=== PATIENT | male | born 1955 | race Caucasian/White ===

== ENCOUNTER 2018-09-19 13:07 | Inpatient (IN) | payer MEDICARE, OTHER ==
[~2018-09-19] VITALS: Ht 175.3 cm; Wt 81.3 kg
--- NOTE | 2018-09-19 13:20 | ERD ---
ER Documentation Chief Complaint Chief Complaint left sided chest pain HPI The patient is a 63-year-old male, presenting to the ER because of left-sided chest pain, headache, subjective fever for 1 day. He denies chills, facial pain , cough, neck pain, chest pain with vomiting/radiation/exertion/diaphoresis, dyspnea, abdominal pain, vomiting, dysuria, diarrhea. He does not smoke, drinks socially, denies any illicit drug Past medical history: Psoriasis, diabetes mellitus Surgical History: Right lower extremity surgery ROS All systems reviewed and are negative except as per history of present illness. Medications Home Meds Reported Medications Betamethasone Dipropionate* (Betamethasone Dipropionate*) 0.05% - 45 Gm Cream.gm., TOP BID apply to affected 09/19/18 Etanercept (Enbrel Mini) 50 Mg/1 Ml Cartridge, 1 TAB SC weekly We09/19/18 Somers-3 Fatty Acids/Fish Oil (Fish Oil 1,000 mg Capsule) 1 Each Capsule, 1 CAP PO DAILY, CAP 09/19/18 Betamethasone Dipropionate* (Betamethasone Dipropionate*) 0.05% - 15 Gm Oint, 1 BID apply to affected area 09/19/18 Leflunomide* (Leflunomide*) 20 Mg Tablet, 1 TAB ORAL DAILY 09/19/18 Metformin Hcl* (Metformin Hcl*) 1,000 Mg Tablet, 1 TAB ORAL BID 09/19/18 Atorvastatin* (Atorvastatin*) 40 Mg Tablet, 1 TAB ORAL QHS 09/19/18 Lisinopril* (Lisinopril*) 2.5 Mg Tablet, 1 TAB ORAL DAILY 09/19/18 Acetaminophen (Acetaminophen) 500 Mg Tablet, 1 TAB ORAL Q6 PRN for MILD PAIN(1- 3)OR ELEVATED TEMP 09/19/18 Glipizide* (Glipizide*) 5 Mg Tablet, 1 TAB ORAL BID 09/19/18 Allergies Allergies: Coded Allergies: No Known Allergy (Unverified , 09/19/18) Physical Exam Vitals Vital Signs Date Temp Pulse Resp B/P (MAP) Pulse Ox O2 O2 Flow FiO2 Time Delivery Rate 09/19/18 89 16 108/79 99 Room Air 19:51 (89) 09/19/18 100.5 125 18 103/45 99 Nasal 2.0 17:01 (64) Cannula 09/19/18 100.5 149 18 97/70 (79) 99 Nasal 2.0 16:47 Cannula 09/19/18 100.5 175 22 76/51 (59) 96 Room Air 2.0 16:30 Nasal Cannula 09/19/18 100.5 160 22 85/47 (60) 99 Nasal 2.0 16:23 Cannula 09/19/18 100.5 123 16 107/73 99 15:58 (84) 09/19/18 38.1 15:55 09/19/18 100.5 125 16 103/68 99 15:06 (80) 09/19/18 Nasal 2 13:47 Cannula 09/19/18 100.5 121 16 116/63 99 13:13 (80) Physical Exam Const: No acute distress. Head: Atraumatic. Eyes: Normal Conjunctiva. ENT: Normal External Ears, Nose and Mouth. Neck: Full range of motion. No meningismus. Resp: Clear to auscultation bilaterally. Cardio: Regular tachycardic Abd: Soft, non distended, normal bowel sounds, non tender. Skin: No petechiae or rashes. Back: No midline or flank tenderness. Ext: No cyanosis, or edema. Neur: Awake and alert. No focal deficit Psych: Normal Mood and Affect. Result Diagram: 09/19/18 1337 09/19/18 1337 Results 24 hrs Laboratory Tests Test 09/19/18 13:36 09/19/18 13:37 09/19/18 15:20 09/19/18 15:45 POC Venous 1.7 mmol/L Lactate White Blood Count 14.6 10^3/ul Red Blood Count 5.09 10^6/ul Hemoglobin 15.2 g/dl Hematocrit 45.1 % Mean Corpuscular 88.6 fl Volume Mean Corpuscular 29.9 pg Hemoglobin Mean Corpuscular 33.7 g/dl Hemoglobin Concen t Red Cell 12.5 % Distribution Width Platelet Count 212 10^3/UL Mean Platelet 12.5 fl Volume Immature 0.300 % Granulocytes % Neutrophils % 80.2 % Lymphocytes % 10.8 % Monocytes % 7.9 % Eosinophils % 0.3 % Basophils % 0.5 % Nucleated Red 0.0 /100WBC Blood Cells % Immature 0.040 10^3/ul Granulocytes # Neutrophils # 11.7 10^3/ul Lymphocytes # 1.6 10^3/ul Monocytes # 1.2 10^3/ul Eosinophils # 0.0 10^3/ul Basophils # 0.1 10^3/ul Nucleated Red 0.0 10^3/ul Blood Cells # Prothrombin Time 13.5 Sec Prothrombin Time 1.1 Ratio INR International 1.02 Normalized Ratio Activated 23.5 Sec Partial Thrombopl ast Time Sodium Level 135 mmol/L Potassium Level 4.7 mmol/L Chloride Level 97 mmol/L Carbon Dioxide 27 mmol/L Level Anion Gap 11 Blood Urea 11 mg/dl Nitrogen Creatinine 0.79 mg/dl Est Glomerular > 60 mL/min Filtrat Rate mL/min Glucose Level 176 mg/dl Calcium Level 9.0 mg/dl Total Bilirubin 1.6 mg/dl Direct Bilirubin 0.00 mg/dl Indirect 1.6 mg/dl Bilirubin Aspartate Amino 23 IU/L Transf (AST/SGOT) Alanine 33 IU/L Aminotransferase (ALT/SGPT) Alkaline 78 IU/L Phosphatase Troponin I < 0.012 ng/ml Total Protein 7.2 g/dl Albumin 4.3 g/dl Globulin 2.90 g/dl Albumin/Globulin 1.48 Ratio Thyroid 2.600 MIU/L Stimulating Hormone (TSH) Urine Color EDGARD Urine Clarity CLEAR Urine pH 5.0 Urine Specific 1.020 [place] Urine Ketones TRACE mg/dL Urine Nitrite NEGATIVE mg/dL Urine Bilirubin NEGATIVE mg/dL Urine NEGATIVE mg/dL Urobilinogen Urine Leukocyte NEGATIVE [place]/ul Esterase Urine Hemoglobin NEGATIVE mg/dL Urine Glucose NEGATIVE mg/dL Urine Total NEGATIVE mg/dl Protein Lactic Acid Level 2.0 mmol/L Test 09/19/18 15:57 09/19/18 19:22 Bedside Urine pH 6.0 (LAB) Bedside Urine Trace Protein (LAB) Bedside Urine Negative Glucose (UA) Bedside Urine 1+ Ketones (LAB) Bedside Urine Negative Blood Bedside Urine Negative Nitrite (LAB) Bedside Urine Negative Leukocyte Esteras e (L Lactic Acid Level 1.8 mmol/L Current Medications Medications Dose Sig/Shanelle Start Time Status Last (Trade) Ordered Route PRN Stop Time Admin Dose Reason Admin Sodium 2,320 ml BOLUS OVER 2 09/19/18 DC 09/19/18 Chloride HOURS STAT 13:28 13:39 (NS) IV* 09/19/18 13:30 650 mg ONCE ONCE 09/19/18 DC 09/19/18 Acetaminophen PO 16:00 15:55 (Tylenol 09/19/18 16:01 Tab) Sodium 1,000 ml @ Q1H ONCE 09/19/18 DC 09/19/18 Chloride 1,000 mls/hr IV 16:00 15:54 09/19/18 16:59 Ketorolac 30 mg ONCE STAT 09/19/18 DC 09/19/18 Tromethamine IV 15:45 15:55 (Toradol) 09/19/18 15:51 Aspirin 325 mg ONCE ONCE 09/19/18 DC 09/19/18 (Aspirin) PO 16:00 15:55 09/19/18 16:01 250 ml @ TITRATE IV 09/19/18 09/19/18 Norepinephrin 1.875 mls/ 16:30 16:33 e hr Vancomycin 250 ml @ ONCE ONCE 09/19/18 DC 09/19/18 HCl 125 mls/hr IVPB 16:30 18:27 09/19/18 18:29 Piperacillin 100 ml @ ONCE ONCE 09/19/18 DC 09/19/18 Sod/ 200 mls/hr IVPB 16:30 16:36 Tazobactam 09/19/18 16:59 Sod Iohexol 100 ml @ ud STK-MED 09/19/18 DC ONCE .ROUTE 16:31 09/19/18 16:32 Sodium 100 ml @ ud STK-MED 09/19/18 DC Chloride ONCE .ROUTE 16:31 09/19/18 16:32 Procedures/[place] [address] Radiology Main Line: [phone] DIAGNOSTIC IMAGING REPORT Patient: KI FELIX : 1955 Age: 63 Sex: M MR #: [id number] DOS: 09/19/18 1714 Ordering MD: JOAO SCHWARZ MD Location: E/R Room/Bed: PROCEDURE: CT ABDOMEN AND PELVIS WITH CONTRAST CLINICAL INDICATION: 63-year-old male. Abdominal pain. TECHNIQUE: CT scan of the abdomen and pelvis with contrast was performed on a multi-slice CT scanner utilizing axial imaging from the lung bases through the pubis symphysis. One or more the following does reduction techniques were utilized: Automated exposure control, adjustment of the mA/ or kV according to patient's size, or use of iterative reconstruction technique. Sagittal and coronal reformatted images were made. DICOM images are available for review. The CTDIvol = 12.59 mGy. DLP = 807.53 mGy.cm. CONTRAST: 90 cc Omnipaque-300 IV COMPARISON: Right upper quadrant ultrasound 09/19/2018. FINDINGS: CT abdomen Visualized lung bases: Dependent changes and subsegmental atelectasis posterior lower lobes. Pleural parenchymal scarring medial inferior left upper lobe. Moderate pericardial effusion, HU 20. No significant pleural effusion. Liver: No focal liver lesion. Mild periportal edema. Capsule margin is smooth. Patent portal vein. Gallbladder and bile ducts: No calcified gallstones. Pericholecystic fluid is present. There is increased soft tissue reticulation in the periportal fat. No biliary ductal dilatation. Spleen: Normal appearance. Pancreas: Normal appearance. No ductal dilatation. No mass. No peripancreatic stranding. Adrenal glands: Normal appearance. Kidneys: Horseshoe kidney. Symmetric nephrograms. No hydronephrosis or renal stones. No solid lesions. Vasculature: No abdominal aortic aneurysm. Calcified plaque present. Negative IVC. Lymph nodes: No adenopathy. GI: No hiatal hernia. No evidence of obstruction or bowel wall thickening. Peritoneal cavity: There is a small amount of free fluid around the dome of the liver. Inflammatory changes are in the fat surrounding the ligamentum teres as it courses through the liver and in the anterior right upper quadrant. CT pelvis GI: Negative terminal ileum. Negative appendix. Sigmoid diverticulosis. Stool filled rectum. : Normal appearing distal ureters and partially filled urinary bladder. Slightly heterogeneous normal size prostate gland. Peritoneal cavity: There is soft tissue stranding and minimal fluid in the mid left pelvis. Lymph nodes: No pathologic adenopathy. Osseous structures: No lytic or blastic lesions. Mild right hip osteoarthritis. Minimal chondrocalcinosis left hip. L4-5 disc degeneration with vacuum p henomenon. Chronic narrowing L5-S1 disc with endplate osteophytes. IMPRESSION: 1. Gallstones demonstrated on the ultrasound are not apparent on CT. 2. Findings suspicious for acute cholecystitis. 3. Moderate pericardial effusion, HU 20, indicating this does not represent simple fluid. 4. Mild periportal edema, nonspecific finding. 5. Horseshoe kidney. 6. Sigmoid diverticulosis. There is minimal soft tissue stranding and fluid in the left mid pelvic fat which could represent mild inflammatory change. 7. Small amount of free fluid around the liver. RPTAT: HLRS Physician Mandie Date Time Electronically viewed and signed by Armando Heck Physician on 09/19/2018 19:13 RS/ CC: JOAO SCHWARZ MD [id number] [place] [address] Radiology Main Line: [phone] DIAGNOSTIC IMAGING REPORT Patient: KI FELIX : 1955 Age: 63 Sex: M MR #: [id number] DOS: 09/19/18 1623 Ordering MD: JOAO SCHWARZ MD Location: E/R Room/Bed: PROCEDURE: CTA Chest. CLINICAL INDICATION: Chest pain and shortness of breath TECHNIQUE: Continues 1.25 mm axial images were obtained from lung apices to the domes of diaphragms following intravenous injection of 100 cc of Isovue 370. Images reconstructed in coronal, sagittal, and 3-D format using maximum intensity projection technique.. The calculated dose length product (DLP) = 578.08 mGy-cm. The CTDlvol = 15.59 mGy. One or more of the following dose reduction techniques were used: Automated exposure control, adjustment of the mA and or KV according to patient size, or use of iterative reconstruction technique. DICOM images are available. COMPARISON: No prior studies are available for comparison. FINDINGS: Images through the pulmonary arteries demonstrates no evidence of large or central pulmonary emboli. Ascending and descending thoracic aorta are normal in caliber without aneurysmal dilatation or dissection. Heart chambers are normal in size. There is moderate sized pericardial effusion extending superiorly into the pericardial recess around the ascending thoracic aorta. There are reactive precarinal and superior mediastinal lymph nodes measuring up to 9.6 mm. No frankly pathologic adenopathy is seen. Evaluation of the lung pickett demonstrates no confluent pneumonia, pleural fluid or pneumothorax. No suspicious or dominant lung nodules/masses are seen. The bronchi are normal in caliber. There is a benign-appearing expansile cystic lesion involving the inferior tip at the right scapula which may be related to old trauma. No destructive bony lesions are seen. IMPRESSION: 1. No evidence of large or central pulmonary emboli. 2. No aortic aneurysm or dissection. 3. Moderate sized pericardial effusion. 4. Reactive mediastinal adenopathy. No pathologic adenopathy. 5. Lungs grossly clear. 6. Expansile benign-appearing lesion/process along the inferior right scapular tip. Recommend correlation with dedicated x-rays RPTAT: HH .Gopi Woody MD, MD Date Time Electronically viewed and signed by .Gopi Woody MD, MD on 09/19/2018 19:06 .W/ CC: JOAO SCHWARZ MD [id number] [place] [address] Radiology Main Line: [phone] DIAGNOSTIC IMAGING REPORT Patient: KI FELIX : 1955 Age: 63 Sex: M MR #: [id number] DOS: 09/19/18 1543 Ordering MD: JOAO SCHWARZ MD Location: E/R Room/Bed: PROCEDURE: Right upper quadrant abdominal ultrasound. CLINICAL INDICATION: Abdominal pain TECHNIQUE: Levine scale and color doppler ultrasound images of the right upper quadrant of the abdomen. COMPARISON: None FINDINGS: Pancreas: Visualized portions appear of normal echogenicity without focal lesions. Liver: Morphology:Normal in size. Contour:Normal, no evidence of nodularity. Echogenicity: Increased Focal lesions:None. Main portal vein: Patent with hepatopetal flow. Biliary System: Gallbladder wall: Wall thickening and edema are present. Gallstones: Present Intrahepatic bile ducts: Normal caliber. Common bile duct diameter (mm): 6.2 Kidneys: Right length (cm) : 10.2 Right cortical thickness: Normal. Echogenicity: Normal. Hydronephrosis: None. Renal calculi: None. Focal lesions: None. Free fluid/ascites: None. Other findings: None. IMPRESSION: Gallstone present within the neck of the gallbladder. Gallbladder wall thickening and edema compatible with cholecystitis. Increased echogenicity of the liver parenchyma suggestive of hepatic steatosis. RPTAT: AADD .Jeovanny Waggoner MD, MD Date Time Electronically viewed and signed by .Jeovanny Waggoner MD, on 09/19/2018 16:22 .B/ CC: JOAO SCHWARZ MD [id number] [place] [address] Radiology Main Line: [phone] DIAGNOSTIC IMAGING REPORT Patient: KI FELIX : 1955 Age: 63 Sex: M MR #: [id number] DOS: 09/19/18 1328 Ordering MD: JOAO SCHWARZ MD Location: E/R Room/Bed: PROCEDURE: XR Chest AP portable CLINICAL INDICATION: Sepsis TECHNIQUE: An AP portable radiograph of the chest was submitted. COMPARISON: None. FINDINGS: Support Hardware: None Cardiovascular: The cardiovascular silhouette appears unremarkable. Lung Pickett: The patient is taken a suboptimal inspiration compressing lung parenchyma. No discrete infiltrate or nodule is evident. Pleural Spaces: No pneumothorax or pleural effusion is identified. Osseous Structures: The osseous structures appear intact. Soft Tissues: The soft tissues appear generous. IMPRESSION: 1. Suboptimal inspiration compresses lung parenchyma. The lung pickett and pleural spaces are otherwise unremarkable. 2. The cardiovascular silhouette appears unremarkable. Physician Mitchell Date Time Electronically viewed and signed by Physician Mitchell on 09/19/2018 13:58 RH/ CC: JOAO SCHWARZ MD [id number] EK:17 PM read by emergency physician Rate/Rhythm: Sinus Tachycardia 122 beats/min QRS, ST, T-waves: No ST elevation, no T inversion, PAC, low voltage Impression: Abnormal EKG EK:18 PM read by emergency physician Rate/Rhythm: Sinus Tachycardia 125 beats/min QRS, ST, T-waves: No ST elevation, no T inversion, PAC, low voltage Impression: Abnormal EKG Consultation: I discussed the patient with the on-call surgeon Dr Vega, who evaluated the patient in the ER MEDICAL MAKING DECISION: The patient is a 63-year-old male, presenting with septic shock, acute cholecystitis, acute pericardial effusion He was treated with Tylenol in 6 to 50 mg p.o. for fever, normal saline 30 mm/kg IV, vancomycin IV, Zosyn IV, additional NS 1 L IV and Levophed drip due to acute septic shock, Toradol 30 mg IV for pain and aspirin 325 mg p.o. for acute chest pain The differential diagnoses considered include but are not limited to ACS, PE, perforated viscus, cholelithiasis, cholecystitis, choledocholithiasis, cholangitis, pancreatitis, hepatitis, gastritis, peptic ulcer disease, gastric ulcer, appendicitis, cystitis, diverticulitis, partial small bowel obstruction. MDM: Patient's infectious symptoms have not stabilized and the patient is at risk of rapid decompensation. The patient will be admitted for careful hydration, anti biotic therapy, and infectious source control. SEVERE SEPSIS CRITERIA: Infectious source: cholecystitis End organ damage indicated by: Hypotension (SBP < 90 or >40 mmHG drop or MAP < 65) SEPSIS MANAGEMENT Time of recognition of septic shock: 16:30hr 3 HOUR BUNDLE Blood cultures x 2 before broad-spectrum antibiotics: [Yes] 30 ml/kg NS bolus [Completed] Initial lactate []1.7 Repeat lactate Pending SEPTIC SHOCK ASSESSMENT: [No] lactic acid > 4.0 [Y] Persistent hypotension (SBP < 90 or 40 mmHg drop, MAP < 65) despite 30 mL/kg IV fluid bolus VOLUME REASSESSMENT FOR SEPTIC SHOCK: Reevaluation Time: []16:30hr Temp []100.5, BP []76/51, HR []175, RR[]22, Pox []96% Heart [Regular tachycardic] Lungs [No crackles] Skin [Warm & dry] Cap Refill [Less than 2 seconds] Peripheral pulses [Radially present] PERSISTENT HYPOTENSION TREATMENT: Comfort care [No] Central line RIJ Vasopressor started Levophed drip I considered further perfusion assessment with CVP measurement, SCVO2, bedside ultrasound volume assessment, passive leg raise, trial of further fluid bolus. And proceeded with [30 ml/kg fluid bolus of NSS and additional 1L NS, broad spectrum antibiotics, and admission.] CRITICAL CARE Critical care time [35] minutes Emergent fluid management while maintaining close respiratory support. Provision of immediate and broad-spectrum antibiotic therapy. Simultaneous assessment for possible sources in order to direct targeted therapy. Con sideration for invasive and chemical support to prevent cardiopulmonary collapse. Critical care time is independent of procedures performed. Central Line Placement by me: After the patient was consented and a time out was performed, appropriate hand hygiene was performed, the skin site was fully prepped and maximal sterile barrier technique was employed where the patient was sterilely draped, and the provider wore a mask and sterile gown and gloves. Anesthesia: 1% lidocaine locally Location: RIJ Device: Multiple lumen Technique: Seldinger technique. Secured with suture. Results: Venous return from all ports with easy saline flush. No complications. []Guide wire retrieved and disposed of. ED Ultrasound: Central line placed by me using concurrent ultrasound guidance done using sterile technique. Real time image archived in the medical record confirms vascular anatomy. Chest X-ray 1V Interpreted by me: Central line in SVC, Normal soft tissue, No evidence of pneumothorax. Departure Diagnosis: Primary Impression: Septic shock Additional Impressions: Cholecystitis Pericardial effusion Chest pain Abnormal LFTs Condition: Critical Comments I discussed the findings with the patient. I notified the patient with at 7:20 PM via [employer] , who was made aware of the lab, the treatment, the patient condition. The patient is admitted to ICU Disclaimer: Inadvertent spelling and grammatical errors are likely due to EHR/di ctation software use and do not reflect on the overall quality of patient care. Also, please note that the electronic time recorded on this note does not necessarily reflect the actual time of the patient encounter. JOAO SCHWARZ MD Sep 19, 2018 13:20
[2018-09-19] MEDS ORDERED: SODIUM CHLORIDE 0.9% 1L BAG IV* STA (13:28)
[2018-09-19] MEDS ORDERED: LEFL20TA18 ORAL (14:47)
[2018-09-19] MEDS ORDERED: ATOR40TA68 ORAL (14:47)
[2018-09-19] MEDS ORDERED: ACET500T98 ORAL (14:47)
[2018-09-19] MEDS ORDERED: METF100010 ORAL (14:47)
[2018-09-19] MEDS ORDERED: ETAN50CA SC (14:47)
[2018-09-19] MEDS ORDERED: LISI2.5T59 ORAL (14:47)
[2018-09-19] MEDS ORDERED: GLIP5TAB13 ORAL (14:47)
[2018-09-19] MEDS ORDERED: OMEG-135 PO (14:47)
[2018-09-19] MEDS ORDERED: BTM.05O15 (14:47)
[2018-09-19] MEDS ORDERED: BETA45CR3 TOP (14:47)
[2018-09-19] MEDS ORDERED: KETOROLAC 30 MG INJ IV STA (15:45)
[2018-09-19] MEDS ORDERED: ACETAMINOPHEN 325 MG TAB PO ONE (16:00)
[2018-09-19] MEDS ORDERED: SOD CHLORIDE 0.9% 1,000 ML IV ONE (16:00)
[2018-09-19] MEDS ORDERED: ASPIRIN 325 MG TAB PO ONE (16:00)
[2018-09-19] MEDS ORDERED: NORepinephrine 8MG/250 ML (PMX 250 ML IV SCH (16:30)
[2018-09-19] MEDS ORDERED: VANCOMYCIN 1 GM (PMX) 250 ML IVPB ONE (16:30)
[2018-09-19] MEDS ORDERED: PIPER-TAZO 3.375 GM IV (PMX) 100 ML IVPB ONE (16:30)
[2018-09-19] MEDS ORDERED: SOD CHLORIDE 0.9% 100 ML ONE (16:31)
[2018-09-19] MEDS ORDERED: IOHEXOL 100 ML ONE (16:31)
--- NOTE | 2018-09-19 19:39 | HP ---
Date/Time of Note Date/Time of Note DATE: 09/19/18 TIME: 19:38 Assessment/Plan VTE Prophylaxis SCD applied (from Nsg): Yes Pharmacological prophylaxis: NA/contraindicated Pharm contraindication: low risk/ambulating Lines/Catheters IV Catheter Type (from Nrsg): Saline Lock Assessment/Plan Hospital Course This is a 63 [place] being admitted to the ICU floor for: 1. Septic shock: Secondary to underlying acute cholecystitis. Broad-spectrum antibiotics of Zosyn. Patient is currently on levophed to maintain a map of greater than 65. Culture results are pending. Trend lactic acid level. 2. Chest pain: Initial troponin negative, will trend cardiac enzymes x3. I will order stat echocardiogram given patient's underlying pericardial effusion seen on CTA of the chest. Will consult cardiology . 3. Pericardial effusion: Etiology unknown, possibly secondary to underlying autoimmune disease. CTA of the chest shows moderate pericardial effusion. Will obtain a stat echocardiogram. Consult cardiology . 4. Acute cholecystitis: We will continue Zosyn, general surgery already on board. 5. Scapular lesion: We will obtain dedicated shoulder series x-rays. 6. Psoriasis: Hold methotrexate, Enbrel, leflunomide 7. 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 9. DVT GI prophylaxis: SCDs, H2 sheldon Further treatment strategy will be implemented as per the clinical course Greater than 40 minutes of critical care time was spent on the care and management of this patient. Result Diagram: 09/19/18 1337 09/19/18 1337 Results 24hrs Laboratory Tests Test 09/19/18 13:36 09/19/18 13:37 09/19/18 15:20 09/19/18 15:45 POC Venous Lactate 1.7 White Blood Count 14.6 H Red Blood Count 5.09 Hemoglobin 15.2 Hematocrit 45.1 Mean Corpuscular 88.6 Volume Mean Corpuscular 29.9 Hemoglobin Mean Corpuscular 33.7 Hemoglobin Concent Red Cell 12.5 Distribution Width Platelet Count 212 Mean Platelet Volume 12.5 H Immature 0.300 Granulocytes % Neutrophils % 80.2 H Lymphocytes % 10.8 L Monocytes % 7.9 Eosinophils % 0.3 Basophils % 0.5 Nucleated Red Blood 0.0 Cells % Immature 0.040 H Granulocytes # Neutrophils # 11.7 H Lymphocytes # 1.6 Monocytes # 1.2 H Eosinophils # 0.0 Basophils # 0.1 Nucleated Red Blood 0.0 Cells # Prothrombin Time 13.5 Prothrombin Time 1.1 Ratio INR International 1.02 Normalized Ratio Activated 23.5 Partial Thromboplast Time Sodium Level 135 Potassium Level 4.7 Chloride Level 97 Carbon Dioxide Level 27 Anion Gap 11 Blood Urea Nitrogen 11 Creatinine 0.79 Est Glomerular > 60 Filtrat Rate mL/min Glucose Level 176 Calcium Level 9.0 Total Bilirubin 1.6 H Direct Bilirubin 0.00 Indirect Bilirubin 1.6 H Aspartate Amino 23 Transf (AST/SGOT) Alanine 33 Aminotransferase (AL T/SGPT) Alkaline Phosphatase 78 Troponin I < 0.012 Total Protein 7.2 Albumin 4.3 Globulin 2.90 Albumin/Globulin 1.48 Ratio Thyroid Stimulating 2.600 Hormone (TSH) Urine Color EDGARD Urine Clarity CLEAR Urine pH 5.0 Urine Specific 1.020 [place] Urine Ketones TRACE A Urine Nitrite NEGATIVE Urine Bilirubin NEGATIVE Urine Urobilinogen NEGATIVE Urine Leukocyte NEGATIVE Esterase Urine Hemoglobin NEGATIVE Urine Glucose NEGATIVE Urine Total Protein NEGATIVE Lactic Acid Level 2.0 Test 09/19/18 15:57 Bedside Urine pH 6.0 (LAB) Bedside Urine Trace H Protein (LAB) Bedside Urine Negative Glucose (UA) Bedside Urine 1+ H Ketones (LAB) Bedside Urine Blood Negative Bedside Urine Negative Nitrite (LAB) Bedside Urine Negative Leukocyte Esterase (L HPI/ROS Admit Date/Time Admit Date/Time Hx of Present Illness Chief complaint: Left-sided chest pain headache, right upper quadrant abdominal pain This is a 63-year-old male presented with multiple complaints to the emergency department. He states that he has had left-sided chest pain along with a headache for 2 days. He states that the pain in his chest is worsening with respiration. Patient also reports having right upper quadrant abdominal pain. He does report that he had a fever. Denies any nausea vomiting or shortness of breath. Denies any diarrhea.He does have a history of psoriasis and receives methotrexate and Enbrel daily. He also has a history of diabetes. Patient's imaging studies were concerning for acute cholecystitis and possible moderate pericardial effusion. Stat echocardiogram is pending. His blood pressures were not improving despite fluid challenge and a central line was placed and he is currently on pressor support of levophed. He was seen by the general surgeon for acute cholecystitis who recommended further work-up for cardiac and intra-abdominal pathologies. Allergies: NKDA Medications: As per MAR ROS Const: As per HPI Eyes : No pain discharge or redness or change in visual acuity ENT: No pain, sore throat, congestion, congestion, dysphagia or discharge Respiratory: As per HPI Cardiovascular: As per HPI GI : As per HPI Genitourinary: No dysuria, hematuria, flank pain , discharge or CVA tenderness Musculoskeletal: No joint pain, back pain, neck pain, restricted range of motion in neck or joints Skin: No rash, bruising or hives Neuro: No headache, dizziness, syncope, seizure, focal weakness Endocrine: No polyuria, polydipsia, temperature intolerance Psych: No hallucination, depression, anxiety or suicidal ideation PMH/Family/Social Past Medical History Psoriasis, diabetes mellitus, htn, hldn Psoriasis, Medications Current Medications Norepinephrine 250 ml @ 1.875 mls/ hr TITRATE IV Last administered on 09/19/18at 16:33; Admin Dose 1.875 MLS/HR; Start 09/19/18 at 16:30 Coded Allergies: No Known Allergy (Unverified , 09/19/18) Past Surgical History Right knee sx Family History Significant Family History: no pertinent family hx Social History Alcohol Use: rarely Smoking Status: Never smoker Drug Use: none Exam/Review of Systems Vital Signs Vitals Vital Signs Date Temp Pulse Resp B/P (MAP) Pulse Ox O2 O2 Flow FiO2 Time Delivery Rate 09/19/18 100.5 125 18 103/45 99 Nasal 2.0 17:01 (64) Cannula Exam Exam General: Patient is currently lying in bed, in mild distress from right upper quadrant abdominal pain HEENT: Atraumatic, normocephalic. The pupils are equal, round and reactive. Extraocular motor are intact Neck: Supple with full range of motion. No rigidity or meningismus Chest: Nontender Lungs: Clear to auscultation bilaterally no crackles rales or wheezing Heart: Normal S1-S2, Regular rhythm and rate. No overt murmurs appreciated on auscultation Abdomen: Soft , right upper quadrant tenderness to palpation,, nondistended , bowel sounds are present. No guarding no rebound tenderness , No masses or organomegaly. No costovertebral temporal angle mass Extremities: Normal to inspection, no edema no cyanosis Neurologic: Normal mental status, speech normal, cranial nerves II through XII are intact, motor and sensory are intact, no focal weakness Additional Comments PROCEDURE: CT ABDOMEN AND PELVIS WITH CONTRAST CLINICAL INDICATION: 63-year-old male. Abdominal pain. TECHNIQUE: CT scan of the abdomen and pelvis with contrast was performed on a multi-slice CT scanner utilizing axial imaging from the lung bases through the pubis symphysis. One or more the following does reduction techniques were uti lized: Automated exposure control, adjustment of the mA/ or kV according to patient's size, or use of iterative reconstruction technique. Sagittal and coronal reformatted images were made. DICOM images are available for review. The CTDIvol = 12.59 mGy. DLP = 807.53 mGy.cm. CONTRAST: 90 cc Omnipaque-300 IV COMPARISON: Right upper quadrant ultrasound 09/19/2018. FINDINGS: CT abdomen Visualized lung bases: Dependent changes and subsegmental atelectasis posterior lower lobes. Pleural parenchymal scarring medial inferior left upper lobe. Moderate pericardial effusion, HU 20. No significant pleural effusion. Liver: No focal liver lesion. Mild periportal edema. Capsule margin is smooth. Patent portal vein. Gallbladder and bile ducts: No calcified gallstones. Pericholecystic fluid is present. There is increased soft tissue reticulation in the periportal fat. No biliary ductal dilatation. Spleen: Normal appearance. Pancreas: Normal appearance. No ductal dilatation. No mass. No peripancreatic stranding. Adrenal glands: Normal appearance. Kidneys: Horseshoe kidney. Symmetric nephrograms. No hydronephrosis or renal stones. No solid lesions. Vasculature: No abdominal aortic aneurysm. Calcified plaque present. Negative IVC. Lymph nodes: No adenopathy. GI: No hiatal hernia. No evidence of obstruction or bowel wall thickening. Peritoneal cavity: There is a small amount of free fluid around the dome of the liver. Inflammatory changes are in the fat surrounding the ligamentum teres as it courses through the liver and in the anterior right upper quadrant. CT pelvis GI: Negative terminal ileum. Negative appendix. Sigmoid diverticulosis. Stool filled rectum. : Normal appearing distal ureters and partially filled urinary bladder. Slightly heterogeneous normal size prostate gland. Peritoneal cavity: There is soft tissue stranding and minimal fluid in the mid left pelvis. Lymph nodes: No pathologic adenopathy. Osseous structures: No lytic or blastic lesions. Mild right hip osteoarthritis. Minimal chondrocalcinosis left hip. L4-5 disc degeneration with vacuum phenomenon. Chronic narrowing L5-S1 disc with endplate osteophytes. IMPRESSION: 1. Gallstones demonstrated on the ultrasound are not apparent on CT. 2. Findings suspicious for acute cholecystitis. 3. Moderate pericardial effusion, HU 20, indicating this does not represent simple fluid. 4. Mild periportal edema, nonspecific finding. 5. Horseshoe kidney. 6. Sigmoid diverticulosis. There is minimal soft tissue stranding and fluid in the left mid pelvic fat which could represent mild inflammatory change. 7. Small amount of free fluid around the liver. RPTAT: [facility] Physician Mandie Date Time Electronically viewed and signed by Physician Mandie on 09/19/2018 19:13 RS/ CC: JOAO SCHWARZ MD [id number] PROCEDURE: CTA Chest. CLINICAL INDICATION: Chest pain and shortness of breath TECHNIQUE: Continues 1.25 mm axial images were obtained from lung apices to the domes of diaphragms following intravenous injection of 100 cc of Isovue 370. Images reconstructed in coronal, sagittal, and 3-D format using maximum intensity projection technique.. The calculated dose length product (DLP) = 578.08 mGy-cm. The CTDlvol = 15.59 mGy. One or more of the following dose reduction techniques were used: Automated exposure control, adjustment of the mA and or KV according to patient size, or use of iterative reconstruction technique. DICOM images are available. COMPARISON: No prior studies are available for comparison. FINDINGS: Images through the pulmonary arteries demonstrates no evidence of large or central pulmonary emboli. Ascending and descending thoracic aorta are normal in caliber without aneurysmal dilatation or dissection. Heart chambers are normal in size. There is moderate sized pericardial effusion extending superiorly into the pericardial recess around the ascending thoracic aorta. There are reactive precarinal and superior mediastinal lymph nodes measuring up to 9.6 mm. No frankly pathologic adenopathy is seen. Evaluation of the lung pickett demonstrates no confluent pneumonia, pleural fluid or pneumothorax. No suspicious or dominant lung nodules/masses are seen. The bronchi are normal in caliber. There is a benign-appearing expansile cystic lesion involving the inferior tip at the right scapula which may be related to old trauma. No destructive bony lesions are seen. IMPRESSION: 1. No evidence of large or central pulmonary emboli. 2. No aortic aneurysm or dissection. 3. Moderate sized pericardial effusion. 4. Reactive mediastinal adenopathy. No pathologic adenopathy. 5. Lungs grossly clear. 6. Expansile benign-appearing lesion/process along the inferior right scapular tip. Recommend correlation with dedicated x-rays RPTAT: HH .Gopi Woody MD, MD Date Time Electronically viewed and signed by .Gopi Woody MD, MD on 09/19/2018 19:06 .W/ CC: JOAO SCHWARZ MD [id number] PROCEDURE: Right upper quadrant abdominal ultrasound. CLINICAL INDICATION: Abdominal pain TECHNIQUE: Levine scale and color doppler ultrasound images of the right upper quadrant of the abdomen. COMPARISON: None FINDINGS: Pancreas: Visualized portions appear of normal echogenicity without focal lesions. Liver: Morphology:Normal in size. Contour:Normal, no evidence of nodularity. Echogenicity: Increased Focal lesions:None. Main portal vein: Patent with hepatopetal flow. Biliary System: Gallbladder wall: Wall thickening and edema are present. Gallstones: Present Intrahepatic bile ducts: Normal caliber. Common bile duct diameter (mm): 6.2 Kidneys: Right length (cm) : 10.2 Right cortical thickness: Normal. Echogenicity: Normal. Hydronephrosis: None. Renal calculi: None. Focal lesions: None. Free fluid/ascites: None. Other findings: None. IMPRESSION: Gallstone present within the neck of the gallbladder. Gallbladder wall thickening and edema compatible with cholecystitis. Increased echogenicity of the liver parenchyma suggestive of hepatic steatosis. RPTAT: AADD .Jeovanny Waggoner MD, MD Date Time Electronically viewed and signed by .Jeovanny Waggoner MD, on 09/19/2018 16:22 .B/ CC: JOAO SCHWARZ MD [id number] PROCEDURE: XR Chest AP portable CLINICAL INDICATION: Sepsis TECHNIQUE: An AP portable radiograph of the chest was submitted. COMPARISON: None. FINDINGS: Support Hardware: None Cardiovascular: The cardiovascular silhouette appears unremarkable. Lung Pickett: The patient is taken a suboptimal inspiration compressing lung parenchyma. No discrete infiltrate or nodule is evident. Pleural Spaces: No pneumothorax or pleural effusion is identified. Osseous Structures: The osseous structures appear intact. Soft Tissues: The soft tissues appear generous. IMPRESSION: 1. Suboptimal inspiration compresses lung parenchyma. The lung pickett and pleural spaces are otherwise unremarkable. 2. The cardiovascular silhouette appears unremarkable. Physician Mitchell Date Time Electronically viewed and signed by Physician Mitchell on 09/19/2018 13:58 RH/ CC: JOAO SCHWARZ MD [id number] SONA ANDERSON Sep 19, 2018 19:39
--- NOTE | 2018-09-19 20:31 | CONS ---
Assessment/Plan Assessment/Plan Assessment/Plan (Daily) Acute cholecystitis unless proven otherwise. The patient will need a cardiac work-up to rule out PE or myocardial ischemia, as well as a CT scan of the abdomen to rule out perforated viscus or other intra-abdominal pathology. Consultation Date/Type/Reason Admit Date/Time Date of Consultation: Sep 19, 2018 Type of Consult Surgical Reason for Consultation Acute cholecystitis Date/Time of Note DATE: 09/19/18 TIME: 20:26 Hx of Present Illness 63-year-old male with a history of diabetes hypertension was admitted through emergency room with a history of left-sided chest pain, back pain most of the upper part, hypertension and fever. The patient described this condition started approximately 24 hours ago. Patient denies nausea and vomiting. Patient denies abdominal pain. Patient was admitted to the emergency room with the EKG and troponin actually ruled out acute myocardial infarction. The white count was found to be elevated up to 14,000. And patient responded to IV fluids and inotropic agents. At that time the ultrasound was obtained that showed there was a gallstone and thickened gallbladder wall with. Cholecystic fluid. Liver function test found total and direct bilirubin 1.3 the rest of the liver function tests were normal. Surgical consultation was obtained. Constitutional: chills Eyes: no complaints ENT: no complaints Respiratory: shortness of breath Cardiovascular: chest pain Gastrointestinal: no complaints Genitourinary: no complaints Musculoskeletal: neck pain Skin: no complaints Neurologic: no complaints Endocrine: other (Diabetes) Lymphatic: no complaints Psychological: no complaints Immunologic: no complaints Past Medical History Medical History: diabetes, high cholesterol, hypertension Home Meds Reported Medications Betamethasone Dipropionate* (Betamethasone Dipropionate*) 0.05% - 45 Gm Cream.gm., TOP BID apply to affected 09/19/18 Etanercept (Enbrel Mini) 50 Mg/1 Ml Cartridge, 1 TAB SC weekly 09/19/18 [place]-3 Fatty Acids/Fish Oil (Fish Oil 1,000 mg Capsule) 1 Each Capsule, 1 CAP PO DAILY, CAP 09/19/18 Betamethasone Dipropionate* (Betamethasone Dipropionate*) 0.05% - 15 Gm Oint, 1 BID apply to affected area 09/19/18 Leflunomide* (Leflunomide*) 20 Mg Tablet, 1 TAB ORAL DAILY 09/19/18 Metformin Hcl* (Metformin Hcl*) 1,000 Mg Tablet, 1 TAB ORAL BID 09/19/18 Atorvastatin* (Atorvastatin*) 40 Mg Tablet, 1 TAB ORAL QHS 09/19/18 Lisinopril* (Lisinopril*) 2.5 Mg Tablet, 1 TAB ORAL DAILY 09/19/18 Acetaminophen (Acetaminophen) 500 Mg Tablet, 1 TAB ORAL Q6 PRN for MILD PAIN(1- 3)OR ELEVATED TEMP 09/19/18 Glipizide* (Glipizide*) 5 Mg Tablet, 1 TAB ORAL BID 09/19/18 Medications Current Medications Norepinephrine 250 ml @ 1.875 mls/ hr TITRATE IV Last administered on 09/19/18at 16:33; Admin Dose 1.875 MLS/HR; Start 09/19/18 at 16:30 Allergies: Coded Allergies: No Known Allergy (Unverified , 09/19/18) Past Surgical History Past Surgical Hx: other (Right lower extremity surgery.) Family History Significant Family History: no pertinent family hx Social History Smoking Status: Never smoker Exam/Review of Systems Exam Vitals Vital Signs Date Temp Pulse Resp B/P (MAP) Pulse Ox O2 O2 Flow FiO2 Time Delivery Rate 09/19/18 89 16 108/79 99 Room Air 19:51 (89) 09/19/18 100.5 2.0 17:01 Constitutional: alert, oriented, well developed Psych: no complaints, nl mood/affect Head: normocephalic, atraumatic Eyes: nl conjunctiva, EOMI, nl lids, nl sclera, PERRL ENMT: nl external ears & nose, nl lips & teeth, nl nasal mucosa & septum Neck: supple, non-tender Respiratory: clear to auscultation, normal air movement Cardiovascular: regular rate and rhythm, nl pulses Gastrointestinal: soft, nl liver, spleen, other (Very mild tenderness in the right upper quadrant with positive Osullivan sign.) Musculoskeletal: nl extremities to inspection, nl gait and stance Extremities: normal pulses Neurological: 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 intact, nl mental status, nl speech, nl strength Skin: nl turgor; No rash or lesions Lymph: nl lymph nodes Results Result Diagram: 09/19/18 1337 09/19/18 1337 Results 24hrs Laboratory Tests Test 09/19/18 13:36 09/19/18 13:37 09/19/18 15:20 09/19/18 15:45 POC Venous Lactate 1.7 White Blood Count 14.6 H Red Blood Count 5.09 Hemoglobin 15.2 Hematocrit 45.1 Mean Corpuscular 88.6 Volume Mean Corpuscular 29.9 Hemoglobin Mean Corpuscular 33.7 Hemoglobin Concent Red Cell 12.5 Distribution Width Platelet Count 212 Mean Platelet Volume 12.5 H Immature 0.300 Granulocytes % Neutrophils % 80.2 H Lymphocytes % 10.8 L Monocytes % 7.9 Eosinophils % 0.3 Basophils % 0.5 Nucleated Red Blood 0.0 Cells % Immature 0.040 H Granulocytes # Neutrophils # 11.7 H Lymphocytes # 1.6 Monocytes # 1.2 H Eosinophils # 0.0 Basophils # 0.1 Nucleated Red Blood 0.0 Cells # Prothrombin Time 13.5 Prothrombin Time 1.1 Ratio INR International 1.02 Normalized Ratio Activated 23.5 Partial Thromboplast Time Sodium Level 135 Potassium Level 4.7 Chloride Level 97 Carbon Dioxide Level 27 Anion Gap 11 Blood Urea Nitrogen 11 Creatinine 0.79 Est Glomerular > 60 Filtrat Rate mL/min Glucose Level 176 Calcium Level 9.0 Total Bilirubin 1.6 H Direct Bilirubin 0.00 Indirect Bilirubin 1.6 H Aspartate Amino 23 Transf (AST/SGOT) Alanine 33 Aminotransferase (AL T/SGPT) Alkaline Phosphatase 78 Troponin I < 0.012 Total Protein 7.2 Albumin 4.3 Globulin 2.90 Albumin/Globulin 1.48 Ratio Thyroid Stimulating 2.600 Hormone (TSH) Urine Color EDGARD Urine Clarity CLEAR Urine pH 5.0 Urine Specific 1.020 [place] Urine Ketones TRACE A Urine Nitrite NEGATIVE Urine Bilirubin NEGATIVE Urine Urobilinogen NEGATIVE Urine Leukocyte NEGATIVE Esterase Urine Hemoglobin NEGATIVE Urine Glucose NEGATIVE Urine Total Protein NEGATIVE Lactic Acid Level 2.0 Test 09/19/18 15:57 09/19/18 19:22 Bedside Urine pH 6.0 (LAB) Bedside Urine Trace H Protein (LAB) Bedside Urine Negative Glucose (UA) Bedside Urine 1+ H Ketones (LAB) Bedside Urine Blood Negative Bedside Urine Negative Nitrite (LAB) Bedside Urine Negative Leukocyte Esterase (L Lactic Acid Level 1.8 Medications Medication Current Medications Norepinephrine 250 ml @ 1.875 mls/ hr TITRATE IV Last administered on 09/19/18at 16:33; Admin Dose 1.875 MLS/HR; Start 09/19/18 at 16:30 DEVONTE TAVERAS MD Sep 19, 2018 20:31
[2018-09-19] MEDS ORDERED: DOCUSATE SODIUM 100 MG CAP PO PRN (23:00)
[2018-09-19] MEDS ORDERED: ONDANSETRON 4 MG INJ IV PRN (23:00)
[2018-09-19] MEDS ORDERED: VANCOMYCIN IV PER PHARMACY XX SCH (23:00)
[2018-09-19] MEDS ORDERED: HYDROmorphONE 0.5 MG/0.5 ML SYG IV PRN (23:00)
[2018-09-19] MEDS ORDERED: BISACODYL (EC) 5 MG TAB PO PRN (23:00)
[2018-09-19 23:30] VITALS: PULSE 94
[2018-09-19 23:45] VITALS: BP 108/83; PULSE 94; RESP 29
[2018-09-20] VITALS (56 sets, daily range): BP systolic 91–144; BP diastolic 51–110; PULSE 88–149; RESP 12–37; Ht 175.3 cm; Wt 81.3 kg
[2018-09-20] MEDS: PIPER-TAZO 3.375 GM IV (PMX) 100 ML IVPB SCH ×5 (00:01→23:39)
[2018-09-20] MEDS: SOD CHLORIDE 0.9% 1,000 ML IV SCH ×2 (00:01→22:33)
[2018-09-20] MEDS: VANCOMYCIN 1.25 GM/NS 250 ML 250 ML IVPB SCH ×2 (04:19→16:30)
[2018-09-20] MEDS: ACETAMINOPHEN 650MG/20.3ML CUP PO PRN (05:05)
[2018-09-20] MEDS ORDERED: METOPROLOL 5 MG INJ ONE (06:20)
[2018-09-20] MEDS ORDERED: PHENYLephrine 20MG IN 250 ML 250 ML ONE (06:21)
[2018-09-20] MEDS ORDERED: ADENOSINE 6 MG INJ IV ONE (06:30)
[2018-09-20] MEDS ORDERED: METOPROLOL 5 MG INJ IV ONE (06:30)
[2018-09-20] MEDS ORDERED: PHENYLephrine 20MG IN 250 ML 250 ML IV SCH (06:30)
[2018-09-20] MEDS: FAMOTIDINE 20 MG INJ IV SCH ×2 (10:26→21:00)
[2018-09-20] MEDS: morphine 2 MG INJ IV PRN ×2 (10:35→17:23)
--- NOTE | 2018-09-20 12:26 | RADRPT ---
Echocardiogram Report Patient Name: KI FELIX APatient ID: [id number] : 1955 (63y 1m)Study Date: 09/19/2018 11:31:31 PM Gender: MAccession #: [id number] Tech: Harmony Tim LETICIA Location: 118 Ref.Physician: SONA ANDERSON Height(Cm): BSA: Weight(Kg): Quality: AdequateOrder Physician: SONA ANDERSON Account #: Procedures: Echocardiographic Report: Transthoracic echocardiogram with complete 2D, M-Mode, and doppler examination. Indications: Pericardial Effusion. Measurements: 2D/M Mode Doppler Measurement Value Normal Range Measurement Value Normal Range LVIDd 2D 3.8 [ 4.2 - 5.8 ] cm AV Peak Davis 1.3 [ 100.0 - 170.0 ] cm/sec LVIDs 2D 2.3 [ 2.5 - 4.0 ] cm AV Peak PG 6.0 [ 2.0 - 9.0 ] mmHg LVPWd 2D 0.8 [ 0.6 - 1.0 ] cm LVOT Peak Davis 1.0 [ 70.0 - 110.0 ] cm/sec IVSd 2D 0.9 [ 0.6 - 1.0 ] cm LVOT Peak PG 4.0 [ 2.0 - 6.0 ] mmHg AoR Diam 2D 3.1 [ 2.6 - 3.4 ] cm MV E Peak Davis 0.5 [ 60.0 - 130.0 ] cm/sec EDV 2D 62.3 [ 62.0 - 150.0 ] ml MV A Peak Davis 0.9 [ 100.0 - 120.0 ] cm/sec ESV 2D 17.1 [ 21.0 - 61.0 ] ml MV E/A 0.6 [ 0.8 - 1.5 ] ratio EF 2D 72.6 [ 52.0 - 72.0 ] percent MV Decel Time 194 [ 104 - 258 ] msec LA Dimen 2D 2.8 [ 3.0 - 4.0 ] cm Lat E` Davis 0.1 [ 10.0 - 15.0 ] cm/sec Lateral E/E` 5.8 [ 1.0 - 2.0 ] ratio MV E/A 0.6 [ 0.8 - 1.5 ] ratio Findings: Left Ventricle: Normal left ventricular systolic function. Normal left ventricular cavity size. Normal left ventricular wall thickness. Ejection fraction is visually estimated at 65 %. Tissue Doppler/Mitral Doppler indices are consistent with impaired relaxation (Stage I diastolic dysfunction). Right Ventricle: Normal right ventricular size. Normal right ventricular systolic function. Left Atrium: The left atrium is normal in size. Right Atrium: The right atrium is normal in size. Mitral Valve: Normal appearance and function of the mitral valve with trace physiologic regurgitation. Aortic Valve: No significant aortic stenosis or insufficiency. Aortic cusps appear mildly calcified. Tricuspid Valve: Normal appearance and function of the tricuspid valve with trace physiologic regurgitation. Normal right ventricular systolic pressure. Pulmonic Valve: Pulmonic valve not well visualized. Pericardium: Small to moderate pericardial effusion. Aorta: Normal aortic root. IVC: Normal size and no respiratory collapse consistent with elevated right atrial pressure. Conclusions: Normal left ventricular systolic function. Normal left ventricular cavity size. Normal left ventricular wall thickness. Ejection fraction is visually estimated at 65 %. Tissue Doppler/Mitral Doppler indices are consistent with impaired relaxation (Stage I diastolic dysfunction). Normal appearance and function of the mitral valve with trace physiologic regurgitation. No significant aortic stenosis or insufficiency. Aortic cusps appear mildly calcified. Normal appearance and function of the tricuspid valve with trace physiologic regurgitation. Normal right ventricular systolic pressure. Small to moderate pericardial effusion. Electronically Signed By: Kingsley De Leon 2018-09-20 12:24:56 PDT
--- NOTE | 2018-09-20 13:43 | CONS ---
Assessment/Plan Assessment/Plan Hospital Course (Demo Recall) 1. Small to moderate pericardial effusion: So far does not have tamponade physiology 2. Sepsis/shock 3. Acute cholecystitis 4. Chest pain pleuritic secondary to above 5. Diabetes 6. Hypertension 7. Episode of SVT Recommendation: Antibiotic management as per internal medicine. Continue with a Min-Synephrine drip as needed to control the blood pressure. At this point patient is too hypotensive to tolerate p.o. beta-blockers His cardiac enzymes: Troponin have been negative. Surgical intervention: Percutaneous drainage versus laparoscopic cholecystectomy will be deferred to surgical team decision. Patient has multiple cardiac as well as noncardiac risk factor which would place him at least a moderate risk of cardiovascular event. However given his presentation of septic shock I agree that the benefit of the surgical intervention is more than the potential risk. Thank you for this referral. We will continue to follow along with you SARMAD DOVE MD [facility] Consultation Date/Type/Reason Admit Date/Time Date of Consultation: Sep 20, 2018 Type of Consult Cardiology Reason for Consultation Pericardial effusion Requesting Provider: SONA ANDERSON Date/Time of Note DATE: 09/20/18 TIME: 13:36 Hx of Present Illness Interventional cardiology consultation note Chief complaint: Headache, pleuritic left-sided chest pain, right upper quadrant abdominal pain Reason for consult: Pericardial effusion, chest pain, cardiovascular preop evaluation History of present illness: Thank you for this referral. History was obtained from the patient from discussion with the family review of the chart discussion with the physicians and staff. This is a 63-year-old gentleman with diabetes hypertension who presented to the emergency above chief complaints. Patient apparently has had these symptoms over the past 1 or 2 days. His chest pain is left-sided as mentioned and is sharp mild to moderate intensity and is worse when he breathes. He also has had enlarged upper quadrant abdominal discomfort which started yesterday. He has been diagnosed with cholecystitis and is in need of gallbladder surgery Patient said that he normally is able to walk with no chest pain or pressure Patient has been admitted to ICU. Telemetry was reviewed patient has had episode of SVT overnight which is converted back to sinus rhythm with beta- sheldon IV. Allergies: No known drug allergies Medications were reviewed as per medical reconciliation sheet Family history: No history of early coronary artery disease Social history: Does not smoke Past medical history: Psoriasis, diabetes mellitus, htn, dyslipidemia , Review of system: Patient denies all others except for above-mentioned Past Medical History Home Meds Reported Medications Betamethasone Dipropionate* (Betamethasone Dipropionate*) 0.05% - 45 Gm Cream.gm., TOP BID apply to affected 09/19/18 Etanercept (Enbrel Mini) 50 Mg/1 Ml Cartridge, 1 TAB SC weekly 09/19/18 [place]-3 Fatty Acids/Fish Oil (Fish Oil 1,000 mg Capsule) 1 Each Capsule, 1 CAP PO DAILY, CAP 09/19/18 Betamethasone Dipropionate* (Betamethasone Dipropionate*) 0.05% - 15 Gm Oint, 1 BID apply to affected area 09/19/18 Leflunomide* (Leflunomide*) 20 Mg Tablet, 1 TAB ORAL DAILY 09/19/18 Metformin Hcl* (Metformin Hcl*) 1,000 Mg Tablet, 1 TAB ORAL BID 09/19/18 Atorvastatin* (Atorvastatin*) 40 Mg Tablet, 1 TAB ORAL QHS 09/19/18 Lisinopril* (Lisinopril*) 2.5 Mg Tablet, 1 TAB ORAL DAILY 09/19/18 Acetaminophen (Acetaminophen) 500 Mg Tablet, 1 TAB ORAL Q6 PRN for MILD PAIN(1- 3)OR ELEVATED TEMP 09/19/18 Glipizide* (Glipizide*) 5 Mg Tablet, 1 TAB ORAL BID 09/19/18 Medications Current Medications Norepinephrine 250 ml @ 1.875 mls/ hr TITRATE IV Last administered on at 16:33; Admin Dose 1.875 MLS/HR; Start 09/19/18 at 16:30 Sodium Chloride 1,000 ml @ 40 mls/hr Q24H IV Last administered on 09/20/18at 00:01; Admin Dose 40 MLS/HR; Start 09/19/18 at 22:33 Ondansetron HCl (Zofran Inj) 4 mg Q6H PRN IV NAUSEA AND/OR VOMITING Last administered on 09/20/18at 04:58; Admin Dose 4 MG; Start 09/19/18 at 23:00 Acetaminophen (Tylenol Liquid) 650 mg Q6H PRN PO PAIN LEVEL 1-3 OR FEVER Last administered on 09/20/18at 05:05; Admin Dose 650 MG; Start 09/19/18 at 23:00 Hydromorphone HCl (Dilaudid) 0.5 mg Q4H PRN IV PAIN LEVEL 7-10 Last administered on 09/20/18at 00:10; Admin Dose 0.5 MG; Start 09/19/18 at 23:00 Docusate Sodium (Colace) 100 mg Q12H PRN PO CONSTIPATION; Start 09/19/18 at 23:00 Bisacodyl (Dulcolax) 5 mg DAILY PRN PO CONSTIPATION; Start 09/19/18 at 23:00 Famotidine (Pepcid Iv) 20 mg Q12 IV Last administered on 09/20/18at 10:26; Admin Dose 20 MG; Start 09/20/18 at 09:00 Vancomycin HCl (Vanco Iv Per Pharmacy) VANCOMYCIN PER PHARMACY PER PROTOCOL XX ; Start 09/19/18 at 23:00 Piperacillin Sod/ Tazobactam Sod 100 ml @ 200 mls/hr Q6 IVPB Last administered on 09/20/18at 11:54; Admin Dose 200 MLS/HR; Start 09/20/18 at 00:00 Vancomycin/Sodium Chloride 250 ml @ 83.333 mls/ hr Q12H IVPB Last administered on 09/20/18at 04:19; Admin Dose 83.333 MLS/HR; Start 09/20/18 at 04:00 Phenylephrine HCl 250 ml @ 75 mls/hr TITRATE IV Last administered on 09/20/18at 06:27; Admin Dose 15 MLS/HR; Start 09/20/18 at 06:30 Morphine Sulfate (morphine) 2 mg Q4H PRN IV MODERATE PAIN LEVEL 4-6 Last administered on 09/20/18at 10:35; Admin Dose 2 MG; Start 09/20/18 at 09:30 Miscellaneous Information (*Rx Drug Level Order Reminder*) VANCOMYCIN TROUGH AT 0300 0300 ONCE XX ; Start 09/21/18 at 03:00; Stop 09/21/18 at 03:01 Allergies: Coded Allergies: No Known Allergy (Unverified , 09/19/18) Past Surgical History Past Surgical Hx: other (Right lower extremity surgery.) Social History Alcohol Use: rarely Smoking Status: Never smoker Drug Use: none Exam/Review of Systems Vital Signs Vitals Vital Signs Date Temp Pulse Resp B/P (MAP) Pulse Ox O2 O2 Flow FiO2 Time Delivery Rate 09/20/18 95 08:00 09/20/18 25 96/65 (75) 100 Nasal 2.0 06:00 Cannula 09/20/18 98.0 04:00 Intake and Output 09/19/18 09/19/18 09/20/18 1515:00 23:00 07:00 IntakeIntake Total 488.333 ml OutputOutput Total 175 ml BalanceBalance 313.333 ml Exam Exam General: no acute distress HEENT: NC/AT. pupils are equal. round. NECK: NO JVD. no stridor. CV: RRR. systolic murmur; no gallop or rubs. PULM: no wheezing or rhonchi. GI: SOFT, + right upper quadrant tenderness Telemetry: Paced B/L LE edema. no clubbing. neuro: awake and alert, OX3. Psych: calm and pleasant rectal: deferred : normal EKG was personally reviewed which shows: Sinus tachycardia low voltage PAC Echocardiogram was personally reviewed which shows: Normal left ventricular systolic function. Normal left ventricular cavity size. Normal left ventricular wall thickness. Ejection fraction is visually estimated at 65 %. Tissue Doppler/Mitral Doppler indices are consistent with impaired relaxation (Stage I diastolic dysfunction). Normal appearance and function of the mitral valve with trace physiologic regurgitation. No significant aortic stenosis or insufficiency. Aortic cusps appear mildly calcified. Normal appearance and function of the tricuspid valve with trace physiologic regurgitation. Normal right ventricular systolic pressure. Small to moderate pericardial effusion. CT pulmonary angiogram done in the emergency room showed: 1. No evidence of large or central pulmonary emboli. 2. No aortic aneurysm or dissection. 3. Moderate sized pericardial effusion. 4. Reactive mediastinal adenopathy. No pathologic adenopathy. 5. Lungs grossly clear. 6. Expansile benign-appearing lesion/process along the inferior right scapular tip. Recommend correlation with dedicated x-rays Labs Result Diagram: 09/20/18 0438 09/20/18 0446 Results 24hrs Laboratory Tests Test 09/19/18 13:37 09/19/18 15:20 09/19/18 15:45 09/19/18 15:57 White Blood Count 14.6 H Red Blood Count 5.09 Hemoglobin 15.2 Hematocrit 45.1 Mean Corpuscular 88.6 Volume Mean Corpuscular 29.9 Hemoglobin Mean Corpuscular 33.7 Hemoglobin Concent Red Cell 12.5 Distribution Width Platelet Count 212 Mean Platelet Volume 12.5 H Immature 0.300 Granulocytes % Neutrophils % 80.2 H Lymphocytes % 10.8 L Monocytes % 7.9 Eosinophils % 0.3 Basophils % 0.5 Nucleated Red Blood 0.0 Cells % Immature 0.040 H Granulocytes # Neutrophils # 11.7 H Lymphocytes # 1.6 Monocytes # 1.2 H Eosinophils # 0.0 Basophils # 0.1 Nucleated Red Blood 0.0 Cells # Prothrombin Time 13.5 Prothrombin Time 1.1 Ratio INR International 1.02 Normalized Ratio Activated 23.5 Partial Thromboplast Time Sodium Level 135 Potassium Level 4.7 Chloride Level 97 Carbon Dioxide Level 27 Anion Gap 11 Blood Urea Nitrogen 11 Creatinine 0.79 Est Glomerular > 60 Filtrat Rate mL/min Glucose Level 176 Calcium Level 9.0 Total Bilirubin 1.6 H Direct Bilirubin 0.00 Indirect Bilirubin 1.6 H Aspartate Amino 23 Transf (AST/SGOT) Alanine 33 Aminotransferase (AL T/SGPT) Alkaline Phosphatase 78 Troponin I < 0.012 Total Protein 7.2 Albumin 4.3 Globulin 2.90 Albumin/Globulin 1.48 Ratio Thyroid Stimulating 2.600 Hormone (TSH) Urine Color [place] Urine Clarity CLEAR Urine pH 5.0 Urine Specific 1.020 [place] Urine Ketones TRACE A Urine Nitrite NEGATIVE Urine Bilirubin NEGATIVE Urine Urobilinogen NEGATIVE Urine Leukocyte NEGATIVE Esterase Urine Hemoglobin NEGATIVE Urine Glucose NEGATIVE Urine Total Protein NEGATIVE Lactic Acid Level 2.0 Bedside Urine pH 6.0 (LAB) Bedside Urine Trace H Protein (LAB) Bedside Urine Negative Glucose (UA) Bedside Urine 1+ H Ketones (LAB) Bedside Urine Blood Negative Bedside Urine Negative Nitrite (LAB) Bedside Urine Negative Leukocyte Esterase (L Test 09/19/18 19:22 09/20/18 02:34 09/20/18 04:38 09/20/18 04:46 Lactic Acid Level 1.8 Creatine Kinase 81 Creatine Kinase 0.6 Index Creatinine Kinase MB 0.52 (Mass) Troponin I < 0.012 White Blood Count 15.0 H Red Blood Count 4.57 L Hemoglobin 13.5 L Hematocrit 41.7 L Mean Corpuscular 91.2 Volume Mean Corpuscular 29.5 Hemoglobin Mean Corpuscular 32.4 Hemoglobin Concent Red Cell 13.2 Distribution Width Platelet Count 200 Mean Platelet Volume 12.9 H Immature 0.300 Granulocytes % Neutrophils % 81.5 H Lymphocytes % 7.8 L Monocytes % 9.9 Eosinophils % 0.1 Basophils % 0.4 Nucleated Red Blood 0.0 Cells % Immature 0.050 H Granulocytes # Neutrophils # 12.2 H Lymphocytes # 1.2 Monocytes # 1.5 H Eosinophils # 0.0 Basophils # 0.1 Nucleated Red Blood 0.0 Cells # Hemoglobin A1c 6.8 H Sodium Level 137 Potassium Level 4.5 Chloride Level 106 Carbon Dioxide Level 21 Anion Gap 10 Blood Urea Nitrogen 14 Creatinine 0.70 Est Glomerular > 60 Filtrat Rate mL/min Glucose Level 166 Calcium Level 7.8 L Magnesium Level 1.7 Total Bilirubin 2.1 H Direct Bilirubin 0.00 Indirect Bilirubin 2.1 H Aspartate Amino 30 Transf (AST/SGOT) Alanine 47 Aminotransferase (AL T/SGPT) Alkaline Phosphatase 59 Total Protein 5.9 #L Albumin 3.4 Globulin 2.50 Albumin/Globulin 1.36 Ratio Triglycerides Level 61 Cholesterol Level 104 LDL Cholesterol, 69 Calculated HDL Cholesterol 23 L Cholesterol/HDL 4.5 Ratio Thyroid Stimulating 3.430 Hormone (TSH) Test 09/20/18 08:18 Creatine Kinase 88 Creatine Kinase 0.8 Index Creatinine Kinase MB 0.69 (Mass) Troponin I 0.014 Medications Medications Current Medications Norepinephrine 250 ml @ 1.875 mls/ hr TITRATE IV Last administered on 09/19/18at 16:33; Admin Dose 1.875 MLS/HR; Start 09/19/18 at 16:30 Sodium Chloride 1,000 ml @ 40 mls/hr Q24H IV Last administered on 09/20/18at 00:01; Admin Dose 40 MLS/HR; Start 09/19/18 at 22:33 Ondansetron HCl (Zofran Inj) 4 mg Q6H PRN IV NAUSEA AND/OR VOMITING Last administered on 09/20/18at 04:58; Admin Dose 4 MG; Start 09/19/18 at 23:00 Acetaminophen (Tylenol Liquid) 650 mg Q6H PRN PO PAIN LEVEL 1-3 OR FEVER Last administered on 09/20/18at 05:05; Admin Dose 650 MG; Start 09/19/18 at 23:00 Hydromorphone HCl (Dilaudid) 0.5 mg Q4H PRN IV PAIN LEVEL 7-10 Last administered on 09/20/18at 00:10; Admin Dose 0.5 MG; Start 09/19/18 at 23:00 Docusate Sodium (Colace) 100 mg Q12H PRN PO CONSTIPATION; Start 09/19/18 at 23:00 Bisacodyl (Dulcolax) 5 mg DAILY PRN PO CONSTIPATION; Start 09/19/18 at 23:00 Famotidine (Pepcid Iv) 20 mg Q12 IV Last administered on 09/20/18at 10:26; Admin Dose 20 MG; Start 09/20/18 at 09:00 Vancomycin HCl (Vanco Iv Per Pharmacy) VANCOMYCIN PER PHARMACY PER PROTOCOL XX ; Start 09/19/18 at 23:00 Piperacillin Sod/ Tazobactam Sod 100 ml @ 200 mls/hr Q6 IVPB Last administered on 09/20/18at 11:54; Admin Dose 200 MLS/HR; Start 09/20/18 at 00:00 Vancomycin/Sodium Chloride 250 ml @ 83.333 mls/ hr Q12H IVPB Last administered on 09/20/18at 04:19; Admin Dose 83.333 MLS/HR; Start 09/20/18 at 04:00 Phenylephrine HCl 250 ml @ 75 mls/hr TITRATE IV Last administered on 09/20/18at 06:27; Admin Dose 15 MLS/HR; Start 09/20/18 at 06:30 Morphine Sulfate (morphine) 2 mg Q4H PRN IV MODERATE PAIN LEVEL 4-6 Last administered on 09/20/18at 10:35; Admin Dose 2 MG; Start 09/20/18 at 09:30 Miscellaneous Information (*Rx Drug Level Order Reminder*) VANCOMYCIN TROUGH AT 0300 0300 ONCE XX ; Start 09/21/18 at 03:00; Stop 09/21/18 at 03:01 SARMAD DOVE MD Sep 20, 2018 13:43
--- NOTE | 2018-09-20 15:47 | PN ---
Date/Time of Note Date/Time of Note DATE: 09/20/18 TIME: 15:37 Assessment/Plan VTE Prophylaxis Risk score (from Ns)>0 risk: 5 SCD applied (from Ns): Yes Pharmacological prophylaxis: other Lines/Catheters IV Catheter Type (from Nrsg): Central Line Central line still needed: Yes Urinary Cath still in place: No Assessment/Plan Assessment/Plan 1. Septic shock - possible acute cholecystitis - LFTs noted - currently on pressor support and will wean as tolerated to keep MAP >65 - pancultures sent and initial blood and urine cultures negative - continue broad spectrum antibiotics - lactic acid normal 2. Acute chest pain- resolved - Cardiology consulted and appreciate recommendations. trops negative - ECHO results noted with small to moderate effusion. No need for tap given no tamponade appreciated 3. Pericardial effusion - most likely secondary to autoimmune disease - no need for tap at this time given no tamponade appreciated - Cardiology input appreciated 4. Acute cholecystitis - Gen Surgery consultation appreciated. given patient is unstable for surgical intervention at this time, will order IR placement of cholecystomy tube - continue broad spectrum antibiotics 5. Psoriasis - Hold methotrexate, Enbrel, leflunomide while septic 6. 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 Disposition - Continue management in ICU while on pressor support >35 minutes of critical care time spent with patient Result Diagram: 09/20/18 0438 09/20/18 0446 Results 24hrs Laboratory Tests Test 09/19/18 15:45 09/19/18 15:57 09/19/18 19:22 09/20/18 02:34 Lactic Acid Level 2.0 1.8 Bedside Urine pH 6.0 (LAB) Bedside Urine Trace H Protein (LAB) Bedside Urine Negative Glucose (UA) Bedside Urine 1+ H Ketones (LAB) Bedside Urine Blood Negative Bedside Urine Negative Nitrite (LAB) Bedside Urine Negative Leukocyte Esterase (L Creatine Kinase 81 Creatine Kinase 0.6 Index Creatinine Kinase MB 0.52 (Mass) Troponin I < 0.012 Test 09/20/18 04:38 09/20/18 04:46 09/20/18 08:18 White Blood Count 15.0 H Red Blood Count 4.57 L Hemoglobin 13.5 L Hematocrit 41.7 L Mean Corpuscular 91.2 Volume Mean Corpuscular 29.5 Hemoglobin Mean Corpuscular 32.4 Hemoglobin Concent Red Cell 13.2 Distribution Width Platelet Count 200 Mean Platelet Volume 12.9 H Immature 0.300 Granulocytes % Neutrophils % 81.5 H Lymphocytes % 7.8 L Monocytes % 9.9 Eosinophils % 0.1 Basophils % 0.4 Nucleated Red Blood 0.0 Cells % Immature 0.050 H Granulocytes # Neutrophils # 12.2 H Lymphocytes # 1.2 Monocytes # 1.5 H Eosinophils # 0.0 Basophils # 0.1 Nucleated Red Blood 0.0 Cells # Hemoglobin A1c 6.8 H Sodium Level 137 Potassium Level 4.5 Chloride Level 106 Carbon Dioxide Level 21 Anion Gap 10 Blood Urea Nitrogen 14 Creatinine 0.70 Est Glomerular > 60 Filtrat Rate mL/min Glucose Level 166 Calcium Level 7.8 L Magnesium Level 1.7 Total Bilirubin 2.1 H Direct Bilirubin 0.00 Indirect Bilirubin 2.1 H Aspartate Amino 30 Transf (AST/SGOT) Alanine 47 Aminotransferase (AL T/SGPT) Alkaline Phosphatase 59 Total Protein 5.9 #L Albumin 3.4 Globulin 2.50 Albumin/Globulin 1.36 Ratio Triglycerides Level 61 Cholesterol Level 104 LDL Cholesterol, 69 Calculated HDL Cholesterol 23 L Cholesterol/HDL 4.5 Ratio Thyroid Stimulating 3.430 Hormone (TSH) Creatine Kinase 88 Creatine Kinase 0.8 Index Creatinine Kinase MB 0.69 (Mass) Troponin I 0.014 Subjective 24 Hr Interval Summary Free Text/Dictation Patient states he is feeling slightly better but still with abdominal pain. Asking for water since lips and mouth are dry. Exam/Review of Systems Exam Vitals Vital Signs Date Temp Pulse Resp B/P (MAP) Pulse Ox O2 O2 Flow FiO2 Time Delivery Rate 09/20/18 115 18 122/92 Nasal 2.0 14:00 (102) Cannula 09/20/18 99 13:45 09/20/18 98.3 12:00 Intake and Output 09/19/18 09/19/18 09/20/18 1515:00 23:00 07:00 IntakeIntake Total 579.163 ml OutputOutput Total 175 ml BalanceBalance 404.163 ml Exam General: mild distress secondary to abdominal pain Neck: Supple Chest: Nontender Lungs: Clear to auscultation bilaterally no crackles rales or wheezing Heart: Normal S1-S2, Regular rhythm and rate. No overt murmurs appreciated on auscultation Abdomen: Soft , diffuse upper quadrant tenderness to palpation, nondistended , bowel sounds are present. No guarding no rebound tenderness , No masses or organomegaly. No costovertebral temporal angle mass Extremities: Normal to inspection, no edema no cyanosis Neurologic: Normal mental status, speech normal, cranial nerves II through XII are intact, motor and sensory are intact, no focal weakness Results Results 24hrs Laboratory Tests Test 09/19/18 15:45 09/19/18 15:57 09/19/18 19:22 09/20/18 02:34 Lactic Acid Level 2.0 1.8 Bedside Urine pH 6.0 (LAB) Bedside Urine Trace H Protein (LAB) Bedside Urine Negative Glucose (UA) Bedside Urine 1+ H Ketones (LAB) Bedside Urine Blood Negative Bedside Urine Negative Nitrite (LAB) Bedside Urine Negative Leukocyte Esterase (L Creatine Kinase 81 Creatine Kinase 0.6 Index Creatinine Kinase MB 0.52 (Mass) Troponin I < 0.012 Test 09/20/18 04:38 09/20/18 04:46 09/20/18 08:18 White Blood Count 15.0 H Red Blood Count 4.57 L Hemoglobin 13.5 L Hematocrit 41.7 L Mean Corpuscular 91.2 Volume Mean Corpuscular 29.5 Hemoglobin Mean Corpuscular 32.4 Hemoglobin Concent Red Cell 13.2 Distribution Width Platelet Count 200 Mean Platelet Volume 12.9 H Immature 0.300 Granulocytes % Neutrophils % 81.5 H Lymphocytes % 7.8 L Monocytes % 9.9 Eosinophils % 0.1 Basophils % 0.4 Nucleated Red Blood 0.0 Cells % Immature 0.050 H Granulocytes # Neutrophils # 12.2 H Lymphocytes # 1.2 Monocytes # 1.5 H Eosinophils # 0.0 Basophils # 0.1 Nucleated Red Blood 0.0 Cells # Hemoglobin A1c 6.8 H Sodium Level 137 Potassium Level 4.5 Chloride Level 106 Carbon Dioxide Level 21 Anion Gap 10 Blood Urea Nitrogen 14 Creatinine 0.70 Est Glomerular > 60 Filtrat Rate mL/min Glucose Level 166 Calcium Level 7.8 L Magnesium Level 1.7 Total Bilirubin 2.1 H Direct Bilirubin 0.00 Indirect Bilirubin 2.1 H Aspartate Amino 30 Transf (AST/SGOT) Alanine 47 Aminotransferase (AL T/SGPT) Alkaline Phosphatase 59 Total Protein 5.9 #L Albumin 3.4 Globulin 2.50 Albumin/Globulin 1.36 Ratio Triglycerides Level 61 Cholesterol Level 104 LDL Cholesterol, 69 Calculated HDL Cholesterol 23 L Cholesterol/HDL 4.5 Ratio Thyroid Stimulating 3.430 Hormone (TSH) Creatine Kinase 88 Creatine Kinase 0.8 Index Creatinine Kinase MB 0.69 (Mass) Troponin I 0.014 Medications Medication Current Medications Norepinephrine 250 ml @ 1.875 mls/ hr TITRATE IV Last administered on 09/19/18at 16:33; Admin Dose 1.875 MLS/HR; Start 09/19/18 at 16:30 Sodium Chloride 1,000 ml @ 40 mls/hr Q24H IV Last administered on 09/20/18at 00:01; Admin Dose 40 MLS/HR; Start 09/19/18 at 22:33 Ondansetron HCl (Zofran Inj) 4 mg Q6H PRN IV NAUSEA AND/OR VOMITING Last administered on 09/20/18at 04:58; Admin Dose 4 MG; Start 09/19/18 at 23:00 Acetaminophen (Tylenol Liquid) 650 mg Q6H PRN PO PAIN LEVEL 1-3 OR FEVER Last administered on 09/20/18at 05:05; Admin Dose 650 MG; Start 09/19/18 at 23:00 Hydromorphone HCl (Dilaudid) 0.5 mg Q4H PRN IV PAIN LEVEL 7-10 Last administered on 09/20/18at 00:10; Admin Dose 0.5 MG; Start 09/19/18 at 23:00 Docusate Sodium (Colace) 100 mg Q12H PRN PO CONSTIPATION; Start 09/19/18 at 23:00 Bisacodyl (Dulcolax) 5 mg DAILY PRN PO CONSTIPATION; Start 09/19/18 at 23:00 Famotidine (Pepcid Iv) 20 mg Q12 IV Last administered on 09/20/18at 10:26; Admin Dose 20 MG; Start 09/20/18 at 09:00 Vancomycin HCl (Vanco Iv Per Pharmacy) VANCOMYCIN PER PHARMACY PER PROTOCOL XX ; Start 09/19/18 at 23:00 Piperacillin Sod/ Tazobactam Sod 100 ml @ 200 mls/hr Q6 IVPB Last administered on 09/20/18at 11:54; Admin Dose 200 MLS/HR; Start 09/20/18 at 00:00 Vancomycin/Sodium Chloride 250 ml @ 83.333 mls/ hr Q12H IVPB Last administered on 09/20/18at 04:19; Admin Dose 83.333 MLS/HR; Start 09/20/18 at 04:00 Phenylephrine HCl 250 ml @ 75 mls/hr TITRATE IV Last administered on 09/20/18at 06:27; Admin Dose 15 MLS/HR; Start 09/20/18 at 06:30 Morphine Sulfate (morphine) 2 mg Q4H PRN IV MODERATE PAIN LEVEL 4-6 Last administered on 09/20/18at 10:35; Admin Dose 2 MG; Start 09/20/18 at 09:30 Miscellaneous Information (*Rx Drug Level Order Reminder*) VANCOMYCIN TROUGH AT 0300 0300 ONCE XX ; Start 09/21/18 at 03:00; Stop 09/21/18 at 03:01 SAMIA NAPOLES MD Sep 20, 2018 15:47
[2018-09-21] VITALS (27 sets, daily range): BP systolic 90–137; BP diastolic 56–103; PULSE 103–120; RESP 15–38
[2018-09-21] MEDS: ACETAMINOPHEN 650MG/20.3ML CUP PO PRN (00:10)
[2018-09-21] MEDS: VANCOMYCIN 1.25 GM/NS 250 ML 250 ML IVPB SCH (03:58)
[2018-09-21] MEDS: PIPER-TAZO 3.375 GM IV (PMX) 100 ML IVPB SCH ×4 (06:26→23:26)
--- NOTE | 2018-09-21 07:33 | PREAC ---
Date/Time of Note Date/Time of Note DATE: 09/21/18 TIME: 07:28 Anesthesia Eval and Record Evaluation Time Pre-Procedure Interview DATE: 09/21/18 TIME: 07:28 Age 63 Sex male NPO: 8 hrs Preoperative diagnosis Acute cholecystitis with septic shock Planned procedure Percutaneous cholecystostomy tube placement Past Medical History Past Medical History: Includes Cardio: HTN, Dyslipidemia Endo: Diabetes Surgery & Anesthesia Issues No known issue Meds Anticoagulation: No Beta Iris within 24 hr: No Reason Beta Iris not given: Pt. not on B-Iris Reported Medications Betamethasone Dipropionate* (Betamethasone Dipropionate*) 0.05% - 45 Gm Cream.gm., TOP BID apply to affected 09/19/18 Etanercept (Enbrel Mini) 50 Mg/1 Ml Cartridge, 1 TAB SC weekly We09/19/18 [place]-3 Fatty Acids/Fish Oil (Fish Oil 1,000 mg Capsule) 1 Each Capsule, 1 CAP PO DAILY, CAP 09/19/18 Betamethasone Dipropionate* (Betamethasone Dipropionate*) 0.05% - 15 Gm Oint, 1 BID apply to affected area 09/19/18 Leflunomide* (Leflunomide*) 20 Mg Tablet, 1 TAB ORAL DAILY 09/19/18 Metformin Hcl* (Metformin Hcl*) 1,000 Mg Tablet, 1 TAB ORAL BID 09/19/18 Atorvastatin* (Atorvastatin*) 40 Mg Tablet, 1 TAB ORAL QHS 09/19/18 Lisinopril* (Lisinopril*) 2.5 Mg Tablet, 1 TAB ORAL DAILY 09/19/18 Acetaminophen (Acetaminophen) 500 Mg Tablet, 1 TAB ORAL Q6 PRN for MILD PAIN(1- 3)OR ELEVATED TEMP 09/19/18 Glipizide* (Glipizide*) 5 Mg Tablet, 1 TAB ORAL BID 09/19/18 Current Medications Norepinephrine 250 ml @ 1.875 mls/ hr TITRATE IV Last administered on 09/19/18at 16:33; Admin Dose 1.875 MLS/HR; Start 09/19/18 at 16:30 Sodium Chloride 1,000 ml @ 40 mls/hr Q24H IV Last administered on 09/20/18at 00:01; Admin Dose 40 MLS/HR; Start 09/19/18 at 22:33 Ondansetron HCl (Zofran Inj) 4 mg Q6H PRN IV NAUSEA AND/OR VOMITING Last administered on 09/20/18at 04:58; Admin Dose 4 MG; Start 09/19/18 at 23:00 Acetaminophen (Tylenol Liquid) 650 mg Q6H PRN PO PAIN LEVEL 1-3 OR FEVER Last administered on 09/21/18at 00:10; Admin Dose 650 MG; Start 09/19/18 at 23:00 Hydromorphone HCl (Dilaudid) 0.5 mg Q4H PRN IV PAIN LEVEL 7-10 Last a dministered on 09/20/18at 00:10; Admin Dose 0.5 MG; Start 09/19/18 at 23:00 Docusate Sodium (Colace) 100 mg Q12H PRN PO CONSTIPATION; Start 09/19/18 at 23:00 Bisacodyl (Dulcolax) 5 mg DAILY PRN PO CONSTIPATION; Start 09/19/18 at 23:00 Famotidine (Pepcid Iv) 20 mg Q12 IV Last administered on 09/20/18at 10:26; Admin Dose 20 MG; Start 09/20/18 at 09:00 Vancomycin HCl (Vanco Iv Per Pharmacy) VANCOMYCIN PER PHARMACY PER PROTOCOL XX ; Start 09/19/18 at 23:00 Piperacillin Sod/ Tazobactam Sod 100 ml @ 200 mls/hr Q6 IVPB Last administered on 09/21/18at 06:26; Admin Dose 200 MLS/HR; Start 09/20/18 at 00:00 Phenylephrine HCl 250 ml @ 75 mls/hr TITRATE IV Last administered on 09/20/18at 06:27; Admin Dose 15 MLS/HR; Start 09/20/18 at 06:30 Morphine Sulfate (morphine) 2 mg Q4H PRN IV MODERATE PAIN LEVEL 4-6 Last administered on 09/20/18 17:23; Admin Dose 2 MG; Start 09/20/18 at 09:30 Vancomycin/Sodium Chloride 250 ml @ 83.333 mls/ hr Q12H IVPB ; Start 09/21/18 at 10:00 Meds reviewed: Yes Allergies Coded Allergies: No Known Allergy (Unverified , 09/19/18) Allergies Reviewed: Yes Labs/Studies Labs Reviewed: Reviewed by anesthesiologist Result Diagram: 09/21/18 0320 09/21/18 0320 Laboratory Tests 09/21/18 03:20 test: N/A Pre-procedure Exam Last vitals Vital Signs Date Temp Pulse Resp B/P (MAP) Pulse Ox O2 O2 Flow FiO2 Time Delivery Rate 09/21/18 116 26 120/77 98 Room Air 06:00 (91) 09/21/18 100.2 04:00 09/20/18 2.0 19:00 Airway: Adequate mouth opening Mallampati: Mallampati I Teeth: Normal Lung: Normal Heart: Normal ASA Physical Status ASA physical status: 3 Emergency: None Planned Anesthetic General/MAC: MAC Planned Pain Management Parenteral pain med Pre-operative Attestations Prior to commencing anesthesia and surgery, the patient was re-evaluated, there was verification of: *The patient's identity *The results of appropriate recent lab work and preoperative vital signs *The above evaluation not changing prior to induction *Anesthetic plan, risk benefits, alternative and complications discussed with patient/family; questions answered; patient/family understands, accepts and wishes to proceed. MARLEE GOODWIN MD Sep 21, 2018 07:33
--- NOTE | 2018-09-21 07:38 | CONS ---
Consult Date/Type/Reason Admit Date/Time Sep 19, 2018 at 19:47 Initial Consult Date 09/20/18 Type of Consultation: cv Requesting Provider: SONA ANDERSON Date/Time of Note DATE: 09/21/18 TIME: 07:35 Subjective cardiology follow up s Case discussed with the staff and telemetry was reviewed patient has remained in sinus rhythm sinus tachycardia. Patient with recurrent fever overnight. No chest pain or pressure now but complains of abdominal pain diffuse and severe at times. Improved with medications Blood pressure is still low but currently off of Min-Synephrine drip S General: no acute distress HEENT: NC/AT. pupils are equal. round. NECK: NO JVD. no stridor. CV: RRR. systolic murmur; no gallop or rubs. PULM: no wheezing or rhonchi. GI: SOFT, + right upper quadrant tenderness Telemetry: trace B/L LE edema. no clubbing. neuro: awake and alert, OX3. Psych: calm and pleasant rectal: deferred : normal EKG was personally reviewed which shows: Sinus tachycardia low voltage PAC Echocardiogram was personally reviewed which shows: Normal left ventricular systolic function. Normal left ventricular cavity size. Normal left ventricular wall thickness. Ejection fraction is visually estimated at 65 %. Tissue Doppler/Mitral Doppler indices are consistent with impaired relaxation (Stage I diastolic dysfunction). Normal appearance and function of the mitral valve with trace physiologic regurgitation. No significant aortic stenosis or insufficiency. Aortic cusps appear mildly calcified. Normal appearance and function of the tricuspid valve with trace physiologic regurgitation. Normal right ventricular systolic pressure. Small to moderate pericardial effusion. CT pulmonary angiogram done in the emergency room showed: 1. No evidence of large or central pulmonary emboli. 2. No aortic aneurysm or dissection. 3. Moderate sized pericardial effusion. 4. Reactive mediastinal adenopathy. No pathologic adenopathy. 5. Lungs grossly clear. 6. Expansile benign-appearing lesion/process along the inferior right scapular tip. Recommend correlation with dedicated x-ray Objective Vitals Vital Signs Date Temp Pulse Resp B/P (MAP) Pulse Ox O2 O2 Flow FiO2 Time Delivery Rate 09/21/18 116 26 120/77 98 Room Air 06:00 (91) 09/21/18 100.2 04:00 09/20/18 2.0 19:00 Intake and Output 09/20/18 09/20/18 09/21/18 1515:00 23:00 07:00 IntakeIntake Total 500.337 ml 670.000 ml 380 ml OutputOutput Total 350 ml 300 ml 250 ml BalanceBalance 150.337 ml 370.000 ml 130 ml Results/Medications Result Diagram: 09/21/18 0320 09/21/18 0320 Results 24 hrs Laboratory Tests Test 09/20/18 08:18 09/21/18 03:20 Creatine Kinase 88 Creatine Kinase Index 0.8 Creatinine Kinase MB (Mass) 0.69 Troponin I 0.014 White Blood Count 15.9 H Red Blood Count 4.31 L Hemoglobin 12.9 L Hematocrit 38.4 L Mean Corpuscular Volume 89.1 Mean Corpuscular Hemoglobin 29.9 Mean Corpuscular Hemoglobin Concent 33.6 Red Cell Distribution Width 13.1 Platelet Count 241 # Mean Platelet Volume 13.1 H Immature Granulocytes % 0.300 Neutrophils % 79.7 H Lymphocytes % 8.2 L Monocytes % 11.3 H Eosinophils % 0.0 Basophils % 0.5 Nucleated Red Blood Cells % 0.0 Immature Granulocytes # 0.050 H Neutrophils # 12.6 H Lymphocytes # 1.3 Monocytes # 1.8 H Eosinophils # 0.0 Basophils # 0.1 Nucleated Red Blood Cells # 0.0 Sodium Level 137 Potassium Level 4.4 Chloride Level 105 Carbon Dioxide Level 24 Anion Gap 8 Blood Urea Nitrogen 16 Creatinine 0.72 Est Glomerular Filtrat Rate mL/min > 60 Glucose Level 200 Calcium Level 8.0 L Total Bilirubin 2.1 H Direct Bilirubin 0.00 Indirect Bilirubin 2.1 H Aspartate Amino Transf (AST/SGOT) 57 #H Alanine Aminotransferase (ALT/SGPT) 62 Alkaline Phosphatase 54 Total Protein 6.0 L Albumin 3.4 Globulin 2.60 Albumin/Globulin Ratio 1.30 Vancomycin Level Trough < 5.0 L Home Meds Reported Medications Betamethasone Dipropionate* (Betamethasone Dipropionate*) 0.05% - 45 Gm Cream.gm., TOP BID apply to affected 09/19/18 Etanercept (Enbrel Mini) 50 Mg/1 Ml Cartridge, 1 TAB SC weekly 09/19/18 [place]-3 Fatty Acids/Fish Oil (Fish Oil 1,000 mg Capsule) 1 Each Capsule, 1 CAP PO DAILY, CAP 09/19/18 Betamethasone Dipropionate* (Betamethasone Dipropionate*) 0.05% - 15 Gm Oint, 1 BID apply to affected area 09/19/18 Leflunomide* (Leflunomide*) 20 Mg Tablet, 1 TAB ORAL DAILY 09/19/18 Metformin Hcl* (Metformin Hcl*) 1,000 Mg Tablet, 1 TAB ORAL BID 09/19/18 Atorvastatin* (Atorvastatin*) 40 Mg Tablet, 1 TAB ORAL QHS 09/19/18 Lisinopril* (Lisinopril*) 2.5 Mg Tablet, 1 TAB ORAL DAILY 09/19/18 Acetaminophen (Acetaminophen) 500 Mg Tablet, 1 TAB ORAL Q6 PRN for MILD PAIN(1- 3)OR ELEVATED TEMP 09/19/18 Glipizide* (Glipizide*) 5 Mg Tablet, 1 TAB ORAL BID 09/19/18 Medications Current Medications Sodium Chloride 1,000 ml @ 40 mls/hr Q24H IV Last administered on 09/20/18at 00:01; Admin Dose 40 MLS/HR; Start 09/19/18 at 22:33 Ondansetron HCl (Zofran Inj) 4 mg Q6H PRN IV NAUSEA AND/OR VOMITING Last administered on 09/20/18at 04:58; Admin Dose 4 MG; Start 09/19/18 at 23:00 Acetaminophen (Tylenol Liquid) 650 mg Q6H PRN PO PAIN LEVEL 1-3 OR FEVER Last administered on 09/21/18at 00:10; Admin Dose 650 MG; Start 09/19/18 at 23:00 Hydromorphone HCl (Dilaudid) 0.5 mg Q4H PRN IV PAIN LEVEL 7-10 Last administered on 09/20/18at 00:10; Admin Dose 0.5 MG; Start 09/19/18 at 23:00 Docusate Sodium (Colace) 100 mg Q12H PRN PO CONSTIPATION; Start 09/19/18 at 23:00 Bisacodyl (Dulcolax) 5 mg DAILY PRN PO CONSTIPATION; Start 09/19/18 at 23:00 Famotidine (Pepcid Iv) 20 mg Q12 IV Last administered on 09/20/18at 10:26; Admin Dose 20 MG; Start 09/20/18 at 09:00 Vancomycin HCl (Vanco Iv Per Pharmacy) VANCOMYCIN PER PHARMACY PER PROTOCOL XX ; Start 09/19/18 at 23:00 Piperacillin Sod/ Tazobactam Sod 100 ml @ 200 mls/hr Q6 IVPB Last administered on 09/21/18at 06:26; Admin Dose 200 MLS/HR; Start 09/20/18 at 00:00 Phenylephrine HCl 250 ml @ 75 mls/hr TITRATE IV Last administered on 09/20/18at 06:27; Admin Dose 15 MLS/HR; Start 09/20/18 at 06:30 Morphine Sulfate (morphine) 2 mg Q4H PRN IV MODERATE PAIN LEVEL 4-6 Last administered on 09/20/18at 17:23; Admin Dose 2 MG; Start 09/20/18 at 09:30 Vancomycin/Sodium Chloride 250 ml @ 83.333 mls/ hr Q12H IVPB ; Start 09/21/18 at 10:00 Assessment/Plan Hospital Course (Demo Recall) 1. Small to moderate pericardial effusion: So far does not have tamponade physiology 2. Sepsis/shock 3. Acute cholecystitis and recurrent fever 4. Chest pain pleuritic secondary to above 5. Diabetes 6. Hypertension 7. Episode of SVT: Has resolved on now mostly in sinus tach Recommendation: Antibiotic management as per internal medicine. Mni-Synephrine drip as needed to maintain the blood pressure. At this point patient is too hypotensive to tolerate p.o. beta-blockers His cardiac enzymes: Troponin have been negative. Surgical intervention: Percutaneous drainage versus laparoscopic cholecystectomy will be deferred to surgical team decision. Patient has multiple cardiac as well as noncardiac risk factor which would place him at least a moderate risk of cardiovascular event. However given his presentation of septic shock I agree that the benefit of the surgical intervention is more than the potential risk. Thank you for this referral. We will continue to follow along with you SARMAD DOVE MD [facility] SARMAD DOVE MD Sep 21, 2018 07:38
[2018-09-21] MEDS ORDERED: FENTAnyl 50 MCG/ML VIAL ONE (07:42)
[2018-09-21] MEDS ORDERED: PROPOFOL 20 ML ONE (07:42)
[2018-09-21] MEDS ORDERED: MIDAZOLAM 1 MG/ML 2 ML INJ ONE (07:42)
[2018-09-21] MEDS: SOD CHLORIDE 0.9% 1,000 ML IV SCH ×2 (08:10→17:31)
[2018-09-21] MEDS ORDERED: SOD CHLORIDE 0.9% 500 ML ONE (08:47)
[2018-09-21] MEDS ORDERED: LIDOCAINE 1% (MDV) 20 ML INJ ONE (08:47)
[2018-09-21] MEDS ORDERED: IOHEXOL 300MG/ML 150 ML BTL ONE (08:47)
[2018-09-21] MEDS ORDERED: FENTAnyl 50 MCG/ML VIAL IV PRN ×3 (10:00)
[2018-09-21] MEDS ORDERED: VANCOMYCIN 1.5 GM/NS 250 ML 250 ML IVPB SCH (10:00)
[2018-09-21] MEDS ORDERED: HYDROmorphONE 0.5 MG/0.5 ML SYG IV PRN ×3 (10:00)
--- NOTE | 2018-09-21 10:22 | HPN ---
Date/Time of Note Date/Time of Note DATE: 09/21/18 TIME: 10:22 Interval H&P Admission Note Pt. seen H&P reviewed: No system changes ROBERTA DORSEY MD Sep 21, 2018 10:22
[2018-09-21] MEDS: FAMOTIDINE 20 MG INJ IV SCH ×2 (11:25→20:19)
--- NOTE | 2018-09-21 12:06 | PAC ---
Date/Time of Note Date/Time of Note DATE: 09/21/18 TIME: 12:05 Post-Anesthesia Notes Post-Anesthesia Note Last documented vital signs Vital Signs Date Temp Pulse Resp B/P (MAP) Pulse Ox O2 O2 Flow FiO2 Time Delivery Rate 09/21/18 109 27 137/93 93 Nasal 11:30 (108) Cannula 09/21/18 2.0 11:15 09/21/18 97.7 10:00 Activity: WNL Respiratory function: WNL Cardiovascular function: WNL Mental status: Baseline Pain reasonably controlled: Yes Hydration appropriate: Yes Nausea/Vomiting absent: Yes Comments BT: 98.3 MARLEE GOODWIN MD Sep 21, 2018 12:06
[2018-09-21] MEDS ORDERED: GLUCOSE GEL 15 GRAM TUBE PO PRN ×2 (13:00)
[2018-09-21] MEDS ORDERED: GLUCOSE GEL 15 GRAM TUBE BUCCAL PRN (13:00)
[2018-09-21] MEDS ORDERED: GLUCAGON 1 MG INJ IM PRN (13:00)
[2018-09-21] MEDS ORDERED: DEXTROSE 50% 50 ML SYRINGE IV PRN ×2 (13:00)
--- NOTE | 2018-09-21 16:00 | PN ---
Date/Time of Note Date/Time of Note DATE: 09/21/18 TIME: 15:48 Assessment/Plan VTE Prophylaxis Risk score (from Ns)>0 risk: 4 SCD applied (from Ns): Yes Pharmacological prophylaxis: NA/contraindicated Pharm contraindication: low risk/ambulating Lines/Catheters [facility]from [facility] Central Line Central line still needed: Yes Urinary Cath still in place: No Assessment/Plan Assessment/Plan 1. Septic shock- improving - off pressors support - IVF continued and will taper down once tolerating more PO - LFTs noted - continue broad spectrum antibiotics - lactic acid normal 2. Acute chest pain- resolved - Cardiology consulted and appreciate recommendations. trops negative 3. Pericardial effusion - most likely secondary to autoimmune disease - no need for tap at this time given no tamponade appreciated - Cardiology input appreciated 4. Acute cholecystitis - Gen Surgery consultation appreciated. IR placed cholecystotomy tube this am and feeling significantly better - Okay for surgical intervention if needed per Cardiology - continue broad spectrum antibiotics 5. Psoriasis - Hold methotrexate, Enbrel, leflunomide while septic 6. 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 Disposition - If HR becomes more stable, will downgrade to telemetry >35 minutes of critical care time spent with patient Result Diagram: 09/21/18 0320 09/21/18 0320 Results 24hrs Laboratory Tests Test 09/21/18 03:20 White Blood Count 15.9 H Red Blood Count 4.31 L Hemoglobin 12.9 L Hematocrit 38.4 L Mean Corpuscular Volume 89.1 Mean Corpuscular Hemoglobin 29.9 Mean Corpuscular Hemoglobin Concent 33.6 Red Cell Distribution Width 13.1 Platelet Count 241 # Mean Platelet Volume 13.1 H Immature Granulocytes % 0.300 Neutrophils % 79.7 H Lymphocytes % 8.2 L Monocytes % 11.3 H Eosinophils % 0.0 Basophils % 0.5 Nucleated Red Blood Cells % 0.0 Immature Granulocytes # 0.050 H Neutrophils # 12.6 H Lymphocytes # 1.3 Monocytes # 1.8 H Eosinophils # 0.0 Basophils # 0.1 Nucleated Red Blood Cells # 0.0 Sodium Level 137 Potassium Level 4.4 Chloride Level 105 Carbon Dioxide Level 24 Anion Gap 8 Blood Urea Nitrogen 16 Creatinine 0.72 Est Glomerular Filtrat Rate mL/min > 60 Glucose Level 200 Calcium Level 8.0 L Total Bilirubin 2.1 H Direct Bilirubin 0.00 Indirect Bilirubin 2.1 H Aspartate Amino Transf (AST/SGOT) 57 #H Alanine Aminotransferase (ALT/SGPT) 62 Alkaline Phosphatase 54 Total Protein 6.0 L Albumin 3.4 Globulin 2.60 Albumin/Globulin Ratio 1.30 Vancomycin Level Trough < 5.0 L Subjective 24 Hr Interval Summary Free Text/Dictation Patient denies any abdominal discomfort following cholecystotomy placement. Asking for water. No acute overnight events. Exam/Review of Systems Exam Vitals Vital Signs Date Temp Pulse Resp B/P (MAP) Pulse Ox O2 O2 Flow FiO2 Time Delivery Rate 09/21/18 112 38 124/86 Nasal 13:30 (99) Cannula 09/21/18 98 12:30 09/21/18 97.6 12:00 09/21/18 2.0 11:15 Intake and Output 09/20/18 09/20/18 09/21/18 1515:00 23:00 07:00 IntakeIntake Total 500.337 ml 670.000 ml 420 ml OutputOutput Total 350 ml 300 ml 250 ml BalanceBalance 150.337 ml 370.000 ml 170 ml Exam General: no acute distress Neck: Supple Lungs: Clear to auscultation bilaterally no crackles rales or wheezing Heart: Normal S1-S2, Regular rhythm and rate. No overt murmurs appreciated on auscultation Abdomen: Soft , nontender, nondistended , bowel sounds are present. No guarding no rebound tenderness. cholecystomy tube in place Extremities: Normal to inspection, no edema no cyanosis skin: no rashes or lesions appreciated Results Results 24hrs Laboratory Tests Test 09/21/18 03:20 White Blood Count 15.9 H Red Blood Count 4.31 L Hemoglobin 12.9 L Hematocrit 38.4 L Mean Corpuscular Volume 89.1 Mean Corpuscular Hemoglobin 29.9 Mean Corpuscular Hemoglobin Concent 33.6 Red Cell Distribution Width 13.1 Platelet Count 241 # Mean Platelet Volume 13.1 H Immature Granulocytes % 0.300 Neutrophils % 79.7 H Lymphocytes % 8.2 L Monocytes % 11.3 H Eosinophils % 0.0 Basophils % 0.5 Nucleated Red Blood Cells % 0.0 Immature Granulocytes # 0.050 H Neutrophils # 12.6 H Lymphocytes # 1.3 Monocytes # 1.8 H Eosinophils # 0.0 Basophils # 0.1 Nucleated Red Blood Cells # 0.0 Sodium Level 137 Potassium Level 4.4 Chloride Level 105 Carbon Dioxide Level 24 Anion Gap 8 Blood Urea Nitrogen 16 Creatinine 0.72 Est Glomerular Filtrat Rate mL/min > 60 Glucose Level 200 Calcium Level 8.0 L Total Bilirubin 2.1 H Direct Bilirubin 0.00 Indirect Bilirubin 2.1 H Aspartate Amino Transf (AST/SGOT) 57 #H Alanine Aminotransferase (ALT/SGPT) 62 Alkaline Phosphatase 54 Total Protein 6.0 L Albumin 3.4 Globulin 2.60 Albumin/Globulin Ratio 1.30 Vancomycin Level Trough < 5.0 L Medications Medication Current Medications Sodium Chloride 1,000 ml @ 40 mls/hr Q24H IV Last administered on 09/21/18 08:10; Admin Dose 40 MLS/HR; Start 09/19/18 at 22:33 Ondansetron HCl (Zofran Inj) 4 mg Q6H PRN IV NAUSEA AND/OR VOMITING Last administered on 09/20/18at 04:58; Admin Dose 4 MG; Start 09/19/18 at 23:00 Acetaminophen (Tylenol Liquid) 650 mg Q6H PRN PO PAIN LEVEL 1-3 OR FEVER Last administered on 09/21/18at 00:10; Admin Dose 650 MG; Start 09/19/18 at 23:00 Hydromorphone HCl (Dilaudid) 0.5 mg Q4H PRN IV PAIN LEVEL 7-10 Last administered on 09/20/18at 00:10; Admin Dose 0.5 MG; Start 09/19/18 at 23:00 Docusate Sodium (Colace) 100 mg Q12H PRN PO CONSTIPATION; Start 09/19/18 at 23:00 Bisacodyl (Dulcolax) 5 mg DAILY PRN PO CONSTIPATION; Start 09/19/18 at 23:00 Famotidine (Pepcid Iv) 20 mg Q12 IV Last administered on 09/21/18 11:25; Admin Dose 20 MG; Start 09/20/18 at 09:00 Vancomycin HCl (Vanco Iv Per Pharmacy) VANCOMYCIN PER PHARMACY PER PROTOCOL XX ; Start 09/19/18 at 23:00 Piperacillin Sod/ Tazobactam Sod 100 ml @ 200 mls/hr Q6 IVPB Last administered on 7/24/19at 11:30; Admin Dose 200 MLS/HR; Start 09/20/18 at 00:00 Phenylephrine HCl 250 ml @ 75 mls/hr TITRATE IV Last administered on 09/20/18at 06:27; Admin Dose 15 MLS/HR; Start 09/20/18 at 06:30 Morphine Sulfate (morphine) 2 mg Q4H PRN IV MODERATE PAIN LEVEL 4-6 Last administered on 09/20/18at 17:23; Admin Dose 2 MG; Start 09/20/18 at 09:30 Vancomycin/Sodium Chloride 250 ml @ 83.333 mls/ hr Q12H IVPB Last administered on 09/21/18at 11:25; Admin Dose 83.333 MLS/HR; Start 09/21/18 at 10:00 Insulin Aspart (Novolog Insulin Pen) NOVOLOG *MILD* ALGORITHM WITH MEALS BEDTIME SC ; Start 09/21/18 at 17:35 Miscellaneous Information 1 ea NOTE XX ; Start 09/21/18 at 13:00 Glucose (Glutose) 15 gm Q15M PRN PO DECREASED GLUCOSE; Start 09/21/18 at 13:00 Glucose (Glutose) 22.5 gm Q15M PRN PO DECREASED GLUCOSE; Start 09/21/18 at 13:00 Dextrose (D50w Syringe) 25 ml Q15M PRN IV DECREASED GLUCOSE; Start 09/21/18 at 13:00 Dextrose (D50w Syringe) 50 ml Q15M PRN IV DECREASED GLUCOSE; Start 09/21/18 at 13:00 Glucagon (Glucagen) 1 mg Q15M PRN IM DECREASED GLUCOSE; Start 09/21/18 at 13:00 Glucose (Glutose) 15 gm Q15M PRN BUCCAL DECREASED GLUCOSE; Start 09/21/18 at 13:00 SAMIA NAPOLES MD Sep 21, 2018 15:59
--- NOTE | 2018-09-21 16:14 | PN ---
Date/Time of Note Date/Time of Note DATE: 09/21/18 TIME: 16:12 Assessment/Plan Lines/Catheters IV Catheter Type (from Nrs): Central Line Barraza in Place (from Nrs): No Subjective 24 Hr Interval Summary Patient was drained yesterday. Subjectively patient feels better. However his white count is still high. 15,000. We will continue antibiotics coverage, inot ropic support if needed. Exam/Review of Systems Vital Signs Vitals Vital Signs Date Temp Pulse Resp B/P (MAP) Pulse Ox O2 O2 Flow FiO2 Time Delivery Rate 09/21/18 97.5 112 23 123/89 98 Nasal 1.0 16:00 (100) Cannula Intake and Output 09/20/18 09/20/18 09/21/18 1515:00 23:00 07:00 IntakeIntake Total 500.337 ml 670.000 ml 420 ml OutputOutput Total 350 ml 300 ml 250 ml BalanceBalance 150.337 ml 370.000 ml 170 ml Results Result Diagram: 09/21/18 0320 09/21/18 0320 DEVONTE TAVERAS MD Sep 21, 2018 16:14
[2018-09-21] MEDS: INSULIN ASPART [NOVOLOG] 3 ML PEN SC SCH ×2 (17:28→20:20)
[2018-09-21] MEDS: METOPROLOL 25 MG TAB PO SCH (20:19)
[2018-09-22] VITALS (7 sets, daily range): BP systolic 103–122; BP diastolic 62–82; PULSE 101–173; RESP 16–20
[2018-09-22] MEDS: PIPER-TAZO 3.375 GM IV (PMX) 100 ML IVPB SCH (05:03)
[2018-09-22] MEDS: INSULIN ASPART [NOVOLOG] 3 ML PEN SC SCH ×4 (08:00→21:00)
--- NOTE | 2018-09-22 08:19 | CONS ---
Consult Date/Type/Reason Admit Date/Time Sep 19, 2018 at 19:47 Initial Consult Date 09/20/18 Type of Consultation: cv Requesting Provider: SONA ANDERSON Date/Time of Note DATE: 09/22/18 TIME: 08:17 Subjective cardiology follow up S: Case discussed with the staff and telemetry was reviewed patient has remained in sinus rhythm /sinus tachycardia. No chest pain or pressure now but complains of abdominal pain diffuse and severe at times. Improved with medications Blood pressure is stable now S General: no acute distress HEENT: NC/AT. pupils are equal. round. NECK: NO JVD. no stridor. CV: RRR. systolic murmur; no gallop or rubs. PULM: no wheezing or rhonchi. GI: SOFT, + right upper quadrant tenderness Telemetry: trace B/L LE edema. no clubbing. neuro: awake and alert, OX3. Psych: calm and pleasant rectal: deferred : normal EKG was personally reviewed which shows: Sinus tachycardia low voltage PAC Echocardiogram was personally reviewed which shows: Normal left ventricular systolic function. Normal left ventricular cavity size. Normal left ventricular wall thickness. Ejection fraction is visually estimated at 65 %. Tissue Doppler/Mitral Doppler indices are consistent with impaired relaxation (Stage I diastolic dysfunction). Normal appearance and function of the mitral valve with trace physiologic regurgitation. No significant aortic stenosis or insufficiency. Aortic cusps appear mildly calcified. Normal appearance and function of the tricuspid valve with trace physiologic regurgitation. Normal right ventricular systolic pressure. Small to moderate pericardial effusion. CT pulmonary angiogram done in the emergency room showed: 1. No evidence of large or central pulmonary emboli. 2. No aortic aneurysm or dissection. 3. Moderate sized pericardial effusion. 4. Reactive mediastinal adenopathy. No pathologic adenopathy. 5. Lungs grossly clear. 6. Expansile benign-appearing lesion/process along the inferior right scapular tip. Recommend correlation with dedicated x-ray Objective Vitals Vital Signs Date Temp Pulse Resp B/P (MAP) Pulse Ox O2 O2 Flow FiO2 Time Delivery Rate 09/22/18 98.6 107 20 122/77 97 Room Air 07:32 (92) 09/21/18 1.0 18:00 Intake and Output 09/21/18 09/21/18 09/22/18 1414:59 22:59 06:59 IntakeIntake Total 839.9 ml 960 ml 780 ml OutputOutput Total 280 ml 450 ml 750 ml BalanceBalance 559.9 ml 510 ml 30 ml Results/Medications Result Diagram: 09/22/1813 09/22/1813 Results 24 hrs Laboratory Tests Test 09/21/18 17:21 09/21/18 20:16 09/22/18 05:13 09/22/18 08:09 Bedside Glucose 154 158 124 White Blood Count 12.9 H Red Blood Count 4.03 L Hemoglobin 12.1 L Hematocrit 36.1 L Mean Corpuscular 89.6 Volume Mean Corpuscular 30.0 Hemoglobin Mean Corpuscular 33.5 Hemoglobin Concent Red Cell 13.1 Distribution Width Platelet Count 220 Mean Platelet Volume 13.5 H Immature 0.500 H Granulocytes % Neutrophils % 78.6 H Lymphocytes % 9.3 L Monocytes % 10.9 Eosinophils % 0.2 Basophils % 0.5 Nucleated Red Blood 0.0 Cells % Immature 0.060 H Granulocytes # Neutrophils # 10.2 H Lymphocytes # 1.2 Monocytes # 1.4 H Eosinophils # 0.0 Basophils # 0.1 Nucleated Red Blood 0.0 Cells # Sodium Level 134 L Potassium Level 3.5 Chloride Level 103 Carbon Dioxide Level 25 Anion Gap 6 Blood Urea Nitrogen 14 Creatinine 0.71 Est Glomerular > 60 Filtrat Rate mL/min Glucose Level 137 # Calcium Level 7.8 L Magnesium Level 2.0 Total Bilirubin 1.6 H Direct Bilirubin 0.00 Indirect Bilirubin 1.6 H Aspartate Amino 52 H Transf (AST/SGOT) Alanine 75 H Aminotransferase (AL T/SGPT) Alkaline Phosphatase 57 Total Protein 6.1 Albumin 3.1 L Globulin 3.00 Albumin/Globulin 1.03 Ratio Home Meds Reported Medications Betamethasone Dipropionate* (Betamethasone Dipropionate*) 0.05% - 45 Gm C ream.gm., TOP BID apply to affected 09/19/18 Etanercept (Enbrel Mini) 50 Mg/1 Ml Cartridge, 1 TAB SC weekly We09/19/18 [place]-3 Fatty Acids/Fish Oil (Fish Oil 1,000 mg Capsule) 1 Each Capsule, 1 CAP PO DAILY, CAP 09/19/18 Betamethasone Dipropionate* (Betamethasone Dipropionate*) 0.05% - 15 Gm Oint, 1 BID apply to affected area 09/19/18 Leflunomide* (Leflunomide*) 20 Mg Tablet, 1 TAB ORAL DAILY 09/19/18 Metformin Hcl* (Metformin Hcl*) 1,000 Mg Tablet, 1 TAB ORAL BID 09/19/18 Atorvastatin* (Atorvastatin*) 40 Mg Tablet, 1 TAB ORAL QHS 09/19/18 Lisinopril* (Lisinopril*) 2.5 Mg Tablet, 1 TAB ORAL DAILY 09/19/18 Acetaminophen (Acetaminophen) 500 Mg Tablet, 1 TAB ORAL Q6 PRN for MILD PAIN(1- 3)OR ELEVATED TEMP 09/19/18 Glipizide* (Glipizide*) 5 Mg Tablet, 1 TAB ORAL BID 09/19/18 Medications Current Medications Sodium Chloride 1,000 ml @ 40 mls/hr Q24H IV Last administered on 09/21/18at 17:31; Admin Dose 40 MLS/HR; Start 09/19/18 at 22:33 Ondansetron HCl (Zofran Inj) 4 mg Q6H PRN IV NAUSEA AND/OR VOMITING Last administered on 09/20/18at 04:58; Admin Dose 4 MG; Start 09/19/18 at 23:00 Acetaminophen (Tylenol Liquid) 650 mg Q6H PRN PO PAIN LEVEL 1-3 OR FEVER Last administered on 09/21/18at 00:10; Admin Dose 650 MG; Start 09/19/18 at 23:00 Hydromorphone HCl (Dilaudid) 0.5 mg Q4H PRN IV PAIN LEVEL 7-10 Last administered on 09/20/18at 00:10; Admin Dose 0.5 MG; Start 09/19/18 at 23:00 Docusate Sodium (Colace) 100 mg Q12H PRN PO CONSTIPATION; Start 09/19/18 at 23:00 Bisacodyl (Dulcolax) 5 mg DAILY PRN PO CONSTIPATION; Start 09/19/18 at 23:00 Famotidine (Pepcid Iv) 20 mg Q12 IV Last administered on 09/21/18at 20:19; Admin Dose 20 MG; Start 09/20/18 at 09:00 Piperacillin Sod/ Tazobactam Sod 100 ml @ 200 mls/hr Q6 IVPB Last administered on 09/22/18at 05:03; Admin Dose 200 MLS/HR; Start 09/20/18 at 00:00 Morphine Sulfate (morphine) 2 mg Q4H PRN IV MODERATE PAIN LEVEL 4-6 Last administered on 09/20/18at 17:23; Admin Dose 2 MG; Start 09/20/18 at 09:30 Insulin Aspart (Novolog Insulin Pen) NOVOLOG *MILD* ALGORITHM WITH MEALS BEDTIME SC Last administered on 09/21/18at 17:28; Admin Dose 1 UNIT; Start 09/21/18 at 17:35 Miscellaneous Information 1 ea NOTE XX ; Start 09/21/18 at 13:00 Glucose (Glutose) 15 gm Q15M PRN PO DECREASED GLUCOSE; Start 09/21/18 at 13:00 Glucose (Glutose) 22.5 gm Q15M PRN PO DECREASED GLUCOSE; Start 09/21/18 at 13: 00 Dextrose (D50w Syringe) 25 ml Q15M PRN IV DECREASED GLUCOSE; Start 09/21/18 at 13:00 Dextrose (D50w Syringe) 50 ml Q15M PRN IV DECREASED GLUCOSE; Start 09/21/18 at 13:00 Glucagon (Glucagen) 1 mg Q15M PRN IM DECREASED GLUCOSE; Start 09/21/18 at 13:00 Glucose (Glutose) 15 gm Q15M PRN BUCCAL DECREASED GLUCOSE; Start 09/21/18 at 13:00 Metoprolol Tartrate (Lopressor) 12.5 mg BID PO Last administered on 09/21/18at 20:19; Admin Dose 12.5 MG; Start 09/21/18 at 21:00 Assessment/Plan Hospital Course (Demo Recall) 1. Small to moderate pericardial effusion: So far does not have tamponade physiology 2. Sepsis/shock 3. Acute cholecystitis and recurrent fever: s/p Percutaneous drainage v 4. Chest pain pleuritic secondary to above 5. Diabetes 6. Hypertension 7. Episode of SVT: Has resolved on now mostly in sinus tach Recommendation: Antibiotic management as per internal medicine. His cardiac enzymes: Troponin have been negative. will repeat echo tomorrow Thank you for this referral. We will continue to follow along with you SARMAD DOVE MD [facility] SARMAD DOVE MD Sep 22, 2018 08:19
[2018-09-22] MEDS ORDERED: POTASSIUM CHLORIDE (SR) 20 MEQ TAB PO STA (09:00)
[2018-09-22] MEDS: METOPROLOL 25 MG TAB PO SCH ×2 (10:07→21:46)
[2018-09-22] MEDS: FAMOTIDINE 20 MG INJ IV SCH (10:09)
[2018-09-22] MEDS: morphine 2 MG INJ IV PRN (10:32)
[2018-09-22] MEDS ORDERED: CALCIUM CARBONATE 500 MG CHEW TAB PO PRN (12:30)
[2018-09-22] MEDS: CIPROFLOXACIN 400MG/D5W 200 ML IVPB SCH ×2 (13:05→20:37)
[2018-09-22] MEDS: metroNIDAZOLE 500 MG/NS (PMX) 100 ML IVPB SCH ×3 (15:06→23:48)
--- NOTE | 2018-09-22 15:22 | PN ---
Date/Time of Note Date/Time of Note DATE: 09/22/18 TIME: 15:16 Assessment/Plan VTE Prophylaxis Risk score (from [facility] [place]0 risk: 6 SCD applied (from [facility] [place] Yes Pharmacological prophylaxis: NA/contraindicated Pharm contraindication: low risk/ambulating Lines/Catheters IV C[facility]ter Type (from [facility]): Central Line Central line still needed: Yes Urinary Cath still in place: No Assessment/Plan Assessment/Plan 1. Septic shock secondary to acute cholecystitis- resolved - off pressors support - LFTs noted - lactic acid normal 2. Acute abdominal distension with diarrhea - KUB ordered and results noted. no obstruction appreciated - will adjust antibiotics and add lactobacillus 3. Acute shortness of breath - CXR noted and will give a dose of Lasix - IVF discontinued - monitor O2 saturations 4. Pericardial effusion - most likely secondary to autoimmune disease - no need for tap at this time given no tamponade appreciated - Cardiology input appreciated and repeat ECHO planned for tomorrow 5. Acute cholecystitis - Gen Surgery consultation appreciated. IR placed cholecystotomy tube 09/21 - Okay for surgical intervention if needed per Cardiology - continue broad spectrum antibiotics 6. Psoriasis - Hold methotrexate, Enbrel, leflunomide - will resume when more stable 7. Rheumatoid arthritis - hold home medications and will resume when stable 8. 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 Disposition - will adjust antibiotics given not tolerating Zosyn. Will give dose of lasix given edema on CXR - continue monitoring output from cholecystotomy tube Result Diagram: 09/22/18 0513 09/22/18 0513 Results 24hrs Laboratory Tests Test 09/21/18 17:21 09/21/18 20:16 09/22/18 05:13 09/22/18 08:09 Bedside Glucose 154 158 124 White Blood Count 12.9 H Red Blood Count 4.03 L Hemoglobin 12.1 L Hematocrit 36.1 L Mean Corpuscular 89.6 Volume Mean Corpuscular 30.0 Hemoglobin Mean Corpuscular 33.5 Hemoglobin Concent Red Cell 13.1 Distribution Width Platelet Count 220 Mean Platelet Volume 13.5 H Immature 0.500 H Granulocytes % Neutrophils % 78.6 H Lymphocytes % 9.3 L Monocytes % 10.9 Eosinophils % 0.2 Basophils % 0.5 Nucleated Red Blood 0.0 Cells % Immature 0.060 H Granulocytes # Neutrophils # 10.2 H Lymphocytes # 1.2 Monocytes # 1.4 H Eosinophils # 0.0 Basophils # 0.1 Nucleated Red Blood 0.0 Cells # Sodium Level 134 L Potassium Level 3.5 Chloride Level 103 Carbon Dioxide Level 25 Anion Gap 6 Blood Urea Nitrogen 14 Creatinine 0.71 Est Glomerular > 60 Filtrat Rate mL/min Glucose Level 137 # Calcium Level 7.8 L Magnesium Level 2.0 Total Bilirubin 1.6 H Direct Bilirubin 0.00 Indirect Bilirubin 1.6 H Aspartate Amino 52 H Transf (AST/SGOT) Alanine 75 H Aminotransferase (AL T/SGPT) Alkaline Phosphatase 57 Total Protein 6.1 Albumin 3.1 L Globulin 3.00 Albumin/Globulin 1.03 Ratio Test 09/22/18 11:46 Bedside Glucose 170 Subjective 24 Hr Interval Summary Free Text/Dictation Patient states hes having some respiratory distress and abdominal bloating. complaining of diarrhea as well. Family at bedside and plan of care discussed with family. Exam/Review of Systems Exam Vitals Vital Signs Date Temp Pulse Resp B/P (MAP) Pulse Ox O2 O2 Flow FiO2 Time Delivery Rate 09/22/18 98.1 101 18 116/62 96 Nasal 15:04 (80) Cannula 09/21/18 1.0 18:00 Intake and Output 09/21/18 09/21/18 09/22/18 1414:59 22:59 06:59 IntakeIntake Total 839.9 ml 960 ml 780 ml OutputOutput Total 280 ml 450 ml 750 ml BalanceBalance 559.9 ml 510 ml 30 ml Exam General: distress secondary to abdominal discomfort Neck: Supple Lungs: Clear to auscultation bilaterally, diminished. no wheezing Heart: Normal S1-S2, Regular rhythm and tachycardia. No overt murmurs appreciated on auscultation Abdomen: Soft , nontender, protuberant , bowel sounds are present. No guarding no rebound tenderness. cholecystomy tube in place Extremities: Normal to inspection, no edema no cyanosis skin: no rashes or lesions appreciated Results Results 24hrs Laboratory Tests Test 09/21/18 17:21 09/21/18 20:16 09/22/18 05:13 09/22/18 08:09 Bedside Glucose 154 158 124 White Blood Count 12.9 H Red Blood Count 4.03 L Hemoglobin 12.1 L Hematocrit 36.1 L Mean Corpuscular 89.6 Volume Mean Corpuscular 30.0 Hemoglobin Mean Corpuscular 33.5 Hemoglobin Concent Red Cell 13.1 Distribution Width Platelet Count 220 Mean Platelet Volume 13.5 H Immature 0.500 H Granulocytes % Neutrophils % 78.6 H Lymphocytes % 9.3 L Monocytes % 10.9 Eosinophils % 0.2 Basophils % 0.5 Nucleated Red Blood 0.0 Cells % Immature 0.060 H Granulocytes # Neutrophils # 10.2 H Lymphocytes # 1.2 Monocytes # 1.4 H Eosinophils # 0.0 Basophils # 0.1 Nucleated Red Blood 0.0 Cells # Sodium Level 134 L Potassium Level 3.5 Chloride Level 103 Carbon Dioxide Level 25 Anion Gap 6 Blood Urea Nitrogen 14 Creatinine 0.71 Est Glomerular > 60 Filtrat Rate mL/min Glucose Level 137 # Calcium Level 7.8 L Magnesium Level 2.0 Total Bilirubin 1.6 H Direct Bilirubin 0.00 Indirect Bilirubin 1.6 H Aspartate Amino 52 H Transf (AST/SGOT) Alanine 75 H Aminotransferase (AL T/SGPT) Alkaline Phosphatase 57 Total Protein 6.1 Albumin 3.1 L Globulin 3.00 Albumin/Globulin 1.03 Ratio Test 09/22/18 11:46 Bedside Glucose 170 Medications Medication Current Medications Sodium Chloride 1,000 ml @ 40 mls/hr Q24H IV Last administered on 09/21/18at 17:31; Admin Dose 40 MLS/HR; Start 09/19/18 at 22:33 Ondansetron HCl (Zofran Inj) 4 mg Q6H PRN IV NAUSEA AND/OR VOMITING Last administered on 09/20/18at 04:58; Admin Dose 4 MG; Start 09/19/18 at 23:00 Acetaminophen (Tylenol Liquid) 650 mg Q6H PRN PO PAIN LEVEL 1-3 OR FEVER Last administered on 09/21/18at 00:10; Admin Dose 650 MG; Start 09/19/18 at 23:00 Hydromorphone HCl (Dilaudid) 0.5 mg Q4H PRN IV PAIN LEVEL 7-10 Last administered on 09/20/18at 00:10; Admin Dose 0.5 MG; Start 09/19/18 at 23:00 Docusate Sodium (Colace) 100 mg Q12H PRN PO CONSTIPATION; Start 09/19/18 at 23:00 Bisacodyl (Dulcolax) 5 mg DAILY PRN PO CONSTIPATION; Start 09/19/18 at 23:00 Morphine Sulfate (morphine) 2 mg Q4H PRN IV MODERATE PAIN LEVEL 4-6 Last administered on 09/22/18at 10:32; Admin Dose 2 MG; Start 09/20/18 at 09:30 Insulin Aspart (Novolog Insulin Pen) NOVOLOG *MILD* ALGORITHM WITH MEALS BEDTIME SC Last administered on 09/22/18at 11:50; Admin Dose 1 UNIT; Start 09/21/18 at 17:35 Miscellaneous Information 1 ea NOTE XX ; Start 09/21/18 at 13:00 Glucose (Glutose) 15 gm Q15M PRN PO DECREASED GLUCOSE; Start 09/21/18 at 13:00 Glucose (Glutose) 22.5 gm Q15M PRN PO DECREASED GLUCOSE; Start 09/21/18 at 13:00 Dextrose (D50w Syringe) 25 ml Q15M PRN IV DECREASED GLUCOSE; Start 09/21/18 at 13:00 Dextrose (D50w Syringe) 50 ml Q15M PRN IV DECREASED GLUCOSE; Start 09/21/18 at 13:00 Glucagon (Glucagen) 1 mg Q15M PRN IM DECREASED GLUCOSE; Start 09/21/18 at 13:00 Glucose (Glutose) 15 gm Q15M PRN BUCCAL DECREASED GLUCOSE; Start 09/21/18 at 13:00 Metoprolol Tartrate (Lopressor) 12.5 mg BID PO Last administered on 09/22/18at 10:07; Admin Dose 12.5 MG; Start 09/21/18 at 21:00 Pantoprazole (Protonix Tab) 40 mg DAILY@06 PO ; Start 09/23/18 at 06:00 Ciprofloxacin/ Dextrose 200 ml @ 200 mls/hr Q12 IVPB Last administered on 09/22/18at 13:05; Admin Dose 200 MLS/HR; Start 09/22/18 at 12:30 Metronidazole 100 ml @ 100 mls/hr Q6 IVPB Last administered on 09/22/18at 15:06; Admin Dose 100 MLS/HR; Start 09/22/18 at 12:30 Lactobacillus Acidophilus/ Rhamnosus (Culturelle) 1 cap WITH MEALS PO ; Start 09/22/18 at 18:00 Simethicone (Mylicon) 80 mg TID PRN PO DISTENSION/GAS/BLOATING; Start 09/22/18 at 12:30 Calcium Carbonate (Tums) 500 mg Q4H PRN PO reflux; Start 09/22/18 at 12:30 SAMIA NAPOLES MD Sep 22, 2018 15:22
[2018-09-22] MEDS ORDERED: FUROSEMIDE 40 MG INJ IV ONE (15:30)
[2018-09-22] MEDS: LACTOBACILLUS RHAMNOSUS CAP PO SCH (17:29)
[2018-09-22] MEDS ORDERED: METOPROLOL 5 MG INJ IV ONE (20:00)
[2018-09-22] MEDS ORDERED: ADENOSINE 6 MG INJ IV ONE (20:00)
[2018-09-22] MEDS ORDERED: METOPROLOL 5 MG INJ ONE (20:02)
[2018-09-22] MEDS: ACETAMINOPHEN 650MG/20.3ML CUP PO PRN (20:04)
--- NOTE | 2018-09-22 20:15 | EN ---
Date/Time of Note Date/Time of Note DATE: 09/22/18 TIME: 20:15 Event Note Medicine Medicine Event Note TRASH HAULER Note Rapid response note was called for patient being in SVT Patient seen and at the bedside. Patient appeared comfortable. Telemetry did show SVT. He was connected to the publicity consultant which did show supraventricular tachycardia at a rate of approximately 180 bpm. Vagal maneuvers were attempted however this did not resolve the SVT. Patient was given adenosine 6 mg IV x1. This did improve the heart rate down to the 110s. He was given Lopressor 5 mg IV x1 which did result in further improvement of the heart rate. General: Patient currently in sitting in bed in no acute distress CVS: Rapid heart rate, no acute murmurs appreciated Lungs: Clear to oscillation bilaterally Neuro: Alert and x3, no speech issues. Range of motion is 4 EKG: Initial EKG: Supraventricular tachycardia at approximately 180 bpm After given adenosine: EKG showing sinus tachycardia. Assessment and plan: #1 supraventricular tachycardia: Possibly secondary to underlying sepsis, pericardial effusion. Patient did respond to adenosine 6 mg IV x1. He was also given Lopressor 5mg IV. At the current time we will continue monitoring telemetry. Cardiology is already on board . Further management as per cardiology. Greater than 35 minutes critical care time spent on the care management this patient. SONA ANDERSON Sep 22, 2018 20:15
[2018-09-22] MEDS ORDERED: MAGNESIUM SULFATE 2 GM/50 ML 50 ML IVPB ONE (20:30)
[2018-09-23] VITALS: BP 111/70; PULSE 84; RESP 17
[2018-09-23 04:00] VITALS: BP 119/73; PULSE 84; RESP 18
[2018-09-23] MEDS: PANTOPRAZOLE (EC) 40 MG TAB PO SCH (05:32)
[2018-09-23] MEDS: metroNIDAZOLE 500 MG/NS (PMX) 100 ML IVPB SCH ×4 (05:32→23:08)
[2018-09-23 07:21] VITALS: BP 123/80; PULSE 94; RESP 18
[2018-09-23] MEDS: INSULIN ASPART [NOVOLOG] 3 ML PEN SC SCH ×4 (07:56→20:55)
[2018-09-23] MEDS: LACTOBACILLUS RHAMNOSUS CAP PO SCH ×3 (08:19→17:35)
[2018-09-23] MEDS: METOPROLOL 25 MG TAB PO SCH ×2 (08:20→20:52)
[2018-09-23] MEDS: CIPROFLOXACIN 400MG/D5W 200 ML IVPB SCH ×2 (08:20→20:52)
[2018-09-23 11:06] VITALS: BP 118/71; PULSE 87; RESP 18
--- NOTE | 2018-09-23 13:09 | CONS ---
Assessment/Plan Assessment/Plan Assessment/Plan (Daily) Assessment: Hematochezia x 1 time Diarrhea on clear liquid diet Acute cholecystitis status post cholecystostomy drain Sepsis Elevated ALT and bilirubin Psoriasis Rheumatoid arthritis Diabetes mellitus Hypertension Plan: Advance diet Monitor LFTs Hepatitis serology Monitor H&H Transfuse for hemoglobin less than 7.5 Monitor for signs of overt GI bleeding Colonoscopy as an outpatient Patient seen in collaboration with Dr. Olivares Consultation Date/Type/Reason Admit Date/Time Sep 19, 2018 at 19:47 Date of Consultation: Sep 23, 2018 Type of Consult GI Reason for Consultation Hematochezia Date/Time of Note DATE: 09/23/18 TIME: 12:52 Hx of Present Illness This is a 63-year-old male with a history of psoriasis , hypertension, diabetes, lipidemia and rheumatoid arthritis who was admitted for acute cholecystitis status post cholecystostomy drain. GI was consulted for hematochezia. Patient reports having one episode of blood in the stool yesterday. He denies constipation or rectal pain. Patient has been having diarrhea on clear liquid diet. Patient has no prior history of diarrhea or GI complaints. She reports history of colonoscopy 15 years ago with no significant findings. No history of EGD. ALT is 79, bilirubin 1.2. Hemoglobin is stable 11.5. Currently there is no evidence of overt GI bleeding. Discussed the plan for outpatient colon oscopy. We will advance the diet. Continue observation. Gastrointestinal: no complaints (See HPI) Past Medical History Medical History: diabetes, high cholesterol, hypertension Home Meds Reported Medications Betamethasone Dipropionate* (Betamethasone Dipropionate*) 0.05% - 45 Gm Cream.gm., TOP BID apply to affected 09/19/18 Etanercept (Enbrel Mini) 50 Mg/1 Ml Cartridge, 1 TAB SC weekly 09/19/18 [place]-3 Fatty Acids/Fish Oil (Fish Oil 1,000 mg Capsule) 1 Each Capsule, 1 CAP PO DAILY, CAP 09/19/18 Betamethasone Dipropionate* (Betamethasone Dipropionate*) 0.05% - 15 Gm Oint, 1 BID apply to affected area 09/19/18 Leflunomide* (Leflunomide*) 20 Mg Tablet, 1 TAB ORAL DAILY 09/19/18 Metformin Hcl* (Metformin Hcl*) 1,000 Mg Tablet, 1 TAB ORAL BID 09/19/18 Atorvastatin* (Atorvastatin*) 40 Mg Tablet, 1 TAB ORAL QHS 09/19/18 Lisinopril* (Lisinopril*) 2.5 Mg Tablet, 1 TAB ORAL DAILY 09/19/18 Acetaminophen (Acetaminophen) 500 Mg Tablet, 1 TAB ORAL Q6 PRN for MILD PAIN(1- 3)OR ELEVATED TEMP 09/19/18 Glipizide* (Glipizide*) 5 Mg Tablet, 1 TAB ORAL BID 09/19/18 Medications Current Medications Ondansetron HCl (Zofran Inj) 4 mg Q6H PRN IV NAUSEA AND/OR VOMITING Last administered on 09/20/18at 04:58; Admin Dose 4 MG; Start 09/19/18 at 23:00 Acetaminophen (Tylenol Liquid) 650 mg Q6H PRN PO PAIN LEVEL 1-3 OR FEVER Last administered on 09/22/18at 20:04; Admin Dose 650 MG; Start 09/19/18 at 23:00 Hydromorphone HCl (Dilaudid) 0.5 mg Q4H PRN IV PAIN LEVEL 7-10 Last administered on 09/20/18at 00:10; Admin Dose 0.5 MG; Start 09/19/18 at 23:00 Docusate Sodium (Colace) 100 mg Q12H PRN PO CONSTIPATION; Start 09/19/18 at 23:00 Bisacodyl (Dulcolax) 5 mg DAILY PRN PO CONSTIPATION; Start 09/19/18 at 23:00 Morphine Sulfate (morphine) 2 mg Q4H PRN IV MODERATE PAIN LEVEL 4-6 Last a dministered on 09/22/18at 10:32; Admin Dose 2 MG; Start 09/20/18 at 09:30 Insulin Aspart (Novolog Insulin Pen) NOVOLOG *MILD* ALGORITHM WITH MEALS BEDTIME SC Last administered on 09/23/18at 12:26; Admin Dose 1 UNIT; Start 09/21/18 at 17:35 Miscellaneous Information 1 ea NOTE XX ; Start 09/21/18 at 13:00 Glucose (Glutose) 15 gm Q15M PRN PO DECREASED GLUCOSE; Start 09/21/18 at 13:00 Glucose (Glutose) 22.5 gm Q15M PRN PO DECREASED GLUCOSE; Start 09/21/18 at 13:00 Dextrose (D50w Syringe) 25 ml Q15M PRN IV DECREASED GLUCOSE; Start 09/21/18 at 13:00 Dextrose (D50w Syringe) 50 ml Q15M PRN IV DECREASED GLUCOSE; Start 09/21/18 at 13:00 Glucagon (Glucagen) 1 mg Q15M PRN IM DECREASED GLUCOSE; Start 09/21/18 at 13:00 Glucose (Glutose) 15 gm Q15M PRN BUCCAL DECREASED GLUCOSE; Start 09/21/18 at 13 :00 Pantoprazole (Protonix Tab) 40 mg DAILY@06 PO Last administered on 09/23/18at 05:32; Admin Dose 40 MG; Start 09/23/18 at 06:00 Ciprofloxacin/ Dextrose 200 ml @ 200 mls/hr Q12 IVPB Last administered on 09/23/18at 08:20; Admin Dose 200 MLS/HR; Start 09/22/18 at 12:30 Metronidazole 100 ml @ 100 mls/hr Q6 IVPB Last administered on 09/23/18at 11:56; Admin Dose 100 MLS/HR; Start 09/22/18 at 12:30 Lactobacillus Acidophilus/ Rhamnosus (Culturelle) 1 cap WITH MEALS PO Last administered on 09/23/18at 11:56; Admin Dose 1 CAP; Start 09/22/18 at 18:00 Simethicone (Mylicon) 80 mg TID PRN PO DISTENSION/GAS/BLOATING; Start 09/22/18 at 12:30 Calcium Carbonate (Tums) 500 mg Q4H PRN PO reflux; Start 09/22/18 at 12:30 Metoprolol Tartrate (Lopressor) 25 mg BID PO Last administered on 09/23/18at 08:20; Admin Dose 25 MG; Start 09/22/18 at 21:00 Allergies: Coded Allergies: No Known Allergy (Unverified , 09/19/18) Past Surgical History Past Surgical Hx: other (Right lower extremity surgery.) Social History Alcohol Use: rarely Smoking Status: Never smoker Drug Use: none Exam/Review of Systems Exam Vitals Vital Signs Date Temp Pulse Resp B/P (MAP) Pulse Ox O2 O2 Flow FiO2 Time Delivery Rate 09/23/18 98.1 87 18 118/71 96 Room Air 11:06 (87) 09/23/18 4.0 08:15 Intake and Output 09/22/18 09/22/18 09/23/18 1515:00 23:00 07:00 IntakeIntake Total 870 ml 1120 ml 222 ml OutputOutput Total 200 ml 1700 ml 100 ml BalanceBalance 670 ml -580 ml 122 ml Exam PHYSICAL EXAMINATION: GENERAL: Well developed, well nourished, alert & oriented x 3, in no acute distress SKIN: No lesions, no stigmata chronic liver disease, no evidence of bleeding diathesis LYMPHATIC: No palpable lymphadenopathy. HEAD: Normocephalic, atraumatic, no tenderness. EYES: Pupils equal reactive to light and accommodation, full extraocular movements, sclera clear, non-icteric, no discharge. EARS/NOSE AND THROAT: Ears normal, nose normal, oropharynx normal, oral me mbranes well hydrated without lesions. NECK: Supple, no masses, thyroid normal, JVP within normal limits, carotids normal without bruits. CHEST: Inspection within normal limits. CARDIOVASCULAR: Heart: Regular rate and rhythm, no murmurs, gallops or rubs. Peripheral pulses present within normal limits, no cyanosis, clubbing or edemas. No pulsatile abdominal mass RESPIRATORY: Lungs clear to auscultation and percussion, no wheezing, no rubs GASTROINTESTINAL AND LIVER: Abdomen: Soft, non tenderness, cholecystostomy drain right upper quadrant, non-distended, no hernias, no masses, no organomegaly, no ascites, no guarding, no rebound tenderness, normoactive bowel sounds. Rectal: Deferred. GENITOURINARY: Male genitalia within normal limits. EXTREMITIES: No cyanosis, clubbing or edema. Results Result Diagram: 09/23/18 1036 09/23/18 0502 Results 24hrs Laboratory Tests Test 09/22/18 17:09 09/22/18 20:36 09/23/18 05:02 09/23/18 07:50 Bedside Glucose 165 163 146 White Blood Count 9.5 # Red Blood Count 4.04 L Hemoglobin 12.2 L Hematocrit 35.8 L Mean Corpuscular 88.6 Volume Mean Corpuscular 30.2 Hemoglobin Mean Corpuscular 34.1 Hemoglobin Concent Red Cell 12.7 Distribution Width Platelet Count 225 Mean Platelet Volume 12.8 H Immature 0.300 Granulocytes % Neutrophils % 76.1 Lymphocytes % 10.5 L Monocytes % 11.7 H Eosinophils % 0.7 Basophils % 0.7 Nucleated Red Blood 0.0 Cells % Immature 0.030 Granulocytes # Neutrophils # 7.2 Lymphocytes # 1.0 Monocytes # 1.1 H Eosinophils # 0.1 Basophils # 0.1 Nucleated Red Blood 0.0 Cells # Sodium Level 139 Potassium Level 4.2 Chloride Level 104 Carbon Dioxide Level 28 Anion Gap 7 Blood Urea Nitrogen 10 Creatinine 0.59 L Est Glomerular > 60 Filtrat Rate mL/min Glucose Level 132 Calcium Level 8.1 L Magnesium Level 2.4 Total Bilirubin 1.2 Direct Bilirubin 0.00 Indirect Bilirubin 1.2 H Aspartate Amino 45 Transf (AST/SGOT) Alanine 79 H Aminotransferase (AL T/SGPT) Alkaline Phosphatase 61 Total Protein 5.8 L Albumin 3.0 L Globulin 2.80 Albumin/Globulin 1.07 Ratio Test 09/23/18 10:36 09/23/18 11:53 White Blood Count 8.5 Red Blood Count 3.82 L Hemoglobin 11.5 L Hematocrit 33.6 L Mean Corpuscular 88.0 Volume Mean Corpuscular 30.1 Hemoglobin Mean Corpuscular 34.2 Hemoglobin Concent Red Cell 12.8 Distribution Width Platelet Count 227 Mean Platelet Volume 13.1 H Immature 0.500 H Granulocytes % Neutrophils % 78.5 H Lymphocytes % 8.3 L Monocytes % 11.4 H Eosinophils % 0.7 Basophils % 0.6 Nucleated Red Blood 0.0 Cells % Immature 0.040 H Granulocytes # Neutrophils # 6.7 Lymphocytes # 0.7 L Monocytes # 1.0 H Eosinophils # 0.1 Basophils # 0.1 Nucleated Red Blood 0.0 Cells # Bedside Glucose 148 Medications Medication Current Medications Ondansetron HCl (Zofran Inj) 4 mg Q6H PRN IV NAUSEA AND/OR VOMITING Last administered on 09/20/18at 04:58; Admin Dose 4 MG; Start 09/19/18 at 23:00 Acetaminophen (Tylenol Liquid) 650 mg Q6H PRN PO PAIN LEVEL 1-3 OR FEVER Last administered on 09/22/18at 20:04; Admin Dose 650 MG; Start 09/19/18 at 23:00 Hydromorphone HCl (Dilaudid) 0.5 mg Q4H PRN IV PAIN LEVEL 7-10 Last administered on 09/20/18at 00:10; Admin Dose 0.5 MG; Start 09/19/18 at 23:00 Docusate Sodium (Colace) 100 mg Q12H PRN PO CONSTIPATION; Start 09/19/18 at 23:00 Bisacodyl (Dulcolax) 5 mg DAILY PRN PO CONSTIPATION; Start 09/19/18 at 23:00 Morphine Sulfate (morphine) 2 mg Q4H PRN IV MODERATE PAIN LEVEL 4-6 Last administered on 09/22/18at 10:32; Admin Dose 2 MG; Start 09/20/18 at 09:30 Insulin Aspart (Novolog Insulin Pen) NOVOLOG *MILD* ALGORITHM WITH MEALS BEDTIME SC Last administered on 09/23/18at 12:26; Admin Dose 1 UNIT; Start 09/21/18 at 17:35 Miscellaneous Information 1 ea NOTE XX ; Start 09/21/18 at 13:00 Glucose (Glutose) 15 gm Q15M PRN PO DECREASED GLUCOSE; Start 09/21/18 at 13:00 Glucose (Glutose) 22.5 gm Q15M PRN PO DECREASED GLUCOSE; Start 09/21/18 at 13:00 Dextrose (D50w Syringe) 25 ml Q15M PRN IV DECREASED GLUCOSE; Start 09/21/18 at 13:00 Dextrose (D50w Syringe) 50 ml Q15M PRN IV DECREASED GLUCOSE; Start 09/21/18 at 13:00 Glucagon (Glucagen) 1 mg Q15M PRN IM DECREASED GLUCOSE; Start 09/21/18 at 13:00 Glucose (Glutose) 15 gm Q15M PRN BUCCAL DECREASED GLUCOSE; Start 09/21/18 at 13:00 Pantoprazole (Protonix Tab) 40 mg DAILY@06 PO Last administered on 09/23/18at 05:32; Admin Dose 40 MG; Start 09/23/18 at 06:00 Ciprofloxacin/ Dextrose 200 ml @ 200 mls/hr Q12 IVPB Last administered on 09/23/18at 08:20; Admin Dose 200 MLS/HR; Start 09/22/18 at 12:30 Metronidazole 100 ml @ 100 mls/hr Q6 IVPB Last administered on 09/23/18at 11:56; Admin Dose 100 MLS/HR; Start 09/22/18 at 12:30 Lactobacillus Acidophilus/ Rhamnosus (Culturelle) 1 cap WITH MEALS PO Last administered on 09/23/18at 11:56; Admin Dose 1 CAP; Start 09/22/18 at 18:00 Simethicone (Mylicon) 80 mg TID PRN PO DISTENSION/GAS/BLOATING; Start 09/22/18 at 12:30 Calcium Carbonate (Tums) 500 mg Q4H PRN PO reflux; Start 09/22/18 at 12:30 Metoprolol Tartrate (Lopressor) 25 mg BID PO Last administered on 09/23/18at 08:20; Admin Dose 25 MG; Start 09/22/18 at 21:00 SAFIA YUN NP Sep 23, 2018 13:04
--- NOTE | 2018-09-23 14:47 | PN ---
Date/Time of Note Date/Time of Note DATE: 09/23/18 TIME: 14:42 Assessment/Plan VTE Prophylaxis Risk score (from Ns)>0 risk: 2 SCD applied (from Ns): Yes Pharmacological prophylaxis: NA/contraindicated Pharm contraindication: low risk/ambulating Lines/Catheters IV Catheter Type (from [facility] Central Line Central line still needed: Yes Urinary Cath still in place: No Assessment/Plan Assessment/Plan 1. Sesis secondary to acute cholecystitis- improving - Continue on current IV antibiotic given patient tolerating better than Zosyn - LFTs noted - lactic acid normal 2. Acute abdominal distension with diarrhea- improving - still with diarrhea but abdominal discomfort improved - KUB ordered and results noted. no obstruction appreciated 3. NSVT - resolved after adenosine given and BB helped improve HR 4. Pericardial effusion - most likely secondary to autoimmune disease - Cardiology input appreciated and repeat ECHO results pending 5. Acute cholecystitis - Gen Surgery consultation appreciated. IR placed cholecystotomy tube 09/21 - Okay for surgical intervention if needed per Cardiology - continue broad spectrum antibiotics 6. Psoriasis - Hold methotrexate, Enbrel, leflunomide - will resume when more stable 7. Rheumatoid arthritis - hold home medications and will resume when stable 8. 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 Acute shortness of breath- resolved - monitor O2 saturations 10. Disposition - Will advance diet to soft and monitor for tolerance - monitoring output from cholecystomy tube. Will touch base with surgery if cholecystectomy can be performed prior to d/c given patient stable Result Diagram: 09/23/18 1036 09/23/18 0502 Results 24hrs Laboratory Tests Test 09/22/18 17:09 09/22/18 20:36 09/23/18 05:02 09/23/18 07:50 Bedside Glucose 165 163 146 White Blood Count 9.5 # Red Blood Count 4.04 L Hemoglobin 12.2 L Hematocrit 35.8 L Mean Corpuscular 88.6 Volume Mean Corpuscular 30.2 Hemoglobin Mean Corpuscular 34.1 Hemoglobin Concent Red Cell 12.7 Distribution Width Platelet Count 225 Mean Platelet Volume 12.8 H Immature 0.300 Granulocytes % Neutrophils % 76.1 Lymphocytes % 10.5 L Monocytes % 11.7 H Eosinophils % 0.7 Basophils % 0.7 Nucleated Red Blood 0.0 Cells % Immature 0.030 Granulocytes # Neutrophils # 7.2 Lymphocytes # 1.0 Monocytes # 1.1 H Eosinophils # 0.1 Basophils # 0.1 Nucleated Red Blood 0.0 Cells # Sodium Level 139 Potassium Level 4.2 Chloride Level 104 Carbon Dioxide Level 28 Anion Gap 7 Blood Urea Nitrogen 10 Creatinine 0.59 L Est Glomerular > 60 Filtrat Rate mL/min Glucose Level 132 Calcium Level 8.1 L Magnesium Level 2.4 Total Bilirubin 1.2 Direct Bilirubin 0.00 Indirect Bilirubin 1.2 H Aspartate Amino 45 Transf (AST/SGOT) Alanine 79 H Aminotransferase (AL T/SGPT) Alkaline Phosphatase 61 Total Protein 5.8 L Albumin 3.0 L Globulin 2.80 Albumin/Globulin 1.07 Ratio Test 09/23/18 10:36 09/23/18 11:53 White Blood Count 8.5 Red Blood Count 3.82 L Hemoglobin 11.5 L Hematocrit 33.6 L Mean Corpuscular 88.0 Volume Mean Corpuscular 30.1 Hemoglobin Mean Corpuscular 34.2 Hemoglobin Concent Red Cell 12.8 Distribution Width Platelet Count 227 Mean Platelet Volume 13.1 H Immature 0.500 H Granulocytes % Neutrophils % 78.5 H Lymphocytes % 8.3 L Monocytes % 11.4 H Eosinophils % 0.7 Basophils % 0.6 Nucleated Red Blood 0.0 Cells % Immature 0.040 H Granulocytes # Neutrophils # 6.7 Lymphocytes # 0.7 L Monocytes # 1.0 H Eosinophils # 0.1 Basophils # 0.1 Nucleated Red Blood 0.0 Cells # Bedside Glucose 148 Subjective 24 Hr Interval Summary Free Text/Dictation Patient doing well and states hes feeling significantly better. Still with loose stools but no longer experiencing abdominal discomfort or difficulty breathing. Had episode of SVT overnight that improved after Adenosine and BB. Exam/Review of Systems Exam Vitals Vital Signs Date Temp Pulse Resp B/P (MAP) Pulse Ox O2 O2 Flow FiO2 Time Delivery Rate 09/23/18 98.1 87 18 118/71 96 Room Air 11:06 (87) 09/23/18 4.0 08:15 Intake and Output 09/22/18 09/22/18 09/23/18 1515:00 23:00 07:00 IntakeIntake Total 870 ml 1120 ml 222 ml OutputOutput Total 200 ml 1700 ml 100 ml BalanceBalance 670 ml -580 ml 122 ml Exam General: no acute distress. answering questions appropriately Neck: Supple Lungs: Clear to auscultation bilaterally, diminished. no wheezing Heart: Normal S1-S2, Regular rate and rhythm. No overt murmurs appreciated on auscultation Abdomen: Soft , nontender, protuberant , bowel sounds are present. No guarding no rebound tenderness. cholecystomy tube in place Extremities: Normal to inspection, no edema no cyanosis skin: no rashes or lesions appreciated Results Results 24hrs Laboratory Tests Test 09/22/18 17:09 09/22/18 20:36 09/23/18 05:02 09/23/18 07:50 Bedside Glucose 165 163 146 White Blood Count 9.5 # Red Blood Count 4.04 L Hemoglobin 12.2 L Hematocrit 35.8 L Mean Corpuscular 88.6 Volume Mean Corpuscular 30.2 Hemoglobin Mean Corpuscular 34.1 Hemoglobin Concent Red Cell 12.7 Distribution Width Platelet Count 225 Mean Platelet Volume 12.8 H Immature 0.300 Granulocytes % Neutrophils % 76.1 Lymphocytes % 10.5 L Monocytes % 11.7 H Eosinophils % 0.7 Basophils % 0.7 Nucleated Red Blood 0.0 Cells % Immature 0.030 Granulocytes # Neutrophils # 7.2 Lymphocytes # 1.0 Monocytes # 1.1 H Eosinophils # 0.1 Basophils # 0.1 Nucleated Red Blood 0.0 Cells # Sodium Level 139 Potassium Level 4.2 Chloride Level 104 Carbon Dioxide Level 28 Anion Gap 7 Blood Urea Nitrogen 10 Creatinine 0.59 L Est Glomerular > 60 Filtrat Rate mL/min Glucose Level 132 Calcium Level 8.1 L Magnesium Level 2.4 Total Bilirubin 1.2 Direct Bilirubin 0.00 Indirect Bilirubin 1.2 H Aspartate Amino 45 Transf (AST/SGOT) Alanine 79 H Aminotransferase (AL T/SGPT) Alkaline Phosphatase 61 Total Protein 5.8 L Albumin 3.0 L Globulin 2.80 Albumin/Globulin 1.07 Ratio Test 09/23/18 10:36 09/23/18 11:53 White Blood Count 8.5 Red Blood Count 3.82 L Hemoglobin 11.5 L Hematocrit 33.6 L Mean Corpuscular 88.0 Volume Mean Corpuscular 30.1 Hemoglobin Mean Corpuscular 34.2 Hemoglobin Concent Red Cell 12.8 Distribution Width Platelet Count 227 Mean Platelet Volume 13.1 H Immature 0.500 H Granulocytes % Neutrophils % 78.5 H Lymphocytes % 8.3 L Monocytes % 11.4 H Eosinophils % 0.7 Basophils % 0.6 Nucleated Red Blood 0.0 Cells % Immature 0.040 H Granulocytes # Neutrophils # 6.7 Lymphocytes # 0.7 L Monocytes # 1.0 H Eosinophils # 0.1 Basophils # 0.1 Nucleated Red Blood 0.0 Cells # Bedside Glucose 148 Medications Medication Current Medications Ondansetron HCl (Zofran Inj) 4 mg Q6H PRN IV NAUSEA AND/OR VOMITING Last administered on 09/20/18at 04:58; Admin Dose 4 MG; Start 09/19/18 at 23:00 Acetaminophen (Tylenol Liquid) 650 mg Q6H PRN PO PAIN LEVEL 1-3 OR FEVER Last administered on 09/22/18at 20:04; Admin Dose 650 MG; Start 09/19/18 at 23:00 Hydromorphone HCl (Dilaudid) 0.5 mg Q4H PRN IV PAIN LEVEL 7-10 Last administered on 09/20/18at 00:10; Admin Dose 0.5 MG; Start 09/19/18 at 23:00 Docusate Sodium (Colace) 100 mg Q12H PRN PO CONSTIPATION; Start 09/19/18 at 23:00 Bisacodyl (Dulcolax) 5 mg DAILY PRN PO CONSTIPATION; Start 09/19/18 at 23:00 Morphine Sulfate (morphine) 2 mg Q4H PRN IV MODERATE PAIN LEVEL 4-6 Last ad ministered on 09/22/18at 10:32; Admin Dose 2 MG; Start 09/20/18 at 09:30 Insulin Aspart (Novolog Insulin Pen) NOVOLOG *MILD* ALGORITHM WITH MEALS BEDTIME SC Last administered on 09/23/18at 12:26; Admin Dose 1 UNIT; Start 09/21/18 at 17:35 Miscellaneous Information 1 ea NOTE XX ; Start 09/21/18 at 13:00 Glucose (Glutose) 15 gm Q15M PRN PO DECREASED GLUCOSE; Start 09/21/18 at 13:00 Glucose (Glutose) 22.5 gm Q15M PRN PO DECREASED GLUCOSE; Start 09/21/18 at 13:00 Dextrose (D50w Syringe) 25 ml Q15M PRN IV DECREASED GLUCOSE; Start 09/21/18 at 13:00 Dextrose (D50w Syringe) 50 ml Q15M PRN IV DECREASED GLUCOSE; Start 09/21/18 at 13:00 Glucagon (Glucagen) 1 mg Q15M PRN IM DECREASED GLUCOSE; Start 09/21/18 at 13:00 Glucose (Glutose) 15 gm Q15M PRN BUCCAL DECREASED GLUCOSE; Start 09/21/18 at 13:00 Pantoprazole (Protonix Tab) 40 mg DAILY@06 PO Last administered on 09/23/18at 05:32; Admin Dose 40 MG; Start 09/23/18 at 06:00 Ciprofloxacin/ Dextrose 200 ml @ 200 mls/hr Q12 IVPB Last administered on 09/23/18 08:20; Admin Dose 200 MLS/HR; Start 09/22/18 at 12:30 Metronidazole 100 ml @ 100 mls/hr Q6 IVPB Last administered on 09/23/18at 11:56; Admin Dose 100 MLS/HR; Start 09/22/18 at 12:30 Lactobacillus Acidophilus/ Rhamnosus (Culturelle) 1 cap WITH MEALS PO Last administered on 09/23/18at 11:56; Admin Dose 1 CAP; Start 09/22/18 at 18:00 Simethicone (Mylicon) 80 mg TID PRN PO DISTENSION/GAS/BLOATING; Start 09/22/18 at 12:30 Calcium Carbonate (Tums) 500 mg Q4H PRN PO reflux; Start 09/22/18 at 12:30 Metoprolol Tartrate (Lopressor) 25 mg BID PO Last administered on 09/23/18 08:20; Admin Dose 25 MG; Start 09/22/18 at 21:00 SAMIA NAPOLES MD Sep 23, 2018 14:47
[2018-09-23 15:15] VITALS: BP 130/70; PULSE 90; RESP 16
--- NOTE | 2018-09-23 17:27 | RADRPT ---
Echocardiogram Report Patient Name: KI FELIX APatient ID: [id number] : 1955 (63y 1m)Study Date: 09/23/2018 9:07:47 AM Gender: MAccession #: [id number] Tech: LE Location: I Ref.Physician: KINGSLEY DE LEON Height(Cm): BSA: Weight(Kg): Quality: GoodOrder Physician: KINGSLEY DE LEON Account #: Procedures: Echocardiographic Report: Transthoracic echocardiogram examination. Indications: Pericardial Effusion. Measurements: 2D/M Mode Measurement Value Normal Range LVIDd 2D 4.2 [ 4.2 - 5.8 ] cm LVIDs 2D 2.8 [ 2.5 - 4.0 ] cm LVPWd 2D 1.1 [ 0.6 - 1.0 ] cm IVSd 2D 1.1 [ 0.6 - 1.0 ] cm EF 2D 60.0 [ 52.0 - 72.0 ] percent Findings: Left Ventricle: Normal left ventricular cavity size, wall thickness and systolic function. Right Ventricle: Normal right ventricular size. Left Atrium: The left atrium is normal in size and appearance. Right Atrium: The right atrium is normal in size and appearance. Mitral Valve: Normal appearance of the mitral valve leaflets. Aortic Valve: Normal appearance and function of the aortic valve. Tricuspid Valve: Normal appearance of the tricuspid valve. Pulmonic Valve: The pulmonic valve is not well visualized. Pericardium: Small pericardial effusion. No pleural effusion noted. Aorta: Normal aortic root. IVC: Normal inferior vena cava appearance. Conclusions: Small to moderate pericardial effusion. Normal left ventricular cavity size, wall thickness and systolic function. Electronically Signed By: Kingsley De Leon 2018-09-23 17:26:14 PDT
--- NOTE | 2018-09-23 19:06 | CONS ---
Consult Date/Type/Reason Admit Date/Time Sep 19, 2018 at 19:47 Initial Consult Date 09/20/18 Type of Consultation: cv Requesting Provider: SONA ANDERSON Date/Time of Note DATE: 09/23/18 TIME: 19:05 Subjective cardiology follow up S: Case discussed with the staff and telemetry was reviewed patient has remained in sinus rhythm /sinus tachycardia. Last night he had another episode of SVT. Patient appears to be asymptomatic with this episode however No chest pain or pressure now less abdominal discomfort Blood pressure is stable now S General: no acute distress HEENT: NC/AT. pupils are equal. round. NECK: NO JVD. no stridor. CV: RRR. systolic murmur; no gallop or rubs. PULM: no wheezing or rhonchi. GI: SOFT, + right upper quadrant tenderness Telemetry: trace B/L LE edema. no clubbing. neuro: awake and alert, OX3. Psych: calm and pleasant rectal: deferred : normal EKG was personally reviewed which shows: Sinus tachycardia low voltage PAC Echocardiogram was personally reviewed which shows: Normal left ventricular systolic function. Normal left ventricular cavity size. Normal left ventricular wall thickness. Ejection fraction is visually estimated at 65 %. Tissue Doppler/Mitral Doppler indices are consistent with impaired relaxation (Stage I diastolic dysfunction). Normal appearance and function of the mitral valve with trace physiologic regurgitation. No significant aortic stenosis or insufficiency. Aortic cusps appear mildly calcified. Normal appearance and function of the tricuspid valve with trace physiologic regurgitation. Normal right ventricular systolic pressure. Small to moderate pericardial effusion. CT pulmonary angiogram done in the emergency room showed: 1. No evidence of large or central pulmonary emboli. 2. No aortic aneurysm or dissection. 3. Moderate sized pericardial effusion. 4. Reactive mediastinal adenopathy. No pathologic adenopathy. 5. Lungs grossly clear. 6. Expansile benign-appearing lesion/process along the inferior right scapular tip. Recommend correlation with dedicated x-ray Objective Vitals Vital Signs Date Temp Pulse Resp B/P (MAP) Pulse Ox O2 O2 Flow FiO2 Time Delivery Rate 09/23/18 98.1 90 16 130/70 99 Nasal 15:15 (90) Cannula 09/23/18 4.0 08:15 Intake and Output 09/22/18 09/22/18 09/23/18 1515:00 23:00 07:00 IntakeIntake Total 870 ml 1120 ml 222 ml OutputOutput Total 200 ml 1700 ml 100 ml BalanceBalance 670 ml -580 ml 122 ml Results/Medications Result Diagram: 09/23/18 1631 09/23/18 0502 Results 24 hrs Laboratory Tests Test 09/22/18 20:36 09/23/18 05:02 09/23/18 07:50 09/23/18 10:36 Bedside Glucose 163 146 White Blood Count 9.5 # 8.5 Red Blood Count 4.04 L 3.82 L Hemoglobin 12.2 L 11.5 L Hematocrit 35.8 L 33.6 L Mean Corpuscular 88.6 88.0 Volume Mean Corpuscular 30.2 30.1 Hemoglobin Mean Corpuscular 34.1 34.2 Hemoglobin Concent Red Cell 12.7 12.8 Distribution Width Platelet Count 225 227 Mean Platelet Volume 12.8 H 13.1 H Immature 0.300 0.500 H Granulocytes % Neutrophils % 76.1 78.5 H Lymphocytes % 10.5 L 8.3 L Monocytes % 11.7 H 11.4 H Eosinophils % 0.7 0.7 Basophils % 0.7 0.6 Nucleated Red Blood 0.0 0.0 Cells % Immature 0.030 0.040 H Granulocytes # Neutrophils # 7.2 6.7 Lymphocytes # 1.0 0.7 L Monocytes # 1.1 H 1.0 H Eosinophils # 0.1 0.1 Basophils # 0.1 0.1 Nucleated Red Blood 0.0 0.0 Cells # Sodium Level 139 Potassium Level 4.2 Chloride Level 104 Carbon Dioxide Level 28 Anion Gap 7 Blood Urea Nitrogen 10 Creatinine 0.59 L Est Glomerular > 60 Filtrat Rate mL/min Glucose Level 132 Calcium Level 8.1 L Magnesium Level 2.4 Total Bilirubin 1.2 Direct Bilirubin 0.00 Indirect Bilirubin 1.2 H Aspartate Amino 45 Transf (AST/SGOT) Alanine 79 H Aminotransferase (AL T/SGPT) Alkaline Phosphatase 61 Total Protein 5.8 L Albumin 3.0 L Globulin 2.80 Albumin/Globulin 1.07 Ratio Test 09/23/18 11:53 09/23/18 16:31 09/23/18 17:33 Bedside Glucose 148 132 White Blood Count 9.0 Red Blood Count 4.14 L Hemoglobin 12.2 L Hematocrit 36.5 L Mean Corpuscular 88.2 Volume Mean Corpuscular 29.5 Hemoglobin Mean Corpuscular 33.4 Hemoglobin Concent Red Cell 12.7 Distribution Width Platelet Count 234 Mean Platelet Volume 12.5 H Immature 0.300 Granulocytes % Neutrophils % 77.9 H Lymphocytes % 10.3 L Monocytes % 10.2 Eosinophils % 0.6 Basophils % 0.7 Nucleated Red Blood 0.0 Cells % Immature 0.030 Granulocytes # Neutrophils # 7.0 Lymphocytes # 0.9 Monocytes # 0.9 Eosinophils # 0.1 Basophils # 0.1 Nucleated Red Blood 0.0 Cells # Home Meds Reported Medications Betamethasone Dipropionate* (Betamethasone Dipropionate*) 0.05% - 45 Gm Cre am.gm., TOP BID apply to affected 09/19/18 Etanercept (Enbrel Mini) 50 Mg/1 Ml Cartridge, 1 TAB SC weekly 09/19/18 [place]-3 Fatty Acids/Fish Oil (Fish Oil 1,000 mg Capsule) 1 Each Capsule, 1 CAP PO DAILY, CAP 09/19/18 Betamethasone Dipropionate* (Betamethasone Dipropionate*) 0.05% - 15 Gm Oint, 1 BID apply to affected area 09/19/18 Leflunomide* (Leflunomide*) 20 Mg Tablet, 1 TAB ORAL DAILY 09/19/18 Metformin Hcl* (Metformin Hcl*) 1,000 Mg Tablet, 1 TAB ORAL BID 09/19/18 Atorvastatin* (Atorvastatin*) 40 Mg Tablet, 1 TAB ORAL QHS 09/19/18 Lisinopril* (Lisinopril*) 2.5 Mg Tablet, 1 TAB ORAL DAILY 09/19/18 Acetaminophen (Acetaminophen) 500 Mg Tablet, 1 TAB ORAL Q6 PRN for MILD PAIN(1- 3)OR ELEVATED TEMP 09/19/18 Glipizide* (Glipizide*) 5 Mg Tablet, 1 TAB ORAL BID 09/19/18 Medications Current Medications Ondansetron HCl (Zofran Inj) 4 mg Q6H PRN IV NAUSEA AND/OR VOMITING Last administered on 09/20/18at 04:58; Admin Dose 4 MG; Start 09/19/18 at 23:00 Acetaminophen (Tylenol Liquid) 650 mg Q6H PRN PO PAIN LEVEL 1-3 OR FEVER Last administered on 09/22/18at 20:04; Admin Dose 650 MG; Start 09/19/18 at 23:00 Hydromorphone HCl (Dilaudid) 0.5 mg Q4H PRN IV PAIN LEVEL 7-10 Last administered on 09/20/18at 00:10; Admin Dose 0.5 MG; Start 09/19/18 at 23:00 Docusate Sodium (Colace) 100 mg Q12H PRN PO CONSTIPATION; Start 09/19/18 at 23:00 Bisacodyl (Dulcolax) 5 mg DAILY PRN PO CONSTIPATION; Start 09/19/18 at 23:00 Morphine Sulfate (morphine) 2 mg Q4H PRN IV MODERATE PAIN LEVEL 4-6 Last administered on 09/22/18at 10:32; Admin Dose 2 MG; Start 09/20/18 at 09:30 Insulin Aspart (Novolog Insulin Pen) NOVOLOG *MILD* ALGORITHM WITH MEALS BEDTIME SC Last administered on 09/23/18at 12:26; Admin Dose 1 UNIT; Start 09/21/18 at 17:35 Miscellaneous Information 1 ea NOTE XX ; Start 09/21/18 at 13:00 Glucose (Glutose) 15 gm Q15M PRN PO DECREASED GLUCOSE; Start 09/21/18 at 13:00 Glucose (Glutose) 22.5 gm Q15M PRN PO DECREASED GLUCOSE; Start 09/21/18 at 1 3:00 Dextrose (D50w Syringe) 25 ml Q15M PRN IV DECREASED GLUCOSE; Start 09/21/18 at 13:00 Dextrose (D50w Syringe) 50 ml Q15M PRN IV DECREASED GLUCOSE; Start 09/21/18 at 13:00 Glucagon (Glucagen) 1 mg Q15M PRN IM DECREASED GLUCOSE; Start 09/21/18 at 13:00 Glucose (Glutose) 15 gm Q15M PRN BUCCAL DECREASED GLUCOSE; Start 09/21/18 at 13:00 Pantoprazole (Protonix Tab) 40 mg DAILY@06 PO Last administered on 09/23/18at 05:32; Admin Dose 40 MG; Start 09/23/18 at 06:00 Ciprofloxacin/ Dextrose 200 ml @ 200 mls/hr Q12 IVPB Last administered on 09/23/18at 08:20; Admin Dose 200 MLS/HR; Start 09/22/18 at 12:30 Metronidazole 100 ml @ 100 mls/hr Q6 IVPB Last administered on 09/23/18at 17:35; Admin Dose 100 MLS/HR; Start 09/22/18 at 12:30 Lactobacillus Acidophilus/ Rhamnosus (Culturelle) 1 cap WITH MEALS PO Last administered on 09/23/18at 17:35; Admin Dose 1 CAP; Start 09/22/18 at 18:00 Simethicone (Mylicon) 80 mg TID PRN PO DISTENSION/GAS/BLOATING; Start 09/22/18 at 12:30 Calcium Carbonate (Tums) 500 mg Q4H PRN PO reflux; Start 09/22/18 at 12:30 Metoprolol Tartrate (Lopressor) 25 mg BID PO Last administered on 09/23/18at 08:20; Admin Dose 25 MG; Start 09/22/18 at 21:00 Assessment/Plan Hospital Course (Demo Recall) 1. Small to moderate pericardial effusion: So far does not have tamponade physiology 2. Sepsis/shock 3. Acute cholecystitis and recurrent fever: s/p Percutaneous drainage v 4. Chest pain pleuritic secondary to above 5. Diabetes 6. Hypertension 7. Current SVT: Has resolved on now mostly in sinus tach Recommendation: Antibiotic management as per internal medicine. His cardiac enzymes: Troponin have been negative. repeat echo shows a stable pericardial effusion We will add low-dose beta-sheldon and increase as tolerated Thank you for this referral. We will continue to follow along with you SARMAD DOVE MD [facility] SARMAD DOVE MD Sep 23, 2018 19:06
[2018-09-23 20:00] VITALS: BP 119/71; PULSE 95; RESP 18
[2018-09-24] VITALS: BP 121/73; PULSE 97; RESP 19
[2018-09-24 03:54] VITALS: BP 116/67; PULSE 93; RESP 18
[2018-09-24] MEDS: metroNIDAZOLE 500 MG/NS (PMX) 100 ML IVPB SCH (05:46)
[2018-09-24] MEDS: PANTOPRAZOLE (EC) 40 MG TAB PO SCH (05:46)
[2018-09-24 07:25] VITALS: BP 127/76; PULSE 79; RESP 18
[2018-09-24] MEDS: INSULIN ASPART [NOVOLOG] 3 ML PEN SC SCH ×2 (08:00→11:42)
[2018-09-24] MEDS: CIPROFLOXACIN 400MG/D5W 200 ML IVPB SCH (08:36)
[2018-09-24] MEDS: LACTOBACILLUS RHAMNOSUS CAP PO SCH ×2 (08:37→11:37)
[2018-09-24] MEDS: METOPROLOL 25 MG TAB PO SCH (08:37)
[2018-09-24] MEDS ORDERED: POTASSIUM CHLORIDE (SR) 20 MEQ TAB PO STA (10:08)
--- NOTE | 2018-09-24 11:17 | PN ---
Date/Time of Note Date/Time of Note DATE: 09/24/18 TIME: 11:17 Assessment/Plan VTE Prophylaxis Risk score (from [facility] [place]0 risk: 2 SCD applied (from [facility] [place]): No SCD contraindicated: low risk/ambulating Pharmacological prophylaxis: NA/contraindicated Pharm contraindication: low risk/ambulating Lines/Catheters IV C[facility]ter [facility] (from [facility] Central Line Central line still needed: No Urinary Cath still in place: No Assessment/Plan Assessment/Plan 1. Sepsis secondary to acute cholecystitis- resolving - tolerating current antibiotics and will transition to PO - remains afebrile and WBC nl - lactic acid normal 2. Acute abdominal distension with diarrhea- resolved 3. NSVT- resolved - continue on BB 4. Pericardial effusion- stable - most likely secondary to autoimmune disease - Cardiology input appreciated and repeat ECHO results noted 5. Acute cholecystitis - Will continue cholecystotomy after discharge and instructed patient to call Dr Vega office on Wednesday to schedule elective cholecystectomy. CM consulted for HH arrangements for drain care. Appreciate assistance - Gen Surgery consultation appreciated. - continue on cipro/flagyl 6. Psoriasis - continue methotrexate, Enbrel, leflunomide after discharge 7. Rheumatoid arthritis - continue home medications 8. 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 Acute shortness of breath- resolved - monitor O2 saturations 10. Disposition - Medically stable for discharge home Result Diagram: 09/24/18 0506 09/24/18 0506 Results 24hrs Laboratory Tests Test 09/23/18 11:53 09/23/18 16:31 09/23/18 17:33 09/23/18 20:50 Bedside Glucose 148 132 139 White Blood Count 9.0 Red Blood Count 4.14 L Hemoglobin 12.2 L Hematocrit 36.5 L Mean Corpuscular 88.2 Volume Mean Corpuscular 29.5 Hemoglobin Mean Corpuscular 33.4 Hemoglobin Concent Red Cell 12.7 Distribution Width Platelet Count 234 Mean Platelet Volume 12.5 H Immature 0.300 Granulocytes % Neutrophils % 77.9 H Lymphocytes % 10.3 L Monocytes % 10.2 Eosinophils % 0.6 Basophils % 0.7 Nucleated Red Blood 0.0 Cells % Immature 0.030 Granulocytes # Neutrophils # 7.0 Lymphocytes # 0.9 Monocytes # 0.9 Eosinophils # 0.1 Basophils # 0.1 Nucleated Red Blood 0.0 Cells # Test 7/27/19 05:05 09/24/18 05:06 09/24/18 07:23 Magnesium Level 1.9 White Blood Count 8.3 Red Blood Count 4.13 L Hemoglobin 12.3 L Hematocrit 35.9 L Mean Corpuscular 86.9 Volume Mean Corpuscular 29.8 Hemoglobin Mean Corpuscular 34.3 Hemoglobin Concent Red Cell 12.5 Distribution Width Platelet Count 256 Mean Platelet Volume 12.9 H Immature 0.400 Granulocytes % Neutrophils % 74.3 Lymphocytes % 11.4 L Monocytes % 11.8 H Eosinophils % 1.4 Basophils % 0.7 Nucleated Red Blood 0.0 Cells % Immature 0.030 Granulocytes # Neutrophils # 6.2 Lymphocytes # 1.0 Monocytes # 1.0 H Eosinophils # 0.1 Basophils # 0.1 Nucleated Red Blood 0.0 Cells # Sodium Level 137 Potassium Level 3.1 L Chloride Level 103 Carbon Dioxide Level 26 Anion Gap 8 Blood Urea Nitrogen 8 Creatinine 0.58 L Est Glomerular > 60 Filtrat Rate mL/min Glucose Level 135 Calcium Level 8.0 L Total Bilirubin 0.9 Direct Bilirubin 0.00 Indirect Bilirubin 0.9 Aspartate Amino 43 Transf (AST/SGOT) Alanine 64 Aminotransferase (AL T/SGPT) Alkaline Phosphatase 63 Total Protein 6.0 L Albumin 3.0 L Globulin 3.00 Albumin/Globulin 1.00 Ratio Hepatitis B Surface NEGATIVE Antigen Hepatitis C Antibody NEGATIVE Bedside Glucose 126 Subjective 24 Hr Interval Summary Free Text/Dictation Patient is doing well and denies any acute issues. Tolerating PO intake Exam/Review of Systems Exam Vitals Vital Signs Date Temp Pulse Resp B/P (MAP) Pulse Ox O2 O2 Flow FiO2 Time Delivery Rate 09/24/18 Nasal 4.0 08:30 Cannula 09/24/18 98.7 79 18 127/76 97 07:25 (93) Intake and Output 09/23/18 09/23/18 09/24/18 1515:00 23:00 07:00 IntakeIntake Total 1340 ml 320 ml 1100 ml OutputOutput Total 1000 ml 1900 ml BalanceBalance 340 ml 320 ml -800 ml Exam General: no acute distress. answering questions appropriately Neck: Supple Lungs: Clear to auscultation bilaterally, diminished. no wheezing Heart: Normal S1-S2, Regular rate and rhythm. No overt murmurs appreciated on auscultation Abdomen: Soft , nontender, nondistended, bowel sounds are present. No guarding no rebound tenderness. cholecystomy tube in place Extremities: Normal to inspection, no edema no cyanosis skin: no rashes or lesions appreciated Results Results 24hrs Laboratory Tests Test 09/23/18 11:53 09/23/18 16:31 09/23/18 17:33 09/23/18 20:50 Bedside Glucose 148 132 139 White Blood Count 9.0 Red Blood Count 4.14 L Hemoglobin 12.2 L Hematocrit 36.5 L Mean Corpuscular 88.2 Volume Mean Corpuscular 29.5 Hemoglobin Mean Corpuscular 33.4 Hemoglobin Concent Red Cell 12.7 Distribution Width Platelet Count 234 Mean Platelet Volume 12.5 H Immature 0.300 Granulocytes % Neutrophils % 77.9 H Lymphocytes % 10.3 L Monocytes % 10.2 Eosinophils % 0.6 Basophils % 0.7 Nucleated Red Blood 0.0 Cells % Immature 0.030 Granulocytes # Neutrophils # 7.0 Lymphocytes # 0.9 Monocytes # 0.9 Eosinophils # 0.1 Basophils # 0.1 Nucleated Red Blood 0.0 Cells # Test 09/24/18 05:05 09/24/18 05:06 09/24/18 07:23 Magnesium Level 1.9 White Blood Count 8.3 Red Blood Count 4.13 L Hemoglobin 12.3 L Hematocrit 35.9 L Mean Corpuscular 86.9 Volume Mean Corpuscular 29.8 Hemoglobin Mean Corpuscular 34.3 Hemoglobin Concent Red Cell 12.5 Distribution Width Platelet Count 256 Mean Platelet Volume 12.9 H Immature 0.400 Granulocytes % Neutrophils % 74.3 Lymphocytes % 11.4 L Monocytes % 11.8 H Eosinophils % 1.4 Basophils % 0.7 Nucleated Red Blood 0.0 Cells % Immature 0.030 Granulocytes # Neutrophils # 6.2 Lymphocytes # 1.0 Monocytes # 1.0 H Eosinophils # 0.1 Basophils # 0.1 Nucleated Red Blood 0.0 Cells # Sodium Level 137 Potassium Level 3.1 L Chloride Level 103 Carbon Dioxide Level 26 Anion Gap 8 Blood Urea Nitrogen 8 Creatinine 0.58 L Est Glomerular > 60 Filtrat Rate mL/min Glucose Level 135 Calcium Level 8.0 L Total Bilirubin 0.9 Direct Bilirubin 0.00 Indirect Bilirubin 0.9 Aspartate Amino 43 Transf (AST/SGOT) Alanine 64 Aminotransferase (AL T/SGPT) Alkaline Phosphatase 63 Total Protein 6.0 L Albumin 3.0 L Globulin 3.00 Albumin/Globulin 1.00 Ratio Hepatitis B Surface NEGATIVE Antigen Hepatitis C Antibody NEGATIVE Bedside Glucose 126 Medications Medication Current Medications Ondansetron HCl (Zofran Inj) 4 mg Q6H PRN IV NAUSEA AND/OR VOMITING Last administered on 09/20/18at 04:58; Admin Dose 4 MG; Start 09/19/18 at 23:00 Acetaminophen (Tylenol Liquid) 650 mg Q6H PRN PO PAIN LEVEL 1-3 OR FEVER Last administered on 09/22/18at 20:04; Admin Dose 650 MG; Start 09/19/18 at 23:00 Hydromorphone HCl (Dilaudid) 0.5 mg Q4H PRN IV PAIN LEVEL 7-10 Last administered on 09/20/18at 00:10; Admin Dose 0.5 MG; Start 09/19/18 at 23:00 Docusate Sodium (Colace) 100 mg Q12H PRN PO CONSTIPATION; Start 09/19/18 at 23:00 Bisacodyl (Dulcolax) 5 mg DAILY PRN PO CONSTIPATION; Start 09/19/18 at 23:00 Morphine Sulfate (morphine) 2 mg Q4H PRN IV MODERATE PAIN LEVEL 4-6 Last administered on 09/22/18at 10:32; Admin Dose 2 MG; Start 09/20/18 at 09:30 Insulin Aspart (Novolog Insulin Pen) NOVOLOG *MILD* ALGORITHM WITH MEALS BEDTIME SC Last administered on 09/23/18at 12:26; Admin Dose 1 UNIT; Start 09/21/18 at 17:35 Miscellaneous Information 1 ea NOTE XX ; Start 09/21/18 at 13:00 Glucose (Glutose) 15 gm Q15M PRN PO DECREASED GLUCOSE; Start 09/21/18 at 13:00 Glucose (Glutose) 22.5 gm Q15M PRN PO DECREASED GLUCOSE; Start 09/21/18 at 13:00 Dextrose (D50w Syringe) 25 ml Q15M PRN IV DECREASED GLUCOSE; Start 09/21/18 at 13:00 Dextrose (D50w Syringe) 50 ml Q15M PRN IV DECREASED GLUCOSE; Start 09/21/18 at 13:00 Glucagon (Glucagen) 1 mg Q15M PRN IM DECREASED GLUCOSE; Start 09/21/18 at 13:00 Glucose (Glutose) 15 gm Q15M PRN BUCCAL DECREASED GLUCOSE; Start 09/21/18 at 13:00 Pantoprazole (Protonix Tab) 40 mg DAILY@06 PO Last administered on 09/24/18at 05:46; Admin Dose 40 MG; Start 09/23/18 at 06:00 Lactobacillus Acidophilus/ Rhamnosus (Culturelle) 1 cap WITH MEALS PO Last administered on 09/24/18at 08:37; Admin Dose 1 CAP; Start 09/22/18 at 18:00 Simethicone (Mylicon) 80 mg TID PRN PO DISTENSION/GAS/BLOATING; Start 09/22/18 at 12:30 Calcium Carbonate (Tums) 500 mg Q4H PRN PO reflux; Start 09/22/18 at 12:30 Metoprolol Tartrate (Lopressor) 25 mg BID PO Last administered on 09/24/18at 08:37; Admin Dose 25 MG; Start 09/23/18 at 21:00 Metronidazole (Flagyl) 500 mg Q8 PO ; Start 09/24/18 at 14:00; Status UNV Ciprofloxacin (Cipro) 500 mg BID@06,18 PO ; Start 09/24/18 at 18:00; Status UNV SAMIA NAPOLES MD Sep 24, 2018 11:17
[2018-09-24 11:27] VITALS: BP 128/77; PULSE 78; RESP 18
[2018-09-24] MEDS: ACETAMINOPHEN 650MG/20.3ML CUP PO PRN (11:47)
[2018-09-24] MEDS ORDERED: CIPR500T4 PO ×2 (13:39→14:24)
[2018-09-24] MEDS ORDERED: METO-448 PO (13:39)
[2018-09-24] MEDS ORDERED: HYDR-4011 PO (13:39)
[2018-09-24] MEDS ORDERED: METR500T PO ×2 (13:39→14:25)
[2018-09-24] MEDS ORDERED: CIPROFLOXACIN 500 MG TAB ONE (13:47)
--- NOTE | 2018-09-24 13:49 | PDOCDIS ---
Discharge Instructions DIAGNOSIS Discharge Diagnosis 1. Sesis secondary to acute cholecystitis- resolved 2. Acute abdominal distension with diarrhea- resolved 3. Nonsustained ventricular tachycardia 4. Pericardial effusion 5. Acute cholecystitis s/p cholecystostomy tube placement 6. Psoriasis 7. Rheumatoid arthritis 8. Horseshoe kidney CONDITION [id number] Patient Condition: [id number] Stable HOME CARE INSTRUCTIONS: [id number] Diet Instructions: [id number] Low Fat /Cholesterol ACTIVITY: [id number] Activity Restrictions: [id number] No Restrictions FOLLOW UP/APPOINTMENTS Follow-up Plan 1. Follow up with your primary care physician in 1 week 2. Please call the surgeon, Dr. Vega on Wednesday to schedule an appointment for an elective cholecystectomy. He recommends continuing the drain until you have your gallbladder removed 3. Please continue antibiotics as prescribed. You will need to take Flagyl three times a day with meals and Ciprofloxacin twice a day. Start both antibi otic tomorrow with breakfast 4. If experiencing any pain, please take Hazel. Do not drive or operate heavy machinery when on the medication 5. You were started on Metoprolol twice a day to help with blood pressure and heart rate control. Do not take Lisinopril after discharge 6. Take all other medications as prescribed 7. You will have home health nurses coming to your home a couple times a week to assist with drain care 8. If experiencing any concerning symptoms. please come back to the emergency department 1. Siga con freeman mdico de atencin primaria en 1 semana 2. Por favor llame al Dr. 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 Recomienda continuar el drenaje hasta que te extirpen la vescula biliar 3. Por favor, contine con los antibiticos segn lo prescrito. Usted tendr que lang Flagyl ricci veces al da con las comidas y Ciprofloxacino dos veces al da. Comience ambos antibiticos maana con el desayuno 4. Si experimenta algn dolor, tome Hazel. No conduzca ni opere maquinaria pesada cuando est tomando el medicamento 5. Usted comenz con Metoprolol dos veces al da para ayudar con la presin arterial y el control de la frecuencia cardaca. No tome Lisinopril despus del margaret 6. [place] todos los dems medicamentos segn lo prescrito 7. Usted tendr enfermeras de warren en el hogar que vienen a freeman hogar un par de veces a la semana para ayudar con el cuidado de drenaje 8. Si experimenta alguno relacionado con los sntomas. por favor regrese al departamento de emergencias REFERRALS Other Referrals Jas Vega MD Specialty General Surgery Comments Office Address [address] [place] [address] Office SAMIA NAPOLES MD Sep 24, 2018 13:49
[2018-09-24] MEDS ORDERED: metroNIDAZOLE 500 MG TAB PO SCH (14:00)
--- NOTE | 2018-09-24 14:42 | CONS ---
Consult Date/Type/Reason Admit Date/Time Sep 19, 2018 at 19:47 Initial Consult Date 09/20/18 Type of Consultation: cv Requesting Provider: SONA ANDERSON Date/Time of Note DATE: 09/24/18 TIME: 14:40 Subjective cardiology follow up S: Case discussed with the staff and telemetry was reviewed patient has remained in sinus rhythm HR IS BETTER NOW NO SVT No chest pain or pressure now less abdominal discomfort Blood pressure is stable now D/W family Patient wants to go home S General: no acute distress HEENT: NC/AT. pupils are equal. round. NECK: NO JVD. no stridor. CV: RRR. systolic murmur; no gallop or rubs. PULM: no wheezing or rhonchi. GI: SOFT, minimal abdominal discomfort. Status post drainage in place Telemetry: trace B/L LE edema. no clubbing. neuro: awake and alert, OX3. Psych: calm and pleasant rectal: deferred : normal EKG was personally reviewed which shows: Sinus tachycardia low voltage PAC Echocardiogram was personally reviewed which shows: Normal left ventricular systolic function. Normal left ventricular cavity size. Normal left ventricular wall thickness. Ejection fraction is visually estimated at 65 %. Tissue Doppler/Mitral Doppler indices are consistent with impaired relaxation (Stage I diastolic dysfunction). Normal appearance and function of the mitral valve with trace physiologic regurgitation. No significant aortic stenosis or insufficiency. Aortic cusps appear mildly calcified. Normal appearance and function of the tricuspid valve with trace physiologic regurgitation. Normal right ventricular systolic pressure. Small to moderate pericardial effusion. CT pulmonary angiogram done in the emergency room showed: 1. No evidence of large or central pulmonary emboli. 2. No aortic aneurysm or dissection. 3. Moderate sized pericardial effusion. 4. Reactive mediastinal adenopathy. No pathologic adenopathy. 5. Lungs grossly clear. 6. Expansile benign-appearing lesion/process along the inferior right scapular tip. Recommend correlation with dedicated x-ray Objective Vitals Vital Signs Date Temp Pulse Resp B/P (MAP) Pulse Ox O2 O2 Flow FiO2 Time Delivery Rate 09/24/18 98.0 78 18 128/77 96 11:27 (94) 09/24/18 Nasal 4.0 08:30 Cannula Intake and Output 09/23/18 09/23/18 09/24/18 1515:00 23:00 07:00 IntakeIntake Total 1340 ml 320 ml 1100 ml OutputOutput Total 1000 ml 1900 ml BalanceBalance 340 ml 320 ml -800 ml Results/Medications Result Diagram: 09/24/18 0506 09/24/18 0506 Results 24 hrs Laboratory Tests Test 09/23/18 16:31 09/23/18 17:33 09/23/18 20:50 09/24/18 05:05 White Blood Count 9.0 Red Blood Count 4.14 L Hemoglobin 12.2 L Hematocrit 36.5 L Mean Corpuscular 88.2 Volume Mean Corpuscular 29.5 Hemoglobin Mean Corpuscular 33.4 Hemoglobin Concent Red Cell 12.7 Distribution Width Platelet Count 234 Mean Platelet Volume 12.5 H Immature 0.300 Granulocytes % Neutrophils % 77.9 H Lymphocytes % 10.3 L Monocytes % 10.2 Eosinophils % 0.6 Basophils % 0.7 Nucleated Red Blood 0.0 Cells % Immature 0.030 Granulocytes # Neutrophils # 7.0 Lymphocytes # 0.9 Monocytes # 0.9 Eosinophils # 0.1 Basophils # 0.1 Nucleated Red Blood 0.0 Cells # Bedside Glucose 132 139 Magnesium Level 1.9 Test 09/24/18 05:06 09/24/18 07:23 09/24/18 11:36 White Blood Count 8.3 Red Blood Count 4.13 L Hemoglobin 12.3 L Hematocrit 35.9 L Mean Corpuscular 86.9 Volume Mean Corpuscular 29.8 Hemoglobin Mean Corpuscular 34.3 Hemoglobin Concent Red Cell 12.5 Distribution Width Platelet Count 256 Mean Platelet Volume 12.9 H Immature 0.400 Granulocytes % Neutrophils % 74.3 Lymphocytes % 11.4 L Monocytes % 11.8 H Eosinophils % 1.4 Basophils % 0.7 Nucleated Red Blood 0.0 Cells % Immature 0.030 Granulocytes # Neutrophils # 6.2 Lymphocytes # 1.0 Monocytes # 1.0 H Eosinophils # 0.1 Basophils # 0.1 Nucleated Red Blood 0.0 Cells # Sodium Level 137 Potassium Level 3.1 L Chloride Level 103 Carbon Dioxide Level 26 Anion Gap 8 Blood Urea Nitrogen 8 Creatinine 0.58 L Est Glomerular > 60 Filtrat Rate mL/min Glucose Level 135 Calcium Level 8.0 L Total Bilirubin 0.9 Direct Bilirubin 0.00 Indirect Bilirubin 0.9 Aspartate Amino 43 Transf (AST/SGOT) Alanine 64 Aminotransferase (AL T/SGPT) Alkaline Phosphatase 63 Total Protein 6.0 L Albumin 3.0 L Globulin 3.00 Albumin/Globulin 1.00 Ratio Hepatitis B Surface NEGATIVE Antigen Hepatitis C Antibody NEGATIVE Bedside Glucose 126 170 Home Meds Active Scripts Metronidazole* (Flagyl*) 500 Mg Tablet, 500 MG PO Q8 for 14 Days, #42 TAB Prov:SAMIA NAPOLES MD 09/24/18 Ciprofloxacin Hcl* (Ciprofloxacin Hcl*) 500 Mg Tablet, 500 MG PO BID@06,18 for 14 Days, #28 TAB Prov:SAMIA NAPOLES MD 09/24/18 Hydrocodone/Acetaminophen ([place] 5-325 Tablet) 1 Each Tablet, 1 EACH PO Q6 for 7 Days, #30 TAB Prov:SAMIA NAPOLES MD 09/24/18 Metoprolol Tartrate* (Lopressor*) 25 Mg Tab, 25 MG PO BID for 30 Days, #60 TAB Prov:SAMIA NAPOLES MD 09/24/18 Reported Medications Betamethasone Dipropionate* (Betamethasone Dipropionate*) 0.05% - 45 Gm Cream.gm., TOP BID apply to affected 09/19/18 Etanercept (Enbrel Mini) 50 Mg/1 Ml Cartridge, 1 TAB SC weekly We09/19/18 [place]-3 Fatty Acids/Fish Oil (Fish Oil 1,000 mg Capsule) 1 Each Capsule, 1 CAP PO DAILY, CAP 09/19/18 Betamethasone Dipropionate* (Betamethasone Dipropionate*) 0.05% - 15 Gm Oint, 1 BID apply to affected area 09/19/18 Leflunomide* (Leflunomide*) 20 Mg Tablet, 1 TAB ORAL DAILY 09/19/18 Metformin Hcl* (Metformin Hcl*) 1,000 Mg Tablet, 1 TAB ORAL BID 09/19/18 Atorvastatin* (Atorvastatin*) 40 Mg Tablet, 1 TAB ORAL QHS 09/19/18 Acetaminophen (Acetaminophen) 500 Mg Tablet, 1 TAB ORAL Q6 PRN for MILD PAIN(1- 3)OR ELEVATED TEMP 09/19/18 Glipizide* (Glipizide*) 5 Mg Tablet, 1 TAB ORAL BID 09/19/18 Discontinued Reported Medications Lisinopril* (Lisinopril*) 2.5 Mg Tablet, 1 TAB ORAL DAILY 09/19/18 Medications Current Medications Ondansetron HCl (Zofran Inj) 4 mg Q6H PRN IV NAUSEA AND/OR VOMITING Last administered on 09/20/18at 04:58; Admin Dose 4 MG; Start 09/19/18 at 23:00 Acetaminophen (Tylenol Liquid) 650 mg Q6H PRN PO PAIN LEVEL 1-3 OR FEVER Last administered on 09/24/18at 11:47; Admin Dose 650 MG; Start 09/19/18 at 23:00 Hydromorphone HCl (Dilaudid) 0.5 mg Q4H PRN IV PAIN LEVEL 7-10 Last administered on 09/20/18at 00:10; Admin Dose 0.5 MG; Start 09/19/18 at 23:00 Docusate Sodium (Colace) 100 mg Q12H PRN PO CONSTIPATION; Start 09/19/18 at 23:00 Bisacodyl (Dulcolax) 5 mg DAILY PRN PO CONSTIPATION; Start 09/19/18 at 23:00 Morphine Sulfate (morphine) 2 mg Q4H PRN IV MODERATE PAIN LEVEL 4-6 Last administered on 09/22/18at 10:32; Admin Dose 2 MG; Start 09/20/18 at 09:30 Insulin Aspart (Novolog Insulin Pen) NOVOLOG *MILD* ALGORITHM WITH MEALS BEDTIME SC Last administered on 09/24/18at 11:42; Admin Dose 1 UNIT; Start 09/21/18 at 17:35 Miscellaneous Information 1 ea NOTE XX ; Start 09/21/18 at 13:00 Glucose (Glutose) 15 gm Q15M PRN PO DECREASED GLUCOSE; Start 09/21/18 at 13:00 Glucose (Glutose) 22.5 gm Q15M PRN PO DECREASED GLUCOSE; Start 09/21/18 at 13:00 Dextrose (D50w Syringe) 25 ml Q15M PRN IV DECREASED GLUCOSE; Start 09/21/18 at 13:00 Dextrose (D50w Syringe) 50 ml Q15M PRN IV DECREASED GLUCOSE; Start 09/21/18 at 13:00 Glucagon (Glucagen) 1 mg Q15M PRN IM DECREASED GLUCOSE; Start 09/21/18 at 13:00 Glucose (Glutose) 15 gm Q15M PRN BUCCAL DECREASED GLUCOSE; Start 09/21/18 at 13:00 Pantoprazole (Protonix Tab) 40 mg DAILY@06 PO Last administered on 09/24/18 05:46; Admin Dose 40 MG; Start 09/23/18 at 06:00 Lactobacillus Acidophilus/ Rhamnosus (Culturelle) 1 cap WITH MEALS PO Last administered on 09/24/18 11:37; Admin Dose 1 CAP; Start 09/22/18 at 18:00 Simethicone (Mylicon) 80 mg TID PRN PO DISTENSION/GAS/BLOATING; Start 09/22/18 at 12:30 Calcium Carbonate (Tums) 500 mg Q4H PRN PO reflux; Start 09/22/18 at 12:30 Metoprolol Tartrate (Lopressor) 25 mg BID PO Last administered on 09/24/18 08:37; Admin Dose 25 MG; Start 09/23/18 at 21:00 Metronidazole (Flagyl) 500 mg Q8 PO Last administered on 09/24/18 13:42; Admin Dose 500 MG; Start 09/24/18 at 14:00 Ciprofloxacin (Cipro) 500 mg BID@06,18 PO Last administered on 09/24/18 13:51; Admin Dose 500 MG; Start 09/24/18 at 18:00 Assessment/Plan Hospital Course (Demo Recall) 1. Small to moderate pericardial effusion: So far does not have tamponade physiology 2. Sepsis/shock 3. Acute cholecystitis and recurrent fever: s/p Percutaneous drainage v 4. Chest pain pleuritic secondary to above 5. Diabetes 6. Hypertension 7. Current SVT: Has resolved on now mostly in sinus tach Recommendation: Antibiotic management as per internal medicine. His cardiac enzymes: Troponin have been negative. repeat echo shows a stable pericardial effusion We will cont beta-sheldon Patient was given my information to call and schedule outpatient follow-up Thank you for this referral. We will continue to follow along with you SARMAD DOVE MD [facility] SARMAD DOVE MD Sep 24, 2018 14:42
[2018-09-24 15:04] VITALS: BP 116/64; PULSE 84; RESP 18
--- NOTE | 2018-09-24 17:06 | DS ---
Date/Time of Note Date/Time of Note DATE: 09/24/18 TIME: 16:45 Discharge Summary Admission/Discharge Info Admit Date/Time Sep 19, 2018 at 19:47 Discharge Date/Time Sep 24, 2018 at 16:28 Discharge Diagnosis 1. Sesis secondary to acute cholecystitis- resolved 2. Acute abdominal distension with diarrhea- resolved 3. Nonsustained ventricular tachycardia 4. Pericardial effusion 5. Acute cholecystitis s/p cholecystostomy tube placement 6. Psoriasis 7. Rheumatoid arthritis 8. Horseshoe kidney Patient Condition: Stable Consults Cardiology- Dr. De Leon GI- Dr. Olivares General Surgery- Dr. Vega Interventional Radiology- Dr. Giron Procedures PROCEDURE: Percutaneous cholecystostomy tube placement CLINICAL INDICATION: Acute cholecystitis TECHNIQUE: Prior to the procedure, informed consent was obtained. Risks including bleeding and infection were explained to the patient. The patient understood and was willing to proceed. A procedural pause was performed. The patient's name, date of , and procedure to be performed were verified. The right upper quadrant of the abdomen was prepped and draped in the usual sterile fashion. The patient is already on antibiotics for prophylaxis. Following injection of lidocaine, a 19-gauge needle was advanced into the gallbladder in the right mid axillary line. A 0.035 inch guidewire was then advanced into the gallbladder. The tract was dilated to 8-Hungarian. Contrast was injected to confirm the location within the gallbladder under fluoroscopy. The tract was dilated to 8.5 [place] internal external drainage catheter was advanced over the guidewire so that the pigtail was formed in the gallbladder. The catheter was then secured to the patient's skin with 2-0 silk. The drainage catheter was then connected to a standard gravity drainage bag. A total of 0.3 minutes of fluoroscopy time was used. 2 images were obtained with the image intensifier. Fluoroscopy time is 0.3 minutes and 2 images were obtained. Specimens: None. Blood loss: 5 ml. Complications: None. [employer] Vault Installer: None. Anesthesia: Local anesthesia Graft/Implant: Cholecystostomy tube. COMPARISON: 09/19/2018 FINDINGS: Final images demonstrate the tip of the cholecystostomy tube in the gallbladder. IMPRESSION: 1. Successful placement of cholecystostomy tube. RPTAT: QQ Physician Walt Date Time Electronically viewed and signed by Physician Walt on 09/21/2018 10:41 Hx of Present Illness Chief complaint: Left-sided chest pain headache, right upper quadrant abdominal pain This is a 63-year-old male presented with multiple complaints to the emergency department. He states that he has had left-sided chest pain along with a headache for 2 days. He states that the pain in his chest is worsening with respiration. Patient also reports having right upper quadrant abdominal pain. He does report that he had a fever. Denies any nausea vomiting or shortness of breath. Denies any diarrhea.He does have a history of psoriasis and receives methotrexate and Enbrel daily. He also has a history of diabetes. Patient's imaging studies were concerning for acute cholecystitis and possible moderate pericardial effusion. Stat echocardiogram is pending. His blood pressures were not improving despite fluid challenge and a central line was placed and he is currently on pressor support of levophed. He was seen by the general surgeon for acute cholecystitis who recommended further work-up for cardiac and intra-abdominal pathologies. Allergies: NKDA Medications: As per [facility] Hospital Course Patient was admitted to the ICU for septic shock and placed in the ICU for close monitoring. General surgery was consulted given findings of acute cholecystitis which was believed to be etiology for sepsis. GI was consulted as well given elevated LFT. He was started on IV antibiotic and continue on pressor support for blood pressure control. Patient was evaluated by Cardiology as well given findings of pericardial effusion on CT scan. ECHO was performed and no signs of tamponade so no intervention was needed. Patient was unstable to undergo cholecystectomy and IR was consulted for placement of cholecystostomy tube. After cholecystotomy placement, patients blood pressure improved and was weaned off pressor support and transferred to Telemetry. Patient was experiencing shortness of breath and abdominal discomfort. CXR was performed with findings of congestion and given a dose of Lasix. Respiratory status improved. Patient was concerned the antibiotics were causing GI upset and was transitioned to Cipro/Flagyl which he tolerated. Patient has an episode of NSVT and placed on BB with improvement in rate and BP. Patients diet was advanced to regular. His abdominal pain and shortness of breath resolved. Patient was cleared for discharge by General surgery with instructions to follow up in 3-4 weeks for elective cholecystectomy. Cholecystostomy tube remained in place and case management was consulted to arrange HH for drain care. Patients overall condition improved and vitals remained stable. She was discharged home in good condition. Home Meds Active Scripts Metronidazole* (Flagyl*) 500 Mg Tablet, 500 MG PO Q8 for 14 Days, #42 TAB Prov:SAMIA NAPOLES MD 09/24/18 Ciprofloxacin Hcl* (Ciprofloxacin Hcl*) 500 Mg Tablet, 500 MG PO BID@06,18 for 14 Days, #28 TAB Prov:SAMIA NAPOLES MD 09/24/18 Hydrocodone/Acetaminophen ([place] 5-325 Tablet) 1 Each Tablet, 1 EACH PO Q6 for 7 Days, #30 TAB Prov:SAMIA NAPOLES MD 09/24/18 Metoprolol Tartrate* (Lopressor*) 25 Mg Tab, 25 MG PO BID for 30 Days, #60 TAB Prov:SAMIA NAPOLES MD 09/24/18 Reported Medications Betamethasone Dipropionate* (Betamethasone Dipropionate*) 0.05% - 45 Gm Cream.gm., TOP BID apply to affected 09/19/18 Etanercept (Enbrel Mini) 50 Mg/1 Ml Cartridge, 1 TAB SC weekly We09/19/18 [place]-3 Fatty Acids/Fish Oil (Fish Oil 1,000 mg Capsule) 1 Each Capsule, 1 CAP PO DAILY, CAP 09/19/18 Betamethasone Dipropionate* (Betamethasone Dipropionate*) 0.05% - 15 Gm Oint, 1 BID apply to affected area 09/19/18 Leflunomide* (Leflunomide*) 20 Mg Tablet, 1 TAB ORAL DAILY 09/19/18 Metformin Hcl* (Metformin Hcl*) 1,000 Mg Tablet, 1 TAB ORAL BID 09/19/18 Atorvastatin* (Atorvastatin*) 40 Mg Tablet, 1 TAB ORAL QHS 09/19/18 Acetaminophen (Acetaminophen) 500 Mg Tablet, 1 TAB ORAL Q6 PRN for MILD PAIN(1- 3)OR ELEVATED TEMP 09/19/18 Glipizide* (Glipizide*) 5 Mg Tablet, 1 TAB ORAL BID 09/19/18 Discontinued Reported Medications Lisinopril* (Lisinopril*) 2.5 Mg Tablet, 1 TAB ORAL DAILY 09/19/18 Follow-up Plan 1. Follow up with your primary care physician in 1 week 2. Please call the surgeon, Dr. Vega on Wednesday to schedule an appointment for an elective cholecystectomy. He recommends continuing the drain until you have your gallbladder removed 3. Please continue antibiotics as prescribed. You will need to take Flagyl three times a day with meals and Ciprofloxacin twice a day. Start both antibiotic tomorrow with breakfast 4. If experiencing any pain, please take [place]. Do not drive or operate heavy machinery when on the medication 5. You were started on Metoprolol twice a day to help with blood pressure and heart rate control. Do not take Lisinopril after discharge 6. Take all other medications as prescribed 7. You will have home health nurses coming to your home a couple times a week to assist with drain care 8. If experiencing any concerning symptoms. please come back to the emergency department 1. Siga con freeman mdico de atencin primaria en 1 semana 2. Por favor llame al [facility] para programar yolie tomasa para yolie colecistectoma electiva. Recomienda continuar el drenaje hasta que te extirpen la vescula biliar 3. Por favor, contine con los antibiticos segn lo prescrito. Usted tendr que lang Flagyl ricci veces al da con las comidas y Ciprofloxacino dos veces al da. Comience ambos antibiticos maana con el desayuno 4. Si experimenta algn dolor, tome [place]. No conduzca ni opere maquinaria pesada cuando est tomando el medicamento 5. Usted comenz con Metoprolol dos veces al da para ayudar con la presin arterial y el control de la frecuencia cardaca. No tome Lisinopril despus del margaret 6. [place] todos los dems medicamentos segn lo prescrito 7. Usted tendr enfermeras de warren en el hogar que vienen a freeman hogar un par de veces a la semana para ayudar con el cuidado de drenaje 8. Si experimenta alguno relacionado con los sntomas. por favor regrese al departamento de emergencias Primary Care Provider Care Physician No Primary Time spent on discharge: > 30 minutes Pending Labs Laboratory Tests Test 09/23/18 17:33 09/23/18 20:50 09/24/18 05:05 09/24/18 05:06 Bedside 132 139 Glucose mg/dL (70-220) mg/dL (70-220) Magnesium 1.9 Level mg/dl (1.7-2.5 ) White Blood 8.3 Count 10^3/ul (4.8-1 0.8) Red Blood 4.13 Count 10^6/ul (4.70- 6.10) Hemoglobin 12.3 g/dl (14.0-18. 0) Hematocrit 35.9 % (42.0-52.0) Mean 86.9 Corpuscular fl (82.0-101.0 Volume ) Mean 29.8 Corpuscular pg (29.0-33.0) Hemoglobin Mean 34.3 Corpuscular g/dl (32.0-37. Hemoglobin Conc 0) ent Red Cell 12.5 Distribution % (11.5-14.5) Width Platelet Count 256 10^3/UL (140-4 15) Mean Platelet 12.9 Volume fl (7.4-10.4) Immature 0.400 Granulocytes % % (0.001-0.429 ) Neutrophils % 74.3 % (39.0-77.0) Lymphocytes % 11.4 % (15.0-51.0) Monocytes % 11.8 % (0.0-11.0) Eosinophils % 1.4 % (0.0-7.0) Basophils % 0.7 % (0.0-2.0) Nucleated Red 0.0 Blood Cells % /100WBC (0.0-0 .0) Immature 0.030 Granulocytes # 10^3/ul (0.0-0 .031) Neutrophils # 6.2 10^3/ul (1.6-7 .5) Lymphocytes # 1.0 10^3/ul (0.8-2 .9) Monocytes # 1.0 10^3/ul (0.3-0 .9) Eosinophils # 0.1 10^3/ul (0.0-0 .5) Basophils # 0.1 10^3/ul (0.0-0 .1) Nucleated Red 0.0 Blood Cells # 10^3/ul (0.0-0 .0) Sodium Level 137 mmol/L (135-14 4) Potassium 3.1 Level mmol/L (3.5-5. 1) Chloride Level 103 mmol/L (97-110 ) Carbon Dioxide 26 Level mmol/L (21-31) Anion Gap 8 (5-13) Blood Urea 8 mg/dl (7-20) Nitrogen Creatinine 0.58 mg/dl (0.61-1. 24) Est Glomerular > 60 Filtrat mL/min (>60) Rate mL/min Glucose Level 135 mg/dl (70-220) Calcium Level 8.0 mg/dl (8.4-10. 2) Total 0.9 Bilirubin mg/dl (0.2-1.3 ) Direct 0.00 Bilirubin mg/dl (0.00-0. 20) Indirect 0.9 Bilirubin mg/dl (0-1.1) Aspartate Amino 43 Transf (AST/SGO IU/L (15-46) T) Alanine 64 Aminotransferas IU/L (13-69) e (ALT/SGPT) Alkaline 63 Phosphatase IU/L (42-121) Total Protein 6.0 g/dl (6.1-8.1) Albumin 3.0 g/dl (3.3-4.9) Globulin 3.00 g/dl (1.3-3.2) Albumin/Globuli 1.00 n Ratio Hepatitis B NEGATIVE (NEGA Surface TIVE) Antigen Hepatitis C NEGATIVE (NEGA Antibody TIVE) Test 09/24/18 07:23 09/24/18 11:36 Bedside 126 170 Glucose mg/dL (70-220) mg/dL (70-220) SAMIA NAPOLES MD Sep 24, 2018 17:06
[2018-09-24] MEDS ORDERED: CIPROFLOXACIN 500 MG TAB PO SCH (18:00)
--- NOTE | 2018-09-26 09:14 | RADRPT ---
Vent Rate: 170 bpm RR Interval: 352 msec VT Interval: 128 msec QRS Duration: 82 msec QT Interval: 255 msec QTC Interval: 430 msec P-R-T [place]: 18 - 93 - 1 degrees Supraventricular tachycardia...V-rate>(220-age), QRSd<120 Multiform ventricular premature complexes...short R-R, variable morphology Low voltage, extremity and precordial leads...extremity<0.5mV, precordial<1.0mV Borderline T abnormalities, diffuse leads...T flat/neg Electronically Signed By: David Meraz
--- NOTE | 2018-09-26 09:14 | RADRPT ---
Vent Rate: 106 bpm RR Interval: 568 msec SD Interval: 132 msec QRS Duration: 79 msec QT Interval: 312 msec QTC Interval: 414 msec P-R-T [place]: 47 - 70 - [id number] degrees Sinus tachycardia...rate> 99 Low voltage, extremity and precordial leads...extremity<0.5mV, precordial<1.0mV Electronically Signed By: David Meraz
== END 2018-09-24 16:28 | disposition home health service (06) | DRG 871 ==
LOC: E/R 13:07 → ICU 19:47 → 6WM 09-21 18:40
PROVIDERS: ADMIT Family Medicine; ATTEND Internal Medicine
PROC: 0F9430Z Drainage of Gallbladder with Drainage Device, Percutaneous Approach (ICD-10-PCS; principal; 2018-09-21)
DX: A41.9 Sepsis, unspecified organism (principal); R65.21 Severe sepsis with septic shock; K81.0 Acute cholecystitis; I31.3 Pericardial effusion (noninflammatory); I47.1 Supraventricular tachycardia; M75.92 Shoulder lesion, unspecified, left shoulder; L40.50 Arthropathic psoriasis, unspecified; M06.9 Rheumatoid arthritis, unspecified; E11.9 Type 2 diabetes mellitus without complications; I10 Essential (primary) hypertension; R14.0 Abdominal distension (gaseous); R19.7 Diarrhea, unspecified; Q63.1 Lobulated, fused and horseshoe kidney
CPT/HCPCS: 36415; 71045; 71275; 73050; 74018; 74177; 75984; 76705; 76937; 76942; 80048; 80053; 80061; 80202; 81003; 82550; 82553; 82962; 83036; 83605; 83735; 84443; 84484; 85025; 85610; 85730; 86803; 87081; 87086; 87340; 93005; 93306; 93308; 96365; 96375; C1729; C1751; J0153; J0744; J1170; J1815; J1885; J1940; J2250; J2270; J2370; J2405; J2543; J3010; J3370; J3475; J7030; J7040; Q9967

== ENCOUNTER 2018-09-30 15:51 | Inpatient (IN) | payer MEDICARE, OTHER ==
[~2018-09-30] VITALS: Ht 165.1 cm; Wt 77.9 kg
[~2018-09-30 15:51] MED LIST: ACET500T98 ORAL; AMIO200T4 PO; ATOR40TA68 ORAL; BETA45CR3 TOP; BTM.05O15; CIPR500T4 PO; Colchicine PO; DOCU-144 PO; ETAN50CA SC; GLIP5TAB13 ORAL; GUAI120S25 PO; HYDR-4011 PO; LEFL20TA18 ORAL; LEVO500T48 PO; MAGN400T27 PO; METF100010 ORAL; METO-429 PO; METO-448 PO; METR500T PO; OMEG-135 PO; POTA20PA23 PO
[2018-09-30] MEDS ORDERED: SODIUM CHLORIDE 0.9% 1L BAG IV* STA (16:33)
[2018-09-30] MEDS ORDERED: ACETAMINOPHEN 325 MG TAB PO STA (16:33)
[2018-09-30] MEDS ORDERED: CEFTRIAXONE 1 GM/50 ML (PMX) 50 ML IVPB STA (16:33)
[2018-09-30] MEDS ORDERED: PIPER-TAZO 3.375 GM IV (PMX) 100 ML IVPB STA (16:33)
--- NOTE | 2018-09-30 16:49 | ERD ---
ER Documentation Chief Complaint Chief Complaint FEVER, ABDOMINAL PAIN ,DC FROM HOSPITAL LAST WEDNESDAY HPI 63-year-old male discharged 1 week ago with a cholecystotomy tube after having septic shock from acute cholecystitis with plan to take p.o. antibiotics and follow-up as an outpatient for elective cholecystectomy. Patient was improving until 2 days ago when he began having fevers and right upper quadrant abdominal pain. No vomiting, chest pain, diarrhea or constipation. Output from cholecystotomy tube has not changed. ROS All systems reviewed and are negative except as per history of present illness. Medications Home Meds Active Scripts Metronidazole* (Flagyl*) 500 Mg Tablet, 500 MG PO Q8 for 14 Days, #42 TAB Prov:SAMIA NAPOLES MD 09/24/18 Ciprofloxacin Hcl* (Ciprofloxacin Hcl*) 500 Mg Tablet, 500 MG PO BID@06,18 for 14 Days, #28 TAB Prov:SAMIA NAPOLES MD 09/24/18 Hydrocodone/Acetaminophen ([place] 5-325 Tablet) 1 Each Tablet, 1 EACH PO Q6 for 7 Days, #30 TAB Prov:SAMIA NAPOLES MD 09/24/18 Metoprolol Tartrate* (Lopressor*) 25 Mg Tab, 25 MG PO BID for 30 Days, #60 TAB Prov:SAMIA NAPOLES MD 09/24/18 Reported Medications Betamethasone Dipropionate* (Betamethasone Dipropionate*) 0.05% - 45 Gm Cream.gm., TOP BID apply to affected 09/19/18 Etanercept (Enbrel Mini) 50 Mg/1 Ml Cartridge, 1 TAB SC weekly 09/19/18 [place]-3 Fatty Acids/Fish Oil (Fish Oil 1,000 mg Capsule) 1 Each Capsule, 1 CAP PO DAILY, CAP 09/19/18 Betamethasone Dipropionate* (Betamethasone Dipropionate*) 0.05% - 15 Gm Oint, 1 BID apply to affected area 09/19/18 Leflunomide* (Leflunomide*) 20 Mg Tablet, 1 TAB ORAL DAILY 09/19/18 Metformin Hcl* (Metformin Hcl*) 1,000 Mg Tablet, 1 TAB ORAL BID 09/19/18 Atorvastatin* (Atorvastatin*) 40 Mg Tablet, 1 TAB ORAL QHS 09/19/18 Acetaminophen (Acetaminophen) 500 Mg Tablet, 1 TAB ORAL Q6 PRN for MILD PAIN(1- 3)OR ELEVATED TEMP 09/19/18 Glipizide* (Glipizide*) 5 Mg Tablet, 1 TAB ORAL BID 09/19/18 Discontinued Reported Medications Lisinopril* (Lisinopril*) 2.5 Mg Tablet, 1 TAB ORAL DAILY 09/19/18 Allergies Allergies: Coded Allergies: No Known Allergy (Unverified , 09/30/18) PMhx/Soc History of Surgery: Yes Anesthesia Reaction: No Hx Neurological Disorder: No Hx Respiratory Disorders: No Hx Cardiac Disorders: Yes Hx Psychiatric Problems: No Hx Miscellaneous Medical Probl: No Hx Alcohol Use: No Hx Substance Use: No Hx Tobacco Use: No Physical Exam Vitals Vital Signs Date Temp Pulse Resp B/P (MAP) Pulse Ox O2 O2 Flow FiO2 Time Delivery Rate 09/30/18 38.5 17:09 09/30/18 101.3 117 18 149/59 99 15:53 (89) Physical Exam Const: No acute distress Head: Atraumatic Eyes: Normal Conjunctiva ENT: Normal External Ears, Nose and Mouth. Neck: Full range of motion. No meningismus. Resp: Clear to auscultation bilaterally Cardio: Regular rate and rhythm, no murmurs Abd: Soft, tenderness to the right upper quadrant. Cholecystotomy tube site clean dry intact. No purulence. Slightly green liquid draining in bag. Skin: No petechiae or rashes Back: No midline or flank tenderness Ext: No cyanosis, or edema Neur: Awake and alert Psych: Normal Mood and Affect Result Diagram: 09/30/18 1656 09/30/18 1655 Results 24 hrs Laboratory Tests Test 09/30/18 16:55 09/30/18 16:56 09/30/18 17:03 09/30/18 17:20 Prothrombin Time 13.1 Sec Prothrombin Time 1.0 Ratio INR International 0.98 Normalized Ratio Activated 30.3 Sec Partial Thrombopl ast Time Sodium Level 131 mmol/L Potassium Level 4.5 mmol/L Chloride Level 96 mmol/L Carbon Dioxide 23 mmol/L Level Anion Gap 12 Blood Urea 10 mg/dl Nitrogen Creatinine 0.63 mg/dl Est Glomerular > 60 mL/min Filtrat Rate mL/min Glucose Level 160 mg/dl Calcium Level 8.7 mg/dl Total Bilirubin 0.6 mg/dl Direct Bilirubin 0.00 mg/dl Indirect 0.6 mg/dl Bilirubin Aspartate Amino 33 IU/L Transf (AST/SGOT) Alanine 46 IU/L Aminotransferase (ALT/SGPT) Alkaline 97 IU/L Phosphatase Troponin I < 0.012 ng/ml Total Protein 7.4 g/dl Albumin 4.1 g/dl Globulin 3.30 g/dl Albumin/Globulin 1.24 Ratio White Blood Count 14.6 10^3/ul Red Blood Count 4.60 10^6/ul Hemoglobin 13.6 g/dl Hematocrit 39.7 % Mean Corpuscular 86.3 fl Volume Mean Corpuscular 29.6 pg Hemoglobin Mean Corpuscular 34.3 g/dl Hemoglobin Concen t Red Cell 12.5 % Distribution Width Platelet Count 274 10^3/UL Mean Platelet 12.1 fl Volume Immature 0.300 % Granulocytes % Neutrophils % 80.5 % Lymphocytes % 9.6 % Monocytes % 8.7 % Eosinophils % 0.4 % Basophils % 0.5 % Nucleated Red 0.0 /100WBC Blood Cells % Immature 0.050 10^3/ul Granulocytes # Neutrophils # 11.8 10^3/ul Lymphocytes # 1.4 10^3/ul Monocytes # 1.3 10^3/ul Eosinophils # 0.1 10^3/ul Basophils # 0.1 10^3/ul Nucleated Red 0.0 10^3/ul Blood Cells # POC Venous 1.7 mmol/L Lactate Urine Color EDGARD Urine Clarity CLEAR Urine pH 5.0 Urine Specific 1.023 [place] Urine Ketones NEGATIVE mg/dL Urine Nitrite NEGATIVE mg/dL Urine Bilirubin NEGATIVE mg/dL Urine NEGATIVE mg/dL Urobilinogen Urine Leukocyte TRACE [place]/ul Esterase Urine Microscopic 1 /HPF RBC Urine Microscopic 1 /HPF WBC Urine Mucus MANY /HPF Urine Hemoglobin NEGATIVE mg/dL Urine Glucose NEGATIVE mg/dL Urine Total NEGATIVE mg/dl Protein Current Medications Medications Dose Sig/Shanelle Start Time Status Last (Trade) Ordered Route PRN Stop Time Admin Dose Reason Admin 650 mg ONCE STAT 09/30/18 DC 09/30/18 Acetaminophen PO 16:33 09/30/18 17:09 (Tylenol 16:38 Tab) Sodium 1,710 ml BOLUS OVER 2 09/30/18 DC 09/30/18 Chloride HOURS STAT 16:33 09/30/18 17:10 (NS) IV* 16:38 Piperacillin 100 ml @ ONCE STAT 09/30/18 DC 09/30/18 Sod/ 200 mls/hr IVPB 16:33 09/30/18 17:24 Tazobactam 17:02 Sod Ceftriaxone 50 ml @ ONCE STAT 09/30/18 DC 09/30/18 Sodium 100 mls/hr IVPB 16:33 09/30/18 17:10 17:02 IV Flush 10 ml STK-MED 09/30/18 DC (NS 10 ml) ONCE .ROUTE 17:53 09/30/18 17:54 Sodium 100 ml @ ud STK-MED 09/30/18 DC Chloride ONCE .ROUTE 17:53 09/30/18 17:54 Iohexol 0 ml @ ud STK-MED 09/30/18 DC ONCE .ROUTE 17:53 09/30/18 17:54 Iohexol 30 ml STK-MED 09/30/18 DC (Omnipaque ONCE .ROUTE 17:53 09/30/18 300mg/ ml) 17:54 Procedures/MDM 63-year-old male with a cholecystotomy tube after presenting with acute cholecystitis and septic shock now with right upper quadrant pain and fever. Labs show leukocytosis however LFTs are unremarkable. Patient is hemodynamically stable. Empiric antibiotics given, fluids given Tylenol given w ill admit for IV antibiotics and surgery consult. With patient's surgeon Dr. Vega who is aware of the patient. ECG Time: 1655 Ventricular Rate: 107 Rhythm: Sinus tachycardia ST Segments: without evidence of depressions or elevations Intervals: without evidence of AV block, new BBB, long QT, [place] No evidence of delta wave. Chest X-ray 1V Interpreted by me: Soft Tissue: No acute abnormalities Bones: No acute abnormalities Mediastinum/Cardiac Silhouette/Lungs: No acute abnormalities Impression: Normal Chest X-Ray Departure Condition: Stable JOAO HAGAN MD Sep 30, 2018 16:49
[2018-09-30] MEDS ORDERED: SOD CHLORIDE 0.9% 100 ML ONE (17:53)
[2018-09-30] MEDS ORDERED: IOHEXOL 300MG/ML 30 ML BTL ONE (17:53)
[2018-09-30] MEDS ORDERED: IOHEXOL 0 ML ONE (17:53)
[2018-09-30] MEDS ORDERED: SOD CHLORIDE 0.9% 1,000 ML IV SCH (17:57)
[2018-09-30] MEDS ORDERED: HYDROCODONE/APAP (5/325) TAB PO PRN (18:00)
[2018-09-30] MEDS ORDERED: NACL 0.9% 3 ML SYG IV SCH (18:00)
[2018-09-30] MEDS ORDERED: LORAZEPAM 2 MG INJ IV PRN (18:00)
[2018-09-30] MEDS ORDERED: hydrALAzine 20 MG INJ IV PRN (18:00)
[2018-09-30] MEDS ORDERED: NITROGLYCERIN (SL) 0.4 MG TAB SL PRN (18:00)
[2018-09-30] MEDS ORDERED: ALBUTEROL/IPRATROPIUM (NEB) 3 ML AMP HHN PRN (18:00)
[2018-09-30] MEDS ORDERED: DOCUSATE SODIUM 100 MG CAP PO PRN (18:00)
[2018-09-30] MEDS ORDERED: ACETAMINOPHEN 325 MG TAB PO PRN (18:00)
[2018-09-30] MEDS ORDERED: MAGNESIUM HYDROXIDE 30ML CUP PO PRN (18:00)
[2018-09-30] MEDS ORDERED: VANCOMYCIN IV PER PHARMACY XX SCH (18:00)
[2018-09-30] MEDS ORDERED: ONDANSETRON 4 MG INJ IV PRN ×2 (18:00)
[2018-09-30] MEDS ORDERED: ETANERCEPT XX SCH (18:00)
--- NOTE | 2018-09-30 18:22 | HP ---
Date/Time of Note Date/Time of Note DATE: 09/30/18 TIME: 18:21 Assessment/Plan VTE Prophylaxis SCD applied (from Nsg): Yes Pharmacological prophylaxis: other Assessment/Plan Hospital Course Assessment and plan: 63-year male past medical history rheumatoid arthritis, psoriasis, recent sepsis secondary to acute cholecystitis s/p cholecystostomy tube placement 1 week ago, questionable diabetes and hypertension, who came in today because of abdominal pain and subjective fevers. #Sepsis: Again likely secondary to upper abdominal infection. Patient presented this admission with cholecystostomy tube that was placed about 1 week ago -Check TSH, A1c, lipid panel, continue broad-spectrum antibiotics and IV fluids, keep patient n.p.o. -Tylenol. PRN fevers, follow-up culture results -Follow-up recognitions from surgery and infectious disease teams and any imaging studies ordered by them -Follow-up a.m. labs and consider trending the LFTs #Rheumatoid arthritis: Monitor, continue current home medicines #Psoriasis: On presentation, monitor #Possible diabetes: Last A1c 6.81-week ago -Monitor sugars, consider starting sliding scale insulin Result Diagram: 09/30/18 1656 09/30/18 1655 Results 24hrs Laboratory Tests Test 09/30/18 16:55 09/30/18 16:56 09/30/18 17:03 09/30/18 17:20 Prothrombin Time 13.1 Prothrombin Time Ratio 1.0 INR International 0.98 Normalized Ratio Activated 30.3 Partial Thromboplast Time Sodium Level 131 L Potassium Level 4.5 Chloride Level 96 L Carbon Dioxide Level 23 Anion Gap 12 Blood Urea Nitrogen 10 Creatinine 0.63 Est Glomerular Filtrat > 60 Rate mL/min Glucose Level 160 Calcium Level 8.7 Total Bilirubin 0.6 Direct Bilirubin 0.00 Indirect Bilirubin 0.6 Aspartate Amino 33 Transf (AST/SGOT) Alanine 46 Aminotransferase (ALT/SG PT) Alkaline Phosphatase 97 Troponin I < 0.012 Total Protein 7.4 Albumin 4.1 Globulin 3.30 H Albumin/Globulin Ratio 1.24 White Blood Count 14.6 #H Red Blood Count 4.60 L Hemoglobin 13.6 L Hematocrit 39.7 L Mean Corpuscular Volume 86.3 Mean Corpuscular 29.6 Hemoglobin Mean Corpuscular 34.3 Hemoglobin Concent Red Cell Distribution 12.5 Width Platelet Count 274 Mean Platelet Volume 12.1 H Immature Granulocytes % 0.300 Neutrophils % 80.5 H Lymphocytes % 9.6 L Monocytes % 8.7 Eosinophils % 0.4 Basophils % 0.5 Nucleated Red Blood 0.0 Cells % Immature Granulocytes # 0.050 H Neutrophils # 11.8 H Lymphocytes # 1.4 Monocytes # 1.3 H Eosinophils # 0.1 Basophils # 0.1 Nucleated Red Blood 0.0 Cells # POC Venous Lactate 1.7 Urine Color EDGARD Urine Clarity CLEAR Urine pH 5.0 Urine Specific [place] 1.023 Urine Ketones NEGATIVE Urine Nitrite NEGATIVE Urine Bilirubin NEGATIVE Urine Urobilinogen NEGATIVE Urine Leukocyte Esterase TRACE A Urine Microscopic RBC 1 Urine Microscopic WBC 1 Urine Mucus MANY A Urine Hemoglobin NEGATIVE Urine Glucose NEGATIVE Urine Total Protein NEGATIVE HPI/ROS Admit Date/Time Admit Date/Time Hx of Present Illness 63-year male past medical history rheumatoid arthritis, psoriasis, recent sepsis secondary to acute cholecystitis s/p cholecystostomy tube placement 1 week ago, questionable diabetes and hypertension, who came in today because of abdominal pain and subjective fevers. Patient was recently hospitalized here from September 19 to September 24, 2018 and as mentioned before was treated for sepsis secondary to acute cholecystitis with cholecystostomy tube placed at that time. Apparently went home with p.o. antibiotics and was doing well until 2 days ago when he began having fevers and right upper quadrant abdominal pain. Patient denies vomiting, chest pain, diarrhea or constipation. Apparently the output from cholecystotomy tube has not changed. When patient arrived today he was found with elevated white blood cell count of 14.6, and temperature of 102. Patient has been given broad-spectrum antibiotics in the ER today and a call has been made out to the surgeon who will come eval with the patient as well. PMH/Family/Social Past Medical History Medications Current Medications Sodium Chloride 1,000 ml @ 80 mls/hr [id number] IV ; Start 09/30/18 at 17:57; Stop 10/01/18 at 06:26 Ondansetron HCl (Zofran Inj) 4 mg BRIDGE ORDER PRN IV NAUSEA/VOMITING; Start at 18:00; Stop 10/01/18 at 17:59 Acetaminophen (Tylenol Tab) 650 mg ER BRIDGE PRN PO .MILD PAIN 1-3 OR TEMP; Start 09/30/18 at 18:00; Stop 10/01/18 at 17:59 IV Flush (NS 3 ml) 3 ml PER PROTOCOL IV ; Start 09/30/18 at 18:00; Status UNV Ondansetron HCl (Zofran Inj) 4 mg Q6H PRN IV NAUSEA/VOMITING; Start 09/30/18 at 18:00; Status UNV Acetaminophen (Tylenol Tab) 650 mg Q6H PRN PO .PAIN 1-3 OR TEMP; Start 09/30/18 at 18:00; Status UNV Acetaminophen/ Hydrocodone Bitart ([place] (5/325)) 1 tab Q6H PRN PO .MOD PAIN 4- 6; Start 09/30/18 at 18:00; Status UNV Morphine Sulfate (morphine) 2 mg Q4H PRN IV .SEVERE PAIN 7-10; Start 09/30/18 at 18:00; Status UNV Docusate Sodium (Colace) 100 mg Q12H PRN PO .CONSTIPATION; Start 09/30/18 at 18:00; Status UNV Magnesium Hydroxide (Milk Of Mag) 30 ml DAILY PRN PO .CONSTIPATION; Start 09/30/18 at 18:00; Status UNV Lorazepam (Ativan) 0.5 mg Q6H PRN IV ANXIETY; Start 09/30/18 at 18:00; Status UNV Sodium Chloride 1,000 ml @ 100 mls/hr Q10H IV ; Start 09/30/18 at 17:59; Status UNV Albuterol/ Ipratropium (Duoneb) 3 ml Q4H RESP THERAPY PRN HHN SHORTNESS OF BREATH; Start 09/30/18 at 18:00; Status UNV Hydralazine HCl (Apresoline) 10 mg Q6H PRN IV ELEVATED BLOOD PRESSURE; Start 09/30/18 at 18:00; Status UNV Nitroglycerin (Nitroglycerin (Sl Tab) 0.4 Mg) 1 tab Q5M PRN SL ANGINA; Start 09/30/18 at 18:00; Status UNV Cefepime HCl 50 ml @ 100 mls/hr Q8 IVPB ; Start 09/30/18 at 22:00; Status UNV Vancomycin HCl (Vanco Iv Per Pharmacy) 1 ea Per Rx Protocol XX ; Start 09/30/18 at 18:00; Status UNV Metoprolol Tartrate (Lopressor) 25 mg BID PO ; Start 09/30/18 at 21:00; Status UNV Miscellaneous Information 1 tab weekly SC ; Start 09/30/18 at 18:00; Status UNV Miscellaneous Information 1 cap DAILY PO ; Start 10/01/18 at 09:00; Status UNV Coded Allergies: No Known Allergy (Unverified , 09/30/18) Past Surgical History Past Surgical Hx: other (Cholecystostomy tube placed 1 week ago) Family History Significant Family History: no pertinent family hx Social History Smoking Status: Former smoker Drug Use: none Exam/Review of Systems Vital Signs Vitals Vital Signs Date Temp Pulse Resp B/P (MAP) Pulse Ox O2 O2 Flow FiO2 Time Delivery Rate 09/30/18 38.5 17:09 09/30/18 117 18 149/59 99 15:53 (89) Exam Exam Gen: lying in bed, No acute distress Head: Atraumatic Eyes: Normal Conjunctiva ENT: Normal External Ears, Nose and Mouth. Neck: Full range of motion. No meningismus. Resp: Clear to auscultation bilaterally Cardio: Regular rate and rhythm, no murmurs Abd: Soft, some + tenderness to the right upper quadrant. Cholecystotomy tube site clean dry intact. Slightly green liquid draining in bag. Ext: No cyanosis, or edema Neuro: no focal deficits POONAM CANALES Sep 30, 2018 18:22
[2018-09-30] MEDS ORDERED: GLUCAGON 1 MG INJ IM PRN (19:30)
[2018-09-30] MEDS ORDERED: GLUCOSE GEL 15 GRAM TUBE PO PRN ×2 (19:30)
[2018-09-30] MEDS ORDERED: DEXTROSE 50% 50 ML SYRINGE IV PRN ×2 (19:30)
[2018-09-30] MEDS ORDERED: GLUCOSE GEL 15 GRAM TUBE BUCCAL PRN (19:30)
[2018-09-30 20:22] VITALS: BP 102/60; PULSE 98; RESP 17
[2018-09-30] MEDS ORDERED: VANCOMYCIN 1.5 GM/NS 250 ML 250 ML IVPB SCH (20:30)
[2018-09-30] MEDS: METOPROLOL 25 MG TAB PO SCH (21:00)
[2018-09-30] MEDS: INSULIN ASPART [NOVOLOG] 3 ML PEN SC SCH (21:00)
[2018-09-30] MEDS: CEFEPIME 2GM/50 ML (PMX) 50 ML IVPB SCH (21:05)
[2018-09-30] MEDS: SOD CHLORIDE 0.9% 1,000 ML IV SCH (21:06)
--- NOTE | 2018-09-30 21:32 | CONS ---
Assessment/Plan Assessment/Plan Assessment/Plan (Daily) Recurrent attack of acute cholecystitis, misplaced cholecystostomy tube, patient will need cholecystectomy tomorrow we will plan for laparoscopic possible open. We discussed risks and benefits were discussed possible side effects, possible complications including but not limited to bleeding, infection, injury to other organs, anesthesia complication, patient understood risk and benefits and wished to proceed. Consultation Date/Type/Reason Admit Date/Time Date of Consultation: Sep 30, 2018 Type of Consult Surgical Reason for Consultation Recurrent attack of acute cholecystitis Date/Time of Note DATE: 09/30/18 TIME: 21:30 Hx of Present Illness 63-year-old male discharged 1 week ago with a cholecystotomy tube after having septic shock from acute cholecystitis with plan to take p.o. antibiotics and follow-up as an outpatient for elective cholecystectomy. Patient was improving until 2 days ago when he began having fevers and right upper quadrant abdominal pain. No vomiting, chest pain, diarrhea or constipation. Output from cholecystotomy tube has not changed. Patient presented to emergency room with upper abdominal pain with elevated white count and CT scan showed that the cholecystostomy tube has been dislodged and is currently not located inside the gallbladder but rather adjacent to that Constitutional: no complaints, improved Eyes: no complaints ENT: no complaints Respiratory: no complaints Cardiovascular: chest pain Gastrointestinal: pain, nausea Genitourinary: no complaints Musculoskeletal: bone/joint pain Skin: pruritis, rash, skin lesions Neurologic: no complaints Endocrine: no complaints Lymphatic: no complaints Psychological: no complaints, nl mood/affect Immunologic: no complaints Past Medical History Home Meds Active Scripts Metronidazole* (Flagyl*) 500 Mg Tablet, 500 MG PO Q8 for 14 Days, #42 TAB Prov:SAMIA NAPOLES MD 09/24/18 Ciprofloxacin Hcl* (Ciprofloxacin Hcl*) 500 Mg Tablet, 500 MG PO BID@06,18 for 14 Days, #28 TAB Prov:SAMIA NAPOLES MD 09/24/18 Hydrocodone/Acetaminophen ([place] 5-325 Tablet) 1 Each Tablet, 1 EACH PO Q6 for 7 Days, #30 TAB Prov:SAMIA NAPOLES MD 09/24/18 Metoprolol Tartrate* (Lopressor*) 25 Mg Tab, 25 MG PO BID for 30 Days, #60 TAB Prov:SAMIA NAPOLES MD 09/24/18 Reported Medications Betamethasone Dipropionate* (Betamethasone Dipropionate*) 0.05% - 45 Gm Cream.g m., TOP BID apply to affected 09/19/18 Etanercept (Enbrel Mini) 50 Mg/1 Ml Cartridge, 1 TAB SC weekly 09/19/18 [place]-3 Fatty Acids/Fish Oil (Fish Oil 1,000 mg Capsule) 1 Each Capsule, 1 CAP PO DAILY, CAP 09/19/18 Betamethasone Dipropionate* (Betamethasone Dipropionate*) 0.05% - 15 Gm Oint, 1 BID apply to affected area 09/19/18 Leflunomide* (Leflunomide*) 20 Mg Tablet, 1 TAB ORAL DAILY 09/19/18 Metformin Hcl* (Metformin Hcl*) 1,000 Mg Tablet, 1 TAB ORAL BID 09/19/18 Atorvastatin* (Atorvastatin*) 40 Mg Tablet, 1 TAB ORAL QHS 09/19/18 Acetaminophen (Acetaminophen) 500 Mg Tablet, 1 TAB ORAL Q6 PRN for MILD PAIN(1- 3)OR ELEVATED TEMP 09/19/18 Glipizide* (Glipizide*) 5 Mg Tablet, 1 TAB ORAL BID 09/19/18 Discontinued Reported Medications Lisinopril* (Lisinopril*) 2.5 Mg Tablet, 1 TAB ORAL DAILY 09/19/18 Medications Current Medications IV Flush (NS 3 ml) 3 ml PER PROTOCOL IV ; Start 09/30/18 at 18:00 Ondansetron HCl (Zofran Inj) 4 mg Q6H PRN IV NAUSEA/VOMITING; Start 09/30/18 at 18:00 Acetaminophen (Tylenol Tab) 650 mg Q6H PRN PO .PAIN 1-3 OR TEMP; Start 09/30/18 at 18:00 Acetaminophen/ Hydrocodone Bitart ([place] (5/325)) 1 tab Q6H PRN PO .MOD PAIN 4- 6; Start 09/30/18 at 18:00 Morphine Sulfate (morphine) 2 mg Q4H PRN IV .SEVERE PAIN 7-10; Start 09/30/18 at 18:00 Docusate Sodium (Colace) 100 mg Q12H PRN PO .CONSTIPATION; Start 09/30/18 at 18:00 Magnesium Hydroxide (Milk Of Mag) 30 ml DAILY PRN PO .CONSTIPATION; Start 09/30/18 at 18:00 Lorazepam (Ativan) 0.5 mg Q6H PRN IV ANXIETY; Start 09/30/18 at 18:00 Sodium Chloride 1,000 ml @ 100 mls/hr Q10H IV Last administered on 09/30/18at 21:06; Admin Dose 100 MLS/HR; Start 09/30/18 at 17:59 Albuterol/ Ipratropium (Duoneb) 3 ml Q4H RESP THERAPY PRN HHN SHORTNESS OF BREATH; Start 09/30/18 at 18:00 Hydralazine HCl (Apresoline) 10 mg Q6H PRN IV ELEVATED BLOOD PRESSURE; Start 09/30/18 at 18:00 Nitroglycerin (Nitroglycerin (Sl Tab) 0.4 Mg) 1 tab Q5M PRN SL ANGINA; Start 09/30/18 at 18:00 Cefepime HCl 50 ml @ 100 mls/hr Q8 IVPB Last administered on 09/30/18at 21:05; Admin Dose 100 MLS/HR; Start 09/30/18 at 22:00 Vancomycin HCl (Vanco Iv Per Pharmacy) 1 ea Per Rx Protocol XX ; Start 09/30/18 at 18:00 Metoprolol Tartrate (Lopressor) 25 mg BID PO ; Start 09/30/18 at 21:00 Miscellaneous Information 1 tab weekly SC ; Start 09/30/18 at 18:00; Status UNV Fish Oil (Fish Oil) 1,000 mg DAILY PO ; Start 10/01/18 at 09:00 Insulin Aspart (Novolog Insulin Pen) NOVOLOG *MILD* ALGORI... Q4 SC ; Start 09/30/18 at 21:00 Miscellaneous Information 1 ea NOTE XX ; Start 09/30/18 at 19:30 Glucose (Glutose) 15 gm Q15M PRN PO DECREASED GLUCOSE; Start 09/30/18 at 19:30 Glucose (Glutose) 22.5 gm Q15M PRN PO DECREASED GLUCOSE; Start 09/30/18 at 19:30 Dextrose (D50w Syringe) 25 ml Q15M PRN IV DECREASED GLUCOSE; Start 09/30/18 at 19:30 Dextrose (D50w Syringe) 50 ml Q15M PRN IV DECREASED GLUCOSE; Start 09/30/18 at 19:30 Glucagon (Glucagen) 1 mg Q15M PRN IM DECREASED GLUCOSE; Start 09/30/18 at 19:30 Glucose (Glutose) 15 gm Q15M PRN BUCCAL DECREASED GLUCOSE; Start 09/30/18 at 19:30 Vancomycin/Sodium Chloride 250 ml @ 83.333 mls/ hr NOW IVPB ; Start 09/30/18 at 20:30; Stop 09/30/18 at 23:00 Vancomycin/Sodium Chloride 250 ml @ 83.333 mls/ hr Q12H IVPB ; Start 10/01/18 at 09:00 Allergies: Coded Allergies: No Known Allergy (Unverified , 09/30/18) Past Surgical History Past Surgical Hx: other (Cholecystostomy tube placed 1 week ago) Social History Smoking Status: Former smoker Drug Use: none Exam/Review of Systems Exam Vitals Vital Signs Date Temp Pulse Resp B/P (MAP) Pulse Ox O2 O2 Flow FiO2 Time Delivery Rate 09/30/18 98.5 98 17 102/60 98 Room Air 20:22 (74) 09/30/18 2.0 19:04 Constitutional: alert, oriented, well developed Psych: no complaints, nl mood/affect Head: normocephalic, atraumatic Eyes: nl conjunctiva, EOMI, nl lids, nl sclera, PERRL ENMT: nl external ears & nose, nl lips & teeth, nl nasal mucosa & septum Neck: supple, non-tender Respiratory: clear to auscultation, normal air movement Cardiovascular: regular rate and rhythm, nl pulses Gastrointestinal: soft, nl liver, spleen, tender (Right upper quadrant and epigastric tenderness without peritoneal signs) Musculoskeletal: nl extremities to inspection, nl gait and stance Extremities: normal pulses Neurological: RAILROAD DETECTIVE II-XII intact, nl mental status, nl speech, nl strength Skin: nl turgor; No rash or lesions Lymph: nl lymph nodes Results Result Diagram: 09/30/18 1656 09/30/18 1655 Results 24hrs Laboratory Tests Test 09/30/18 16:55 09/30/18 16:56 09/30/18 17:03 09/30/18 17:20 Prothrombin Time 13.1 Prothrombin Time Ratio 1.0 INR International 0.98 Normalized Ratio Activated 30.3 Partial Thromboplast Time Sodium Level 131 L Potassium Level 4.5 Chloride Level 96 L Carbon Dioxide Level 23 Anion Gap 12 Blood Urea Nitrogen 10 Creatinine 0.63 Est Glomerular Filtrat > 60 Rate mL/min Glucose Level 160 Calcium Level 8.7 Total Bilirubin 0.6 Direct Bilirubin 0.00 Indirect Bilirubin 0.6 Aspartate Amino 33 Transf (AST/SGOT) Alanine 46 Aminotransferase (ALT/SG PT) Alkaline Phosphatase 97 Troponin I < 0.012 Total Protein 7.4 Albumin 4.1 Globulin 3.30 H Albumin/Globulin Ratio 1.24 Free Thyroxine 1.44 White Blood Count 14.6 #H Red Blood Count 4.60 L Hemoglobin 13.6 L Hematocrit 39.7 L Mean Corpuscular Volume 86.3 Mean Corpuscular 29.6 Hemoglobin Mean Corpuscular 34.3 Hemoglobin Concent Red Cell Distribution 12.5 Width Platelet Count 274 Mean Platelet Volume 12.1 H Immature Granulocytes % 0.300 Neutrophils % 80.5 H Lymphocytes % 9.6 L Monocytes % 8.7 Eosinophils % 0.4 Basophils % 0.5 Nucleated Red Blood 0.0 Cells % Immature Granulocytes # 0.050 H Neutrophils # 11.8 H Lymphocytes # 1.4 Monocytes # 1.3 H Eosinophils # 0.1 Basophils # 0.1 Nucleated Red Blood 0.0 Cells # POC Venous Lactate 1.7 Urine Color EDGARD Urine Clarity CLEAR Urine pH 5.0 Urine Specific [place] 1.023 Urine Ketones NEGATIVE Urine Nitrite NEGATIVE Urine Bilirubin NEGATIVE Urine Urobilinogen NEGATIVE Urine Leukocyte Esterase TRACE A Urine Microscopic RBC 1 Urine Microscopic WBC 1 Urine Mucus MANY A Urine Hemoglobin NEGATIVE Urine Glucose NEGATIVE Urine Total Protein NEGATIVE Test 09/30/18 19:32 09/30/18 21:18 Lactic Acid Level 1.3 Bedside Glucose 129 Medications Medication Current Medications IV Flush (NS 3 ml) 3 ml PER PROTOCOL IV ; Start 09/30/18 at 18:00 Ondansetron HCl (Zofran Inj) 4 mg Q6H PRN IV NAUSEA/VOMITING; Start 09/30/18 at 18:00 Acetaminophen (Tylenol Tab) 650 mg Q6H PRN PO .PAIN 1-3 OR TEMP; Start 09/30/18 at 18:00 Acetaminophen/ Hydrocodone Bitart ([place] (5/325)) 1 tab Q6H PRN PO .MOD PAIN 4- 6; Start 09/30/18 at 18:00 Morphine Sulfate (morphine) 2 mg Q4H PRN IV .SEVERE PAIN 7-10; Start 09/30/18 at 18:00 Docusate Sodium (Colace) 100 mg Q12H PRN PO .CONSTIPATION; Start 09/30/18 at 18:00 Magnesium Hydroxide (Milk Of Mag) 30 ml DAILY PRN PO .CONSTIPATION; Start 09/30/18 at 18:00 Lorazepam (Ativan) 0.5 mg Q6H PRN IV ANXIETY; Start 09/30/18 at 18:00 Sodium Chloride 1,000 ml @ 100 mls/hr Q10H IV Last administered on 09/30/18at 21:06; Admin Dose 100 MLS/HR; Start 09/30/18 at 17:59 Albuterol/ Ipratropium (Duoneb) 3 ml Q4H RESP THERAPY PRN HHN SHORTNESS OF BREATH; Start 09/30/18 at 18:00 Hydralazine HCl (Apresoline) 10 mg Q6H PRN IV ELEVATED BLOOD PRESSURE; Start 09/30/18 at 18:00 Nitroglycerin (Nitroglycerin (Sl Tab) 0.4 Mg) 1 tab Q5M PRN SL ANGINA; Start 09/30/18 at 18:00 Cefepime HCl 50 ml @ 100 mls/hr Q8 IVPB Last administered on 09/30/18at 21:05; Admin Dose 100 MLS/HR; Start 09/30/18 at 22:00 Vancomycin HCl (Vanco Iv Per Pharmacy) 1 ea Per Rx Protocol XX ; Start 09/30/18 at 18:00 Metoprolol Tartrate (Lopressor) 25 mg BID PO ; Start 09/30/18 at 21:00 Miscellaneous Information 1 tab weekly SC ; Start 09/30/18 at 18:00; Status UNV Fish Oil (Fish Oil) 1,000 mg DAILY PO ; Start 10/01/18 at 09:00 Insulin Aspart (Novolog Insulin Pen) NOVOLOG *MILD* ALGORI... Q4 SC ; Start 09/30/18 at 21:00 Miscellaneous Information 1 ea NOTE XX ; Start 09/30/18 at 19:30 Glucose (Glutose) 15 gm Q15M PRN PO DECREASED GLUCOSE; Start 09/30/18 at 19:30 Glucose (Glutose) 22.5 gm Q15M PRN PO DECREASED GLUCOSE; Start 09/30/18 at 19:30 Dextrose (D50w Syringe) 25 ml Q15M PRN IV DECREASED GLUCOSE; Start 09/30/18 at 19:30 Dextrose (D50w Syringe) 50 ml Q15M PRN IV DECREASED GLUCOSE; Start 09/30/18 at 19:30 Glucagon (Glucagen) 1 mg Q15M PRN IM DECREASED GLUCOSE; Start 09/30/18 at 19:30 Glucose (Glutose) 15 gm Q15M PRN BUCCAL DECREASED GLUCOSE; Start 09/30/18 at 19:30 Vancomycin/Sodium Chloride 250 ml @ 83.333 mls/ hr NOW IVPB ; Start 09/30/18 at 20:30; Stop 09/30/18 at 23:00 Vancomycin/Sodium Chloride 250 ml @ 83.333 mls/ hr Q12H IVPB ; Start 10/01/18 at 09:00 DEVONTE TAVERAS MD Sep 30, 2018 21:32
[2018-09-30 22:21] VITALS: Ht 165.1 cm; Wt 77.9 kg
[2018-09-30] MEDS: ACETAMINOPHEN 325 MG TAB PO PRN (23:01)
[2018-10-01] VITALS (13 sets, daily range): BP systolic 98–117; BP diastolic 58–74; PULSE 99–123; RESP 15–35
--- NOTE | 2018-10-01 00:19 | CONS ---
DATE OF ADMISSION: 09/30/2018 DATE OF CONSULTATION: 09/30/2018 TYPE OF CONSULTATION: Infectious disease. REASON FOR CONSULTATION: Antibiotic management. HISTORY OF PRESENT ILLNESS: Subhash Cassidy is a 63-year-old male who was discharged 1 week ago with cholecystotomy tube having septic shock from acute cholecystitis. The plan was to have him take p.o. antibiotics and follow up as an outpatient for elective cholecystectomy. The patient was well until 2 days ago when he began to have fevers and right upper quadrant abdominal pain. Output from h is cholecystostomy tube has not changed. He was discharged from the hospital last Wednesday which is approximately 7 days ago. PAST MEDICAL HISTORY: Surgery as outlined. FAMILY HISTORY: Noncontributory. SOCIAL HISTORY: Does not smoke, drink or abuse drugs. ALLERGIES: NONE TO PENICILLIN, SULFA OR FOODS. MEDICATIONS: Per chart. REVIEW OF SYSTEMS: Noncontributory. PHYSICAL EXAMINATION: GENERAL: The patient is a 63-year-old male who is uncomfortable but in no acute distress. VITAL SIGNS: Stable, but his temperature is 101.3, pulse of 117, respirations 18, BP 150/60. SKIN: Without generalized rash. HEENT: Within normal limits. NECK: Supple. LYMPH NODES: None palpable. CHEST: Decreased breath sounds at the bases. HEART: Without murmur or gallop. ABDOMEN: Soft. He is tender right upper quadrant cholecystostomy tube site, is clean and dry. Ther e is no purulence. There is some slightly green liquid draining in the bag. EXTREMITIES: Without cyanosis, clubbing or edema. RECTAL AND GENITAL: Deferred. NEUROLOGICAL: No focal neurological abnormality. HOSPITAL COURSE: The patient's white count is 14.6 with 81% neutrophils, H and H of 13.6 and 39.7, p latelet count 274,000. BUN and creatinine is 10/0.63, glucose of 160. His urine is negative for nit rite. He has trace leukocyte esterase but only 1 white cell per high-power field. The patient was g iven ceftriaxone and Zosyn in the emergency room. His surgeon is Dr. Vega. His EKG showed sinus ta chycardia. CT scan of the abdomen and pelvis shows mild atelectasis at the lung bases, small bilater al pleural effusions, moderate sized pericardial effusion with peripheral enhancement. This may diego selvin an infected pericardial effusion. A cholecystostomy tube is dislodged and present adjacent to t he gallbladder, abnormal gallbladder with thickening of the wall and surrounding edema, mild periport al edema, nonspecific. He has a horseshoe kidney, atherosclerosis, degenerative changes of the spine . Otherwise, unremarkable contrast-enhanced CT scan of the abdomen and pelvis. His cholecystostomy tube is dislodged, which means it is not draining the gallbladder itself. In addition, he has a mode rate sized pericardial effusion which may indicate infected pericardium. The patient is being cared for by Dr. Vega. The patient was placed on cefepime and vancomycin, which is appropriate. Cultures should be taken of the drainage from the cholecystostomy tube and although it is unlikely, he should be seen by cardiothoracic with regards to his pericardial effusion. It may have to be tapped. I wi ll dictate my findings to the hospitalist. Dictated By: TIMUR POP MD, JD/EMILY Conf#: [id number] DID#: [id number] CC: POONAM CANALES;*End*
[2018-10-01] MEDS: INSULIN ASPART [NOVOLOG] 3 ML PEN SC SCH ×6 (01:00→20:26)
[2018-10-01] MEDS: SOD CHLORIDE 0.9% 1,000 ML IV SCH ×2 (03:59→07:51)
[2018-10-01] MEDS: CEFEPIME 2GM/50 ML (PMX) 50 ML IVPB SCH ×2 (06:08→15:59)
[2018-10-01] MEDS: ACETAMINOPHEN 325 MG TAB PO PRN ×2 (06:16→20:18)
[2018-10-01] MEDS ORDERED: NITROGLYCERIN (SL) 0.4 MG TAB SL ONE (06:30)
[2018-10-01] MEDS: morphine 2 MG INJ IV PRN ×2 (07:06→15:04)
[2018-10-01] MEDS ORDERED: SOD CHLORIDE 0.9% 500 ML IV ONE (07:30)
[2018-10-01] MEDS: METOPROLOL 25 MG TAB PO SCH ×2 (08:09→20:19)
[2018-10-01] MEDS: FISH OIL 1,000 MG CAP PO SCH (08:09)
[2018-10-01] MEDS: VANCOMYCIN 1.25 GM/NS 250 ML 250 ML IVPB SCH ×2 (08:44→20:18)
--- NOTE | 2018-10-01 09:54 | PN ---
Date/Time of Note Date/Time of Note DATE: 10/01/18 TIME: 09:49 Assessment/Plan VTE Prophylaxis SCD applied (from Nsg): Yes Pharmacological prophylaxis: other Lines/Catheters IV Catheter Type (from Nrsg): Peripheral IV Urinary Cath still in place: No Assessment/Plan Hospital Course S: Patient had SVT this morning, relieved with beta-sheldon. Waiting for possible surgical procedure for later today. Seen by surgery and ID teams yesterday. Had fever this morning 100.8. O: VS- see below PE: Gen: lying in bed, No acute distress Head: Atraumatic Eyes: Normal Conjunctiva ENT: Normal External Ears, Nose and Mouth. Neck: Full range of motion. No meningismus. Resp: Clear to auscultation bilaterally Cardio: Regular rate and rhythm, no murmurs Abd: Soft, some + tenderness to the right upper quadrant. Cholecystotomy tube site clean dry intact. Slightly green liquid draining in bag. Ext: No cyanosis, or edema Neuro: no focal deficits Assessment and plan: 63-year male past medical history rheumatoid arthritis, psoriasis, recent sepsis secondary to acute cholecystitis s/p cholecystostomy tube placement 1 week ago, questionable diabetes and hypertension, who came in today because of abdominal pain and subjective fevers. #Sepsis: Again likely secondary to upper abdominal infection. Patient presented this admission with cholecystostomy tube that was placed about 1 week ago -Follow-up final results of TSH, A1c, lipid panel, for now continue broad-spe ctrum antibiotics and IV fluids, keep patient n.p.o. -Tylenol. PRN fevers, follow-up culture results -Follow-up further rec's from surgery and infectious disease teams-Per discussion with nursing staff and senior energy consultant teams likely for possible surgical procedure later today. -Follow-up a.m. labs and monitor LFTs #Rheumatoid arthritis: Monitor, continue current home medicines #Psoriasis: On presentation, monitor #Possible diabetes: Last A1c 6.81-week ago -Monitor sugars, consider starting sliding scale insulin # SVT: Patient had episode last week when he was here in the hospital, and again as mentioned above occurred in the morning. Heart rate now stable after beta- sheldon given. -Monitor heart rate, we will obtain another cardiology consult as they saw him last time for SVT. -Continue current cardiac medications including beta-sheldon, monitor heart rate Result Diagram: 10/01/18 0814 09/30/18 1655 Results 24hrs Laboratory Tests Test 09/30/18 16:55 09/30/18 16:56 09/30/18 17:03 09/30/18 17:20 Prothrombin Time 13.1 Prothrombin Time Ratio 1.0 INR International 0.98 Normalized Ratio Activated 30.3 Partial Thromboplast Time Sodium Level 131 L Potassium Level 4.5 Chloride Level 96 L Carbon Dioxide Level 23 Anion Gap 12 Blood Urea Nitrogen 10 Creatinine 0.63 Est Glomerular Filtrat > 60 Rate mL/min Glucose Level 160 Calcium Level 8.7 Total Bilirubin 0.6 Direct Bilirubin 0.00 Indirect Bilirubin 0.6 Aspartate Amino 33 Transf (AST/SGOT) Alanine 46 Aminotransferase (ALT/SG PT) Alkaline Phosphatase 97 Troponin I < 0.012 Total Protein 7.4 Albumin 4.1 Globulin 3.30 H Albumin/Globulin Ratio 1.24 Free Thyroxine 1.44 White Blood Count 14.6 #H Red Blood Count 4.60 L Hemoglobin 13.6 L Hematocrit 39.7 L Mean Corpuscular Volume 86.3 Mean Corpuscular 29.6 Hemoglobin Mean Corpuscular 34.3 Hemoglobin Concent Red Cell Distribution 12.5 Width Platelet Count 274 Mean Platelet Volume 12.1 H Immature Granulocytes % 0.300 Neutrophils % 80.5 H Lymphocytes % 9.6 L Monocytes % 8.7 Eosinophils % 0.4 Basophils % 0.5 Nucleated Red Blood 0.0 Cells % Immature Granulocytes # 0.050 H Neutrophils # 11.8 H Lymphocytes # 1.4 Monocytes # 1.3 H Eosinophils # 0.1 Basophils # 0.1 Nucleated Red Blood 0.0 Cells # POC Venous Lactate 1.7 Urine Color EDGARD Urine Clarity CLEAR Urine pH 5.0 Urine Specific [place] 1.023 Urine Ketones NEGATIVE Urine Nitrite NEGATIVE Urine Bilirubin NEGATIVE Urine Urobilinogen NEGATIVE Urine Leukocyte Esterase TRACE A Urine Microscopic RBC 1 Urine Microscopic WBC 1 Urine Mucus MANY A Urine Hemoglobin NEGATIVE Urine Glucose NEGATIVE Urine Total Protein NEGATIVE Test 09/30/18 19:32 09/30/18 21:17 09/30/18 21:18 09/30/18 23:17 Lactic Acid Level 1.3 1.9 1.6 Bedside Glucose 129 Test 10/01/18 01:11 10/01/18 01:15 10/01/18 06:07 10/01/18 08:14 Lactic Acid Level 0.9 Bedside Glucose 125 107 White Blood Count 15.2 H Red Blood Count 4.50 L Hemoglobin 13.1 L Hematocrit 39.5 L Mean Corpuscular Volume 87.8 Mean Corpuscular 29.1 Hemoglobin Mean Corpuscular 33.2 Hemoglobin Concent Red Cell Distribution 12.6 Width Platelet Count 251 Mean Platelet Volume 12.2 H Immature Granulocytes % 0.400 Neutrophils % 83.1 H Lymphocytes % 6.8 L Monocytes % 8.9 Eosinophils % 0.3 Basophils % 0.5 Nucleated Red Blood 0.0 Cells % Immature Granulocytes # 0.060 H Neutrophils # 12.7 H Lymphocytes # 1.0 Monocytes # 1.4 H Eosinophils # 0.0 Basophils # 0.1 Nucleated Red Blood 0.0 Cells # Hemoglobin A1c 7.0 H Test 10/01/18 08:43 Bedside Glucose 123 Exam/Review of Systems Exam Vitals Vital Signs Date Temp Pulse Resp B/P (MAP) Pulse Ox O2 O2 Flow FiO2 Time Delivery Rate 10/01/18 99.0 07:52 10/01/18 133 07:37 10/01/18 20 100/58 96 Nasal 07:34 (72) Cannula 10/01/18 2.0 07:33 Intake and Output 09/30/18 09/30/18 10/01/18 1515:00 23:00 07:00 IntakeIntake Total 1910 ml 750 ml BalanceBalance 1910 ml 750 ml Results Results 24hrs Laboratory Tests Test 09/30/18 16:55 09/30/18 16:56 09/30/18 17:03 09/30/18 17:20 Prothrombin Time 13.1 Prothrombin Time Ratio 1.0 INR International 0.98 Normalized Ratio Activated 30.3 Partial Thromboplast Time Sodium Level 131 L Potassium Level 4.5 Chloride Level 96 L Carbon Dioxide Level 23 Anion Gap 12 Blood Urea Nitrogen 10 Creatinine 0.63 Est Glomerular Filtrat > 60 Rate mL/min Glucose Level 160 Calcium Level 8.7 Total Bilirubin 0.6 Direct Bilirubin 0.00 Indirect Bilirubin 0.6 Aspartate Amino 33 Transf (AST/SGOT) Alanine 46 Aminotransferase (ALT/SG PT) Alkaline Phosphatase 97 Troponin I < 0.012 Total Protein 7.4 Albumin 4.1 Globulin 3.30 H Albumin/Globulin Ratio 1.24 Free Thyroxine 1.44 White Blood Count 14.6 #H Red Blood Count 4.60 L Hemoglobin 13.6 L Hematocrit 39.7 L Mean Corpuscular Volume 86.3 Mean Corpuscular 29.6 Hemoglobin Mean Corpuscular 34.3 Hemoglobin Concent Red Cell Distribution 12.5 Width Platelet Count 274 Mean Platelet Volume 12.1 H Immature Granulocytes % 0.300 Neutrophils % 80.5 H Lymphocytes % 9.6 L Monocytes % 8.7 Eosinophils % 0.4 Basophils % 0.5 Nucleated Red Blood 0.0 Cells % Immature Granulocytes # 0.050 H Neutrophils # 11.8 H Lymphocytes # 1.4 Monocytes # 1.3 H Eosinophils # 0.1 Basophils # 0.1 Nucleated Red Blood 0.0 Cells # POC Venous Lactate 1.7 Urine Color EDGARD Urine Clarity CLEAR Urine pH 5.0 Urine Specific [place] 1.023 Urine Ketones NEGATIVE Urine Nitrite NEGATIVE Urine Bilirubin NEGATIVE Urine Urobilinogen NEGATIVE Urine Leukocyte Esterase TRACE A Urine Microscopic RBC 1 Urine Microscopic WBC 1 Urine Mucus MANY A Urine Hemoglobin NEGATIVE Urine Glucose NEGATIVE Urine Total Protein NEGATIVE Test 09/30/18 19:32 09/30/18 21:17 09/30/18 21:18 09/30/18 23:17 Lactic Acid Level 1.3 1.9 1.6 Bedside Glucose 129 Test 10/01/18 01:11 10/01/18 01:15 10/01/18 06:07 10/01/18 08:14 Lactic Acid Level 0.9 Bedside Glucose 125 107 White Blood Count 15.2 H Red Blood Count 4.50 L Hemoglobin 13.1 L Hematocrit 39.5 L Mean Corpuscular Volume 87.8 Mean Corpuscular 29.1 Hemoglobin Mean Corpuscular 33.2 Hemoglobin Concent Red Cell Distribution 12.6 Width Platelet Count 251 Mean Platelet Volume 12.2 H Immature Granulocytes % 0.400 Neutrophils % 83.1 H Lymphocytes % 6.8 L Monocytes % 8.9 Eosinophils % 0.3 Basophils % 0.5 Nucleated Red Blood 0.0 Cells % Immature Granulocytes # 0.060 H Neutrophils # 12.7 H Lymphocytes # 1.0 Monocytes # 1.4 H Eosinophils # 0.0 Basophils # 0.1 Nucleated Red Blood 0.0 Cells # Hemoglobin A1c 7.0 H Test 10/01/18 08:43 Bedside Glucose 123 Medications Medication Current Medications IV Flush (NS 3 ml) 3 ml PER PROTOCOL IV ; Start 09/30/18 at 18:00 Ondansetron HCl (Zofran Inj) 4 mg Q6H PRN IV NAUSEA/VOMITING; Start 09/30/18 at 18:00 Acetaminophen (Tylenol Tab) 650 mg Q6H PRN PO .PAIN 1-3 OR TEMP Last administered on 10/01/18at 06:16; Admin Dose 650 MG; Start 09/30/18 at 18:00 Acetaminophen/ Hydrocodone Bitart ([place] (5/325)) 1 tab Q6H PRN PO .MOD PAIN 4- 6; Start 09/30/18 at 18:00 Morphine Sulfate (morphine) 2 mg Q4H PRN IV .SEVERE PAIN 7-10 Last administered on 10/01/18at 07:06; Admin Dose 2 MG; Start 09/30/18 at 18:00 Docusate Sodium (Colace) 100 mg Q12H PRN PO .CONSTIPATION; Start 09/30/18 at 18:00 Magnesium Hydroxide (Milk Of Mag) 30 ml DAILY PRN PO .CONSTIPATION; Start 09/30/18 at 18:00 Lorazepam (Ativan) 0.5 mg Q6H PRN IV ANXIETY; Start 09/30/18 at 18:00 Sodium Chloride 1,000 ml @ 100 mls/hr Q10H IV Last administered on 10/01/18at 07:51; Admin Dose 100 MLS/HR; Start 09/30/18 at 17:59 Albuterol/ Ipratropium (Duoneb) 3 ml Q4H RESP THERAPY PRN HHN SHORTNESS OF BREATH; Start 09/30/18 at 18:00 Hydralazine HCl (Apresoline) 10 mg Q6H PRN IV ELEVATED BLOOD PRESSURE; Start 09/30/18 at 18:00 Nitroglycerin (Nitroglycerin (Sl Tab) 0.4 Mg) 1 tab Q5M PRN SL ANGINA; Start 09/30/18 at 18:00 Cefepime HCl 50 ml @ 100 mls/hr Q8 IVPB Last administered on 10/01/18at 06:08; Admin Dose 100 MLS/HR; Start 09/30/18 at 22:00 Vancomycin HCl (Vanco Iv Per Pharmacy) 1 ea Per Rx Protocol XX ; Start 09/30/18 at 18:00 Metoprolol Tartrate (Lopressor) 25 mg BID PO Last administered on 10/01/18at 08:09; Admin Dose 25 MG; Start 09/30/18 at 21:00 Miscellaneous Information 1 tab weekly SC ; Start 09/30/18 at 18:00; Status UNV Fish Oil (Fish Oil) 1,000 mg DAILY PO ; Start 10/01/18 at 09:00 Insulin Aspart (Novolog Insulin Pen) NOVOLOG *MILD* ALGORI... Q4 SC ; Start 09/30/18 at 21:00 Miscellaneous Information 1 ea NOTE XX ; Start 09/30/18 at 19:30 Glucose (Glutose) 15 gm Q15M PRN PO DECREASED GLUCOSE; Start 09/30/18 at 19:30 Glucose (Glutose) 22.5 gm Q15M PRN PO DECREASED GLUCOSE; Start 09/30/18 at 19:30 Dextrose (D50w Syringe) 25 ml Q15M PRN IV DECREASED GLUCOSE; Start 09/30/18 at 19:30 Dextrose (D50w Syringe) 50 ml Q15M PRN IV DECREASED GLUCOSE; Start 09/30/18 at 19:30 Glucagon (Glucagen) 1 mg Q15M PRN IM DECREASED GLUCOSE; Start 09/30/18 at 19:30 Glucose (Glutose) 15 gm Q15M PRN BUCCAL DECREASED GLUCOSE; Start 09/30/18 at 19:30 Vancomycin/Sodium Chloride 250 ml @ 83.333 mls/ hr Q12H IVPB Last administered on 10/01/18at 08:44; Admin Dose 83.333 MLS/HR; Start 10/01/18 at 09:00 POONAM CANALES Oct 01, 2018 09:53
--- NOTE | 2018-10-01 10:37 | PREAC ---
Date/Time of Note Date/Time of Note DATE: 10/01/18 TIME: 10:36 Anesthesia Eval and Record Evaluation Time Pre-Procedure Interview DATE: 10/01/18 TIME: 10:36 Age 63 Sex male NPO: 8 hrs Preoperative diagnosis cholecystitis Planned procedure laparoscopic cholecystectomy Past Medical History Past Medical History: Includes Cardio: HTN, Arrythmia (history of SVT) Endo: Diabetes Musculoskeletal: Rheumatoid arthritis Surgery & Anesthesia Issues No known issue Meds Anticoagulation: No Beta Iris within 24 hr: Yes Reason Beta Iris not given: Bradycarida, Hypotension Active Scripts Metronidazole* (Flagyl*) 500 Mg Tablet, 500 MG PO Q8 for 14 Days, #42 TAB Prov:SAMIA NAPOLES MD 09/24/18 Ciprofloxacin Hcl* (Ciprofloxacin Hcl*) 500 Mg Tablet, 500 MG PO BID@06,18 for 1 4 Days, #28 TAB Prov:SAMIA NAPOLES MD 09/24/18 Hydrocodone/Acetaminophen ([place] 5-325 Tablet) 1 Each Tablet, 1 EACH PO Q6 for 7 Days, #30 TAB Prov:SAMIA NAPOLES MD 09/24/18 Metoprolol Tartrate* (Lopressor*) 25 Mg Tab, 25 MG PO BID for 30 Days, #60 TAB Prov:SAMIA NAPOLES MD 09/24/18 Reported Medications Betamethasone Dipropionate* (Betamethasone Dipropionate*) 0.05% - 45 Gm Cream.gm., TOP BID apply to affected 09/19/18 Etanercept (Enbrel Mini) 50 Mg/1 Ml Cartridge, 1 TAB SC weekly 09/19/18 [place]-3 Fatty Acids/Fish Oil (Fish Oil 1,000 mg Capsule) 1 Each Capsule, 1 CAP PO DAILY, CAP 09/19/18 Betamethasone Dipropionate* (Betamethasone Dipropionate*) 0.05% - 15 Gm Oint, 1 BID apply to affected area 09/19/18 Leflunomide* (Leflunomide*) 20 Mg Tablet, 1 TAB ORAL DAILY 09/19/18 Metformin Hcl* (Metformin Hcl*) 1,000 Mg Tablet, 1 TAB ORAL BID 09/19/18 Atorvastatin* (Atorvastatin*) 40 Mg Tablet, 1 TAB ORAL QHS 09/19/18 Acetaminophen (Acetaminophen) 500 Mg Tablet, 1 TAB ORAL Q6 PRN for MILD PAIN(1- 3)OR ELEVATED TEMP 09/19/18 Glipizide* (Glipizide*) 5 Mg Tablet, 1 TAB ORAL BID 09/19/18 Discontinued Reported Medications Lisinopril* (Lisinopril*) 2.5 Mg Tablet, 1 TAB ORAL DAILY 09/19/18 Current Medications IV Flush (NS 3 ml) 3 ml PER PROTOCOL IV ; Start 09/30/18 at 18:00 Ondansetron HCl (Zofran Inj) 4 mg Q6H PRN IV NAUSEA/VOMITING; Start 09/30/18 at 18:00 Acetaminophen (Tylenol Tab) 650 mg Q6H PRN PO .PAIN 1-3 OR TEMP Last administered on 10/01/18at 06:16; Admin Dose 650 MG; Start 09/30/18 at 18:00 Acetaminophen/ Hydrocodone Bitart ([place] (5/325)) 1 tab Q6H PRN PO .MOD PAIN 4- 6; Start 09/30/18 at 18:00 Morphine Sulfate (morphine) 2 mg Q4H PRN IV .SEVERE PAIN 7-10 Last administered on 10/01/18at 07:06; Admin Dose 2 MG; Start 09/30/18 at 18:00 Docusate Sodium (Colace) 100 mg Q12H PRN PO .CONSTIPATION; Start 09/30/18 at 18:00 Magnesium Hydroxide (Milk Of Mag) 30 ml DAILY PRN PO .CONSTIPATION; Start 09/30 at 18:00 Lorazepam (Ativan) 0.5 mg Q6H PRN IV ANXIETY; Start 09/30/18 at 18:00 Sodium Chloride 1,000 ml @ 100 mls/hr Q10H IV Last administered on 10/01/18at 07:51; Admin Dose 100 MLS/HR; Start 09/30/18 at 17:59 Albuterol/ Ipratropium (Duoneb) 3 ml Q4H RESP THERAPY PRN HHN SHORTNESS OF BREATH; Start 09/30/18 at 18:00 Hydralazine HCl (Apresoline) 10 mg Q6H PRN IV ELEVATED BLOOD PRESSURE; Start 09/30/18 at 18:00 Nitroglycerin (Nitroglycerin (Sl Tab) 0.4 Mg) 1 tab Q5M PRN SL ANGINA; Start 09/30/18 at 18:00 Cefepime HCl 50 ml @ 100 mls/hr Q8 IVPB Last administered on 10/01/18at 06:08; Admin Dose 100 MLS/HR; Start 09/30/18 at 22:00 Vancomycin HCl (Vanco Iv Per Pharmacy) 1 ea Per Rx Protocol XX ; Start 09/30/18 at 18:00 Metoprolol Tartrate (Lopressor) 25 mg BID PO Last administered on 10/01/18at 08:09; Admin Dose 25 MG; Start 09/30/18 at 21:00 Miscellaneous Information 1 tab weekly SC ; Start 09/30/18 at 18:00; Status UNV Fish Oil (Fish Oil) 1,000 mg DAILY PO ; Start 10/01/18 at 09:00 Insulin Aspart (Novolog Insulin Pen) NOVOLOG *MILD* ALGORI... Q4 SC ; Start 09/30/18 at 21:00 Miscellaneous Information 1 ea NOTE XX ; Start 09/30/18 at 19:30 Glucose (Glutose) 15 gm Q15M PRN PO DECREASED GLUCOSE; Start 09/30/18 at 19:30 Glucose (Glutose) 22.5 gm Q15M PRN PO DECREASED GLUCOSE; Start 09/30/18 at 19:30 Dextrose (D50w Syringe) 25 ml Q15M PRN IV DECREASED GLUCOSE; Start 09/30/18 at 19:30 Dextrose (D50w Syringe) 50 ml Q15M PRN IV DECREASED GLUCOSE; Start 09/30/18 at 19:30 Glucagon (Glucagen) 1 mg Q15M PRN IM DECREASED GLUCOSE; Start 09/30/18 at 19:30 Glucose (Glutose) 15 gm Q15M PRN BUCCAL DECREASED GLUCOSE; Start 09/30/18 at 19:30 Vancomycin/Sodium Chloride 250 ml @ 83.333 mls/ hr Q12H IVPB Last administered on 10/01/18at 08:44; Admin Dose 83.333 MLS/HR; Start 10/01/18 at 09:00 Meds reviewed: Yes Allergies Coded Allergies: No Known Allergy (Unverified , 09/30/18) Allergies Reviewed: Yes Labs/Studies Labs Reviewed: Reviewed by anesthesiologist Result Diagram: 10/01/18 0814 10/01/18 0814 Laboratory Tests 10/01/18 08:14 test: N/A Studies: CXR, 2D Echo Pre-procedure Exam Last vitals Vital Signs Date Temp Pulse Resp B/P (MAP) Pulse Ox O2 O2 Flow FiO2 Time Delivery Rate 10/01/18 Nasal 2.0 08:30 Cannula 10/01/18 99.0 07:52 10/01/18 133 07:37 10/01/18 20 100/58 96 07:34 (72) Airway: Adequate mouth opening, Adequate thyromental dist Mallampati: Mallampati II Teeth: Normal Lung: Normal Heart: Normal ASA Physical Status ASA physical status: 3 Emergency: None Planned Anesthetic General/MAC: ETT Nerve block: TAP (bilateral) Planned Pain Management Single shot nerve block, Parenteral pain med Pre-operative Attestations Prior to commencing anesthesia and surgery, the patient was re-evaluated, there was verification of: *The patient's identity *The results of appropriate recent lab work and preoperative vital signs *The above evaluation not changing prior to induction *Anesthetic plan, risk benefits, alternative and complications discussed with patient/family; questions answered; patient/family understands, accepts and wishes to proceed. ROBINA ACKERMAN MD Oct 01, 2018 10:37
[2018-10-01] MEDS ORDERED: BUPIVACAINE 0.25%/EPI (SDV) 30 ML INJ ONE (12:24)
--- NOTE | 2018-10-01 12:50 | CONS ---
Assessment/Plan Assessment/Plan Hospital Course (Demo Recall) ID PROGRESS NOTE CURRENT ABX: DAY # => Vanco IV + Cefepime 10/01/18 0814 09/30/18 1655 24H INTERVAL SUMMARY * I came by to see the patient and he is not in his room * CHART REVIEWED DIAGNOSTIC IMAGING * 10/01/18 CXR: 1. Bibasilar atelectasis with small bilateral pleural effusions. MICRO * 09/30/18 BCX (-) * 09/30/18 BODY FLUID CULTURE Preliminary No growth [id number] PHYSICAL EXAMINATION: deferred not in room ID ASSESSMENT 63 yo M admit with: 63-year male past medical history rheumatoid arthritis, psoriasis, recent sepsis secondary to acute cholecystitis s/p cholecystostomy tube placement 1 week ago, questionable diabetes and hypertension, who came in today because of abdominal pain and subjective fevers. #Sepsis: Again likely secondary to upper abdominal infection. Patient presented this admission with cholecystostomy tube that was placed about 1 week ago -Follow-up final results of TSH, A1c, lipid panel, for now continue broad- spectrum antibiotics and IV fluids, keep patient n.p.o. -Tylenol. PRN fevers, follow-up culture results -Follow-up further rec's from surgery and infectious disease teams-Per discussion with nursing staff and reimbursement consultant teams likely for possible surgical procedure later today. -Follow-up a.m. labs and monitor LFTs #Rheumatoid arthritis: Monitor, continue current home medicines #Psoriasis: On presentation, monitor #Possible diabetes: Last A1c 6.81-week ago -Monitor sugars, consider starting sliding scale insulin # SVT: Patient had episode last week when he was here in the hospital, and again as mentioned above occurred in the morning. Heart rate now stable after beta- sheldon given. -Monitor heart rate, we will obtain another cardiology consult as they saw him last time for SVT. -Continue current cardiac medications including beta-sheldon, monitor heart rate (-) MRSA Nares ABX ALLERGIES: KNDA INVASIVES: CURRENT ABX: DAY # =>Vanco IV + Cefepime ID RECOMMENDATIONS/PLAN: 1. I came by to round on patient -- he was not in room. 2. Chart reviewed == continue current abx -- will f/u. . Consultation Date/Type/Reason Admit Date/Time Sep 30, 2018 at 17:57 Initial Consult Date 09/30/18 Date/Time of Note DATE: 10/01/18 TIME: 12:49 Exam/Review of Systems Exam Vitals Vital Signs Date Temp Pulse Resp B/P (MAP) Pulse Ox O2 O2 Flow FiO2 Time Delivery Rate 10/01/18 98.2 109 20 104/71 99 Nasal 11:11 (82) Cannula 10/01/18 2.0 08:30 Intake and Output 09/30/18 09/30/18 10/01/18 1515:00 23:00 07:00 IntakeIntake Total 1910 ml 750 ml BalanceBalance 1910 ml 750 ml Results Result Diagram: 10/01/18 0814 10/01/18 0814 Results 24hrs Laboratory Tests Test 09/30/18 16:55 09/30/18 16:56 09/30/18 17:03 09/30/18 17:20 Prothrombin Time 13.1 Prothrombin Time Ratio 1.0 INR International 0.98 Normalized Ratio Activated 30.3 Partial Thromboplast Time Sodium Level 131 L Potassium Level 4.5 Chloride Level 96 L Carbon Dioxide Level 23 Anion Gap 12 Blood Urea Nitrogen 10 Creatinine 0.63 Est Glomerular Filtrat > 60 Rate mL/min Glucose Level 160 Calcium Level 8.7 Total Bilirubin 0.6 Direct Bilirubin 0.00 Indirect Bilirubin 0.6 Aspartate Amino 33 Transf (AST/SGOT) Alanine 46 Aminotransferase (ALT/SG PT) Alkaline Phosphatase 97 Troponin I < 0.012 Total Protein 7.4 Albumin 4.1 Globulin 3.30 H Albumin/Globulin Ratio 1.24 Free Thyroxine 1.44 White Blood Count 14.6 #H Red Blood Count 4.60 L Hemoglobin 13.6 L Hematocrit 39.7 L Mean Corpuscular Volume 86.3 Mean Corpuscular 29.6 Hemoglobin Mean Corpuscular 34.3 Hemoglobin Concent Red Cell Distribution 12.5 Width Platelet Count 274 Mean Platelet Volume 12.1 H Immature Granulocytes % 0.300 Neutrophils % 80.5 H Lymphocytes % 9.6 L Monocytes % 8.7 Eosinophils % 0.4 Basophils % 0.5 Nucleated Red Blood 0.0 Cells % Immature Granulocytes # 0.050 H Neutrophils # 11.8 H Lymphocytes # 1.4 Monocytes # 1.3 H Eosinophils # 0.1 Basophils # 0.1 Nucleated Red Blood 0.0 Cells # POC Venous Lactate 1.7 Urine Color EDGARD Urine Clarity CLEAR Urine pH 5.0 Urine Specific [place] 1.023 Urine Ketones NEGATIVE Urine Nitrite NEGATIVE Urine Bilirubin NEGATIVE Urine Urobilinogen NEGATIVE Urine Leukocyte Esterase TRACE A Urine Microscopic RBC 1 Urine Microscopic WBC 1 Urine Mucus MANY A Urine Hemoglobin NEGATIVE Urine Glucose NEGATIVE Urine Total Protein NEGATIVE Test 09/30/18 19:32 09/30/18 21:17 09/30/18 21:18 09/30/18 23:17 Lactic Acid Level 1.3 1.9 1.6 Bedside Glucose 129 Test 10/01/18 01:11 10/01/18 01:15 10/01/18 06:07 10/01/18 08:14 Lactic Acid Level 0.9 Bedside Glucose 125 107 White Blood Count 15.2 H Red Blood Count 4.50 L Hemoglobin 13.1 L Hematocrit 39.5 L Mean Corpuscular Volume 87.8 Mean Corpuscular 29.1 Hemoglobin Mean Corpuscular 33.2 Hemoglobin Concent Red Cell Distribution 12.6 Width Platelet Count 251 Mean Platelet Volume 12.2 H Immature Granulocytes % 0.400 Neutrophils % 83.1 H Lymphocytes % 6.8 L Monocytes % 8.9 Eosinophils % 0.3 Basophils % 0.5 Nucleated Red Blood 0.0 Cells % Immature Granulocytes # 0.060 H Neutrophils # 12.7 H Lymphocytes # 1.0 Monocytes # 1.4 H Eosinophils # 0.0 Basophils # 0.1 Nucleated Red Blood 0.0 Cells # Sodium Level 132 L Potassium Level 4.1 Chloride Level 100 Carbon Dioxide Level 22 Anion Gap 10 Blood Urea Nitrogen 7 Creatinine 0.63 Est Glomerular Filtrat > 60 Rate mL/min Glucose Level 126 Hemoglobin A1c 7.0 H Calcium Level 7.9 L Phosphorus Level 3.1 Magnesium Level 1.7 Triglycerides Level 61 Cholesterol Level 79 L LDL Cholesterol, 46 Calculated HDL Cholesterol 21 L Cholesterol/HDL Ratio 3.7 Thyroid Stimulating 3.120 Hormone (TSH) Test 10/01/18 08:15 10/01/18 08:43 10/01/18 12:30 Troponin I < 0.012 Bedside Glucose 123 132 Medications Medication Current Medications IV Flush (NS 3 ml) 3 ml PER PROTOCOL IV ; Start 09/30/18 at 18:00 Ondansetron HCl (Zofran Inj) 4 mg Q6H PRN IV NAUSEA/VOMITING; Start 09/30/18 at 18:00 Acetaminophen (Tylenol Tab) 650 mg Q6H PRN PO .PAIN 1-3 OR TEMP Last administered on 10/01/18at 06:16; Admin Dose 650 MG; Start 09/30/18 at 18:00 Acetaminophen/ Hydrocodone Bitart ([place] (5/325)) 1 tab Q6H PRN PO .MOD PAIN 4- 6; Start 09/30/18 at 18:00 Morphine Sulfate (morphine) 2 mg Q4H PRN IV .SEVERE PAIN 7-10 Last administered on 10/01/18at 07:06; Admin Dose 2 MG; Start 09/30/18 at 18:00 Docusate Sodium (Colace) 100 mg Q12H PRN PO .CONSTIPATION; Start 09/30/18 at 18:00 Magnesium Hydroxide (Milk Of Mag) 30 ml DAILY PRN PO .CONSTIPATION; Start 09/30/18 at 18:00 Lorazepam (Ativan) 0.5 mg Q6H PRN IV ANXIETY; Start 09/30/18 at 18:00 Sodium Chloride 1,000 ml @ 100 mls/hr Q10H IV Last administered on 10/01/18at 07:51; Admin Dose 100 MLS/HR; Start 09/30/18 at 17:59 Albuterol/ Ipratropium (Duoneb) 3 ml Q4H RESP THERAPY PRN HHN SHORTNESS OF AURELIO TH; Start 09/30/18 at 18:00 Hydralazine HCl (Apresoline) 10 mg Q6H PRN IV ELEVATED BLOOD PRESSURE; Start 09/30/18 at 18:00 Nitroglycerin (Nitroglycerin (Sl Tab) 0.4 Mg) 1 tab Q5M PRN SL ANGINA; Start 09/30/18 at 18:00 Cefepime HCl 50 ml @ 100 mls/hr Q8 IVPB Last administered on 10/01/18at 06:08; Admin Dose 100 MLS/HR; Start 09/30/18 at 22:00 Vancomycin HCl (Vanco Iv Per Pharmacy) 1 ea Per Rx Protocol XX ; Start 09/30/18 at 18:00 Metoprolol Tartrate (Lopressor) 25 mg BID PO Last administered on 10/01/18at 08:09; Admin Dose 25 MG; Start 09/30/18 at 21:00 Miscellaneous Information 1 tab weekly SC ; Start 09/30/18 at 18:00; Status UNV Fish Oil (Fish Oil) 1,000 mg DAILY PO ; Start 10/01/18 at 09:00 Insulin Aspart (Novolog Insulin Pen) NOVOLOG *MILD* ALGORI... Q4 SC ; Start 09/30/18 at 21:00 Miscellaneous Information 1 ea NOTE XX ; Start 09/30/18 at 19:30 Glucose (Glutose) 15 gm Q15M PRN PO DECREASED GLUCOSE; Start 09/30/18 at 19:30 Glucose (Glutose) 22.5 gm Q15M PRN PO DECREASED GLUCOSE; Start 09/30/18 at 19:30 Dextrose (D50w Syringe) 25 ml Q15M PRN IV DECREASED GLUCOSE; Start 09/30/18 at 19:30 Dextrose (D50w Syringe) 50 ml Q15M PRN IV DECREASED GLUCOSE; Start 09/30/18 at 19:30 Glucagon (Glucagen) 1 mg Q15M PRN IM DECREASED GLUCOSE; Start 09/30/18 at 19:30 Glucose (Glutose) 15 gm Q15M PRN BUCCAL DECREASED GLUCOSE; Start 09/30/18 at 19:30 Vancomycin/Sodium Chloride 250 ml @ 83.333 mls/ hr Q12H IVPB Last administered on 10/01/18at 08:44; Admin Dose 83.333 MLS/HR; Start 10/01/18 at 09:00 Miscellaneous Information (*Rx Drug Level Order Reminder*) VIKTOR TR 0800 ONCE XX ; Start 10/02/18 at 08:00; Stop 10/02/18 at 08:01 MACY MORALES NP Oct 01, 2018 12:50
[2018-10-01] MEDS ORDERED: LIDOCAINE 1% (MPF) 30 ML INJ ONE (12:58)
[2018-10-01] MEDS ORDERED: BUPIVACAINE 0.5%/EPI (SDV) 30 ML INJ ONE (12:58)
--- NOTE | 2018-10-01 13:19 | PREAC ---
Date/Time of Note Date/Time of Note DATE: 10/01/18 TIME: 13:17 Anesthesia Eval and Record Evaluation Time Pre-Procedure Interview DATE: 10/01/18 TIME: 13:17 Age 63 Sex male NPO: 8 hrs Preoperative diagnosis Cholelithiasis Planned procedure Laparoscopic Cholecystectomy Past Medical History Past Medical History: Includes Cardio: HTN, Dyslipidemia, Arrythmia (Hx of SVT) Endo: Diabetes Musculoskeletal: Osteoarthritis, Other (Psoriasis) Heme: Anemia Surgery & Anesthesia Issues No known issue Meds Anticoagulation: No Beta Iris within 24 hr: No Reason Beta Iris not given: Pt. not on B-Iris Active Scripts Metronidazole* (Flagyl*) 500 Mg Tablet, 500 MG PO Q8 for 14 Days, #42 TAB Prov:SAMIA NAPOLES MD 09/24/18 Ciprofloxacin Hcl* (Ciprofloxacin Hcl*) 500 Mg Tablet, 500 MG PO BID@06,18 for 14 Days, #28 TAB Prov:SAMIA NAPOLES MD 09/24/18 Hydrocodone/Acetaminophen ([place] 5-325 Tablet) 1 Each Tablet, 1 EACH PO Q6 for 7 Days, #30 TAB Prov:SAMIA NAPOLES MD 09/24/18 Metoprolol Tartrate* (Lopressor*) 25 Mg Tab, 25 MG PO BID for 30 Days, #60 TAB Prov:SAMIA NAPOLES MD 09/24/18 Reported Medications Betamethasone Dipropionate* (Betamethasone Dipropionate*) 0.05% - 45 Gm Cream.gm ., TOP BID apply to affected 09/19/18 Etanercept (Enbrel Mini) 50 Mg/1 Ml Cartridge, 1 TAB SC weekly 09/19/18 [place]-3 Fatty Acids/Fish Oil (Fish Oil 1,000 mg Capsule) 1 Each Capsule, 1 CAP PO DAILY, CAP 09/19/18 Betamethasone Dipropionate* (Betamethasone Dipropionate*) 0.05% - 15 Gm Oint, 1 BID apply to affected area 09/19/18 Leflunomide* (Leflunomide*) 20 Mg Tablet, 1 TAB ORAL DAILY 09/19/18 Metformin Hcl* (Metformin Hcl*) 1,000 Mg Tablet, 1 TAB ORAL BID 09/19/18 Atorvastatin* (Atorvastatin*) 40 Mg Tablet, 1 TAB ORAL QHS 09/19/18 Acetaminophen (Acetaminophen) 500 Mg Tablet, 1 TAB ORAL Q6 PRN for MILD PAIN(1- 3)OR ELEVATED TEMP 09/19/18 Glipizide* (Glipizide*) 5 Mg Tablet, 1 TAB ORAL BID 09/19/18 Discontinued Reported Medications Lisinopril* (Lisinopril*) 2.5 Mg Tablet, 1 TAB ORAL DAILY 09/19/18 Current Medications IV Flush (NS 3 ml) 3 ml PER PROTOCOL IV ; Start 09/30/18 at 18:00 Ondansetron HCl (Zofran Inj) 4 mg Q6H PRN IV NAUSEA/VOMITING; Start 09/30/18 at 18:00 Acetaminophen (Tylenol Tab) 650 mg Q6H PRN PO .PAIN 1-3 OR TEMP Last administered on 10/01/18at 06:16; Admin Dose 650 MG; Start 09/30/18 at 18:00 Acetaminophen/ Hydrocodone Bitart ([place] (5/325)) 1 tab Q6H PRN PO .MOD PAIN 4- 6; Start 09/30/18 at 18:00 Morphine Sulfate (morphine) 2 mg Q4H PRN IV .SEVERE PAIN 7-10 Last administered on 10/01/18at 07:06; Admin Dose 2 MG; Start 09/30/18 at 18:00 Docusate Sodium (Colace) 100 mg Q12H PRN PO .CONSTIPATION; Start 09/30/18 at 18:00 Magnesium Hydroxide (Milk Of Mag) 30 ml DAILY PRN PO .CONSTIPATION; Start 09/30/18 at 18:00 Lorazepam (Ativan) 0.5 mg Q6H PRN IV ANXIETY; Start 09/30/18 at 18:00 Sodium Chloride 1,000 ml @ 100 mls/hr Q10H IV Last administered on 10/01/18at 07:51; Admin Dose 100 MLS/HR; Start 09/30/18 at 17:59 Albuterol/ Ipratropium (Duoneb) 3 ml Q4H RESP THERAPY PRN HHN SHORTNESS OF BREATH; Start 09/30/18 at 18:00 Hydralazine HCl (Apresoline) 10 mg Q6H PRN IV ELEVATED BLOOD PRESSURE; Start 09/30/18 at 18:00 Nitroglycerin (Nitroglycerin (Sl Tab) 0.4 Mg) 1 tab Q5M PRN SL ANGINA; Start 09/30/18 at 18:00 Cefepime HCl 50 ml @ 100 mls/hr Q8 IVPB Last administered on 10/01/18at 06:08; Admin Dose 100 MLS/HR; Start 09/30/18 at 22:00 Vancomycin HCl (Vanco Iv Per Pharmacy) 1 ea Per Rx Protocol XX ; Start 09/30/18 at 18:00 Metoprolol Tartrate (Lopressor) 25 mg BID PO Last administered on 10/01/18at 08:09; Admin Dose 25 MG; Start 09/30/18 at 21:00 Miscellaneous Information 1 tab weekly SC ; Start 09/30/18 at 18:00; Status UNV Fish Oil (Fish Oil) 1,000 mg DAILY PO ; Start 10/01/18 at 09:00 Insulin Aspart (Novolog Insulin Pen) NOVOLOG *MILD* ALGORI... Q4 SC ; Start 09/30/18 at 21:00 Miscellaneous Information 1 ea NOTE XX ; Start 09/30/18 at 19:30 Glucose (Glutose) 15 gm Q15M PRN PO DECREASED GLUCOSE; Start 09/30/18 at 19:30 Glucose (Glutose) 22.5 gm Q15M PRN PO DECREASED GLUCOSE; Start 09/30/18 at 19:30 Dextrose (D50w Syringe) 25 ml Q15M PRN IV DECREASED GLUCOSE; Start 09/30/18 at 19:30 Dextrose (D50w Syringe) 50 ml Q15M PRN IV DECREASED GLUCOSE; Start 09/30/18 at 19:30 Glucagon (Glucagen) 1 mg Q15M PRN IM DECREASED GLUCOSE; Start 09/30/18 at 19:30 Glucose (Glutose) 15 gm Q15M PRN BUCCAL DECREASED GLUCOSE; Start 09/30/18 at 19:30 Vancomycin/Sodium Chloride 250 ml @ 83.333 mls/ hr Q12H IVPB Last administered on 10/01/18at 08:44; Admin Dose 83.333 MLS/HR; Start 10/01/18 at 09:00 Miscellaneous Information (*Rx Drug Level Order Reminder*) VANCO TR 0800 ONCE XX ; Start 10/02/18 at 08:00; Stop 10/02/18 at 08:01 Meds reviewed: Yes Allergies Coded Allergies: No Known Allergy (Unverified , 8/2/19) Allergies Reviewed: Yes Labs/Studies Labs Reviewed: Reviewed by anesthesiologist Result Diagram: 10/01/18 0814 10/01/18 0814 Laboratory Tests 10/01/18 08:14 test: N/A Studies: ECG (n/a), CXR (n/a) Pre-procedure Exam Last vitals Vital Signs Date Temp Pulse Resp B/P (MAP) Pulse Ox O2 O2 Flow FiO2 Time Delivery Rate 10/01/18 98.2 109 20 104/71 99 Nasal 11:11 (82) Cannula 10/01/18 2.0 08:30 Airway: Adequate mouth opening, Adequate thyromental dist Mallampati: Mallampati II Teeth: Normal Lung: Normal Heart: Normal ASA Physical Status ASA physical status: 3 Emergency: None Planned Anesthetic General/MAC: ETT Nerve block: TAP (bilateral) Planned Pain Management Single shot nerve block, Parenteral pain med Pre-operative Attestations Prior to commencing anesthesia and surgery, the patient was re-evaluated, there was verification of: *The patient's identity *The results of appropriate recent lab work and preoperative vital signs *The above evaluation not changing prior to induction *Anesthetic plan, risk benefits, alternative and complications discussed with patient/family; questions answered; patient/family understands, accepts and wishes to proceed. DIONTE MAK MD Oct 01, 2018 13:19
[2018-10-01] MEDS ORDERED: CEFAZOLIN 1 GM INJ ONE (13:23)
[2018-10-01] MEDS ORDERED: MIDAZOLAM 1 MG/ML 2 ML INJ ONE (13:23)
[2018-10-01] MEDS ORDERED: ROCURONIUM 50 MG INJ ONE (13:23)
[2018-10-01] MEDS ORDERED: PROPOFOL 20 ML ONE (13:23)
[2018-10-01] MEDS ORDERED: FENTAnyl 50 MCG/ML VIAL ONE (13:23)
[2018-10-01] MEDS ORDERED: ROPIVACAINE 0.5 % 30 ML VIAL ONE (13:25)
[2018-10-01] MEDS ORDERED: PIPER-TAZO 3.375 GM IV (PMX) 100 ML ONE (13:41)
--- NOTE | 2018-10-01 13:50 | CONS ---
Consultation Date/Type/Reason Admit Date/Time Sep 30, 2018 at 17:57 Type of Consult Cardiology Date/Time of Note DATE: 10/01/18 TIME: 13:49 Hx of Present Illness The patient with a hx of SVT and SCT this am before surgery - pateint in the OR so patient not seen or examined - will have my colleague follow up Past Medical History Home Meds Active Scripts Metronidazole* (Flagyl*) 500 Mg Tablet, 500 MG PO Q8 for 14 Days, #42 TAB Prov:SAMIA NAPOLES MD 09/24/18 Ciprofloxacin Hcl* (Ciprofloxacin Hcl*) 500 Mg Tablet, 500 MG PO BID@06,18 for 14 Days, #28 TAB Prov:SAMIA NAPOLES MD 09/24/18 Hydrocodone/Acetaminophen ([place] 5-325 Tablet) 1 Each Tablet, 1 EACH PO Q6 for 7 Days, #30 TAB Prov:SAMIA NAPOLES MD 09/24/18 Metoprolol Tartrate* (Lopressor*) 25 Mg Tab, 25 MG PO BID for 30 Days, #60 TAB Prov:SAMIA NAPOLES MD 09/24/18 Reported Medications Betamethasone Dipropionate* (Betamethasone Dipropionate*) 0.05% - 45 Gm Cream.gm., TOP BID apply to affected 09/19/18 Etanercept (Enbrel Mini) 50 Mg/1 Ml Cartridge, 1 TAB SC weekly 09/19/18 [place]-3 Fatty Acids/Fish Oil (Fish Oil 1,000 mg Capsule) 1 Each Capsule, 1 CAP PO DAILY, CAP 09/19/18 Betamethasone Dipropionate* (Betamethasone Dipropionate*) 0.05% - 15 Gm Oint, 1 BID apply to affected area 09/19/18 Leflunomide* (Leflunomide*) 20 Mg Tablet, 1 TAB ORAL DAILY 09/19/18 Metformin Hcl* (Metformin Hcl*) 1,000 Mg Tablet, 1 TAB ORAL BID 09/19/18 Atorvastatin* (Atorvastatin*) 40 Mg Tablet, 1 TAB ORAL QHS 09/19/18 Acetaminophen (Acetaminophen) 500 Mg Tablet, 1 TAB ORAL Q6 PRN for MILD PAIN(1- 3)OR ELEVATED TEMP 09/19/18 Glipizide* (Glipizide*) 5 Mg Tablet, 1 TAB ORAL BID 7/22/19 Discontinued Reported Medications Lisinopril* (Lisinopril*) 2.5 Mg Tablet, 1 TAB ORAL DAILY 09/19/18 Medications Current Medications IV Flush (NS 3 ml) 3 ml PER PROTOCOL IV ; Start 09/30/18 at 18:00 Ondansetron HCl (Zofran Inj) 4 mg Q6H PRN IV NAUSEA/VOMITING; Start 09/30/18 at 18:00 Acetaminophen (Tylenol Tab) 650 mg Q6H PRN PO .PAIN 1-3 OR TEMP Last administered on 10/01/18at 06:16; Admin Dose 650 MG; Start 09/30/18 at 18:00 Acetaminophen/ Hydrocodone Bitart ([place] (5/325)) 1 tab Q6H PRN PO .MOD PAIN 4- 6; Start 09/30/18 at 18:00 Morphine Sulfate (morphine) 2 mg Q4H PRN IV .SEVERE PAIN 7-10 Last administered on 10/01/18at 07:06; Admin Dose 2 MG; Start 09/30/18 at 18:00 Docusate Sodium (Colace) 100 mg Q12H PRN PO .CONSTIPATION; Start 09/30/18 at 18:00 Magnesium Hydroxide (Milk Of Mag) 30 ml DAILY PRN PO .CONSTIPATION; Start 09/30/18 at 18:00 Lorazepam (Ativan) 0.5 mg Q6H PRN IV ANXIETY; Start 09/30/18 at 18:00 Sodium Chloride 1,000 ml @ 100 mls/hr Q10H IV Last administered on 10/01/18at 07:51; Admin Dose 100 MLS/HR; Start 09/30/18 at 17:59 Albuterol/ Ipratropium (Duoneb) 3 ml Q4H RESP THERAPY PRN HHN SHORTNESS OF BREATH; Start 09/30/18 at 18:00 Hydralazine HCl (Apresoline) 10 mg Q6H PRN IV ELEVATED BLOOD PRESSURE; Start 09/30/18 at 18:00 Nitroglycerin (Nitroglycerin (Sl Tab) 0.4 Mg) 1 tab Q5M PRN SL ANGINA; Start 09/30/18 at 18:00 Cefepime HCl 50 ml @ 100 mls/hr Q8 IVPB Last administered on 10/01/18at 06:08; Admin Dose 100 MLS/HR; Start 09/30/18 at 22:00 Vancomycin HCl (Vanco Iv Per Pharmacy) 1 ea Per Rx Protocol XX ; Start 09/30/18 at 18:00 Metoprolol Tartrate (Lopressor) 25 mg BID PO Last administered on 10/01/18at 08:09; Admin Dose 25 MG; Start 09/30/18 at 21:00 Miscellaneous Information 1 tab weekly SC ; Start 09/30/18 at 18:00; Status UNV Fish Oil (Fish Oil) 1,000 mg DAILY PO ; Start 10/01/18 at 09:00 Insulin Aspart (Novolog Insulin Pen) NOVOLOG *MILD* ALGORI... Q4 SC ; Start 09/30/18 at 21:00 Miscellaneous Information 1 ea NOTE XX ; Start 09/30/18 at 19:30 Glucose (Glutose) 15 gm Q15M PRN PO DECREASED GLUCOSE; Start 09/30/18 at 19:30 Glucose (Glutose) 22.5 gm Q15M PRN PO DECREASED GLUCOSE; Start 09/30/18 at 19:30 Dextrose (D50w Syringe) 25 ml Q15M PRN IV DECREASED GLUCOSE; Start 09/30/18 at 19:30 Dextrose (D50w Syringe) 50 ml Q15M PRN IV DECREASED GLUCOSE; Start 09/30/18 at 19:30 Glucagon (Glucagen) 1 mg Q15M PRN IM DECREASED GLUCOSE; Start 09/30/18 at 19:30 Glucose (Glutose) 15 gm Q15M PRN BUCCAL DECREASED GLUCOSE; Start 09/30/18 at 19:30 Vancomycin/Sodium Chloride 250 ml @ 83.333 mls/ hr Q12H IVPB Last administered on 10/01/18at 08:44; Admin Dose 83.333 MLS/HR; Start 10/01/18 at 09:00 Miscellaneous Information (*Rx Drug Level Order Reminder*) VANCO TR 0800 ONCE XX ; Start 10/02/18 at 08:00; Stop 10/02/18 at 08:01 Allergies: Coded Allergies: No Known Allergy (Unverified , 09/30/18) Past Surgical History Past Surgical Hx: other (Cholecystostomy tube placed 1 week ago) Social History Smoking Status: Former smoker Drug Use: none Exam/Review of Systems Vital Signs Vitals Vital Signs Date Temp Pulse Resp B/P (MAP) Pulse Ox O2 O2 Flow FiO2 Time Delivery Rate 10/01/18 98.2 109 20 104/71 99 Nasal 11:11 (82) Cannula 10/01/18 2.0 08:30 Intake and Output 09/30/18 09/30/18 10/01/18 1515:00 23:00 07:00 IntakeIntake Total 1910 ml 750 ml BalanceBalance 1910 ml 750 ml Labs Result Diagram: 10/01/18 0814 10/01/18 0814 Results 24hrs Laboratory Tests Test 09/30/18 16:55 09/30/18 16:56 09/30/18 17:03 09/30/18 17:20 Prothrombin Time 13.1 Prothrombin Time Ratio 1.0 INR International 0.98 Normalized Ratio Activated 30.3 Partial Thromboplast Time Sodium Level 131 L Potassium Level 4.5 Chloride Level 96 L Carbon Dioxide Level 23 Anion Gap 12 Blood Urea Nitrogen 10 Creatinine 0.63 Est Glomerular Filtrat > 60 Rate mL/min Glucose Level 160 Calcium Level 8.7 Total Bilirubin 0.6 Direct Bilirubin 0.00 Indirect Bilirubin 0.6 Aspartate Amino 33 Transf (AST/SGOT) Alanine 46 Aminotransferase (ALT/SG PT) Alkaline Phosphatase 97 Troponin I < 0.012 Total Protein 7.4 Albumin 4.1 Globulin 3.30 H Albumin/Globulin Ratio 1.24 Free Thyroxine 1.44 White Blood Count 14.6 #H Red Blood Count 4.60 L Hemoglobin 13.6 L Hematocrit 39.7 L Mean Corpuscular Volume 86.3 Mean Corpuscular 29.6 Hemoglobin Mean Corpuscular 34.3 Hemoglobin Concent Red Cell Distribution 12.5 Width Platelet Count 274 Mean Platelet Volume 12.1 H Immature Granulocytes % 0.300 Neutrophils % 80.5 H Lymphocytes % 9.6 L Monocytes % 8.7 Eosinophils % 0.4 Basophils % 0.5 Nucleated Red Blood 0.0 Cells % Immature Granulocytes # 0.050 H Neutrophils # 11.8 H Lymphocytes # 1.4 Monocytes # 1.3 H Eosinophils # 0.1 Basophils # 0.1 Nucleated Red Blood 0.0 Cells # POC Venous Lactate 1.7 Urine Color EDGARD Urine Clarity CLEAR Urine pH 5.0 Urine Specific [place] 1.023 Urine Ketones NEGATIVE Urine Nitrite NEGATIVE Urine Bilirubin NEGATIVE Urine Urobilinogen NEGATIVE Urine Leukocyte Esterase TRACE A Urine Microscopic RBC 1 Urine Microscopic WBC 1 Urine Mucus MANY A Urine Hemoglobin NEGATIVE Urine Glucose NEGATIVE Urine Total Protein NEGATIVE Test 09/30/18 19:32 09/30/18 21:17 09/30/18 21:18 09/30/18 23:17 Lactic Acid Level 1.3 1.9 1.6 Bedside Glucose 129 Test 10/01/18 01:11 10/01/18 01:15 10/01/18 06:07 10/01/18 08:14 Lactic Acid Level 0.9 Bedside Glucose 125 107 White Blood Count 15.2 H Red Blood Count 4.50 L Hemoglobin 13.1 L Hematocrit 39.5 L Mean Corpuscular Volume 87.8 Mean Corpuscular 29.1 Hemoglobin Mean Corpuscular 33.2 Hemoglobin Concent Red Cell Distribution 12.6 Width Platelet Count 251 Mean Platelet Volume 12.2 H Immature Granulocytes % 0.400 Neutrophils % 83.1 H Lymphocytes % 6.8 L Monocytes % 8.9 Eosinophils % 0.3 Basophils % 0.5 Nucleated Red Blood 0.0 Cells % Immature Granulocytes # 0.060 H Neutrophils # 12.7 H Lymphocytes # 1.0 Monocytes # 1.4 H Eosinophils # 0.0 Basophils # 0.1 Nucleated Red Blood 0.0 Cells # Sodium Level 132 L Potassium Level 4.1 Chloride Level 100 Carbon Dioxide Level 22 Anion Gap 10 Blood Urea Nitrogen 7 Creatinine 0.63 Est Glomerular Filtrat > 60 Rate mL/min Glucose Level 126 Hemoglobin A1c 7.0 H Calcium Level 7.9 L Phosphorus Level 3.1 Magnesium Level 1.7 Triglycerides Level 61 Cholesterol Level 79 L LDL Cholesterol, 46 Calculated HDL Cholesterol 21 L Cholesterol/HDL Ratio 3.7 Thyroid Stimulating 3.120 Hormone (TSH) Test 10/01/18 08:15 10/01/18 08:43 10/01/18 12:30 Troponin I < 0.012 Bedside Glucose 123 132 Medications Medications Current Medications IV Flush (NS 3 ml) 3 ml PER PROTOCOL IV ; Start 09/30/18 at 18:00 Ondansetron HCl (Zofran Inj) 4 mg Q6H PRN IV NAUSEA/VOMITING; Start 09/30/18 at 18:00 Acetaminophen (Tylenol Tab) 650 mg Q6H PRN PO .PAIN 1-3 OR TEMP Last administered on 10/01/18at 06:16; Admin Dose 650 MG; Start 09/30/18 at 18:00 Acetaminophen/ Hydrocodone Bitart ([place] (5/325)) 1 tab Q6H PRN PO .MOD PAIN 4- 6; Start 09/30/18 at 18:00 Morphine Sulfate (morphine) 2 mg Q4H PRN IV .SEVERE PAIN 7-10 Last administered on 10/01/18at 07:06; Admin Dose 2 MG; Start 09/30/18 at 18:00 Docusate Sodium (Colace) 100 mg Q12H PRN PO .CONSTIPATION; Start 09/30/18 at 18:00 Magnesium Hydroxide (Milk Of Mag) 30 ml DAILY PRN PO .CONSTIPATION; Start 09/30/18 at 18:00 Lorazepam (Ativan) 0.5 mg Q6H PRN IV ANXIETY; Start 09/30/18 at 18:00 Sodium Chloride 1,000 ml @ 100 mls/hr Q10H IV Last administered on 10/01/18at 07:51; Admin Dose 100 MLS/HR; Start 09/30/18 at 17:59 Albuterol/ Ipratropium (Duoneb) 3 ml Q4H RESP THERAPY PRN HHN SHORTNESS OF BREATH; Start 09/30/18 at 18:00 Hydralazine HCl (Apresoline) 10 mg Q6H PRN IV ELEVATED BLOOD PRESSURE; Start 09/30/18 at 18:00 Nitroglycerin (Nitroglycerin (Sl Tab) 0.4 Mg) 1 tab Q5M PRN SL ANGINA; Start 09/30/18 at 18:00 Cefepime HCl 50 ml @ 100 mls/hr Q8 IVPB Last administered on 10/01/18at 06:08; Admin Dose 100 MLS/HR; Start 09/30/18 at 22:00 Vancomycin HCl (Vanco Iv Per Pharmacy) 1 ea Per Rx Protocol XX ; Start 09/30/18 at 18:00 Metoprolol Tartrate (Lopressor) 25 mg BID PO Last administered on 10/01/18at 08:09; Admin Dose 25 MG; Start 09/30/18 at 21:00 Miscellaneous Information 1 tab weekly SC ; Start 09/30/18 at 18:00; Status UNV Fish Oil (Fish Oil) 1,000 mg DAILY PO ; Start 10/01/18 at 09:00 Insulin Aspart (Novolog Insulin Pen) NOVOLOG *MILD* ALGORI... Q4 SC ; Start 09/30 at 21:00 Miscellaneous Information 1 ea NOTE XX ; Start 09/30/18 at 19:30 Glucose (Glutose) 15 gm Q15M PRN PO DECREASED GLUCOSE; Start 09/30/18 at 19:30 Glucose (Glutose) 22.5 gm Q15M PRN PO DECREASED GLUCOSE; Start 09/30/18 at 19:30 Dextrose (D50w Syringe) 25 ml Q15M PRN IV DECREASED GLUCOSE; Start 09/30/18 at 19:30 Dextrose (D50w Syringe) 50 ml Q15M PRN IV DECREASED GLUCOSE; Start 09/30/18 at 19:30 Glucagon (Glucagen) 1 mg Q15M PRN IM DECREASED GLUCOSE; Start 09/30/18 at 19:30 Glucose (Glutose) 15 gm Q15M PRN BUCCAL DECREASED GLUCOSE; Start 09/30/18 at 19:30 Vancomycin/Sodium Chloride 250 ml @ 83.333 mls/ hr Q12H IVPB Last administered on 10/01/18at 08:44; Admin Dose 83.333 MLS/HR; Start 10/01/18 at 09:00 Miscellaneous Information (*Rx Drug Level Order Reminder*) VANCO TR 0800 ONCE XX ; Start 10/02/18 at 08:00; Stop 10/02/18 at 08:01 EMILY CARRANZA MD Oct 01, 2018 13:50
[2018-10-01] MEDS ORDERED: HETASTARCH 6% NACL 500 ML ONE (13:57)
[2018-10-01] MEDS ORDERED: SUGAMMADEX SODIUM 200 MG/2 ML VIAL IV ONE (14:14)
--- NOTE | 2018-10-01 14:27 | PAC ---
Date/Time of Note Date/Time of Note DATE: 10/01/18 TIME: 14:26 Post-Anesthesia Notes Post-Anesthesia Note Last documented vital signs Vital Signs Date Temp Pulse Resp B/P (MAP) Pulse Ox O2 O2 Flow FiO2 Time Delivery Rate 10/01/18 98.2 109 20 104/71 99 Nasal 11:11 (82) Cannula 10/01/18 99.8 2.0 08:30 Activity: WNL Respiratory function: WNL Cardiovascular function: WNL Mental status: Baseline Pain reasonably controlled: Yes Hydration appropriate: Yes Nausea/Vomiting absent: Yes DIONTE MAK MD Oct 01, 2018 14:27
--- NOTE | 2018-10-01 14:27 | OPR ---
Date/Time of Note Date/Time of Note DATE: 10/01/18 TIME: 14:24 Operative Report Procedure Date: Oct 01, 2018 Preoperative Diagnosis Acute on chronic cholecystitis. Status post cholecystostomy. Postoperative Diagnosis The same. Operation/Procedure Performed Laparoscopic cholecystectomy with intraoperative fluorescent cholangiogram. Surgeon see signature line Car Bracer None Anesthesia Type: general Anesthesiologist: DIONTE MAK MD Estimated Blood Loss: minimal Transfusion none Specimen Gallbladder Grafts/Implants none Complications none Pt Condition Post Procedure: stable Disposition: PACU Indications 63-year-old male who presented 2 weeks ago with acute cholecystitis. Because the patient was hemodynamically unstable tube cholecystostomy was placed by invasive radiologist. Patient was discharged home but returned to emergency room yesterday with the fever abdominal pain and elevated white count. CT scan suspected that the tube has been dislodged. Patient is taken to operating room for laparoscopic cholecystectomy.We discussed risks and benefits were discussed possible side effects, possible complications including but not limited to bleeding, infection, injury to other organs, anesthesia complication, patient understood risk and benefits and wished to proceed. Procedure Description The risks, benefits and alternatives of the procedure were discussed with the patient and informed consent was obtained. We discussed with the patient and the family possibility of the bleeding, infection, injury to other organs, bile ducts injury, retained stones and necessity of the ERCP. OPERATIVE PROCEDURE: The patient was brought to the operating room and placed supine. IV antibiotics were given. Venodynes were placed to both lower ext remities. General endotracheal anesthesia was achieved. The abdomen was prepped and draped in a sterile fashion. 0.25% Marcaine with epinephrine was used for local anesthesia. A small infraumbilical incision was made and a Veress needle inserted. Intraperitoneal position was confirmed using the saline drop test. Carbon dioxide pneumoperitoneum was achieved with a good filling pressure to 15 mmHg. The 30-degree 5 mm video laparoscope was inserted through a 5-mm trocar placed in the right paramedian position just next to umbilicus. There was no evidence of injury after Veress needle and trocar insertion. Additional trocars were placed, a 12-mm subxiphoid trocar, and two 5-mm trocars at the right upper quadrant. The tube was actually found to be inside the gallbladder. Gallbladder looks mildly inflamed and decompressed. The cholecystostomy tube was divided outside and pulled out . the gallbladder was grasped at the fundus and elevated cephalad. The area at Calot's triangle was dissected using blunt and electrocautery dissection, and critical view was obtained. ICG imaging confirmed the correct identification of the biliary ducts. Clip placed across the cystic duct and artery. The cystic duct was clipped additionally and then divided. The cystic artery was clipped x2 additionally. The gallbladder was dissected off the liver using electrocautery dissection and removed using an EndoCatch bag. The trocars were removed under direct visualization and no bleeding seen at the trocar sites. The pneumoperitoneum was reduced and the subxiphoid and umbilical trocar sites closed with 0 Vicryl to reapproximate the fascia. The trocar sites were reapproximated with 4-0 Monocryl sutures. Steri-Strips and sterile dressings were applied. The sponge and instrument counts were reported as correct x2. Estimated blood loss was 5 cc. The patient was woken from anesthesia, extubated, and transferred to the recovery room in stable condition. By the end of the procedure, the instrument and sponge counts were correct x2. STATEMENT OF PRESENCE: Dr. Vega was present for the entire case. DEVONTE VEGA MD Oct 01, 2018 14:27
[2018-10-01] MEDS ORDERED: ONDANSETRON 4 MG INJ IV PRN (14:30)
[2018-10-01] MEDS ORDERED: METOCLOPRAMIDE 10 MG INJ IV PRN (14:30)
[2018-10-01] MEDS ORDERED: OXYCODONE/ACETAMINOPHEN (5/325) TAB PO PRN (14:30)
[2018-10-01] MEDS ORDERED: EPHEDrine 25 MG/5 ML SYG IV PRN (14:30)
[2018-10-01] MEDS ORDERED: DIPHENHYDRAMINE 50 MG INJ IV PRN (14:30)
[2018-10-01] MEDS ORDERED: HYDROmorphONE 1 MG/5 ML IV SYRINGE IV PRN ×3 (14:30)
[2018-10-01] MEDS ORDERED: MEPERIDINE 25 MG INJ IV PRN (14:30)
[2018-10-01] MEDS ORDERED: FENTAnyl 50 MCG/ML VIAL IV PRN ×3 (14:30)
[2018-10-01] MEDS ORDERED: LABETALOL HCL 20MG INJ IV PRN (14:30)
[2018-10-01] MEDS ORDERED: hydrALAzine 20 MG INJ IV PRN (14:30)
[2018-10-01] MEDS ORDERED: ALBUMIN HUMAN 5% 250 ML IV PRN (14:30)
[2018-10-01] MEDS ORDERED: PHENYLephrine (100 MCG/ML) 10ML SYG ONE (15:08)
[2018-10-01] MEDS ORDERED: LEVALBUTEROL (NEB) 1.25 MG/0.5 ML AMP HHN PRN (21:30)
[2018-10-01] MEDS ORDERED: IPRATROPIUM (NEB) 0.5 MG/2.5 ML AMP HHN PRN (21:30)
[2018-10-02] MEDS: CEFEPIME 2GM/50 ML (PMX) 50 ML IVPB SCH ×3 (01:50→13:30)
[2018-10-02] MEDS: SOD CHLORIDE 0.9% 1,000 ML IV SCH ×3 (01:53→18:46)
[2018-10-02 03:58] VITALS: BP 107/67; PULSE 104; RESP 18
[2018-10-02] MEDS: morphine 2 MG INJ IV PRN (06:13)
[2018-10-02 07:17] VITALS: BP 102/65; PULSE 104; RESP 18
[2018-10-02] MEDS: INSULIN ASPART [NOVOLOG] 3 ML PEN SC SCH ×4 (07:25→21:50)
[2018-10-02] MEDS: METOPROLOL 25 MG TAB PO SCH ×2 (08:12→20:23)
[2018-10-02] MEDS: FISH OIL 1,000 MG CAP PO SCH (08:12)
[2018-10-02] MEDS: VANCOMYCIN 1.25 GM/NS 250 ML 250 ML IVPB SCH ×2 (08:55→21:46)
--- NOTE | 2018-10-02 11:08 | PN ---
Date/Time of Note Date/Time of Note DATE: 10/02/18 TIME: 11:05 Assessment/Plan VTE Prophylaxis Risk score (from Ns)>0 risk: 5 SCD applied (from Nsg): Yes Pharmacological prophylaxis: other Lines/Catheters IV Catheter Type (from Nrsg): Saline Lock Urinary Cath still in place: No Assessment/Plan Hospital Course S: Patient had laparoscopic cholecystectomy yesterday. No fevers overnight, tolerating diet now. O: VS- see below PE: Gen: lying in bed, No acute distress Head: Atraumatic Eyes: Normal Conjunctiva ENT: Normal External Ears, Nose and Mouth. Neck: Full range of motion. No meningismus. Resp: Clear to auscultation bilaterally Cardio: Regular rate and rhythm, no murmurs Abd: Soft, less tenderness palpation right upper quadrant area, normal bowel sounds no rebound or guarding Ext: No cyanosis, or edema Neuro: no focal deficits Date/Time of Note Date/Time of Note DATE: 10/01/18 TIME: 14:24 Operative Report Procedure Date: Oct 01, 2018 Preoperative Diagnosis Acute on chronic cholecystitis. Status post cholecystostomy. Postoperative Diagnosis The same. Operation/Procedure Performed Laparoscopic cholecystectomy with intraoperative fluorescent cholangiogram. Assessment and plan: 63-year male past medical history rheumatoid arthritis, psoriasis, recent sepsis secondary to acute cholecystitis s/p cholecystostomy tube placement 1 week ago, questionable diabetes and hypertension, who came in today because of abdominal pain and subjective fevers. #Sepsis: Again likely secondary to upper abdominal infection. Patient presented this admission with cholecystostomy tube that was placed about 1 week ago. Again status post lap scopic vasectomy now postop day #1. - for now continue broad-spectrum antibiotics and IV fluids, continue diet per surgery recommendations, monitor white blood cell count, still elevated but slowly trending down -Tylenol. PRN fevers, follow-up culture results -We will check levels of LFTs in the a.m. #Rheumatoid arthritis: Monitor, continue current home medicines #Psoriasis: On presentation, monitor #Possible diabetes: Last A1c 6.8 1-week ago -Monitor sugars, sliding scale insulin # SVT: Resolving now, patient had episode last week when he was here in the hospital, and again as mentioned above occurred yesterday morning. Heart rate now stable after beta-sheldon given yesterday. -Monitor heart rate, follow recognitions from cardiology consult as they saw him last time for SVT. -Continue current cardiac medications including beta-sheldon, monitor heart rate Result Diagram: 10/02/18 0701 10/02/18 0701 Results 24hrs Laboratory Tests Test 10/01/18 12:30 10/01/18 17:25 10/01/18 20:21 10/02/18 03:18 Bedside Glucose 132 143 230 H 117 Test 10/02/18 07:01 10/02/18 08:11 White Blood Count 12.1 #H Red Blood Count 4.09 L Hemoglobin 12.0 L Hematocrit 36.3 L Mean Corpuscular Volume 88.8 Mean Corpuscular 29.3 Hemoglobin Mean Corpuscular 33.1 Hemoglobin Concent Red Cell Distribution 12.9 Width Platelet Count 225 Mean Platelet Volume 12.4 H Immature Granulocytes % 0.300 Neutrophils % 80.5 H Lymphocytes % 9.3 L Monocytes % 8.9 Eosinophils % 0.5 Basophils % 0.5 Nucleated Red Blood 0.0 Cells % Immature Granulocytes # 0.040 H Neutrophils # 9.7 H Lymphocytes # 1.1 Monocytes # 1.1 H Eosinophils # 0.1 Basophils # 0.1 Nucleated Red Blood 0.0 Cells # Sodium Level 134 L Potassium Level 4.3 Chloride Level 104 Carbon Dioxide Level 24 Anion Gap 6 Blood Urea Nitrogen 8 Creatinine 0.62 Est Glomerular Filtrat > 60 Rate mL/min Glucose Level 120 Calcium Level 7.6 L Vancomycin Level Trough 9.2 L Bedside Glucose 106 Exam/Review of Systems Exam Vitals Vital Signs Date Temp Pulse Resp B/P (MAP) Pulse Ox O2 O2 Flow FiO2 Time Delivery Rate 10/02/18 Nasal 2.0 08:00 Cannula 10/02/18 98.3 104 18 102/65 96 07:17 (77) Intake and Output 10/01/18 10/01/18 10/02/18 1515:00 23:00 07:00 IntakeIntake Total 1250 ml 166.66 ml 2333.33 ml OutputOutput Total 10 ml 1205 ml BalanceBalance 1240 ml 166.66 ml 1128.33 ml Results Results 24hrs Laboratory Tests Test 10/01/18 12:30 10/01/18 17:25 10/01/18 20:21 10/02/18 03:18 Bedside Glucose 132 143 230 H 117 Test 10/02/18 07:01 10/02/18 08:11 White Blood Count 12.1 #H Red Blood Count 4.09 L Hemoglobin 12.0 L Hematocrit 36.3 L Mean Corpuscular Volume 88.8 Mean Corpuscular 29.3 Hemoglobin Mean Corpuscular 33.1 Hemoglobin Concent Red Cell Distribution 12.9 Width Platelet Count 225 Mean Platelet Volume 12.4 H Immature Granulocytes % 0.300 Neutrophils % 80.5 H Lymphocytes % 9.3 L Monocytes % 8.9 Eosinophils % 0.5 Basophils % 0.5 Nucleated Red Blood 0.0 Cells % Immature Granulocytes # 0.040 H Neutrophils # 9.7 H Lymphocytes # 1.1 Monocytes # 1.1 H Eosinophils # 0.1 Basophils # 0.1 Nucleated Red Blood 0.0 Cells # Sodium Level 134 L Potassium Level 4.3 Chloride Level 104 Carbon Dioxide Level 24 Anion Gap 6 Blood Urea Nitrogen 8 Creatinine 0.62 Est Glomerular Filtrat > 60 Rate mL/min Glucose Level 120 Calcium Level 7.6 L Vancomycin Level Trough 9.2 L Bedside Glucose 106 Medications Medication Current Medications IV Flush (NS 3 ml) 3 ml PER PROTOCOL IV ; Start 09/30/18 at 18:00 Ondansetron HCl (Zofran Inj) 4 mg Q6H PRN IV NAUSEA/VOMITING; Start 09/30/18 at 18:00 Acetaminophen (Tylenol Tab) 650 mg Q6H PRN PO .PAIN 1-3 OR TEMP Last administered on 10/01/18at 20:18; Admin Dose 650 MG; Start 09/30/18 at 18:00 Acetaminophen/ Hydrocodone Bitart ([place] (5/325)) 1 tab Q6H PRN PO .MOD PAIN 4- 6; Start 09/30/18 at 18:00 Morphine Sulfate (morphine) 2 mg Q4H PRN IV .SEVERE PAIN 7-10 Last administered on 10/02/18at 06:13; Admin Dose 2 MG; Start 09/30/18 at 18:00 Docusate Sodium (Colace) 100 mg Q12H PRN PO .CONSTIPATION; Start 09/30/18 at 18:00 Magnesium Hydroxide (Milk Of Mag) 30 ml DAILY PRN PO .CONSTIPATION; Start 09/30/18 at 18:00 Lorazepam (Ativan) 0.5 mg Q6H PRN IV ANXIETY; Start 09/30/18 at 18:00 Sodium Chloride 1,000 ml @ 100 mls/hr Q10H IV Last administered on 10/02/18at 03:19; Admin Dose 100 MLS/HR; Start 09/30/18 at 17:59 Hydralazine HCl (Apresoline) 10 mg Q6H PRN IV ELEVATED BLOOD PRESSURE; Start 09/30/18 at 18:00 Nitroglycerin (Nitroglycerin (Sl Tab) 0.4 Mg) 1 tab Q5M PRN SL ANGINA; Start 09/30/18 at 18:00 Cefepime HCl 50 ml @ 100 mls/hr Q8 IVPB Last administered on 10/02/18at 06:11; Admin Dose 100 MLS/HR; Start 09/30/18 at 22:00 Vancomycin HCl (Vanco Iv Per Pharmacy) 1 ea Per Rx Protocol XX ; Start 09/30/18 at 18:00 Metoprolol Tartrate (Lopressor) 25 mg BID PO Last administered on 10/02/18at 08:12; Admin Dose 25 MG; Start 09/30/18 at 21:00 Miscellaneous Information 1 tab weekly XX ; Start 09/30/18 at 18:00; Status UNV Fish Oil (Fish Oil) 1,000 mg DAILY PO Last administered on 10/02/18at 08:12; Admin Dose 1,000 MG; Start 10/01/18 at 09:00 Miscellaneous Information 1 ea NOTE XX ; Start 09/30/18 at 19:30 Glucose (Glutose) 15 gm Q15M PRN PO DECREASED GLUCOSE; Start 09/30/18 at 19:30 Glucose (Glutose) 22.5 gm Q15M PRN PO DECREASED GLUCOSE; Start 09/30/18 at 19:30 Dextrose (D50w Syringe) 25 ml Q15M PRN IV DECREASED GLUCOSE; Start 09/30/18 at 19:30 Dextrose (D50w Syringe) 50 ml Q15M PRN IV DECREASED GLUCOSE; Start 09/30/18 at 19:30 Glucagon (Glucagen) 1 mg Q15M PRN IM DECREASED GLUCOSE; Start 09/30/18 at 19:30 Glucose (Glutose) 15 gm Q15M PRN BUCCAL DECREASED GLUCOSE; Start 09/30/18 at 19:30 Vancomycin/Sodium Chloride 250 ml @ 83.333 mls/ hr Q12H IVPB Last administered on 10/02/18at 08:55; Admin Dose 83.333 MLS/HR; Start 10/01/18 at 09:00; Stop 10/02/18 at 12:00 Insulin Aspart (Novolog Insulin Pen) NOVOLOG *MILD* ALGORI... AC MEALS AND BEDTIME SC Last administered on 10/01/18 20:26; Admin Dose 3 UNIT; Start 10/01/18 at 17:25 Levalbuterol (Xopenex Neb) 1.25 mg Q4H RESP THERAPY PRN HHN SHORTNESS OF BREATH Last administered on 10/01/18at 21:47; Admin Dose 1.25 MG; Start 10/01/18 at 21:30 Ipratropium [place] (Atrovent 0.02% (Neb)) 0.5 mg Q4H RESP THERAPY PRN HHN SHORTNESS OF BREATH Last administered on 10/01/18at 21:47; Admin Dose 0.5 MG; Start 10/01/18 at 21:30 Vancomycin/Sodium Chloride 250 ml @ 83.333 mls/ hr Q12H IVPB ; Start 10/02/18 at 21:00 POONAM CANALES Oct 02, 2018 11:08
[2018-10-02 11:24] VITALS: BP 100/61; PULSE 97; RESP 18
--- NOTE | 2018-10-02 13:25 | PN ---
Date/Time of Note Date/Time of Note DATE: 10/02/18 TIME: 13:25 Assessment/Plan Lines/Catheters IV Catheter Type (from Nrsg): Saline Lock Barraza in Place (from Nrsg): No Subjective 24 Hr Interval Summary Doing well after laparoscopic cholecystectomy. Tolerates diet, pain minimal. Wounds clean. Patient can be safely discharged home. Exam/Review of Systems Vital Signs Vitals Vital Signs Date Temp Pulse Resp B/P (MAP) Pulse Ox O2 O2 Flow FiO2 Time Delivery Rate 10/02/18 98.3 97 18 100/61 99 11:24 (74) 10/02/18 Nasal 2.0 08:00 Cannula Intake and Output 10/01/18 10/01/18 10/02/18 1515:00 23:00 07:00 IntakeIntake Total 1250 ml 166.66 ml 2333.33 ml OutputOutput Total 10 ml 1205 ml BalanceBalance 1240 ml 166.66 ml 1128.33 ml Results Result Diagram: 10/02/18 0701 10/02/18 0701 DEVONTE TAVERAS MD Oct 02, 2018 13:25
[2018-10-02 15:44] VITALS: BP 100/60; PULSE 109; RESP 18
[2018-10-02 19:27] VITALS: BP 112/62; PULSE 101; RESP 20
--- NOTE | 2018-10-02 19:43 | CONS ---
Assessment/Plan Assessment/Plan Hospital Course (Demo Recall) ID PROGRESS NOTE CURRENT ABX: DAY # => Vanco IV + Cefepime 10/02/18 0701 10/02/18 0701 24H INTERVAL SUMMARY * POD #1 -> s/p : Oct 01, 2018 Laparoscopic cholecystectomy with intraoperative fluorescent cholangiogram. * Diagnosis Acute on chronic cholecystitis. Status post cholecystostomy. * Patient doing well post operatively per surgeon plan is for DC tomorrow DIAGNOSTIC IMAGING * 10/01/18 CXR: 1. Bibasilar atelectasis with small bilateral pleural effusions. MICRO * 09/30/18 BCX (-) * 09/30/18 BODY FLUID CULTURE Preliminary No growth 3 days PHYSICAL EXAMINATION GENERAL: VSS, NAD HEENT: AT, NC, NECK: Supple, CHEST: Rise symmetrical HEART: Pulse RRR ABDOMEN: Soft (+)BS EXTREMITIES: Warm, dry SKIN: No rash, no diaphoresis ID ASSESSMENT 63 yo M admit with: 63-year male past medical history rheumatoid arthritis, psoriasis, recent sepsis secondary to acute cholecystitis s/p cholecystostomy tube placement 1 week ago, questionable diabetes and hypertension, who came in today because of abdominal pain and subjective fevers. #Sepsis: Again likely secondary to upper abdominal infection. Patient presented this admission with cholecystostomy tube that was placed about 1 week ago POD #1 -> s/p : Oct 01, 2018 Laparoscopic cholecystectomy with intraoperative fluorescent cholangiogram. * Diagnosis Acute on chronic cholecystitis. Status post cholecystostomy. #Rheumatoid arthritis: Monitor, continue current home medicines #Psoriasis: On presentation, monitor #Possible diabetes: Last A1c 6.81-week ago (-) MRSA Nares ABX ALLERGIES: KNDA INVASIVES: CURRENT ABX: DAY # =>Vanco IV + Cefepime ID RECOMMENDATIONS/PLAN: 1.Continue ABX -- anticipate DC ABX tomorrow and DC home when cleared by surgeon. . . Consultation Date/Type/Reason Admit Date/Time Sep 30, 2018 at 17:57 Initial Consult Date 09/30/18 Date/Time of Note DATE: 10/02/18 TIME: 19:36 Exam/Review of Systems Exam Vitals Vital Signs Date Temp Pulse Resp B/P (MAP) Pulse Ox O2 O2 Flow FiO2 Time Delivery Rate 10/02/18 99.4 101 20 112/62 98 19:27 (79) 10/02/18 Nasal 2.0 08:00 Cannula Intake and Output 10/01/18 10/01/18 10/02/18 1515:00 23:00 07:00 IntakeIntake Total 1250 ml 166.66 ml 2333.33 ml OutputOutput Total 10 ml 1205 ml BalanceBalance 1240 ml 166.66 ml 1128.33 ml Results Result Diagram: 10/02/18 0701 10/02/18 0701 Results 24hrs Laboratory Tests Test 10/01/18 20:21 10/02/18 03:18 10/02/18 07:01 10/02/18 08:11 Bedside Glucose 230 H 117 106 White Blood Count 12.1 #H Red Blood Count 4.09 L Hemoglobin 12.0 L Hematocrit 36.3 L Mean Corpuscular Volume 88.8 Mean Corpuscular 29.3 Hemoglobin Mean Corpuscular 33.1 Hemoglobin Concent Red Cell Distribution 12.9 Width Platelet Count 225 Mean Platelet Volume 12.4 H Immature Granulocytes % 0.300 Neutrophils % 80.5 H Lymphocytes % 9.3 L Monocytes % 8.9 Eosinophils % 0.5 Basophils % 0.5 Nucleated Red Blood 0.0 Cells % Immature Granulocytes # 0.040 H Neutrophils # 9.7 H Lymphocytes # 1.1 Monocytes # 1.1 H Eosinophils # 0.1 Basophils # 0.1 Nucleated Red Blood 0.0 Cells # Sodium Level 134 L Potassium Level 4.3 Chloride Level 104 Carbon Dioxide Level 24 Anion Gap 6 Blood Urea Nitrogen 8 Creatinine 0.62 Est Glomerular Filtrat > 60 Rate mL/min Glucose Level 120 Calcium Level 7.6 L Vancomycin Level Trough 9.2 L Test 10/02/18 11:32 10/02/18 17:18 Bedside Glucose 139 123 Medications Medication Current Medications IV Flush (NS 3 ml) 3 ml PER PROTOCOL IV ; Start 09/30/18 at 18:00 Ondansetron HCl (Zofran Inj) 4 mg Q6H PRN IV NAUSEA/VOMITING; Start 09/30/18 at 18:00 Acetaminophen (Tylenol Tab) 650 mg Q6H PRN PO .PAIN 1-3 OR TEMP Last administered on 10/01/18at 20:18; Admin Dose 650 MG; Start 09/30/18 at 18:00 Acetaminophen/ Hydrocodone Bitart ([place] (5/325)) 1 tab Q6H PRN PO .MOD PAIN 4- 6; Start 09/30/18 at 18:00 Morphine Sulfate (morphine) 2 mg Q4H PRN IV .SEVERE PAIN 7-10 Last administered on 10/02/18at 06:13; Admin Dose 2 MG; Start 09/30/18 at 18:00 Docusate Sodium (Colace) 100 mg Q12H PRN PO .CONSTIPATION; Start 09/30/18 at 18:00 Magnesium Hydroxide (Milk Of Mag) 30 ml DAILY PRN PO .CONSTIPATION; Start 09/30/18 at 18:00 Lorazepam (Ativan) 0.5 mg Q6H PRN IV ANXIETY; Start 09/30/18 at 18:00 Sodium Chloride 1,000 ml @ 100 mls/hr Q10H IV Last administered on 10/02/18at 18:46; Admin Dose 100 MLS/HR; Start 09/30/18 at 17:59 Hydralazine HCl (Apresoline) 10 mg Q6H PRN IV ELEVATED BLOOD PRESSURE; Start 09/30/18 at 18:00 Nitroglycerin (Nitroglycerin (Sl Tab) 0.4 Mg) 1 tab Q5M PRN SL ANGINA; Start 09/30/18 at 18:00 Cefepime HCl 50 ml @ 100 mls/hr Q8 IVPB Last administered on 10/02/18at 13:30; Admin Dose 100 MLS/HR; Start 09/30/18 at 22:00 Vancomycin HCl (Vanco Iv Per Pharmacy) 1 ea Per Rx Protocol XX ; Start 09/30/18 at 18:00 Metoprolol Tartrate (Lopressor) 25 mg BID PO Last administered on 10/02/18at 08:12; Admin Dose 25 MG; Start 09/30/18 at 21:00 Miscellaneous Information 1 tab weekly XX ; Start 09/30/18 at 18:00; Status UNV Fish Oil (Fish Oil) 1,000 mg DAILY PO Last administered on 10/02/18at 08:12; Admin Dose 1,000 MG; Start 10/01/18 at 09:00 Miscellaneous Information 1 ea NOTE XX ; Start 09/30/18 at 19:30 Glucose (Glutose) 15 gm Q15M PRN PO DECREASED GLUCOSE; Start 09/30/18 at 19:30 Glucose (Glutose) 22.5 gm Q15M PRN PO DECREASED GLUCOSE; Start 09/30/18 at 19:30 Dextrose (D50w Syringe) 25 ml Q15M PRN IV DECREASED GLUCOSE; Start 09/30/18 at 19:30 Dextrose (D50w Syringe) 50 ml Q15M PRN IV DECREASED GLUCOSE; Start 09/30/18 at 19:30 Glucagon (Glucagen) 1 mg Q15M PRN IM DECREASED GLUCOSE; Start 09/30/18 at 19:30 Glucose (Glutose) 15 gm Q15M PRN BUCCAL DECREASED GLUCOSE; Start 09/30/18 at 19:30 Insulin Aspart (Novolog Insulin Pen) NOVOLOG *MILD* ALGORI... AC MEALS AND BEDTIME SC Last administered on 10/01/18at 20:26; Admin Dose 3 UNIT; Start 10/01/18 at 17:25 Levalbuterol (Xopenex Neb) 1.25 mg Q4H RESP THERAPY PRN HHN SHORTNESS OF BREATH Last administered on 10/01/18at 21:47; Admin Dose 1.25 MG; Start 10/01/18 at 21:30 Ipratropium [place] (Atrovent 0.02% (Neb)) 0.5 mg Q4H RESP THERAPY PRN HHN SHORTNESS OF BREATH Last administered on 10/01/18at 21:47; Admin Dose 0.5 MG; Start 10/01/18 at 21:30 Vancomycin/Sodium Chloride 250 ml @ 83.333 mls/ hr Q12H IVPB ; Start 10/02/18 at 21:00 MACY MORALES NP Oct 02, 2018 19:43
[2018-10-02] MEDS: VANCOMYCIN 1.5 GM/NS 250 ML 250 ML IVPB SCH (21:55)
[2018-10-03] VITALS (8 sets, daily range): BP systolic 100–126; BP diastolic 56–72; PULSE 97–170; RESP 18–20
[2018-10-03] MEDS: CEFEPIME 2GM/50 ML (PMX) 50 ML IVPB SCH ×4 (00:10→23:45)
[2018-10-03] MEDS: SOD CHLORIDE 0.9% 1,000 ML IV SCH (05:35)
[2018-10-03] MEDS ORDERED: DILTIAZEM 25 MG INJ ONE (05:58)
[2018-10-03] MEDS ORDERED: DILTIAZEM 25 MG INJ IV ONE (06:00)
[2018-10-03] MEDS: INSULIN ASPART [NOVOLOG] 3 ML PEN SC SCH ×4 (07:25→20:36)
[2018-10-03] MEDS: FISH OIL 1,000 MG CAP PO SCH (08:07)
[2018-10-03] MEDS: METOPROLOL 25 MG TAB PO SCH (08:08)
[2018-10-03] MEDS: VANCOMYCIN 1.5 GM/NS 250 ML 250 ML IVPB SCH ×2 (08:22→23:42)
[2018-10-03] MEDS: [UNRECOGNIZED DRUG - OTHER] XX SCH ×2 (09:00→17:00)
--- NOTE | 2018-10-03 13:30 | DS ---
Date/Time of Note Date/Time of Note DATE: 10/03/18 TIME: 13:20 Discharge Summary Admission/Discharge Info Admit Date/Time Sep 30, 2018 at 17:57 Discharge Date/Time Patient Condition: Stable Consults Dr Sivlia Cesar Procedures CAT scan abdomen pelvis IMPRESSION: 1. Mild atelectasis at the lung bases posteriorly. 2. Small bilateral pleural effusions. 3. Moderate sized pericardial effusion with peripheral enhancement. This may indicate an infected pericardial effusion. 4. The cholecystostomy tube is now dislodged and present adjacent to the gallbladder. Abnormal gallbladder with thickening of the wall and surrounding edema. Mild periportal edema, nonspecific. 5. Horseshoe kidney. 6. Atherosclerosis. 7. Degenerative changes of the spine. 8. Otherwise unremarkable contrast enhanced CT scan of the abdomen and pelvis. Call report: A call report of the findings was made to Dr. Arnold on 09/30/2018 at 1830 hours. CXR Mild atelectasis, effusion 2D echo Minimal pericardial effusion Hx of Present Illness 63-year-old gentleman admitted with fever weakness recently here in the ICU for cholecystitis/sepsis. Had a cholecystostomy tube placed and discharged on antibiotics with outpatient instructions. Hospital Course Evaluated/ managed for recurrent fever & abd pain. Cholecystitis treated; sp lap chol. stable for discharge from surgical standpoint. additionally seen by ID. no further antibiotics needed. Seen by cardiology in periop eval. also has a subacute vs chronic pericardial effusion. present echo shows minimal fluid. tap not indicated. Patient is stable and fit for discharge. Will ask patient to follow up with his consultants and his regular [employer]. Ac/ chr cholecystitis RA; on dmards Pericardial Effusion Svt Dm Htn metabolic syndrome Psoriasis P tobacco Home Meds Active Scripts Metronidazole* (Flagyl*) 500 Mg Tablet, 500 MG PO Q8 for 14 Days, #42 TAB Prov:SAMIA NAPOLES MD 09/24/18 Ciprofloxacin Hcl* (Ciprofloxacin Hcl*) 500 Mg Tablet, 500 MG PO BID@06,18 for 14 Days, #28 TAB Prov:SAMIA NAPOLES MD 09/24/18 Hydrocodone/Acetaminophen ([place] 5-325 Tablet) 1 Each Tablet, 1 EACH PO Q6 for 7 Days, #30 TAB Prov:SAMIA NAPOLES MD 09/24/18 Metoprolol Tartrate* (Lopressor*) 25 Mg Tab, 25 MG PO BID for 30 Days, #60 TAB Prov:SAMIA NAPOLES MD 09/24/18 Reported Medications Betamethasone Dipropionate* (Betamethasone Dipropionate*) 0.05% - 45 Gm Cream.gm., TOP BID apply to affected 09/19/18 Etanercept (Enbrel Mini) 50 Mg/1 Ml Cartridge, 1 TAB SC weekly We09/19/18 [place]-3 Fatty Acids/Fish Oil (Fish Oil 1,000 mg Capsule) 1 Each Capsule, 1 CAP PO DAILY, CAP 09/19/18 Betamethasone Dipropionate* (Betamethasone Dipropionate*) 0.05% - 15 Gm Oint, 1 BID apply to affected area 09/19/18 Leflunomide* (Leflunomide*) 20 Mg Tablet, 1 TAB ORAL DAILY 09/19/18 Metformin Hcl* (Metformin Hcl*) 1,000 Mg Tablet, 1 TAB ORAL BID 09/19/18 Atorvastatin* (Atorvastatin*) 40 Mg Tablet, 1 TAB ORAL QHS 09/19/18 Acetaminophen (Acetaminophen) 500 Mg Tablet, 1 TAB ORAL Q6 PRN for MILD PAIN(1- 3)OR ELEVATED TEMP 09/19/18 Glipizide* (Glipizide*) 5 Mg Tablet, 1 TAB ORAL BID 09/19/18 Primary Care Provider Not On Staff Doctor Time spent on discharge: > 30 minutes Pending Labs Laboratory Tests Test 10/02/18 17:18 10/02/18 21:19 10/03/18 02:10 10/03/18 06:59 Bedside 123 176 108 Glucose mg/dL (70-220) mg/dL (70-220) mg/dL (70-220) White Blood 14.2 Count 10^3/ul (4.8-1 0.8) Red Blood 4.27 Count 10^6/ul (4.70- 6.10) Hemoglobin 12.5 g/dl (14.0-18. 0) Hematocrit 38.4 % (42.0-52.0) Mean 89.9 Corpuscular fl (82.0-101.0 Volume ) Mean 29.3 Corpuscular pg (29.0-33.0) Hemoglobin Mean 32.6 Corpuscular g/dl (32.0-37. Hemoglobin Conc 0) ent Red Cell 12.8 Distribution % (11.5-14.5) Width Platelet Count 253 10^3/UL (140-4 15) Mean Platelet 12.4 Volume fl (7.4-10.4) Immature 0.400 Granulocytes % % (0.001-0.429 ) Neutrophils % 82.6 % (39.0-77.0) Lymphocytes % 9.0 % (15.0-51.0) Monocytes % 6.8 % (0.0-11.0) Eosinophils % 0.8 % (0.0-7.0) Basophils % 0.4 % (0.0-2.0) Nucleated Red 0.0 Blood Cells % /100WBC (0.0-0 .0) Immature 0.060 Granulocytes # 10^3/ul (0.0-0 .031) Neutrophils # 11.7 10^3/ul (1.6-7 .5) Lymphocytes # 1.3 10^3/ul (0.8-2 .9) Monocytes # 1.0 10^3/ul (0.3-0 .9) Eosinophils # 0.1 10^3/ul (0.0-0 .5) Basophils # 0.1 10^3/ul (0.0-0 .1) Nucleated Red 0.0 Blood Cells # 10^3/ul (0.0-0 .0) Sodium Level 133 mmol/L (135-14 4) Potassium 3.9 Level mmol/L (3.5-5. 1) Chloride Level 100 mmol/L (97-110 ) Carbon Dioxide 26 Level mmol/L (21-31) Anion Gap 7 (5-13) Blood Urea 7 mg/dl (7-20) Nitrogen Creatinine 0.67 mg/dl (0.61-1. 24) Est Glomerular > 60 Filtrat mL/min (>60) Rate mL/min Glucose Level 109 mg/dl (70-220) Calcium Level 7.8 mg/dl (8.4-10. 2) Total 1.1 Bilirubin mg/dl (0.2-1.3 ) Direct 0.00 Bilirubin mg/dl (0.00-0. 20) Indirect 1.1 Bilirubin mg/dl (0-1.1) Aspartate Amino 27 Transf (AST/SGO IU/L (15-46) T) Alanine 32 Aminotransferas IU/L (13-69) e (ALT/SGPT) Alkaline 83 Phosphatase IU/L (42-121) Total Protein 5.4 g/dl (6.1-8.1) Albumin 2.7 g/dl (3.3-4.9) Test 10/03/18 07:29 10/03/18 11:51 Bedside 104 187 Glucose mg/dL (70-220) mg/dL (70-220) DIAMOND PEÑA MD Oct 03, 2018 13:30
--- NOTE | 2018-10-03 13:32 | PDOCDIS ---
Discharge Instructions CONDITION [id number] Patient Condition: [id number] Stable HOME CARE INSTRUCTIONS: [id number] Diet Instructions: [id number] Activity Restrictions: [id number] Avoid heavy lifting FOLLOW UP/APPOINTMENTS Follow-up Plan Appt PCP & rheumatology 1-2wks Dr Becki Vega 1wk. Dr Cesar 1-3wks. DIAMOND PEÑA MD Oct 03, 2018 13:32
--- NOTE | 2018-10-03 15:43 | CONS ---
Assessment/Plan Assessment/Plan Hospital Course (Demo Recall) Patient is alert feels good complaining of cough. Still with low-grade fevers. WBC today 14.2 platelets 253 neutrophils 82.6 BUN 7 creatinine 0.67 Chest x-ray 3 days ago revealed bibasilar atelectasis Antimicrobials: Vancomycin, cefepime Physical examination: Well-developed well-nourished elderly man who is alert in no distress head atraumatic normocephalic sclera nonicteric vehicle mucosa dry neck is supple chest rise symmetrical breath sounds diminished bases. Heart: S1-S2 abdomen soft bowel sounds present. Assessment: 1. Systemic inflammatory response syndrome with ongoing low-grade fevers and leukocytosis 2. Status post laparoscopic cholecystectomy 10/01/2018 3. Rheumatoid arthritis Plan: Patient remains stable anticipate discharge on oral Levaquin, follow with surgery consider repeat chest x-ray prior to discharge Consultation Date/Type/Reason Admit Date/Time Sep 30, 2018 at 17:57 Initial Consult Date 09/30/18 Type of Consult id Date/Time of Note DATE: 10/03/18 TIME: 15:43 Exam/Review of Systems Exam Vitals Vital Signs Date Temp Pulse Resp B/P (MAP) Pulse Ox O2 O2 Flow FiO2 Time Delivery Rate 10/03/18 100.0 113 20 126/72 94 15:33 (90) 10/03/18 Room Air 13:00 10/03/18 2.0 08:00 Intake and Output 10/02/18 10/02/18 10/03/18 1515:00 23:00 07:00 IntakeIntake Total 180 ml 650 ml 1400 ml OutputOutput Total 300 ml 250 ml 1600 ml BalanceBalance -120 ml 400 ml -200 ml Results Result Diagram: 10/03/18 0659 10/03/18 0659 Results 24hrs Laboratory Tests Test 10/02/18 17:18 10/02/18 21:19 10/03/18 02:10 10/03/18 06:59 Bedside Glucose 123 176 108 White Blood Count 14.2 H Red Blood Count 4.27 L Hemoglobin 12.5 L Hematocrit 38.4 L Mean Corpuscular Volume 89.9 Mean Corpuscular 29.3 Hemoglobin Mean Corpuscular 32.6 Hemoglobin Concent Red Cell Distribution 12.8 Width Platelet Count 253 Mean Platelet Volume 12.4 H Immature Granulocytes % 0.400 Neutrophils % 82.6 H Lymphocytes % 9.0 L Monocytes % 6.8 Eosinophils % 0.8 Basophils % 0.4 Nucleated Red Blood 0.0 Cells % Immature Granulocytes # 0.060 H Neutrophils # 11.7 H Lymphocytes # 1.3 Monocytes # 1.0 H Eosinophils # 0.1 Basophils # 0.1 Nucleated Red Blood 0.0 Cells # Sodium Level 133 L Potassium Level 3.9 Chloride Level 100 Carbon Dioxide Level 26 Anion Gap 7 Blood Urea Nitrogen 7 Creatinine 0.67 Est Glomerular Filtrat > 60 Rate mL/min Glucose Level 109 Calcium Level 7.8 L Total Bilirubin 1.1 Direct Bilirubin 0.00 Indirect Bilirubin 1.1 Aspartate Amino 27 Transf (AST/SGOT) Alanine 32 Aminotransferase (ALT/SG PT) Alkaline Phosphatase 83 Total Protein 5.4 L Albumin 2.7 L Test 10/03/18 07:29 10/03/18 11:51 Bedside Glucose 104 187 Medications Medication Current Medications IV Flush (NS 3 ml) 3 ml PER PROTOCOL IV ; Start 09/30/18 at 18:00 Ondansetron HCl (Zofran Inj) 4 mg Q6H PRN IV NAUSEA/VOMITING; Start 09/30/18 at 18:00 Acetaminophen (Tylenol Tab) 650 mg Q6H PRN PO .PAIN 1-3 OR TEMP Last administered on 10/01/18at 20:18; Admin Dose 650 MG; Start 09/30/18 at 18:00 Acetaminophen/ Hydrocodone Bitart ([place] (5/325)) 1 tab Q6H PRN PO .MOD PAIN 4- 6 Last administered on 10/02/18at 20:24; Admin Dose 1 TAB; Start 09/30/18 at 18:00 Morphine Sulfate (morphine) 2 mg Q4H PRN IV .SEVERE PAIN 7-10 Last administered on 10/02/18at 06:13; Admin Dose 2 MG; Start 09/30/18 at 18:00 Docusate Sodium (Colace) 100 mg Q12H PRN PO .CONSTIPATION; Start 09/30/18 at 18:00 Magnesium Hydroxide (Milk Of Mag) 30 ml DAILY PRN PO .CONSTIPATION; Start 09/30/18 at 18:00 Lorazepam (Ativan) 0.5 mg Q6H PRN IV ANXIETY; Start 09/30/18 at 18:00 Hydralazine HCl (Apresoline) 10 mg Q6H PRN IV ELEVATED BLOOD PRESSURE; Start 09/30/18 at 18:00 Nitroglycerin (Nitroglycerin (Sl Tab) 0.4 Mg) 1 tab Q5M PRN SL ANGINA; Start 09/30/18 at 18:00 Cefepime HCl 50 ml @ 100 mls/hr Q8 IVPB Last administered on 10/03/18at 13:29; Admin Dose 100 MLS/HR; Start 09/30/18 at 22:00 Vancomycin HCl (Vanco Iv Per Pharmacy) 1 ea Per Rx Protocol XX ; Start 09/30/18 at 18:00 Metoprolol Tartrate (Lopressor) 25 mg BID PO Last administered on 10/03/18at 08:08; Admin Dose 25 MG; Start 09/30/18 at 21:00 Miscellaneous Information 1 tab weekly XX ; Start 09/30/18 at 18:00; Status UNV Fish Oil (Fish Oil) 1,000 mg DAILY PO Last administered on 10/03/18at 08:07; Admin Dose 1,000 MG; Start 10/01/18 at 09:00 Miscellaneous Information 1 ea NOTE XX ; Start 09/30/18 at 19:30 Glucose (Glutose) 15 gm Q15M PRN PO DECREASED GLUCOSE; Start 09/30/18 at 19:30 Glucose (Glutose) 22.5 gm Q15M PRN PO DECREASED GLUCOSE; Start 09/30/18 at 19:30 Dextrose (D50w Syringe) 25 ml Q15M PRN IV DECREASED GLUCOSE; Start 09/30/18 at 19:30 Dextrose (D50w Syringe) 50 ml Q15M PRN IV DECREASED GLUCOSE; Start 09/30/18 at 19:30 Glucagon (Glucagen) 1 mg Q15M PRN IM DECREASED GLUCOSE; Start 09/30/18 at 19:30 Glucose (Glutose) 15 gm Q15M PRN BUCCAL DECREASED GLUCOSE; Start 09/30/18 at 19:30 Insulin Aspart (Novolog Insulin Pen) NOVOLOG *MILD* ALGORI... AC MEALS AND BEDTIME SC Last administered on 10/03/18at 12:05; Admin Dose 2 UNIT; Start 10/01/18 at 17:25 Levalbuterol (Xopenex Neb) 1.25 mg Q4H RESP THERAPY PRN HHN SHORTNESS OF BREATH Last administered on 10/01/18at 21:47; Admin Dose 1.25 MG; Start 10/01/18 at 21:30 Ipratropium [place] (Atrovent 0.02% (Neb)) 0.5 mg Q4H RESP THERAPY PRN HHN SHORTNESS OF BREATH Last administered on 10/01/18at 21:47; Admin Dose 0.5 MG; Start 10/01/18 at 21:30 Vancomycin/Sodium Chloride 250 ml @ 83.333 mls/ hr Q12H IVPB Last administered on 10/03/18at 08:22; Admin Dose 83.333 MLS/HR; Start 10/02/18 at 21:00 Miscellaneous Information (*Order Clarification Bulletin) ENBREL IS NON FORMULARY..PLEASE CONSIDER... Q8H XX ; Start 10/03/18 at 09:00 CHENG MORIN NP Oct 03, 2018 15:43
[2018-10-03] MEDS: ACETAMINOPHEN 325 MG TAB PO PRN (15:59)
[2018-10-03] MEDS ORDERED: ADENOSINE 6 MG INJ IV ONE (17:00)
[2018-10-03] MEDS ORDERED: GUAIFENESIN/DM 5ML CUP PO PRN (17:00)
--- NOTE | 2018-10-03 19:08 | CONS ---
Assessment/Plan Assessment/Plan Hospital Course (Demo Recall) SVT Pericardial effusion, improved Preserved left ventricular ejection fraction Cholecystitis SIRS Patient with recurrent SVT. Beta-sheldon dose increased Would supplement magnesium to maintain above 2.0, maintain potassium above 4.0 Repeat preliminary echocardiogram with trivial pericardial effusion. Would start colchicine if no contraindication Antibiotics as per infectious disease Consultation Date/Type/Reason Admit Date/Time Sep 30, 2018 at 17:57 Initial Consult Date 09/30/18 Type of Consult Cardiology Date/Time of Note DATE: 10/03/18 TIME: 19:05 24 HR Interval Summary Free Text/Dictation no sob,cp,palp Exam/Review of Systems Vital Signs Vitals Vital Signs Date Temp Pulse Resp B/P (MAP) Pulse Ox O2 O2 Flow FiO2 Time Delivery Rate 10/03/18 109 18 109/63 98 Nasal 2.0 17:06 (78) Cannula 10/03/18 100.1 16:44 Intake and Output 10/02/18 10/02/18 10/03/18 1414:59 22:59 06:59 IntakeIntake Total 180 ml 650 ml 1400 ml OutputOutput Total 300 ml 250 ml 1600 ml BalanceBalance -120 ml 400 ml -200 ml Exam Constitutional: alert, oriented Head: normocephalic Respiratory: other (course bs, no wheeze) Cardiovascular: regular rate and rhythm (s1s2) Gastrointestinal: soft, non-tender, bowel sounds Extremities: other (no edema) Labs Result Diagram: 10/03/18 0659 10/03/18 0659 Results 24hrs Laboratory Tests Test 10/02/18 21:19 10/03/18 02:10 10/03/18 06:59 10/03/18 07:29 Bedside Glucose 176 108 104 White Blood Count 14.2 H Red Blood Count 4.27 L Hemoglobin 12.5 L Hematocrit 38.4 L Mean Corpuscular Volume 89.9 Mean Corpuscular 29.3 Hemoglobin Mean Corpuscular 32.6 Hemoglobin Concent Red Cell Distribution 12.8 Width Platelet Count 253 Mean Platelet Volume 12.4 H Immature Granulocytes % 0.400 Neutrophils % 82.6 H Lymphocytes % 9.0 L Monocytes % 6.8 Eosinophils % 0.8 Basophils % 0.4 Nucleated Red Blood 0.0 Cells % Immature Granulocytes # 0.060 H Neutrophils # 11.7 H Lymphocytes # 1.3 Monocytes # 1.0 H Eosinophils # 0.1 Basophils # 0.1 Nucleated Red Blood 0.0 Cells # Sodium Level 133 L Potassium Level 3.9 Chloride Level 100 Carbon Dioxide Level 26 Anion Gap 7 Blood Urea Nitrogen 7 Creatinine 0.67 Est Glomerular Filtrat > 60 Rate mL/min Glucose Level 109 Calcium Level 7.8 L Total Bilirubin 1.1 Direct Bilirubin 0.00 Indirect Bilirubin 1.1 Aspartate Amino 27 Transf (AST/SGOT) Alanine 32 Aminotransferase (ALT/SG PT) Alkaline Phosphatase 83 Total Protein 5.4 L Albumin 2.7 L Test 10/03/18 11:51 10/03/18 17:09 10/03/18 17:18 Bedside Glucose 187 151 Magnesium Level 1.7 Troponin I 0.013 Medications Medications Current Medications IV Flush (NS 3 ml) 3 ml PER PROTOCOL IV ; Start 09/30/18 at 18:00 Ondansetron HCl (Zofran Inj) 4 mg Q6H PRN IV NAUSEA/VOMITING; Start 09/30/18 at 18:00 Acetaminophen (Tylenol Tab) 650 mg Q6H PRN PO .PAIN 1-3 OR TEMP Last administered on 10/03/18at 15:59; Admin Dose 650 MG; Start 09/30/18 at 18:00 Acetaminophen/ Hydrocodone Bitart ([place] (5/325)) 1 tab Q6H PRN PO .MOD PAIN 4- 6 Last administered on 10/02/18at 20:24; Admin Dose 1 TAB; Start 09/30/18 at 18:00 Morphine Sulfate (morphine) 2 mg Q4H PRN IV .SEVERE PAIN 7-10 Last administered on 10/02/18at 06:13; Admin Dose 2 MG; Start 09/30/18 at 18:00 Docusate Sodium (Colace) 100 mg Q12H PRN PO .CONSTIPATION; Start 09/30/18 at 18:00 Magnesium Hydroxide (Milk Of Mag) 30 ml DAILY PRN PO .CONSTIPATION; Start 09/30/18 at 18:00 Lorazepam (Ativan) 0.5 mg Q6H PRN IV ANXIETY; Start 09/30/18 at 18:00 Hydralazine HCl (Apresoline) 10 mg Q6H PRN IV ELEVATED BLOOD PRESSURE; Start 09/30/18 at 18:00 Nitroglycerin (Nitroglycerin (Sl Tab) 0.4 Mg) 1 tab Q5M PRN SL ANGINA; Start 09/30/18 at 18:00 Cefepime HCl 50 ml @ 100 mls/hr Q8 IVPB Last administered on 10/03/18at 13:29; Admin Dose 100 MLS/HR; Start 09/30/18 at 22:00 Vancomycin HCl (Vanco Iv Per Pharmacy) 1 ea Per Rx Protocol XX ; Start 09/30/18 at 18:00 Miscellaneous Information 1 tab weekly XX ; Start 09/30/18 at 18:00; Status UNV Fish Oil (Fish Oil) 1,000 mg DAILY PO Last administered on 10/03/18at 08:07; Admin Dose 1,000 MG; Start 10/01/18 at 09:00 Miscellaneous Information 1 ea NOTE XX ; Start 09/30/18 at 19:30 Glucose (Glutose) 15 gm Q15M PRN PO DECREASED GLUCOSE; Start 09/30/18 at 19:30 Glucose (Glutose) 22.5 gm Q15M PRN PO DECREASED GLUCOSE; Start 09/30/18 at 19:30 Dextrose (D50w Syringe) 25 ml Q15M PRN IV DECREASED GLUCOSE; Start 09/30/18 at 19:30 Dextrose (D50w Syringe) 50 ml Q15M PRN IV DECREASED GLUCOSE; Start 09/30/18 at 19:30 Glucagon (Glucagen) 1 mg Q15M PRN IM DECREASED GLUCOSE; Start 09/30/18 at 19:30 Glucose (Glutose) 15 gm Q15M PRN BUCCAL DECREASED GLUCOSE; Start 09/30/18 at 19:30 Insulin Aspart (Novolog Insulin Pen) NOVOLOG *MILD* ALGORI... AC MEALS AND BEDTIME SC Last administered on 10/03/18at 17:13; Admin Dose 1 UNIT; Start 10/01/18 at 17:25 Levalbuterol (Xopenex Neb) 1.25 mg Q4H RESP THERAPY PRN HHN SHORTNESS OF BREATH Last administered on 10/01/18 21:47; Admin Dose 1.25 MG; Start 10/01/18 at 21:30 Ipratropium [place] (Atrovent 0.02% (Neb)) 0.5 mg Q4H RESP THERAPY PRN HHN SHORTNESS OF BREATH Last administered on 10/01/18at 21:47; Admin Dose 0.5 MG; Start 10/01/18 at 21:30 Vancomycin/Sodium Chloride 250 ml @ 83.333 mls/ hr Q12H IVPB Last administered on 10/03/18at 08:22; Admin Dose 83.333 MLS/HR; Start 10/02/18 at 21:00 Miscellaneous Information (*Order Clarification Bulletin) ENBREL IS NON FORMULARY..PLEASE CONSIDER... Q8H XX ; Start 10/03/18 at 09:00 Guaifenesin/ Dextromethorphan (Robitussin Dm Liquid Cup) 10 ml Q4H PRN PO COUGH; Start 10/03/18 at 17:00 Metoprolol Tartrate (Lopressor) 50 mg BID PO ; Start 10/03/18 at 21:00 Srini Cesar DO Oct 03, 2018 19:08
[2018-10-03] MEDS ORDERED: MAGNESIUM SULFATE 3 GM in DEXTROSE 5% 100 ML IVPB ONE (19:30)
[2018-10-03] MEDS ORDERED: POTASSIUM CHLORIDE (SR) 10 MEQ TAB PO ONE (19:30)
[2018-10-03] MEDS: COLCHICINE 0.6 MG CAP PO SCH (20:34)
[2018-10-03] MEDS: METOPROLOL 50 MG TAB PO SCH (20:36)
[2018-10-04] VITALS (8 sets, daily range): BP systolic 95–119; BP diastolic 61–67; PULSE 83–102; RESP 17–20
[2018-10-04] MEDS: [UNRECOGNIZED DRUG - OTHER] XX SCH ×3 (00:10→16:25)
[2018-10-04] MEDS: ACETAMINOPHEN 325 MG TAB PO PRN ×2 (00:15→20:28)
[2018-10-04] MEDS: CEFEPIME 2GM/50 ML (PMX) 50 ML IVPB SCH (06:28)
[2018-10-04] MEDS: INSULIN ASPART [NOVOLOG] 3 ML PEN SC SCH ×4 (07:25→21:12)
[2018-10-04] MEDS: METOPROLOL 50 MG TAB PO SCH ×3 (08:14→20:22)
[2018-10-04] MEDS: VANCOMYCIN 1.5 GM/NS 250 ML 250 ML IVPB SCH (08:18)
[2018-10-04] MEDS: COLCHICINE 0.6 MG CAP PO SCH ×2 (08:18→20:22)
[2018-10-04] MEDS: FISH OIL 1,000 MG CAP PO SCH (08:18)
--- NOTE | 2018-10-04 11:56 | CONS ---
Assessment/Plan Assessment/Plan Hospital Course (Demo Recall) All noted, no acute events, no fevers over night Antimicrobials: Vancomycin, cefepime Physical examination: Well-developed well-nourished elderly man who is alert in no distress head atraumatic normocephalic sclera nonicteric vehicle mucosa dry neck is supple chest rise symmetrical breath sounds diminished bases. Heart: S1-S2 abdomen soft bowel sounds present. Assessment: 1. Systemic inflammatory response syndrome with ongoing low-grade fevers and leukocytosis 2. Status post laparoscopic cholecystectomy 10/01/2018 3. Rheumatoid arthritis Plan: Doing better, wbc wnl, change abx to oral Levaquin, follow chest x-ray Consultation Date/Type/Reason Admit Date/Time Sep 30, 2018 at 17:57 Initial Consult Date 09/30/18 Type of Consult id Date/Time of Note DATE: 10/04/18 TIME: 11:55 Exam/Review of Systems Exam Vitals Vital Signs Date Temp Pulse Resp B/P (MAP) Pulse Ox O2 O2 Flow FiO2 Time Delivery Rate 10/04/18 98.8 88 18 98/67 (77) 96 11:09 10/04/18 Nasal 2.0 08:00 Cannula Intake and Output 10/03/18 10/03/18 10/04/18 1515:00 23:00 07:00 IntakeIntake Total 910 ml 350 ml 300 ml OutputOutput Total 550 ml 1300 ml BalanceBalance 360 ml 350 ml -1000 ml Results Result Diagram: 10/04/18 0629 10/04/18 0629 Results 24hrs Laboratory Tests Test 10/03/18 17:09 10/03/18 17:18 10/03/18 20:31 10/04/18 06:29 Bedside Glucose 151 133 Magnesium Level 1.7 2.4 Troponin I 0.013 0.012 White Blood Count 10.1 # Red Blood Count 4.51 L Hemoglobin 13.2 L Hematocrit 40.0 L Mean Corpuscular Volume 88.7 Mean Corpuscular 29.3 Hemoglobin Mean Corpuscular 33.0 Hemoglobin Concent Red Cell Distribution 12.8 Width Platelet Count 256 Mean Platelet Volume 13.0 H Immature Granulocytes % 0.300 Neutrophils % 77.5 H Lymphocytes % 12.1 L Monocytes % 7.8 Eosinophils % 1.5 Basophils % 0.8 Nucleated Red Blood 0.0 Cells % Immature Granulocytes # 0.030 Neutrophils # 7.8 H Lymphocytes # 1.2 Monocytes # 0.8 Eosinophils # 0.2 Basophils # 0.1 Nucleated Red Blood 0.0 Cells # Sodium Level 138 Potassium Level 4.1 Chloride Level 105 Carbon Dioxide Level 23 Anion Gap 10 Blood Urea Nitrogen 8 Creatinine 0.51 L Est Glomerular Filtrat > 60 Rate mL/min Glucose Level 114 Calcium Level 8.2 L Phosphorus Level 3.0 Total Bilirubin 0.9 Direct Bilirubin 0.00 Indirect Bilirubin 0.9 Aspartate Amino 65 #H Transf (AST/SGOT) Alanine 62 Aminotransferase (ALT/SG PT) Alkaline Phosphatase 139 #H Total Protein 6.4 # Albumin 3.3 Globulin 3.10 Albumin/Globulin Ratio 1.06 Test 10/04/18 06:33 10/04/18 08:11 Bedside Glucose 116 106 Medications Medication Current Medications IV Flush (NS 3 ml) 3 ml PER PROTOCOL IV ; Start 09/30/18 at 18:00 Ondansetron HCl (Zofran Inj) 4 mg Q6H PRN IV NAUSEA/VOMITING; Start 09/30/18 at 18:00 Acetaminophen (Tylenol Tab) 650 mg Q6H PRN PO .PAIN 1-3 OR TEMP Last administered on 10/04/18at 00:15; Admin Dose 650 MG; Start 09/30/18 at 18:00 Acetaminophen/ Hydrocodone Bitart ([place] (5/325)) 1 tab Q6H PRN PO .MOD PAIN 4- 6 Last administered on 10/02/18at 20:24; Admin Dose 1 TAB; Start 09/30/18 at 18:00 Morphine Sulfate (morphine) 2 mg Q4H PRN IV .SEVERE PAIN 7-10 Last administered on 10/02/18at 06:13; Admin Dose 2 MG; Start 09/30/18 at 18:00 Docusate Sodium (Colace) 100 mg Q12H PRN PO .CONSTIPATION; Start 09/30/18 at 18:00 Magnesium Hydroxide (Milk Of Mag) 30 ml DAILY PRN PO .CONSTIPATION; Start 09/30/18 at 18:00 Lorazepam (Ativan) 0.5 mg Q6H PRN IV ANXIETY; Start 09/30/18 at 18:00 Hydralazine HCl (Apresoline) 10 mg Q6H PRN IV ELEVATED BLOOD PRESSURE; Start 09/30/18 at 18:00 Nitroglycerin (Nitroglycerin (Sl Tab) 0.4 Mg) 1 tab Q5M PRN SL ANGINA; Start 09/30/18 at 18:00 Cefepime HCl 50 ml @ 100 mls/hr Q8 IVPB Last administered on 10/04/18at 06:28; Admin Dose 100 MLS/HR; Start 09/30/18 at 22:00 Vancomycin HCl (Vanco Iv Per Pharmacy) 1 ea Per Rx Protocol XX ; Start 09/30/18 at 18:00 Miscellaneous Information 1 tab weekly XX ; Start 09/30/18 at 18:00; Status UNV Fish Oil (Fish Oil) 1,000 mg DAILY PO Last administered on 10/04/18at 08:18; Admin Dose 1,000 MG; Start 10/01/18 at 09:00 Miscellaneous Information 1 ea NOTE XX ; Start 09/30/18 at 19:30 Glucose (Glutose) 15 gm Q15M PRN PO DECREASED GLUCOSE; Start 09/30/18 at 19:30 Glucose (Glutose) 22.5 gm Q15M PRN PO DECREASED GLUCOSE; Start 09/30/18 at 19:30 Dextrose (D50w Syringe) 25 ml Q15M PRN IV DECREASED GLUCOSE; Start 09/30/18 at 19:30 Dextrose (D50w Syringe) 50 ml Q15M PRN IV DECREASED GLUCOSE; Start 09/30/18 at 19:30 Glucagon (Glucagen) 1 mg Q15M PRN IM DECREASED GLUCOSE; Start 09/30/18 at 19:30 Glucose (Glutose) 15 gm Q15M PRN BUCCAL DECREASED GLUCOSE; Start 09/30/18 at 19 :30 Insulin Aspart (Novolog Insulin Pen) NOVOLOG *MILD* ALGORI... AC MEALS AND BEDTIME SC Last administered on 10/03/18at 17:13; Admin Dose 1 UNIT; Start 10/01/18 at 17:25 Levalbuterol (Xopenex Neb) 1.25 mg Q4H RESP THERAPY PRN HHN SHORTNESS OF BREATH Last administered on 10/01/18at 21:47; Admin Dose 1.25 MG; Start 10/01/18 at 21:30 Ipratropium [place] (Atrovent 0.02% (Neb)) 0.5 mg Q4H RESP THERAPY PRN HHN SHORTNESS OF BREATH Last administered on 10/01/18at 21:47; Admin Dose 0.5 MG; Start 10/01/18 at 21:30 Vancomycin/Sodium Chloride 250 ml @ 83.333 mls/ hr Q12H IVPB Last administered on 10/04/18 08:18; Admin Dose 83.333 MLS/HR; Start 10/02/18 at 21:00 Miscellaneous Information (*Order Clarification Bulletin) ENBREL IS NON FORMULARY..PLEASE CONSIDER... Q8H XX ; Start 10/03/18 at 09:00 Guaifenesin/ Dextromethorphan (Robitussin Dm Liquid Cup) 10 ml Q4H PRN PO COUGH; Start 10/03/18 at 17:00 Metoprolol Tartrate (Lopressor) 50 mg BID PO Last administered on 10/04/18at 09:09; Admin Dose 50 MG; Start 10/03/18 at 21:00 Colchicine (Colchicine) 0.6 mg BID PO Last administered on 10/04/18 08:18; Admin Dose 0.6 MG; Start 10/03/18 at 21:00 CHENG MORIN NP Oct 04, 2018 11:56
[2018-10-04] MEDS: LEVOFLOXACIN 500 MG TAB PO SCH (12:20)
--- NOTE | 2018-10-04 14:37 | DS ---
Date/Time of Note Date/Time of Note DATE: 10/04/18 TIME: 14:34 Discharge Summary Admission/Discharge Info Admit Date/Time Sep 30, 2018 at 17:57 Discharge Date/Time Patient Condition: Stable Consults Dr Silvia Cesar Procedures CT Abdomen pelvis IMPRESSION: 1. Mild atelectasis at the lung bases posteriorly. 2. Small bilateral pleural effusions. 3. Moderate sized pericardial effusion with peripheral enhancement. This may indicate an infected pericardial effusion. 4. The cholecystostomy tube is now dislodged and present adjacent to the gallbladder. Abnormal gallbladder with thickening of the wall and surrounding edema. Mild periportal edema, nonspecific. 5. Horseshoe kidney. 6. Atherosclerosis. 7. Degenerative changes of the spine. 8. Otherwise unremarkable contrast enhanced CT scan of the abdomen and pelvis. Call report: A call report of the findings was made to Dr. Arnold on 09/30/2018 at 1830 hours. CXR Mild atelectasis, effusion 2D echo Minimal pericardial effusion Hx of Present Illness 63-year-old gentleman admitted with fever weakness recently here in the ICU for cholecystitis/sepsis. Had a cholecystostomy tube placed and discharged on antibiotics with outpatient instructions. Hospital Course Evaluated/ managed for recurrent fever & abd pain. Cholecystitis treated; sp lap chol. stable for discharge from surgical standpoint. additionally seen by ID. no further antibiotics needed. Seen by cardiology in periop eval. also has a subacute vs chronic pericardial ef fusion. present echo shows minimal fluid. tap not indicated. Patient is stable and fit for discharge. 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 Addendum: remained here in hospital for asymptomatic SVT. better w cardizem yesterday am & adenosine later that evening. lytes/ troponin/ echo ok. recommend to continue bb/ K/Mag and follow up w Cardio 1-2wks. Levaquin was started after svt occured. picc/ cxr ok. he is cutting back on caffeine. Ac/ chr cholecystitis RA; hold dmards for 1-2wks Pericardial Effusion, subacute/ incidental; started colchicine Svt Dm Htn Metabolic syndrome Psoriasis P tobacco Home Meds Active Scripts Docusate Sodium* (Colace*) 100 Mg Capsule, 100 MG PO Q12H PRN for .CONSTIPATION for 5 Days, CAP otc Prov:CHIKYARAPPA,DIAMOND K MD 10/03/18 Hydrocodone/Acetaminophen ([place] 5-325 Tablet) 1 Each Tablet, 1 EACH PO Q6 for 7 Days, #30 TAB Prov:SAMIA NAPOLES MD 09/24/18 Metoprolol Tartrate* (Lopressor*) 25 Mg Tab, 25 MG PO BID for 30 Days, #60 TAB Prov:SAMIA NAPOLES MD 09/24/18 Reported Medications Betamethasone Dipropionate* (Betamethasone Dipropionate*) 0.05% - 45 Gm Cream.gm., TOP BID apply to affected 09/19/18 Etanercept (Enbrel Mini) 50 Mg/1 Ml Cartridge, 1 TAB SC weekly We09/19/18 [place]-3 Fatty Acids/Fish Oil (Fish Oil 1,000 mg Capsule) 1 Each Capsule, 1 CAP PO DAILY, CAP 09/19/18 Betamethasone Dipropionate* (Betamethasone Dipropionate*) 0.05% - 15 Gm Oint, 1 BID apply to affected area 09/19/18 Leflunomide* (Leflunomide*) 20 Mg Tablet, 1 TAB ORAL DAILY 09/19/18 Metformin Hcl* (Metformin Hcl*) 1,000 Mg Tablet, 1 TAB ORAL BID 09/19/18 Atorvastatin* (Atorvastatin*) 40 Mg Tablet, 1 TAB ORAL QHS 09/19/18 Acetaminophen (Acetaminophen) 500 Mg Tablet, 1 TAB ORAL Q6 PRN for MILD PAIN(1- 3)OR ELEVATED TEMP 09/19/18 Glipizide* (Glipizide*) 5 Mg Tablet, 1 TAB ORAL BID 09/19/18 Discontinued Scripts Metronidazole* (Flagyl*) 500 Mg Tablet, 500 MG PO Q8 for 14 Days, #42 TAB Prov:SAMIA NAPOLES MD 09/24/18 Ciprofloxacin Hcl* (Ciprofloxacin Hcl*) 500 Mg Tablet, 500 MG PO BID@06,18 for 14 Days, #28 TAB Prov:SAMIA NAPOLES MD 09/24/18 Follow-up Plan Appt PCP & rheumatology 1-2wks Dr Becki Vega 1wk. Dr Cesar 1-3wks. Primary Care Provider Not On Staff Doctor Time spent on discharge: > 30 minutes Pending Labs Laboratory Tests Test 10/03/18 17:09 10/03/18 17:18 10/03/18 20:31 10/04/18 06:29 Bedside 151 133 Glucose mg/dL (70-220) mg/dL (70-220) Magnesium 1.7 2.4 Level mg/dl (1.7-2.5 mg/dl (1.7-2.5 ) ) Troponin I 0.013 0.012 ng/ml (0.000-0 ng/ml (0.000-0 .120) .120) White Blood 10.1 Count 10^3/ul (4.8-1 0.8) Red Blood 4.51 Count 10^6/ul (4.70- 6.10) Hemoglobin 13.2 g/dl (14.0-18. 0) Hematocrit 40.0 % (42.0-52.0) Mean 88.7 Corpuscular fl (82.0-101.0 Volume ) Mean 29.3 Corpuscular pg (29.0-33.0) Hemoglobin Mean 33.0 Corpuscular g/dl (32.0-37. Hemoglobin Conc 0) ent Red Cell 12.8 Distribution % (11.5-14.5) Width Platelet Count 256 10^3/UL (140-4 15) Mean Platelet 13.0 Volume fl (7.4-10.4) Immature 0.300 Granulocytes % % (0.001-0.429 ) Neutrophils % 77.5 % (39.0-77.0) Lymphocytes % 12.1 % (15.0-51.0) Monocytes % 7.8 % (0.0-11.0) Eosinophils % 1.5 % (0.0-7.0) Basophils % 0.8 % (0.0-2.0) Nucleated Red 0.0 Blood Cells % /100WBC (0.0-0 .0) Immature 0.030 Granulocytes # 10^3/ul (0.0-0 .031) Neutrophils # 7.8 10^3/ul (1.6-7 .5) Lymphocytes # 1.2 10^3/ul (0.8-2 .9) Monocytes # 0.8 10^3/ul (0.3-0 .9) Eosinophils # 0.2 10^3/ul (0.0-0 .5) Basophils # 0.1 10^3/ul (0.0-0 .1) Nucleated Red 0.0 Blood Cells # 10^3/ul (0.0-0 .0) Sodium Level 138 mmol/L (135-14 4) Potassium 4.1 Level mmol/L (3.5-5. 1) Chloride Level 105 mmol/L (97-110 ) Carbon Dioxide 23 Level mmol/L (21-31) Anion Gap 10 (5-13) Blood Urea 8 mg/dl (7-20) Nitrogen Creatinine 0.51 mg/dl (0.61-1. 24) Est Glomerular > 60 Filtrat mL/min (>60) Rate mL/min Glucose Level 114 mg/dl (70-220) Calcium Level 8.2 mg/dl (8.4-10. 2) Phosphorus 3.0 Level mg/dl (2.5-4.9 ) Total 0.9 Bilirubin mg/dl (0.2-1.3 ) Direct 0.00 Bilirubin mg/dl (0.00-0. 20) Indirect 0.9 Bilirubin mg/dl (0-1.1) Aspartate Amino 65 Transf (AST/SGO IU/L (15-46) T) Alanine 62 Aminotransferas IU/L (13-69) e (ALT/SGPT) Alkaline 139 Phosphatase IU/L (42-121) Total Protein 6.4 g/dl (6.1-8.1) Albumin 3.3 g/dl (3.3-4.9) Globulin 3.10 g/dl (1.3-3.2) Albumin/Globuli 1.06 n Ratio Test 10/04/18 06:33 10/04/18 08:11 10/04/18 12:04 Bedside 116 106 166 Glucose mg/dL (70-220) mg/dL (70-220) mg/dL (70-220) DIAMOND PEÑA MD Oct 04, 2018 14:37
--- NOTE | 2018-10-04 14:56 | RADRPT ---
Vent Rate: 132 bpm RR Interval: 456 msec [place] Interval: 162 msec QRS Duration: 66 msec QT Interval: 278 msec QTC Interval: 412 msec P-R-T [place]: 31 - 30 - 72 degrees Sinus tachycardia...rate> 99 Low voltage, extremity leads...all extremity leads <0.5mV Nonspecific T abnormalities, lateral leads...T <-0.10mV, I aVL V5 V6 Electronically Signed By: Stanford Thompson
--- NOTE | 2018-10-04 15:05 | RADRPT ---
Vent Rate: 83 bpm RR Interval: 720 msec [place] Interval: 175 msec QRS Duration: 78 msec QT Interval: 389 msec QTC Interval: 458 msec P-R-T [place]: 59 - 54 - 58 degrees Sinus rhythm...normal P axis, V-rate 50- 99 Low voltage, precordial leads...precordial leads <1.0mV Electronically Signed By: Stanford Thompson
--- NOTE | 2018-10-04 16:32 | CONS ---
Assessment/Plan Assessment/Plan Hospital Course (Demo Recall) SVT Pericardial effusion, improved Preserved left ventricular ejection fraction Cholecystitis SIRS Beta-sheldon dose increased and less frequent SVT Maintain magnesium above 2.0 and potassium above 4.0 Antibiotics as per infectious disease DC planning Consultation Date/Type/Reason Admit Date/Time Sep 30, 2018 at 17:57 Initial Consult Date 09/30/18 Type of Consult Cardiology Date/Time of Note DATE: 10/04/18 TIME: 16:28 24 HR Interval Summary Free Text/Dictation No shortness of breath, palpitations, chest pain Exam/Review of Systems Vital Signs Vitals Vital Signs Date Temp Pulse Resp B/P (MAP) Pulse Ox O2 O2 Flow FiO2 Time Delivery Rate 10/04/18 99.6 101 17 110/67 95 14:57 (81) 10/04/18 Nasal 2.0 08:00 Cannula Intake and Output 10/03/18 10/03/18 10/04/18 1515:00 23:00 07:00 IntakeIntake Total 910 ml 350 ml 300 ml OutputOutput Total 550 ml 1300 ml BalanceBalance 360 ml 350 ml -1000 ml Exam Constitutional: alert, oriented (No apparent distress) Head: normocephalic Respiratory: other (Coarse breath sounds bilaterally, no wheezing) Cardiovascular: regular rate and rhythm (S1-S2 heard) Gastrointestinal: soft, non-tender, bowel sounds Extremities: other (No significant edema) Labs Result Diagram: 10/04/18 0629 10/04/18 0629 Results 24hrs Laboratory Tests Test 10/03/18 17:09 10/03/18 17:18 10/03/18 20:31 10/04/18 06:29 Bedside Glucose 151 133 Magnesium Level 1.7 2.4 Troponin I 0.013 0.012 White Blood Count 10.1 # Red Blood Count 4.51 L Hemoglobin 13.2 L Hematocrit 40.0 L Mean Corpuscular Volume 88.7 Mean Corpuscular 29.3 Hemoglobin Mean Corpuscular 33.0 Hemoglobin Concent Red Cell Distribution 12.8 Width Platelet Count 256 Mean Platelet Volume 13.0 H Immature Granulocytes % 0.300 Neutrophils % 77.5 H Lymphocytes % 12.1 L Monocytes % 7.8 Eosinophils % 1.5 Basophils % 0.8 Nucleated Red Blood 0.0 Cells % Immature Granulocytes # 0.030 Neutrophils # 7.8 H Lymphocytes # 1.2 Monocytes # 0.8 Eosinophils # 0.2 Basophils # 0.1 Nucleated Red Blood 0.0 Cells # Sodium Level 138 Potassium Level 4.1 Chloride Level 105 Carbon Dioxide Level 23 Anion Gap 10 Blood Urea Nitrogen 8 Creatinine 0.51 L Est Glomerular Filtrat > 60 Rate mL/min Glucose Level 114 Calcium Level 8.2 L Phosphorus Level 3.0 Total Bilirubin 0.9 Direct Bilirubin 0.00 Indirect Bilirubin 0.9 Aspartate Amino 65 #H Transf (AST/SGOT) Alanine 62 Aminotransferase (ALT/SG PT) Alkaline Phosphatase 139 #H Total Protein 6.4 # Albumin 3.3 Globulin 3.10 Albumin/Globulin Ratio 1.06 Test 10/04/18 06:33 10/04/18 08:11 10/04/18 12:04 Bedside Glucose 116 106 166 Medications Medications Current Medications IV Flush (NS 3 ml) 3 ml PER PROTOCOL IV ; Start 09/30/18 at 18:00 Ondansetron HCl (Zofran Inj) 4 mg Q6H PRN IV NAUSEA/VOMITING; Start 09/30/18 at 18:00 Acetaminophen (Tylenol Tab) 650 mg Q6H PRN PO .PAIN 1-3 OR TEMP Last administered on 10/04/18at 00:15; Admin Dose 650 MG; Start 09/30/18 at 18:00 Acetaminophen/ Hydrocodone Bitart ([place] (5/325)) 1 tab Q6H PRN PO .MOD PAIN 4- 6 Last administered on 10/02/18at 20:24; Admin Dose 1 TAB; Start 09/30/18 at 18:00 Morphine Sulfate (morphine) 2 mg Q4H PRN IV .SEVERE PAIN 7-10 Last administered on 10/02/18at 06:13; Admin Dose 2 MG; Start 09/30/18 at 18:00 Docusate Sodium (Colace) 100 mg Q12H PRN PO .CONSTIPATION; Start 09/30/18 at 18:00 Magnesium Hydroxide (Milk Of Mag) 30 ml DAILY PRN PO .CONSTIPATION; Start 09/30/18 at 18:00 Lorazepam (Ativan) 0.5 mg Q6H PRN IV ANXIETY; Start 09/30/18 at 18:00 Hydralazine HCl (Apresoline) 10 mg Q6H PRN IV ELEVATED BLOOD PRESSURE; Start 09/30/18 at 18:00 Nitroglycerin (Nitroglycerin (Sl Tab) 0.4 Mg) 1 tab Q5M PRN SL ANGINA; Start 09/30/18 at 18:00 Miscellaneous Information 1 tab weekly XX ; Start 09/30/18 at 18:00; Status UNV Fish Oil (Fish Oil) 1,000 mg DAILY PO Last administered on 10/04/18at 08:18; Admin Dose 1,000 MG; Start 10/01/18 at 09:00 Miscellaneous Information 1 ea NOTE XX ; Start 09/30/18 at 19:30 Glucose (Glutose) 15 gm Q15M PRN PO DECREASED GLUCOSE; Start 09/30/18 at 19:30 Glucose (Glutose) 22.5 gm Q15M PRN PO DECREASED GLUCOSE; Start 09/30/18 at 19:30 Dextrose (D50w Syringe) 25 ml Q15M PRN IV DECREASED GLUCOSE; Start 09/30/18 at 19:30 Dextrose (D50w Syringe) 50 ml Q15M PRN IV DECREASED GLUCOSE; Start 09/30/18 at 19:30 Glucagon (Glucagen) 1 mg Q15M PRN IM DECREASED GLUCOSE; Start 09/30/18 at 19:30 Glucose (Glutose) 15 gm Q15M PRN BUCCAL DECREASED GLUCOSE; Start 09/30/18 at 19:30 Insulin Aspart (Novolog Insulin Pen) NOVOLOG *MILD* ALGORI... AC MEALS AND BEDTIME SC Last administered on 10/04/18at 12:08; Admin Dose 1 UNIT; Start 10/01/18 at 17:25 Levalbuterol (Xopenex Neb) 1.25 mg Q4H RESP THERAPY PRN HHN SHORTNESS OF BREATH Last administered on 10/01/18at 21:47; Admin Dose 1.25 MG; Start 10/01/18 at 21:30 Ipratropium [place] (Atrovent 0.02% (Neb)) 0.5 mg Q4H RESP THERAPY PRN HHN SHORTNESS OF BREATH Last administered on 10/01/18at 21:47; Admin Dose 0.5 MG; Start 10/01/18 at 21:30 Miscellaneous Information (*Order Clarification Bulletin) ENBREL IS NON FORMULARY..PLEASE CONSIDER... Q8H XX ; Start 10/03/18 at 09:00 Guaifenesin/ Dextromethorphan (Robitussin Dm Liquid Cup) 10 ml Q4H PRN PO COUGH; Start 10/03/18 at 17:00 Metoprolol Tartrate (Lopressor) 50 mg BID PO Last administered on 10/04/18at 09:09; Admin Dose 50 MG; Start 10/03/18 at 21:00 Colchicine (Colchicine) 0.6 mg BID PO Last administered on 10/04/18at 08:18; Admin Dose 0.6 MG; Start 10/03/18 at 21:00 Levofloxacin (Levaquin) 500 mg DAILY@06 PO Last administered on 10/04/18at 12:20; Admin Dose 500 MG; Start 10/04/18 at 12:00 Potassium Chloride (Potassium Chloride Pwd/Soln) 40 meq DAILY PO ; Start 10/05/18 at 09:00 Magnesium Oxide (Mag-Ox 400) 400 mg BID PO ; Start 10/04/18 at 21:00 Srini Cesar DO Oct 04, 2018 16:32
--- NOTE | 2018-10-04 16:58 | RADRPT ---
Echocardiogram Report Patient Name: KI FELIXPatient ID: [id number] : 1955 (63y 1m)Study Date: 10/03/2018 12:48:04 PM Gender: MAccession #: [id number] Tech: Harmony Tim RDCS Location: 504 Ref.Physician: DIAMOND PEÑA Height(Cm): BSA: Weight(Kg): Quality: AdequateOrder Physician: DIAMOND PEÑA Account #: Procedures: Echocardiographic Report: Transthoracic echocardiogram examination. Indications: Pericardial Effusion. Findings: Left Ventricle: Normal left ventricular systolic function. The left ventricular ejection fraction is visually estimated at 65 %. Pericardium: Trivial effusion. Conclusions: Normal left ventricular systolic function. The left ventricular ejection fraction is visually estimated at 65 %. Trivial effusion. Electronically Signed By: Srini Cesar 2018-10-04 16:58:13 PDT
[2018-10-04] MEDS ORDERED: METOPROLOL 5 MG INJ IV ONE (17:00)
[2018-10-04] MEDS: MAGNESIUM OXIDE 400 MG TAB PO SCH (20:22)
[2018-10-05] MEDS: [UNRECOGNIZED DRUG - OTHER] XX SCH ×3 (01:00→15:31)
[2018-10-05 04:11] VITALS: BP 114/75; PULSE 94; RESP 18
[2018-10-05] MEDS: LEVOFLOXACIN 500 MG TAB PO SCH (06:33)
[2018-10-05 07:17] VITALS: BP 109/72; PULSE 87; RESP 17
[2018-10-05] MEDS: INSULIN ASPART [NOVOLOG] 3 ML PEN SC SCH ×4 (07:25→20:58)
[2018-10-05] MEDS ORDERED: POTASSIUM CHLORIDE 20 MEQ POWDER FOR ORAL SOLN PO SCH (09:00)
[2018-10-05] MEDS: FISH OIL 1,000 MG CAP PO SCH (09:54)
[2018-10-05] MEDS: MAGNESIUM OXIDE 400 MG TAB PO SCH ×2 (09:54→20:54)
[2018-10-05] MEDS: COLCHICINE 0.6 MG CAP PO SCH ×2 (09:54→20:54)
[2018-10-05] MEDS: METOPROLOL 50 MG TAB PO SCH ×2 (09:55→20:55)
[2018-10-05 11:44] VITALS: BP 110/69; PULSE 86; RESP 17
--- NOTE | 2018-10-05 12:18 | CONS ---
Assessment/Plan Assessment/Plan Hospital Course (Demo Recall) Awake, looks comfortable, afebrile Antimicrobials: Vancomycin, cefepime Physical examination: Well-developed well-nourished elderly man who is alert in no distress head atraumatic normocephalic sclera nonicteric vehicle mucosa dry neck is supple chest rise symmetrical breath sounds diminished bases. Heart: S1-S2 abdomen soft bowel sounds present. Assessment: 1. Systemic inflammatory response syndrome with ongoing low-grade fevers and leukocytosis 2. Status post laparoscopic cholecystectomy 10/01/2018 3. Rheumatoid arthritis 4. LLL PNA Plan: Stable, ok dc on oral Levaquin for 7 more days Consultation Date/Type/Reason Admit Date/Time Sep 30, 2018 at 17:57 Initial Consult Date 09/30/18 Type of Consult id Date/Time of Note DATE: 10/05/18 TIME: 12:17 Exam/Review of Systems Exam Vitals Vital Signs Date Temp Pulse Resp B/P (MAP) Pulse Ox O2 O2 Flow FiO2 Time Delivery Rate 10/05/18 98.4 86 17 110/69 96 11:44 (83) 10/05/18 Room Air 08:17 10/04/18 2.0 20:00 Intake and Output 10/04/18 10/04/18 10/05/18 1515:00 23:00 07:00 IntakeIntake Total 660 ml 340 ml OutputOutput Total 200 ml 975 ml BalanceBalance 660 ml 140 ml -975 ml Results Result Diagram: 10/05/18 0613 10/05/18 0613 Results 24hrs Laboratory Tests Test 10/04/18 17:33 10/04/18 20:20 10/05/18 06:13 10/05/18 08:35 Bedside Glucose 120 176 104 White Blood Count 6.6 # Red Blood Count 4.33 L Hemoglobin 12.9 L Hematocrit 37.5 L Mean Corpuscular Volume 86.6 Mean Corpuscular 29.8 Hemoglobin Mean Corpuscular 34.4 Hemoglobin Concent Red Cell Distribution 12.5 Width Platelet Count 295 Mean Platelet Volume 12.6 H Immature Granulocytes % 0.300 Neutrophils % 71.2 Lymphocytes % 16.3 Monocytes % 9.3 Eosinophils % 2.0 Basophils % 0.9 Nucleated Red Blood 0.0 Cells % Immature Granulocytes # 0.020 Neutrophils # 4.7 Lymphocytes # 1.1 Monocytes # 0.6 Eosinophils # 0.1 Basophils # 0.1 Nucleated Red Blood 0.0 Cells # Prothrombin Time 15.6 H Prothrombin Time Ratio 1.2 INR International 1.23 Normalized Ratio Sodium Level 137 Potassium Level 3.8 Chloride Level 102 Carbon Dioxide Level 27 Anion Gap 8 Blood Urea Nitrogen 9 Creatinine 0.65 Est Glomerular Filtrat > 60 Rate mL/min Glucose Level 112 Calcium Level 8.4 Phosphorus Level 3.2 Magnesium Level 2.0 Medications Medication Current Medications IV Flush (NS 3 ml) 3 ml PER PROTOCOL IV ; Start 09/30/18 at 18:00 Ondansetron HCl (Zofran Inj) 4 mg Q6H PRN IV NAUSEA/VOMITING; Start 09/30/18 at 18:00 Acetaminophen (Tylenol Tab) 650 mg Q6H PRN PO .PAIN 1-3 OR TEMP Last admi nistered on 10/04/18at 20:28; Admin Dose 650 MG; Start 09/30/18 at 18:00 Acetaminophen/ Hydrocodone Bitart ([place] (5/325)) 1 tab Q6H PRN PO .MOD PAIN 4- 6 Last administered on 10/02/18at 20:24; Admin Dose 1 TAB; Start 09/30/18 at 18:00 Morphine Sulfate (morphine) 2 mg Q4H PRN IV .SEVERE PAIN 7-10 Last administered on 10/02/18at 06:13; Admin Dose 2 MG; Start 09/30/18 at 18:00 Docusate Sodium (Colace) 100 mg Q12H PRN PO .CONSTIPATION; Start 09/30/18 at 18:00 Magnesium Hydroxide (Milk Of Mag) 30 ml DAILY PRN PO .CONSTIPATION; Start 09/30/18 at 18:00 Lorazepam (Ativan) 0.5 mg Q6H PRN IV ANXIETY; Start 09/30/18 at 18:00 Hydralazine HCl (Apresoline) 10 mg Q6H PRN IV ELEVATED BLOOD PRESSURE; Start 09/30/18 at 18:00 Nitroglycerin (Nitroglycerin (Sl Tab) 0.4 Mg) 1 tab Q5M PRN SL ANGINA; Start 09/30/18 at 18:00 Miscellaneous Information 1 tab weekly XX ; Start 09/30/18 at 18:00; Status UNV Fish Oil (Fish Oil) 1,000 mg DAILY PO Last administered on 10/05/18at 09:54; Admin Dose 1,000 MG; Start 10/01/18 at 09:00 Miscellaneous Information 1 ea NOTE XX ; Start 09/30/18 at 19:30 Glucose (Glutose) 15 gm Q15M PRN PO DECREASED GLUCOSE; Start 09/30/18 at 19:30 Glucose (Glutose) 22.5 gm Q15M PRN PO DECREASED GLUCOSE; Start 09/30/18 at 19:30 Dextrose (D50w Syringe) 25 ml Q15M PRN IV DECREASED GLUCOSE; Start 09/30/18 at 19:30 Dextrose (D50w Syringe) 50 ml Q15M PRN IV DECREASED GLUCOSE; Start 09/30/18 at 19:30 Glucagon (Glucagen) 1 mg Q15M PRN IM DECREASED GLUCOSE; Start 09/30/18 at 19:30 Glucose (Glutose) 15 gm Q15M PRN BUCCAL DECREASED GLUCOSE; Start 09/30/18 at 19:30 Insulin Aspart (Novolog Insulin Pen) NOVOLOG *MILD* ALGORI... AC MEALS AND BEDTIME SC Last administered on 10/04/18at 21:12; Admin Dose 1 UNIT; Start 10/01/18 at 17:25 Levalbuterol (Xopenex Neb) 1.25 mg Q4H RESP THERAPY PRN HHN SHORTNESS OF BREATH Last administered on 10/01/18at 21:47; Admin Dose 1.25 MG; Start 10/01/18 at 21:30 Ipratropium [place] (Atrovent 0.02% (Neb)) 0.5 mg Q4H RESP THERAPY PRN HHN SHORTNESS OF BREATH Last administered on 10/01/18at 21:47; Admin Dose 0.5 MG; Start 10/01/18 at 21:30 Miscellaneous Information (*Order Clarification Bulletin) ENBREL IS NON FORMULARY..PLEASE CONSIDER... Q8H XX ; Start 10/03/18 at 09:00 Guaifenesin/ Dextromethorphan (Robitussin Dm Liquid Cup) 10 ml Q4H PRN PO COUGH; Start 10/03/18 at 17:00 Metoprolol Tartrate (Lopressor) 50 mg BID PO Last administered on 10/05/18at 09:55; Admin Dose 50 MG; Start 10/03/18 at 21:00 Colchicine (Colchicine) 0.6 mg BID PO Last administered on 10/05/18at 09:54; Admin Dose 0.6 MG; Start 10/03/18 at 21:00 Levofloxacin (Levaquin) 500 mg DAILY@06 PO Last administered on 10/05/18at 06:33; Admin Dose 500 MG; Start 10/04/18 at 12:00 Magnesium Oxide (Mag-Ox 400) 400 mg BID PO Last administered on 10/05/18at 09:54; Admin Dose 400 MG; Start 10/04/18 at 21:00 Enoxaparin Sodium (Lovenox) 40 mg DAILY SC ; Start 10/05/18 at 21:00 CHENG MORIN NP Oct 05, 2018 12:18
--- NOTE | 2018-10-05 14:27 | DS ---
Date/Time of Note Date/Time of Note DATE: 10/05/18 TIME: 14:25 Discharge Summary Admission/Discharge Info Admit Date/Time Sep 30, 2018 at 17:57 Discharge Date/Time Patient Condition: Stable Consults Dr Silvia Cesar Procedures Procedures CT Abdomen pelvis IMPRESSION: 1. Mild atelectasis at the lung bases posteriorly. 2. Small bilateral pleural effusions. 3. Moderate sized pericardial effusion with peripheral enhancement. This may indicate an infected pericardial effusion. 4. The cholecystostomy tube is now dislodged and present adjacent to the gallbladder. Abnormal gallbladder with thickening of the wall and surrounding edema. Mild periportal edema, nonspecific. 5. Horseshoe kidney. 6. Atherosclerosis. 7. Degenerative changes of the spine. 8. Otherwise unremarkable contrast enhanced CT scan of the abdomen and pelvis. Call report: A call report of the findings was made to Dr. Arnold on 09/30/2018 at 1830 hours. CXR Mild atelectasis, effusion 2D echo Minimal pericardial effusion Chest x-ray #2 Mild effusion Hx of Present Illness 63-year-old gentleman admitted with fever weakness recently here in the ICU for cholecystitis/sepsis. Had a cholecystostomy tube placed and discharged on antibiotics with outpatient instructions. Hospital Course Evaluated/ managed for recurrent fever & abd pain. Cholecystitis treated; sp lap chol. stable for discharge from surgical standpoint. additionally seen by ID. no further antibiotics needed. Seen by cardiology in periop eval. also has a subacute vs chronic pericardial effusion. present echo shows minimal fluid. tap not indicated. Patient is stable and fit for discharge. Will ask patient to follow up with his consultants and his regular [employer]. Addendum: remained here in hospital for asymptomatic SVT. better w cardizem yesterday am & adenosine later that evening. lytes/ troponin/ echo ok. recommend to continue bb/ K/Mag and follow up w Cardio 1-2wks. Levaquin was started after svt occured. picc/ cxr ok. he is cutting back on caffeine. In regards to his SVT, was recommended to maintain potassium around 4 and mag around 2. We actually started the patient on amiodarone. Patient is requested to follow-up with cardiology in 1 to 2 weeks. Recommend TSH LFTs checked as an outpatient along with may need to see an press setter intermittently while on amiodarone. Upon is negative. Venous Doppler does not show any DVT. Ac/ chr cholecystitis RA; hold dmards for 1-2wks Pericardial Effusion, subacute/ incidental; started colchicine Svt, unknown etiology. follow electrolytes as an outpatient. Started amiodarone. Dm Htn Metabolic syndrome Psoriasis P tobacco Home Meds Active Scripts Amiodarone Hcl* (Amiodarone Hcl*) 200 Mg Tablet, 200 MG PO BID for 14 Days, #30 TAB Prov:DIAMOND PEÑA MD 10/05/18 [Colchicine] 0.6 MG CAP No Conflict Check, 0.6 MG PO BID for 15 Days, #30 Prov:DIAMOND PEÑA MD 10/04/18 Magnesium Oxide* (Mag-Oxide*) 400 Mg Tablet, 400 MG PO BID for 10 Days, #20 TAB 1 Refill Prov:DIAMOND PEÑA MD 10/04/18 [id number]-Xcauyetnir Hb* (Guaifenesin* DM Syrup) 120 Ml Syrup, 10 ML PO Q4H PRN for COUGH for 10 Days, #1 otc Prov:DIAMOND PEÑA MD 10/04/18 Potassium Chloride (Potassium Chloride) 20 Meq Packet, 40 MEQ PO DAILY for 14 Days, #15 PACKET Prov:DIAMOND PEÑA MD 10/04/18 Metoprolol Tartrate* (Lopressor*) 50 Mg Tab, 50 MG PO BID for 15 Days, #30 TAB Prov:DIAMOND PEÑA MD 10/04/18 Levofloxacin* (Levaquin*) 500 Mg Tablet, 500 MG PO DAILY@06 for 5 Days, TAB Prov:DIAMOND PEÑA MD 10/04/18 Docusate Sodium* (Colace*) 100 Mg Capsule, 100 MG PO Q12H PRN for .CONSTIPATION for 5 Days, CAP otc Prov:DIAMOND PEÑA MD 10/03/18 Hydrocodone/Acetaminophen ([place] 5-325 Tablet) 1 Each Tablet, 1 EACH PO Q6 for 7 Days, #30 TAB Prov:SAMIA NAPOLES MD 09/24/18 Reported Medications Betamethasone Dipropionate* (Betamethasone Dipropionate*) 0.05% - 45 Gm Cream.gm., TOP BID apply to affected 09/19/18 Bard-3 Fatty Acids/Fish Oil (Fish Oil 1,000 mg Capsule) 1 Each Capsule, 1 CAP PO DAILY, CAP 09/19/18 Betamethasone Dipropionate* (Betamethasone Dipropionate*) 0.05% - 15 Gm Oint, 1 BID apply to affected area 09/19/18 Metformin Hcl* (Metformin Hcl*) 1,000 Mg Tablet, 1 TAB ORAL BID 09/19/18 Atorvastatin* (Atorvastatin*) 40 Mg Tablet, 1 TAB ORAL QHS 09/19/18 Acetaminophen (Acetaminophen) 500 Mg Tablet, 1 TAB ORAL Q6 PRN for MILD PAIN(1- 3)OR ELEVATED TEMP 09/19/18 Glipizide* (Glipizide*) 5 Mg Tablet, 1 TAB ORAL BID 09/19/18 Discontinued Reported Medications Etanercept (Enbrel Mini) 50 Mg/1 Ml Cartridge, 1 TAB SC weekly 09/19/18 Leflunomide* (Leflunomide*) 20 Mg Tablet, 1 TAB ORAL DAILY 09/19/18 Discontinued Scripts Metoprolol Tartrate* (Lopressor*) 25 Mg Tab, 25 MG PO BID for 30 Days, #60 TAB Prov:SAMIA NAPOLES MD 09/24/18 Metronidazole* (Flagyl*) 500 Mg Tablet, 500 MG PO Q8 for 14 Days, #42 TAB Prov:SAMIA NAPOLES MD 09/24/18 Ciprofloxacin Hcl* (Ciprofloxacin Hcl*) 500 Mg Tablet, 500 MG PO BID@06,18 for 14 Days, #28 TAB Prov:SAMIA NAPOLES MD 09/24/18 Follow-up Plan Appt PCP & rheumatology 1-2wks Dr Becki Vega 1wk. Dr Cesar 1-3wks. Primary Care Provider Not On Staff Doctor Time spent on discharge: > 30 minutes Pending Labs Laboratory Tests Test 10/04/18 17:33 10/04/18 20:20 10/05/18 06:13 10/05/18 08:35 Bedside 120 176 104 Glucose mg/dL (70-220) mg/dL (70-220) mg/dL (70-220) White Blood 6.6 Count 10^3/ul (4.8-1 0.8) Red Blood 4.33 Count 10^6/ul (4.70- 6.10) Hemoglobin 12.9 g/dl (14.0-18. 0) Hematocrit 37.5 % (42.0-52.0) Mean 86.6 Corpuscular fl (82.0-101.0 Volume ) Mean 29.8 Corpuscular pg (29.0-33.0) Hemoglobin Mean 34.4 Corpuscular g/dl (32.0-37. Hemoglobin Conc 0) ent Red Cell 12.5 Distribution % (11.5-14.5) Width Platelet Count 295 10^3/UL (140-4 15) Mean Platelet 12.6 Volume fl (7.4-10.4) Immature 0.300 Granulocytes % % (0.001-0.429 ) Neutrophils % 71.2 % (39.0-77.0) Lymphocytes % 16.3 % (15.0-51.0) Monocytes % 9.3 % (0.0-11.0) Eosinophils % 2.0 % (0.0-7.0) Basophils % 0.9 % (0.0-2.0) Nucleated Red 0.0 Blood Cells % /100WBC (0.0-0 .0) Immature 0.020 Granulocytes # 10^3/ul (0.0-0 .031) Neutrophils # 4.7 10^3/ul (1.6-7 .5) Lymphocytes # 1.1 10^3/ul (0.8-2 .9) Monocytes # 0.6 10^3/ul (0.3-0 .9) Eosinophils # 0.1 10^3/ul (0.0-0 .5) Basophils # 0.1 10^3/ul (0.0-0 .1) Nucleated Red 0.0 Blood Cells # 10^3/ul (0.0-0 .0) Prothrombin 15.6 Time Sec (11.9-14.9 ) Prothrombin 1.2 Time Ratio INR 1.23 International Normalized Rati o Sodium Level 137 mmol/L (135-14 4) Potassium 3.8 Level mmol/L (3.5-5. 1) Chloride Level 102 mmol/L (97-110 ) Carbon Dioxide 27 Level mmol/L (21-31) Anion Gap 8 (5-13) Blood Urea 9 mg/dl (7-20) Nitrogen Creatinine 0.65 mg/dl (0.61-1. 24) Est Glomerular > 60 Filtrat mL/min (>60) Rate mL/min Glucose Level 112 mg/dl (70-220) Calcium Level 8.4 mg/dl (8.4-10. 2) Phosphorus 3.2 Level mg/dl (2.5-4.9 ) Magnesium 2.0 Level mg/dl (1.7-2.5 ) Test 10/05/18 12:30 Bedside 140 Glucose mg/dL (70-220) DIAMOND PEÑA MD Oct 05, 2018 14:27
[2018-10-05 15:08] VITALS: BP 111/84; PULSE 50; RESP 17
[2018-10-05] MEDS: AMIODARONE 200 MG TAB PO SCH ×2 (15:31→20:54)
--- NOTE | 2018-10-05 17:28 | CONS ---
Assessment/Plan Assessment/Plan Hospital Course (Demo Recall) SVT Pericardial effusion, improved Preserved left ventricular ejection fraction Cholecystitis SIRS Beta-sheldon dose increased and less frequent SVT Given still with SVT, would start amiodarone Maintain magnesium above 2.0 and potassium above 4.0 Antibiotics as per infectious disease DC planning Consultation Date/Type/Reason Admit Date/Time Sep 30, 2018 at 17:57 Initial Consult Date 09/30/18 Type of Consult Cardiology Date/Time of Note DATE: 10/05/18 TIME: 17:26 24 HR Interval Summary Free Text/Dictation No shortness of breath, palpitations Exam/Review of Systems Vital Signs Vitals Vital Signs Date Temp Pulse Resp B/P (MAP) Pulse Ox O2 O2 Flow FiO2 Time Delivery Rate 10/05/18 Room Air 16:16 10/05/18 98.7 50 17 111/84 96 15:08 (93) 10/04/18 2.0 20:00 Intake and Output 10/04/18 10/04/18 10/05/18 1515:00 23:00 07:00 IntakeIntake Total 660 ml 340 ml OutputOutput Total 200 ml 975 ml BalanceBalance 660 ml 140 ml -975 ml Exam Constitutional: alert, oriented Head: normocephalic Respiratory: other (course bs, no wheeze) Cardiovascular: regular rate and rhythm (s1s2) Gastrointestinal: soft, non-tender, bowel sounds Extremities: other (no edema) Labs Result Diagram: 10/05/18 0613 10/05/18 0613 Results 24hrs Laboratory Tests Test 10/04/18 17:33 10/04/18 20:20 10/05/18 06:13 10/05/18 08:35 Bedside Glucose 120 176 104 White Blood Count 6.6 # Red Blood Count 4.33 L Hemoglobin 12.9 L Hematocrit 37.5 L Mean Corpuscular Volume 86.6 Mean Corpuscular 29.8 Hemoglobin Mean Corpuscular 34.4 Hemoglobin Concent Red Cell Distribution 12.5 Width Platelet Count 295 Mean Platelet Volume 12.6 H Immature Granulocytes % 0.300 Neutrophils % 71.2 Lymphocytes % 16.3 Monocytes % 9.3 Eosinophils % 2.0 Basophils % 0.9 Nucleated Red Blood 0.0 Cells % Immature Granulocytes # 0.020 Neutrophils # 4.7 Lymphocytes # 1.1 Monocytes # 0.6 Eosinophils # 0.1 Basophils # 0.1 Nucleated Red Blood 0.0 Cells # Prothrombin Time 15.6 H Prothrombin Time Ratio 1.2 INR International 1.23 Normalized Ratio Sodium Level 137 Potassium Level 3.8 Chloride Level 102 Carbon Dioxide Level 27 Anion Gap 8 Blood Urea Nitrogen 9 Creatinine 0.65 Est Glomerular Filtrat > 60 Rate mL/min Glucose Level 112 Calcium Level 8.4 Phosphorus Level 3.2 Magnesium Level 2.0 Test 10/05/18 12:30 Bedside Glucose 140 Medications Medications Current Medications IV Flush (NS 3 ml) 3 ml PER PROTOCOL IV ; Start 09/30/18 at 18:00 Ondansetron HCl (Zofran Inj) 4 mg Q6H PRN IV NAUSEA/VOMITING; Start 09/30/18 at 18:00 Acetaminophen (Tylenol Tab) 650 mg Q6H PRN PO .PAIN 1-3 OR TEMP Last administered on 10/04/18at 20:28; Admin Dose 650 MG; Start 09/30/18 at 18:00 Acetaminophen/ Hydrocodone Bitart ([place] (5/325)) 1 tab Q6H PRN PO .MOD PAIN 4- 6 Last administered on 10/02/18at 20:24; Admin Dose 1 TAB; Start 09/30/18 at 18:00 Morphine Sulfate (morphine) 2 mg Q4H PRN IV .SEVERE PAIN 7-10 Last administered on 10/02/18at 06:13; Admin Dose 2 MG; Start 09/30/18 at 18:00 Docusate Sodium (Colace) 100 mg Q12H PRN PO .CONSTIPATION; Start 09/30/18 at 18:00 Magnesium Hydroxide (Milk Of Mag) 30 ml DAILY PRN PO .CONSTIPATION; Start 09/30/18 at 18:00 Lorazepam (Ativan) 0.5 mg Q6H PRN IV ANXIETY; Start 09/30/18 at 18:00 Hydralazine HCl (Apresoline) 10 mg Q6H PRN IV ELEVATED BLOOD PRESSURE; Start 09/30/18 at 18:00 Nitroglycerin (Nitroglycerin (Sl Tab) 0.4 Mg) 1 tab Q5M PRN SL ANGINA; Start 09/30/18 at 18:00 Miscellaneous Information 1 tab weekly XX ; Start 09/30/18 at 18:00; Status UNV Fish Oil (Fish Oil) 1,000 mg DAILY PO Last administered on 10/05/18at 09:54; Admin Dose 1,000 MG; Start 10/01/18 at 09:00 Miscellaneous Information 1 ea NOTE XX ; Start 09/30/18 at 19:30 Glucose (Glutose) 15 gm Q15M PRN PO DECREASED GLUCOSE; Start 09/30/18 at 19:30 Glucose (Glutose) 22.5 gm Q15M PRN PO DECREASED GLUCOSE; Start 09/30/18 at 19:30 Dextrose (D50w Syringe) 25 ml Q15M PRN IV DECREASED GLUCOSE; Start 09/30/18 at 19:30 Dextrose (D50w Syringe) 50 ml Q15M PRN IV DECREASED GLUCOSE; Start 09/30/18 at 19:30 Glucagon (Glucagen) 1 mg Q15M PRN IM DECREASED GLUCOSE; Start 09/30/18 at 19:30 Glucose (Glutose) 15 gm Q15M PRN BUCCAL DECREASED GLUCOSE; Start 09/30/18 at 19:30 Insulin Aspart (Novolog Insulin Pen) NOVOLOG *MILD* ALGORI... AC MEALS AND BEDTIME SC Last administered on 10/04/18at 21:12; Admin Dose 1 UNIT; Start 10/01/18 at 17:25 Levalbuterol (Xopenex Neb) 1.25 mg Q4H RESP THERAPY PRN HHN SHORTNESS OF BREATH Last administered on 10/01/18at 21:47; Admin Dose 1.25 MG; Start 10/01/18 at 21:30 Ipratropium [employer] (Atrovent 0.02% (Neb)) 0.5 mg Q4H RESP THERAPY PRN HHN SHORTNESS OF BREATH Last administered on 10/01/18at 21:47; Admin Dose 0.5 MG; Start 10/01/18 at 21:30 Miscellaneous Information (*Order Clarification Bulletin) ENBREL IS NON FORMULARY..PLEASE CONSIDER... Q8H XX ; Start 10/03/18 at 09:00 Guaifenesin/ Dextromethorphan (Robitussin Dm Liquid Cup) 10 ml Q4H PRN PO COUGH; Start 10/03/18 at 17:00 Metoprolol Tartrate (Lopressor) 50 mg BID PO Last administered on 10/05/18at 09:55; Admin Dose 50 MG; Start 10/03/18 at 21:00 Colchicine (Colchicine) 0.6 mg BID PO Last administered on 10/05/18at 09:54; Admin Dose 0.6 MG; Start 10/03/18 at 21:00 Levofloxacin (Levaquin) 500 mg DAILY@06 PO Last administered on 10/05/18at 06:33; Admin Dose 500 MG; Start 10/04/18 at 12:00 Magnesium Oxide (Mag-Ox 400) 400 mg BID PO Last administered on 10/05/18at 09:54; Admin Dose 400 MG; Start 10/04/18 at 21:00 Enoxaparin Sodium (Lovenox) 40 mg DAILY SC ; Start 10/05/18 at 21:00 Amiodarone HCl (Cordarone) 200 mg BID PO Last administered on 10/05/18at 15:31; Admin Dose 200 MG; Start 10/05/18 at 13:30 Srini Cesar DO Oct 05, 2018 17:28
[2018-10-05 20:10] VITALS: BP 104/68; PULSE 89; RESP 18
[2018-10-05] MEDS: ENOXAPARIN 40 MG/0.4 ML SYG SC SCH (21:10)
[2018-10-06 00:24] VITALS: BP 110/66; PULSE 83; RESP 18
[2018-10-06] MEDS: [UNRECOGNIZED DRUG - OTHER] XX SCH ×2 (01:00→10:46)
[2018-10-06 05:41] VITALS: BP 112/71; PULSE 82; RESP 18
[2018-10-06] MEDS: LEVOFLOXACIN 500 MG TAB PO SCH (06:10)
[2018-10-06 07:14] VITALS: BP 108/68; PULSE 91; RESP 19
[2018-10-06] MEDS: INSULIN ASPART [NOVOLOG] 3 ML PEN SC SCH ×2 (07:25→12:44)
[2018-10-06 08:35] VITALS: BP 114/64; PULSE 95
[2018-10-06] MEDS: FISH OIL 1,000 MG CAP PO SCH (08:37)
[2018-10-06] MEDS: COLCHICINE 0.6 MG CAP PO SCH (08:37)
[2018-10-06] MEDS: MAGNESIUM OXIDE 400 MG TAB PO SCH (08:37)
[2018-10-06] MEDS: METOPROLOL 50 MG TAB PO SCH (08:37)
[2018-10-06] MEDS: AMIODARONE 200 MG TAB PO SCH (08:38)
[2018-10-06] MEDS: ENOXAPARIN 40 MG/0.4 ML SYG SC SCH (08:46)
[2018-10-06 11:06] VITALS: BP 111/69; PULSE 76; RESP 18
--- NOTE | 2018-10-06 12:13 | DS ---
Date/Time of Note Date/Time of Note DATE: 10/06/18 TIME: 12:11 Discharge Summary Admission/Discharge Info Admit Date/Time Sep 30, 2018 at 17:57 Discharge Date/Time Consults Dr Silvia Cesar Procedures CT Abdomen pelvis IMPRESSION: 1. Mild atelectasis at the lung bases posteriorly. 2. Small bilateral pleural effusions. 3. Moderate sized pericardial effusion with peripheral enhancement. This may indicate an infected pericardial effusion. 4. The cholecystostomy tube is now dislodged and present adjacent to the gallbladder. Abnormal gallbladder with thickening of the wall and surrounding edema. Mild periportal edema, nonspecific. 5. Horseshoe kidney. 6. Atherosclerosis. 7. Degenerative changes of the spine. 8. Otherwise unremarkable contrast enhanced CT scan of the abdomen and pelvis. CXR Mild atelectasis, effusion 2D echo Minimal pericardial effusion Chest x-ray #2 Mild effusion Venous Doppler bilaterally No DVT Hx of Present Illness 63-year-old gentleman admitted with fever weakness recently here in the ICU for cholecystitis/sepsis. Had a cholecystostomy tube placed and discharged on antibiotics with outpatient instructions. Hospital Course Evaluated/ managed for recurrent fever & abd pain. Cholecystitis treated; sp lap chol. stable for discharge from surgical standpoint. additionally seen by ID. no further antibiotics needed. Seen by cardiology in periop eval. also has a subacute vs chronic pericardial effusion. present echo shows minimal fluid. tap not indicated. Patient is stable and fit for discharge. 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 Addendum: remained here in hospital for asymptomatic SVT. better w cardizem yesterday am & adenosine later that evening. lytes/ troponin/ echo ok. recommend to continue bb/ K/Mag and follow up w Cardio 1-2wks. Levaquin was started after svt occured. picc/ cxr ok. he is cutting back on caffeine. In regards to his SVT, was recommended to maintain potassium around 4 and mag around 2. We actually started the patient on amiodarone. Patient is requested to follow-up with cardiology in 1 to 2 weeks. 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 Upon is negative. Venous Doppler does not show any DVT. Ac/ chr cholecystitis RA; hold dmards for 1-2wks Pericardial Effusion, subacute/ incidental; started colchicine Svt, unknown etiology. follow electrolytes as an outpatient. Started amiodarone. Dm Htn Metabolic syndrome Psoriasis P tobacco Home Meds Active Scripts Amiodarone Hcl* (Amiodarone Hcl*) 200 Mg Tablet, 200 MG PO BID for 14 Days, #30 TAB Prov:DIAMOND PEÑA MD 10/05/18 [Colchicine] 0.6 MG CAP No Conflict Check, 0.6 MG PO BID for 15 Days, #30 Prov:DIAMOND PEÑA MD 10/04/18 Magnesium Oxide* (Mag-Oxide*) 400 Mg Tablet, 400 MG PO BID for 10 Days, #20 TAB 1 Refill Prov:DIAMOND PEÑA MD 10/04/18 [id number] Hb* (Guaifenesin* DM Syrup) 120 Ml Syrup, 10 ML PO Q4H PRN for COUGH for 10 Days, #1 otc Prov:DIAMOND PEÑA MD 10/04/18 Potassium Chloride (Potassium Chloride) 20 Meq Packet, 40 MEQ PO DAILY for 14 Days, #15 PACKET Prov:DIAMOND PEÑA MD 10/04/18 Metoprolol Tartrate* (Lopressor*) 50 Mg Tab, 50 MG PO BID for 15 Days, #30 TAB Prov:DIAMOND PEÑA MD 10/04/18 Levofloxacin* (Levaquin*) 500 Mg Tablet, 500 MG PO DAILY@06 for 5 Days, TAB Prov:DIAMOND PEÑA MD 10/04/18 Docusate Sodium* (Colace*) 100 Mg Capsule, 100 MG PO Q12H PRN for .CONSTIPATION for 5 Days, CAP otc Prov:DIAMOND PEÑA MD 10/03/18 Hydrocodone/Acetaminophen ([place] 5-325 Tablet) 1 Each Tablet, 1 EACH PO Q6 for 7 Days, #30 TAB Prov:SAMIA NAPOLES MD 09/24/18 Reported Medications Betamethasone Dipropionate* (Betamethasone Dipropionate*) 0.05% - 45 Gm Crea m.gm., TOP BID apply to affected 09/19/18 [place]-3 Fatty Acids/Fish Oil (Fish Oil 1,000 mg Capsule) 1 Each Capsule, 1 CAP PO DAILY, CAP 09/19/18 Betamethasone Dipropionate* (Betamethasone Dipropionate*) 0.05% - 15 Gm Oint, 1 BID apply to affected area 09/19/18 Metformin Hcl* (Metformin Hcl*) 1,000 Mg Tablet, 1 TAB ORAL BID 09/19/18 Atorvastatin* (Atorvastatin*) 40 Mg Tablet, 1 TAB ORAL QHS 09/19/18 Acetaminophen (Acetaminophen) 500 Mg Tablet, 1 TAB ORAL Q6 PRN for MILD PAIN(1- 3)OR ELEVATED TEMP 09/19/18 Glipizide* (Glipizide*) 5 Mg Tablet, 1 TAB ORAL BID 09/19/18 Discontinued Reported Medications Etanercept (Enbrel Mini) 50 Mg/1 Ml Cartridge, 1 TAB SC weekly 09/19/18 Leflunomide* (Leflunomide*) 20 Mg Tablet, 1 TAB ORAL DAILY 09/19/18 Discontinued Scripts Metoprolol Tartrate* (Lopressor*) 25 Mg Tab, 25 MG PO BID for 30 Days, #60 TAB Prov:SAMIA NAPOLES MD 09/24/18 Metronidazole* (Flagyl*) 500 Mg Tablet, 500 MG PO Q8 for 14 Days, #42 TAB Prov:SAMIA NAPOLES MD 09/24/18 Ciprofloxacin Hcl* (Ciprofloxacin Hcl*) 500 Mg Tablet, 500 MG PO BID@06,18 for 14 Days, #28 TAB Prov:SAMIA NAPOLES MD 09/24/18 Follow-up Plan Appt PCP & rheumatology 1-2wks Dr Becki Vega 1wk. Dr Cesar 1-3wks. Primary Care Provider Not On Staff Doctor Time spent on discharge: < 30 minutes Pending Labs Laboratory Tests Test 10/05/18 12:30 10/05/18 17:52 10/05/18 20:57 10/06/18 06:20 Bedside 140 202 107 Glucose mg/dL (70-220) mg/dL (70-220) mg/dL (70-220) Sodium Level 134 mmol/L (135-14 4) Potassium 3.6 Level mmol/L (3.5-5. 1) Chloride Level 102 mmol/L (97-110 ) Carbon Dioxide 25 Level mmol/L (21-31) Anion Gap 7 (5-13) Blood Urea 10 Nitrogen mg/dl (7-20) Creatinine 0.55 mg/dl (0.61-1. 24) Est Glomerular > 60 Filtrat mL/min (>60) Rate mL/min Glucose Level 102 mg/dl (70-220) Calcium Level 8.4 mg/dl (8.4-10. 2) Test 10/06/18 06:21 10/06/18 07:47 10/06/18 11:51 White Blood 6.7 Count 10^3/ul (4.8-10 .8) Red Blood 4.19 Count 10^6/ul (4.70-6 .10) Hemoglobin 12.2 g/dl (14.0-18.0 ) Hematocrit 36.4 % (42.0-52.0) Mean 86.9 Corpuscular fl (82.0-101.0) Volume Mean 29.1 Corpuscular pg (29.0-33.0) Hemoglobin Mean 33.5 Corpuscular g/dl (32.0-37.0 Hemoglobin Conc ) ent Red Cell 12.4 Distribution % (11.5-14.5) Width Platelet Count 333 10^3/UL (140-41 5) Mean Platelet 12.2 Volume fl (7.4-10.4) Immature 0.400 Granulocytes % % (0.001-0.429) Neutrophils % 66.7 % (39.0-77.0) Lymphocytes % 21.5 % (15.0-51.0) Monocytes % 8.4 % (0.0-11.0) Eosinophils % 1.8 % (0.0-7.0) Basophils % 1.2 % (0.0-2.0) Nucleated Red 0.0 Blood Cells % /100WBC (0.0-0. 0) Immature 0.030 Granulocytes # 10^3/ul (0.0-0. 031) Neutrophils # 4.5 10^3/ul (1.6-7. 5) Lymphocytes # 1.4 10^3/ul (0.8-2. 9) Monocytes # 0.6 10^3/ul (0.3-0. 9) Eosinophils # 0.1 10^3/ul (0.0-0. 5) Basophils # 0.1 10^3/ul (0.0-0. 1) Nucleated Red 0.0 Blood Cells # 10^3/ul (0.0-0. 0) Bedside 90 149 Glucose mg/dL (70-220) mg/dL (70-220) DIAMOND PEÑA MD Oct 06, 2018 12:13
--- NOTE | 2018-10-06 16:08 | CONS ---
Assessment/Plan Assessment/Plan Hospital Course (Demo Recall) 1200 patient is alert feels good wants to go home no fevers overnight. WBC 6.7 no shift no bands BUN 10 creatinine 0.55 Antimicrobials: Levaquin Physical examination: Well-developed well-nourished elderly man who is alert in no distress head atraumatic normocephalic sclera nonicteric vehicle mucosa dry neck is supple chest rise symmetrical breath sounds diminished bases. Heart: S1-S2 abdomen soft bowel sounds present. Assessment: 1. Systemic inflammatory response syndrome with ongoing low-grade fevers and leukocytosis 2. Status post laparoscopic cholecystectomy 10/01/2018 3. Rheumatoid arthritis 4. LLL PNA 5. Arrhythmia Plan: Stable, will change Levaquin to Augmentin to avoid interaction with amiodarone Consultation Date/Type/Reason Admit Date/Time Sep 30, 2018 at 17:57 Initial Consult Date 09/30/18 Type of Consult id Date/Time of Note DATE: 10/06/18 TIME: 16:08 Exam/Review of Systems Exam Vitals Vital Signs Date Temp Pulse Resp B/P (MAP) Pulse Ox O2 O2 Flow FiO2 Time Delivery Rate 10/06/18 98.6 76 18 111/69 98 Room Air 11:06 (83) 10/06/18 2.0 07:30 Intake and Output 10/05/18 10/05/18 10/06/18 1515:00 23:00 07:00 IntakeIntake Total 250 ml 360 ml OutputOutput Total 250 ml 200 ml 900 ml BalanceBalance 0 ml 160 ml -900 ml Results Result Diagram: 10/06/18 0621 10/06/18 0620 Results 24hrs Laboratory Tests Test 10/05/18 17:52 10/05/18 20:57 10/06/18 06:20 10/06/18 06:21 Bedside Glucose 202 107 Sodium Level 134 L Potassium Level 3.6 Chloride Level 102 Carbon Dioxide Level 25 Anion Gap 7 Blood Urea Nitrogen 10 Creatinine 0.55 L Est Glomerular Filtrat > 60 Rate mL/min Glucose Level 102 Calcium Level 8.4 White Blood Count 6.7 Red Blood Count 4.19 L Hemoglobin 12.2 L Hematocrit 36.4 L Mean Corpuscular Volume 86.9 Mean Corpuscular 29.1 Hemoglobin Mean Corpuscular 33.5 Hemoglobin Concent Red Cell Distribution 12.4 Width Platelet Count 333 Mean Platelet Volume 12.2 H Immature Granulocytes % 0.400 Neutrophils % 66.7 Lymphocytes % 21.5 Monocytes % 8.4 Eosinophils % 1.8 Basophils % 1.2 Nucleated Red Blood 0.0 Cells % Immature Granulocytes # 0.030 Neutrophils # 4.5 Lymphocytes # 1.4 Monocytes # 0.6 Eosinophils # 0.1 Basophils # 0.1 Nucleated Red Blood 0.0 Cells # Test 10/06/18 07:47 10/06/18 11:51 Bedside Glucose 90 149 Medications Medication Current Medications IV Flush (NS 3 ml) 3 ml PER PROTOCOL IV ; Start 09/30/18 at 18:00 Ondansetron HCl (Zofran Inj) 4 mg Q6H PRN IV NAUSEA/VOMITING; Start 09/30/18 at 18:00 Acetaminophen (Tylenol Tab) 650 mg Q6H PRN PO .PAIN 1-3 OR TEMP Last admini stered on 10/04/18at 20:28; Admin Dose 650 MG; Start 09/30/18 at 18:00 Acetaminophen/ Hydrocodone Bitart ([place] (5/325)) 1 tab Q6H PRN PO .MOD PAIN 4- 6 Last administered on 10/02/18at 20:24; Admin Dose 1 TAB; Start 09/30/18 at 18:00 Morphine Sulfate (morphine) 2 mg Q4H PRN IV .SEVERE PAIN 7-10 Last administered on 10/02/18at 06:13; Admin Dose 2 MG; Start 09/30/18 at 18:00 Docusate Sodium (Colace) 100 mg Q12H PRN PO .CONSTIPATION; Start 09/30/18 at 18:00 Magnesium Hydroxide (Milk Of Mag) 30 ml DAILY PRN PO .CONSTIPATION; Start 09/30/18 at 18:00 Lorazepam (Ativan) 0.5 mg Q6H PRN IV ANXIETY; Start 09/30/18 at 18:00 Hydralazine HCl (Apresoline) 10 mg Q6H PRN IV ELEVATED BLOOD PRESSURE; Start 09/30/18 at 18:00 Nitroglycerin (Nitroglycerin (Sl Tab) 0.4 Mg) 1 tab Q5M PRN SL ANGINA; Start 09/30/18 at 18:00 Miscellaneous Information 1 tab weekly XX ; Start 09/30/18 at 18:00; Status UNV Fish Oil (Fish Oil) 1,000 mg DAILY PO Last administered on 10/06/18 08:37; Admin Dose 1,000 MG; Start 10/01/18 at 09:00 Miscellaneous Information 1 ea NOTE XX ; Start 09/30/18 at 19:30 Glucose (Glutose) 15 gm Q15M PRN PO DECREASED GLUCOSE; Start 09/30/18 at 19:30 Glucose (Glutose) 22.5 gm Q15M PRN PO DECREASED GLUCOSE; Start 09/30/18 at 19:30 Dextrose (D50w Syringe) 25 ml Q15M PRN IV DECREASED GLUCOSE; Start 09/30/18 at 19:30 Dextrose (D50w Syringe) 50 ml Q15M PRN IV DECREASED GLUCOSE; Start 09/30/18 at 19:30 Glucagon (Glucagen) 1 mg Q15M PRN IM DECREASED GLUCOSE; Start 09/30/18 at 19:30 Glucose (Glutose) 15 gm Q15M PRN BUCCAL DECREASED GLUCOSE; Start 09/30/18 at 19:30 Insulin Aspart (Novolog Insulin Pen) NOVOLOG *MILD* ALGORI... AC MEALS AND BEDTIME SC Last administered on 10/06/18at 12:44; Admin Dose 1 UNIT; Start 10/01/18 at 17:25 Levalbuterol (Xopenex Neb) 1.25 mg Q4H RESP THERAPY PRN HHN SHORTNESS OF BREATH Last administered on 10/01/18at 21:47; Admin Dose 1.25 MG; Start 10/01/18 at 21:30 Ipratropium [place] (Atrovent 0.02% (Neb)) 0.5 mg Q4H RESP THERAPY PRN HHN SHORTNESS OF BREATH Last administered on 10/01/18at 21:47; Admin Dose 0.5 MG; Start 10/01/18 at 21:30 Miscellaneous Information (*Order Clarification Bulletin) ENBREL IS NON FORMULARY..PLEASE CONSIDER... Q8H XX ; Start 10/03/18 at 09:00 Guaifenesin/ Dextromethorphan (Robitussin Dm Liquid Cup) 10 ml Q4H PRN PO COUGH; Start 10/03/18 at 17:00 Metoprolol Tartrate (Lopressor) 50 mg BID PO Last administered on 10/06/18at 08:37; Admin Dose 50 MG; Start 10/03/18 at 21:00 Colchicine (Colchicine) 0.6 mg BID PO Last administered on 10/06/18 08:37; Admin Dose 0.6 MG; Start 10/03/18 at 21:00 Levofloxacin (Levaquin) 500 mg DAILY@06 PO Last administered on 10/06/18 06:10; Admin Dose 500 MG; Start 10/04/18 at 12:00 Magnesium Oxide (Mag-Ox 400) 400 mg BID PO Last administered on 10/06/18 08:37; Admin Dose 400 MG; Start 10/04/18 at 21:00 Enoxaparin Sodium (Lovenox) 40 mg DAILY SC Last administered on 10/06/18 08:46; Admin Dose 40 MG; Start 10/05/18 at 21:00 Amiodarone HCl (Cordarone) 200 mg BID PO Last administered on 10/06/18 08:38; Admin Dose 200 MG; Start 10/05/18 at 13:30 CHENG MORIN NP Oct 06, 2018 16:08
[2018-10-06] MEDS ORDERED: AMOXICILLIN/CLAV 875 MG TAB PO SCH (21:00)
== END 2018-10-06 15:25 | disposition home or self-care (01) | DRG 854 ==
LOC: E/R 15:51 → PP2 17:57 → TEL 10-01 07:15
PROVIDERS: ADMIT Hospitalist; ATTEND Internal Medicine
PROC: 0FT44ZZ Resection of Gallbladder, Percutaneous Endoscopic Approach (ICD-10-PCS; principal; 2018-10-01 11:00)
DX: A41.9 Sepsis, unspecified organism (principal); T85.628A Displacement of other specified internal prosthetic devices, implants and grafts, initial encounter; K81.0 Acute cholecystitis; I47.1 Supraventricular tachycardia; I31.3 Pericardial effusion (noninflammatory); J98.11 Atelectasis; J90 Pleural effusion, not elsewhere classified; K81.1 Chronic cholecystitis; Q63.1 Lobulated, fused and horseshoe kidney; M06.9 Rheumatoid arthritis, unspecified; L40.9 Psoriasis, unspecified; I10 Essential (primary) hypertension
CPT/HCPCS: 36415; 71045; 74177; 80048; 80053; 80061; 80076; 80202; 81001; 82565; 82962; 83036; 83605; 83735; 84100; 84439; 84443; 84484; 84520; 85025; 85610; 85730; 87070; 87081; 88304; 93005; 93308; 93970; 94664; 96365; 96368; J0153; J0690; J0692; J0696; J1650; J1815; J2250; J2270; J2370; J2405; J2543; J2795; J3010; J3370; J3475; J7030; J7040; Q9967